=== PATIENT | female | born 1945 | race Caucasian/White ===

== ENCOUNTER → 2023-09-26 | Outpatient (CLI) | payer MEDICARE, BC, SELFPAY ==
--- NOTE | 2023-09-26 14:46 | VDLE_ITS ---
Reason For Study: Rt Leg Swelling RIGHT LEFT GSV is normal. CFV is compressible, spontaneous, phasic, CFV is compressible, spontaneous, phasic, competent, and demonstrates normal competent and demonstrates normal augmentation. augmentation. FV is compressible, spontaneous, phasic, competent and demonstrates normal augmentation. POP V is compressible, spontaneous, phasic, competent and demonstrates normal augmentation. T/P Trunk is compressible. PTV is compressible. RT PerV is compressible. Procedure This is a venous duplex using B-mode, color flow and spectral Doppler. Exam performed in department. A preliminary report was called and/or faxed to Dr. Yu. VL/Venous Duplex US, Unilateral Interpretation Summary Deep veins of the right lower extremity are patent and compressible segmentally . There is no evidence of right lower extremity deep vein thrombosis. The right great sapheno us vein appears patent and compressible segmentally. Ordering Physician: Yolis Yu Referring Physician: Yolis Yu Performed By: Mary Lou Borwning RDCS, RVT
== END | disposition home or self-care (01) ==
LOC: CVS 14:42
PROVIDERS: Referring Provider Internal Medicine; Visit Provider Internal Medicine
DX: M79.89 Other specified soft tissue disorders (principal)
CPT/HCPCS: 93971

== ENCOUNTER 2023-11-16 12:29 | Emergency (ER) | payer MEDICARE, BC, SELFPAY ==
[2023-11-16 12:29] VITALS: BP 135/68; PULSE 62; RESP 19; TEMP 36.1; O2SAT 99
--- NOTE | 2023-11-16 13:40 | EKG12_ITS ---
Test Reason : FALL Blood Pressure : / mmHG Vent. Rate : 064 BPM Atrial Rate : 064 BPM P-R Int : 168 ms QRS Dur : 174 ms QT Int : 496 ms P-R-T Axes : 044 -21 117 degrees QTc Int : 511 ms Normal sinus rhythm Left bundle branch block Abnormal ECG Confirmed by JOANN QUEEN, TATE ([id number]), editorial intern PERFECTO BALLARD ([id number]) on 11/21/2023 8:41:35 AM Referred By: AR Confirmed By:CAROLYN DAVID MD
--- NOTE | 2023-11-16 13:40 | CT_ITS ---
STUDY: CT CHEST WITHOUT CONTRAST REASON FOR EXAM: Female, 78 years old. left rib pain following a fall. RADIATION DOSAGE (If Supplied By Facility): CTDIvol = ( 11.52 ) mGy, DLP = ( 423.05 ) mGycm TECHNIQUE: Transaxial imaging was performed without the administration of intravenous contrast material. Multiplanar coronal and sagittal images were reformatted. Individualized dose optimization techniques were used for this CT. COMPARISON: No relevant priors. FINDINGS: CHEST Minimal degree of increased linear markings at the lung bases suggestive of a linear atelectasis and/or scarring. There is no demonstrated pleural abnormality. A left-sided dual-chamber pacemaker is seen. There are calcifications of the coronary arteries. Normal mediastinum. Normal hilar regions. Normal unenhanced pulmonary arteries. There is atherosclerotic calcification of the aortic arch. There are multi-level degenerative changes of the thoracic spine. Gallstones. Small hiatal hernia. CT/Chest without Contrast IMPRESSION: Mild degree of increased markings at the lung bases suggestive of scarring. No fracture is seen. Electronically Signed: Ryan Green MD at 14:51 EDT ,
--- NOTE | 2023-11-16 13:41 | ED.VIS.FALL ---
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 She states she was getting outpatient testing such as ultrasound and mammogram. She stopped a central registration, lost her balance, and fell onto her left side. She needed help getting up. She denies any prodromal chest pain or shortness of breath, but now has left-sided anterior rib pain that is worse with movement. While she hit her left elbow and her left knee, she was able to stand and ambulate and she is able to move her elbow without pain. She states that she had episodes like this where she would fall prior to getting her pacemaker. She has not had problems since. She denies any head injury, no other injury except for left-sided rib pain. She states that she splits her time between here and [place]. She lived here until about 2015 when she moved and now she splits time to come back and visit family. She sees Dr. Yu when she is here in the area who had ordered her outpatient testing. PFSH [facility] Home Medications ?Medication ?Instructions ?Recorded ?Last Taken ?Type elahqojxqoxuxr-bkoxeusjmuc-gxxshfqfucsm 1 ea PO 02/20/13 04/09/13 History calc. 600 mg-2 mg-6 mg tablet (Metafolbic Plus) amlodipine 5 mg tablet 5 mg PO DAILY 02/20/13 04/09/13 History aspirin 81 mg chewable tablet 81 mg PO DAILY@0800 02/20/13 01/12/14 History lisinopril 20 mg tablet 20 mg PO BID 02/20/13 01/12/14 History docosahexaenoic acid 200 mg 100 mg PO DAILY 03/07/13 04/09/13 History capsule (Algal [place]-3 DHA) ergocalciferol (vitamin D2) 10 mcg 1 unit PO DAILY 03/07/13 Unknown History (400 unit) tablet flaxseed oil 1,300 mg-omega 3,6,9 1 ea PO DAILY 03/07/13 Unknown History 845 mg-117 mg-117 mg capsule vitamin B complex 1 ea PO DAILY 03/07/13 04/09/13 History amlodipine 5 mg tablet 5 mg PO DAILY 04/09/13 01/12/14 History carvedilol 6.25 mg tablet 6.25 mg PO BID 04/09/13 01/12/14 History clopidogrel 75 mg tablet 75 mg PO DAILY 04/09/13 01/12/14 History simvastatin 40 mg tablet 40 mg PO QHS 01/14/14 Unknown History Allergy/AdvReac Type Severity Reaction Status Date / Time hydrochlorothiazide Allergy Unknown Verified 03/07/13 13:27 sulfamethoxazole (From Allergy Hives Verified 02/20/13 13:52 Bactrim) trimethoprim (From Bactrim) Allergy Hives Verified 02/20/13 13:52 Social History Smoking Status: Never smoker ROS ROS ED ROS Narrative Constitutional: No fever, no chills. HEENT: No sore throat. No neck pain. No loss of vision. No rhinorrhea. No hitting of head or loss of consciousness. Cardiovascular: Left-sided anterior to lateral rib pain/chest pain. No palpitations. No pedal edema. Respiratory: No cough, no shortness of breath. Abdominal: No abdominal pain. No nausea. No vomiting. Genitourinary: No dysuria. No hematuria. Musculoskeletal: No myalgias. Hit left elbow and left knee, but no pain currently. Neurologic: No headaches. No dizziness. No lightheadedness. No syncope. Skin: No rash. No change in color. Psychiatric: No depression. No anxiety. EXAM Physical Exam Narrative Exam Narrative: GCS 15. ABCs are intact. Head is normocephalic and atraumatic. PERRL, EOMI. Neck soft and supple without vertebral point tenderness or bony step-off. Cardiovascular examination reveals a regular rate and rhythm. Lungs are clear to auscultation bilaterally. There is mild tenderness to palpation on the left lower anterior to lateral ribs, no crepitance. Abdomen is soft and nontender with normoactive bowel sounds. Musculoskeletal examination reveals no radial head tenderness on the left, flexion extension and pronation and supination of left elbow intact. No noted injury or dislocation. Left knee has flexion and and extension mechanism intact as well. Palpable dorsalis pedis pulse distally. Const Vital Signs: 11/16/23 12:29 11/16/23 14:29 11/16/23 14:51 Temperature 97.0 F L 97.5 F L Temperature Source Temporal Oral Pulse Rate 62 63 Respiratory Rate 19 H 19 H Respiratory Effort Normal Non-Labored Respiratory Depth Normal Respiratory Pattern Normal Blood Pressure 135/68 H 127/66 H Blood Pressure Mean 90 86 Pulse Ox 99 97 97 Oxygen Delivery Method Room Air Room Air Room Air MDM MDM MDM Narrative Medical decision making narrative: Differential diagnosis includes but not limited to dysrhythmia causing fall, but the patient does have a pacemaker in place. The pacemaker will be interrogated. EKG was obtained and interpreted by myself independently as normal sinus rhythm at 64 bpm without ectopy or acute ST changes. There is noted left bundle branch block. With concern for rib fracture, CT of the thorax will be obtained to rule out rib fracture, and pneumothorax. I discussed x-rays with her of the elbow and the knee, but she has no pain and she has full range of motion. I will also obtain baseline laboratories including CBC and CMP. I reviewed her laboratory work and she has normal white count of 6.2 with hemoglobin normal at 12.9, hematocrit 37.9, platelet count normal at 224. Electrolyte panel was grossly unremarkable with a normal sodium of 137 and potassium normal at 3.9, glucose is elevated at 109 with anion gap low at 3. AST is low at 13 which I think is nonspecific, normal alk phos of 115. I reviewed the radiology report of the CT of the chest which shows no evidence of rib fracture or pneumothorax. At this point in time, I feel she has more of a contusion of her rib. I did offer her Tylenol but she declined. I discussed the patient with the pacemaker outbound telemarketing representative after interrogation, and there have been no significant events today that would have caused her fall. She will be discharged to follow-up with her stewardesses teacher in [place] and her primary care physician here as well. Return instructions to the emergency department were reviewed. Disposition is discharged home, in stable condition. History & Record Review Discussion w/independent historian: Patient Additional record(s) reviewed:: Prior ED visit (Noncontributory to current chief complaint) Lab Data Attestation: I reviewed the patient's lab results. Labs: Laboratory Results - last 24 hr 11/16/23 13:50 WBC 6.2 RBC 3.99 L Hgb 12.9 Hct 37.9 MCV 95.0 MCH 32.3 H MCHC 34.0 RDW Std Deviation 41.2 RDW Coeff of Marie 11.9 Plt Count 224 MPV 9.3 Immature Gran % (Auto) 0.600 Neut % (Auto) 64.5 Lymph % (Auto) 24.4 [place] % (Auto) 7.9 Eos % (Auto) 1.8 Baso % (Auto) 0.8 Absolute Neuts (auto) 4.0 Absolute Lymphs (auto) 1.51 Nucleated RBC % 0 Sodium 137 Potassium 3.9 Chloride 104 Carbon Dioxide 30.0 Anion Gap 3 L BUN 12 Creatinine 0.54 L Est GFR (MDRD) Af Amer 142 Est GFR (MDRD) Non-Af 117 BUN/Creatinine Ratio 22.4 H Glucose 109 H Calcium 9.8 Total Bilirubin 0.30 AST 13 L ALT 24 Alkaline Phosphatase 115 Total Protein 7.0 Albumin 3.8 Globulin 3.2 Albumin/Globulin Ratio 1.2 Radiography Diagnostic Testing: Clinical Impression(s) from Imaging Studies Chest CT 11/16/23 13:40 IMPRESSION: Mild degree of increased markings at the lung bases suggestive of scarring. No fracture is seen. Electronically Signed: Ryan Green MD at 14:51 EDT , Discharge Plan Triage Chief Complaint: Fall ED Provider: Jesus Ross Dx/Rx/DC Orders Clinical Impression: Fall, Contusion of rib on left side, Pacemaker Instructions: ED Chest Wall Contusion, ED Fall with Uncertain Cause Prescriptions: No Action lisinopril 20 MG tablet 20 mg PO BID Patient Comments: BLOOD PRESSURE/HEART amlodipine 5 MG tablet 5 mg PO DAILY Patient Comments: BLOOD PRESSURE/HEART yfugryoxjw-ekmrgfb-P-mefolate [Metafolbic Plus] 1 EACH tablet 1 ea PO Patient Comments: SUPPLEMENT aspirin 81 MG tablet,chewable 81 mg PO DAILY@0800 Patient Comments: ANTIPLATELET docosahexaenoic acid [Algal [place]-3 DHA] 200 MG capsule 100 mg PO DAILY Patient Comments: SUPPLEMENT ergocalciferol (vitamin D2) 400 UNIT tablet 1 unit PO DAILY Patient Comments: VITAMIN vitamin B complex 1 EACH capsule 1 ea PO DAILY Patient Comments: VITAMIN flaxseed oil-omega 3,6,9 1 EACH capsule 1 ea PO DAILY carvedilol 6.25 MG tablet 6.25 mg PO BID Patient Comments: HEART/BLOOD PRESSURE clopidogrel 75 MG tablet 75 mg PO DAILY Patient Comments: ANTIPLATELET amlodipine 5 MG tablet 5 mg PO DAILY Patient Comments: HEART/BLOOD PRESSURE simvastatin 40 MG tablet 40 mg PO QHS Primary Care Provider: Yolis Yu Referrals: Yolis Yu, [Primary Care Provider] - 1-2 Days if not improving Activity Restrictions/Additional Instructions: Take Tylenol as needed for pain. Return with increased difficulty breathing, new or worsening symptoms. Print Language: Kiswahili Disposition Disposition: Home, Self Care
[2023-11-16 13:58] LABS: Absolute Lymphocyte Count 1.51 X10^3/uL (0.83-4.51); Basophil# 0.05 X10^3/uL; Basophil% 0.8 % (0-1); Eosinophil# 0.11 X10^3/uL; Eosinophils% 1.8 % (0-5); Hematocrit 37.9 % (37-47); Hemoglobin 12.9 g/dL (12.0-15.0); Lymphocyte # 1.51 X10^3/ul (0.83-4.51); Lymphocyte % 24.4 % (19-41); Mean Corpuscular Hgb 32.3 pg (27.0-32.0); Mean Platelet Vol. 9.3 fl (6.2-12.0); Monocyte# 0.49 X10^3/uL; Monocyte% 7.9 % (0-10); NRBC Flagged by Analyzer 0 % (0-5); Neutrophil # 3.99 X10^3/uL (2.7-7.7); Neutrophil % 64.5 % (47-70); Platelet Count 224 K/mm3 (150-450); RBC Distribution Width CV 11.9 % (11.6-14.6); RBC Distribution Width SD 41.2 fl (35.1-43.9); Red Blood Count 3.99 M/mm3 (4.2-5.4); White Blood Count 6.2 K/mm3 (4.4-11.0)
[2023-11-16 14:18] LABS: ALB/GLOB Ratio 1.2 RATIO (0.9-2.4); AST(SGOT) 13 U/L (15-37); Alanine Aminotransfer ALT/SGPT 24 U/L (13-56); Albumin, Serum 3.8 g/dL (3.2-5.0); Alkaline Phosphatase 115 U/L (45-117); Anion Gap 3 (5-15); BUN 12 mg/dL (7-18); BUN/Creat Ratio 22.4 RATIO (10-20); Calcium,Total 9.8 mg/dL (8.5-10.1); Chloride 104 mmol/L (98-107); Creatinine, Serum 0.54 mg/dL (0.55-1.02); EST Glomerular Filtration Rate 117 mL/min (>60); Est Glom Filt Rate - Afr Amer 142 mL/min (>60); Globulin 3.2 g/dL (2.2-4.2); Glucose 109 mg/dL (74-106); Potassium 3.9 mmol/L (3.5-5.1); Sodium Level 137 mmol/L (136-145)
[2023-11-16 14:29] VITALS: BP 127/66; PULSE 63; RESP 19; TEMP 36.4; O2SAT 97
[2023-11-16 14:51] VITALS: O2SAT 97
[2023-11-16 15:41] VITALS: BP 124/70; PULSE 61; RESP 16; TEMP 36.7; O2SAT 100
== END 2023-11-16 15:42 | disposition home or self-care (01) ==
PROVIDERS: Emergency Provider Emergency Medicine; PCP Internal Medicine; Visit Provider Emergency Medicine
DX: S20.212A Contusion of left front wall of thorax, initial encounter (principal); W01.0XXA Fall on same level from slipping, tripping and stumbling without subsequent striking against object, initial encounter; Y93.89 Activity, other specified; Y92.238 Other place in hospital as the place of occurrence of the external cause; Z95.0 Presence of cardiac pacemaker; I65.23 Occlusion and stenosis of bilateral carotid arteries; K76.0 Fatty (change of) liver, not elsewhere classified; Z12.31 Encounter for screening mammogram for malignant neoplasm of breast
CPT/HCPCS: 71250; 76705; 77063; 77067; 80053; 85025; 93005; 93880; 99282; A4216

== ENCOUNTER → 2023-11-16 | Outpatient (CLI) | payer MEDICARE, BC, SELFPAY ==
--- NOTE | 2023-11-16 10:00 | US_ITS ---
STUDY: ABDOMINAL ULTRASOUND - RIGHT UPPER QUADRANT REASON FOR VISIT: Female, 78 years old FATTY LIVER TECHNIQUE: Ultrasound evaluation of the right upper quadrant was performed with real-time and static fajardo-scale imaging. TECHNICAL QUALITY: Adequate. COMPARISON: Comparison is made with prior study dated March 01, 2013. FINDINGS: Liver: The liver measures 14.5 cm. There is increased echogenicity consistent with fatty infiltration. The bile ducts are within normal limits. There is hepatic color flow. The direction of portal flow is hepatopetal. There is no demonstrated mass lesion. Gallbladder: Normal distended gallbladder. The gallbladder wall measures 1.1 mm. There is a negative sonographic Mclaughlin''s sign. There is no pericholecystic fluid. There are multiple echogenic structures within the gallbladder, consistent with multiple gallstones. Common Bile Duct (C.B.D.): The common bile duct measures 3.4 mm. Pancreas: Normal size of the head, body and tail of the pancreas. There is increased echogenicity of the pancreas. 2 simple cysts are seen. The larger cyst measures 1.2 cm x 0.8 cm x 0.5 cm. Right Kidney: Normal size of the right kidney. The right kidney measures 9.8 cm x 5.3 cm x 4.5 cm. Normal renal cortex. The right cortex measures 1 cm. There is a 6 mm x 6 mm x 5.5 mm cyst in the inferior pole. There is no right hydronephrosis. US/Abdomen Limited IMPRESSION: Fatty infiltration of the liver. Small pancreatic cysts. Multiple gallstones. Electronically Signed: Ryan Green MD at 12:34 EDT ,
--- NOTE | 2023-11-16 10:01 | CDU_ITS ---
Reason For Study: Carotid Stenosis Rt. Velocities/BP Lt. Velocities/BP Prox CCA 60.1/10.2 cm/sec. Prox CCA 86.3/17.6 cm/sec. Mid CCA 59.3/14.8 cm/sec. Mid CCA 83.9/16.3 cm/sec. Dist CCA 60.7/17.3 cm/sec. Dist CCA 59.3/21.2 cm/sec. Prox ICA 40.1/11.0 cm/sec. Prox ICA 54.4/16.3 cm/sec. Mid ICA 70.5/18.4 cm/sec. Mid ICA 75.5/27.5 cm/sec. Dist ICA 71.4/14.5 cm/sec. Dist ICA 62.6/21.1 cm/sec. Rt. ICA/CCA = 1.20. Lt. ICA/CCA = 0.90. Prox ECA 93.9/12.3 cm/sec. Prox ECA 69.1/5.6 cm/sec. Rt. Vert. 50.7/14.4 cm/sec. Lt. Vert. 16.3/0.0 cm/sec. Right Extracranial There is homogeneous, smooth atherosclerotic plaque noted in the right common carotid artery. There is heterogeneous, irregular atherosclerotic plaque noted in the right internal carotid artery. There is homogeneous, smooth atherosclerotic plaque noted in the right external carotid artery. Antegrade flow is noted in the right vertebral artery. Left Extracranial There is intimal thickening but no significant atherosclerotic plaque noted in the left common carotid artery. There is heterogeneous, irregular atherosclerotic plaque noted in the left internal carotid artery. There is homogeneous, smooth atherosclerotic plaque noted in the left external carotid artery. Antegrade flow is noted in the left vertebral artery. Procedure Carotid Duplex [id number]. This is a Carotid Duplex examination using B-mode, color flow and specral Doppler. Exam performed in department. VL/Carotid Duplex Ultrasound Interpretation Summary Mild (<50%) stenosis right extracranial internal carotid. Mild (<50%) stenosis left extracranial internal carotid. Patent and antegrade vertebrals bilaterally. Ordering Physician: Yolis Yu Referring Physician: Yolis Yu Performed By: Gabi Goodman RVT, RDCS and Student
--- NOTE | 2023-11-16 12:02 | BI_ITS ---
MAMMOGRAPHY - BILATERAL SCREENING REASON FOR EXAM: Female, 78 years old. Routine annual screening examination. PERTINENT HISTORY: Non-contributory. TECHNIQUE: Digital bilateral breast antonio (3D mammographic acquisition) in the CC and MLO projections. 2-D mediolateral oblique (MLO) and craniocaudad (CC) views of both breasts were obtained. CAD: Full Field Digital Mammography with Computer Added Detection was performed. COMPARISON: Comparison is made with prior outside examination dated June 22, 2022. FINDINGS: Breast Composition: There are scattered areas of fibroglandular density. There are no dominant masses or suspicious calcifications. Stable 1.1 cm x 1.9 cm heterogeneous nodule containing fat in the the upper lateral aspect of the right breast. This may represent an hamartoma. No other significant abnormalities are identified. There has been no significant change since the prior study. BI/SCRN MAMM (CAD)W/ANTONIO BILAT IMPRESSION: Stable bilateral screening mammogram. Yearly follow-up mammogram recommended. (A) ASSESSMENT CATEGORY: Approximately 10% of breast cancers are not detected by mammography. A normal mammogram should not delay biopsy of a clinically suspicious abnormality. [id number] Electronically Signed: Ryan Green MD at 9:35 EDT ,
== END | disposition home or self-care (01) ==
PROVIDERS: PCP Internal Medicine; Referring Provider Internal Medicine; Visit Provider Internal Medicine
DX: I65.23 Occlusion and stenosis of bilateral carotid arteries (principal); K76.0 Fatty (change of) liver, not elsewhere classified; Z12.31 Encounter for screening mammogram for malignant neoplasm of breast
CPT/HCPCS: 76705; 77063; 77067; 93880

== ENCOUNTER 2024-05-08 16:00 | Inpatient (IN) | payer MEDICARE, BC, SELFPAY ==
[2024-05-08 16:01] VITALS: BP 152/84; PULSE 94; RESP 18; TEMP 37.1; O2SAT 100; BMI 26.2
[2024-05-08 16:42] LABS: Absolute Lymphocyte Count 1.51 X10^3/uL (0.83-4.51); Absolute Neutrophil Count 14.8 X10^3/uL (2.0-7.7); Basophil# 0.07 X10^3/uL; Basophil% 0.4 % (0-1); Eosinophil# 0.02 X10^3/uL; Eosinophils% 0.1 % (0-5); Hemoglobin 13.2 g/dL (12.0-15.0); Lymphocyte # 1.51 X10^3/ul (0.83-4.51); Lymphocyte % 8.4 % (19-41); Mean Corp Hgb Conc 34.7 g/dL (32-36); Mean Corpuscular Hgb 31.8 pg (27.0-32.0); Mean Corpuscular Volume 91.6 fL (81-99); Mean Platelet Vol. 8.7 fl (6.2-12.0); Monocyte# 1.41 X10^3/uL; Monocyte% 7.9 % (0-10); NRBC Flagged by Analyzer 0 % (0-5); Neutrophil # 14.84 X10^3/uL (2.7-7.7); Neutrophil % 82.6 % (47-70); Platelet Count 266 K/mm3 (150-450); RBC Distribution Width CV 12.7 % (11.6-14.6); RBC Distribution Width SD 42.2 fl (35.1-43.9); Red Blood Count 4.15 M/mm3 (4.2-5.4)
--- NOTE | 2024-05-08 16:56 | EDS_ITS ---
HPI History of Present Illness Chief Complaint: Abd Pain Informant: patient and family Narrative Narrative: 78-year-old female presenting to the emergency room for abdominal pain. Patient states for the past 3 days she has had pain particularly at night in the right lower aspect of her abdomen. She states that today she has not had which of an appetite but did have some water. She notes she has been having bowel movements. No vomiting. She notes she has had a hysterectomy but denies any other surgeries. She notes a history of gallstones but denies prior cholecystectomy. she notes subjective fever. She notes that her abdomen feels bloated. Today the abdomen is been hurting consistently throughout the day. Pain is nonradiating. [facility] Medical History (Updated 05/08/24 @ 21:[address] Cristobal Villalta MD) Pacemaker (06/10/23) Anemia Thyroid nodule Type 2 diabetes mellitus without complications Hyponatremia Anxiety KEVIN (obstructive sleep apnea) Second degree AV block LBBB (left bundle branch block) Carotid stenosis Fatty liver Gallstones Osteoporosis Paresthesia Memory loss HTN (hypertension) Chest pain CAD (coronary artery disease) Home Medications ?Medication ?Instructions ?Recorded ?Last Taken ?Type aspirin 81 mg chewable tablet 81 mg PO DAILY@0800 02/20/13 01/12/14 History carvedilol 6.25 mg tablet 6.25 mg PO BID 04/09/13 01/12/14 History cholecalciferol (vitamin D3) 25 25 mcg PO QDAY 01/16/24 Unknown History mcg (1,000 unit) capsule ezetimibe 10 mg tablet 10 mg PO DAILY 01/16/24 Unknown History telmisartan 80 mg tablet 80 mg PO DAILY 01/16/24 Unknown History amlodipine 5 mg tablet 5 mg PO DAILY 05/08/24 Unknown History flaxseed oil-omega 3,6,9-fatty 1 cap PO DAILY 05/08/24 Unknown History acids 1,300 mg-670 mg-155 mg capsule Allergy/AdvReac Type Severity Reaction Status Date / Time hydrochlorothiazide Allergy Unknown Verified 05/08/24 16:01 sulfamethoxazole (From Allergy Hives Verified 05/08/24 16:01 Bactrim) trimethoprim (From Bactrim) Allergy Hives Verified 05/08/24 16:01 atorvastatin (From Lipitor) AdvReac Severe myalgia Verified 05/08/24 16:01 meloxicam AdvReac Severe Dizziness Verified 05/08/24 16:01 Family History no significant family his Surgical History (Updated 05/08/24 @ 17:[address] David Cornell DO) H/O: hysterectomy Social History Smoking Status: Never smoker alcohol intake: never substance use type: does not use ROS ROS ED Constitutional Constitutional ED: Reports fever(s) and subjective; Denies chills or weight loss Eyes Eyes: Denies change in vision or diplopia ENT ENT ED: Denies ear pain, rhinorrhea or sore throat Cardiovascular Cardiovascular: Denies chest pain, orthopnea, palpitations or racing heartbeat Respiratory/Chest Respiratory/Chest: Denies cough, dyspnea or orthopnea Gastrointestinal Gastrointestinal: Reports other Details: Anorexia ; Denies constipation, diarrhea, nausea or vomiting Genitourinary Genitourinary ED: Denies dysuria, hematuria or urinary frequency Musculoskeletal Musculoskeletal: Denies arthralgias or myalgias Integumentary Denies abscess or rash Neurologic Neurologic: Denies headache(s) or weakness Psychiatric Psychiatric: Denies anxiety, depression, suicidal ideation or suicidal thoughts Endocrine Endocrinology: Denies polydipsia, polyphagia or polyuria Allergic/Immunologic Allergic/Immunologic ED: Denies mouth swelling, tongue swelling or urticaria EXAM Physical Exam Const Vital Signs: 05/08/24 16:01 05/08/24 18:01 05/08/24 20:00 Temperature 98.7 F Temperature Source Oral Pulse Rate 94 98 97 Respiratory Rate 18 16 18 Blood Pressure 152/84 H 140/75 H 145/77 H Blood Pressure Mean 106 96 99 Pulse Ox 100 99 98 Oxygen Delivery Method Room Air Room Air 05/08/24 22:00 Temperature Temperature Source Pulse Rate 89 Respiratory Rate 18 Blood Pressure 125/61 H Blood Pressure Mean 82 Pulse Ox 97 Oxygen Delivery Method Room Air Positive well nourished and well developed General Appearance ED: well developed and NAD HEENT Reports normocephalic, head/scalp atraumatic and moist mucous membranes Eyes PERRL and EOMs intact bilaterally Neck no lymphadenopathy, supple and no JVD Resp normal respiratory effort and clear to auscultation bilaterally Cardio regular rate, regular rhythm and no murmurs GI Inspection: abdominal distention Auscultation: hypoactive bowel sounds Palpation: soft and tender RLQ; Negative for guarding or rebound tenderness present Back/Spine no CVA tenderness and normal ROM Extremity normal to inspection General Extremety ED: Negative for edema General Extremity: Negative for edema Neuro oriented x3 and CN's II-XII intact bilaterally Sensorium / Orientation: alert Motor Exam: strength 5/5 throughout Psych mental status grossly normal Mood & Affect: Negative for depressed or tearful Skin no rashes or lesions noted and no wounds MDM MDM MDM Narrative Medical decision making narrative: Differential diagnosis includes but not limited to appendicitis cholecystitis small bowel obstruction colitis ileus diverticulitis pancreatitis Patient's white count is 18. Glucose 104 normal LFTs lipase 44 urinalysis with 10-25 white cells 1+ bacteria 5-10 red cells negative nitrates this will be sent for culture. CT of the abdomen pelvis was obtained read by radiology reviewed by myself. This was performed with IV contrast only. I spoke with Dr. Villalta who came to the emergency department. He spoke with the radiologist and they feel that they cannot see the appendix in a different location that this is most likely not appendicitis. Dr. Villalta however would like a CT with oral contrast to get a better evaluation of the inflammatory process. This was obtained but the contrast did not reach the area yet. We are going to do a delayed scan about 1 hour after the second 1. Patient will receive a dose of Zosyn. Care of the patient will be turned over to the night doctor for recheck of the CT History & Record Review Discussion w/independent historian: Patient and Family Lab Data Attestation: I reviewed the patient's lab results. Labs: Laboratory Results - last 24 hr 05/08/24 05/08/24 16:24 17:00 WBC 18.0 H RBC 4.15 L Hgb 13.2 Hct 38.0 MCV 91.6 MCH 31.8 MCHC 34.7 RDW Std Deviation 42.2 RDW Coeff of Marie 12.7 Plt Count 266 MPV 8.7 Immature Gran % (Auto) 0.600 Neut % (Auto) 82.6 H Lymph % (Auto) 8.4 L Wood % (Auto) 7.9 Eos % (Auto) 0.1 Baso % (Auto) 0.4 Absolute Neuts (auto) 14.8 H Absolute Lymphs (auto) 1.51 Nucleated RBC % 0 Sodium 133 L Potassium 4.0 Chloride 104 Carbon Dioxide 24.0 Anion Gap 5 BUN 15 Creatinine 0.62 Estim Creat Clear Calc 53.40 Est GFR (MDRD) Af Amer 118 Est GFR (MDRD) Non-Af 98 BUN/Creatinine Ratio 24.0 H Glucose 104 Calcium 9.9 Total Bilirubin 0.50 AST 13 L ALT 25 Alkaline Phosphatase 97 Total Protein 7.4 Albumin 3.8 Globulin 3.6 Albumin/Globulin Ratio 1.1 Lipase 44 Urine Color Yellow Urine Clarity Sl. Cloudy Urine pH 5.0 Ur Specific Harvey 1.020 Urine Protein 15 H Urine Glucose (UA) Normal Urine Ketones Negative Urine Occult Blood 50 H Urine Nitrite Negative Urine Bilirubin Negative Urine Urobilinogen Normal Ur Leukocyte Esterase 500 H Urine RBC 5-10 SEEN Urine WBC 10-25 SEEN Ur Squamous Epith Cells 0-5 SEEN Urine Bacteria 1+ Urine Mucus 0 SEEN Radiography Diagnostic Testing: Clinical Impression(s) from Imaging Studies Abdomen/Pelvis CT 05/08/24 17:05 IMPRESSION: Inflammatory mass in the right lower quadrant, measurements documented above. These findings are concerning for suppurative appendicitis. Cholelithiasis. Bilateral nonobstructing nephrolithiasis. Left adrenal gland thickening. Stationary hiatal hernia. Other nonacute findings detailed above. One or more dose reduction techniques were used (e.g., Automated exposure control, adjustment of the mA and/or kV according to patient size, use of iterative reconstruction technique). Reading Location: [facility] Management Discussion w/another healthcare provider: Corporate Accounting Manager (Dr. Villalta) Discharge Plan Triage Chief Complaint: Abd Pain ED Provider: David Cornell Dx/Rx/DC Orders Prescriptions: No Action ezetimibe 10 mg tablet 10 mg PO DAILY telmisartan 80 mg tablet 80 mg PO DAILY cholecalciferol (vitamin D3) 25 mcg (1,000 unit) capsule 25 mcg PO QDAY aspirin 81 MG tablet,chewable 81 mg PO DAILY@0800 Patient Comments: ANTIPLATELET carvedilol 6.25 MG tablet 6.25 mg PO BID Patient Comments: HEART/BLOOD PRESSURE amlodipine 5 mg tablet 5 mg PO DAILY flaxseed-omega3,6,9-fatty acid 1,300-670-155 mg capsule 1 cap PO DAILY Primary Care Provider: Yolis Yu Referrals: Yolis Yu DO [Primary Care Provider] - Print Language: Divehi
[2024-05-08 17:00] LABS: ALB/GLOB Ratio 1.1 RATIO (0.9-2.4); AST(SGOT) 13 U/L (15-37); Alanine Aminotransfer ALT/SGPT 25 U/L (13-56); Albumin, Serum 3.8 g/dL (3.2-5.0); Alkaline Phosphatase 97 U/L (45-117); Anion Gap 5 (5-15); BUN 15 mg/dL (7-18); Calcium,Total 9.9 mg/dL (8.5-10.1); Chloride 104 mmol/L (98-107); Creatinine, Serum 0.62 mg/dL (0.55-1.02); EST Glomerular Filtration Rate 98 mL/min (>60); Est Glom Filt Rate - Afr Amer 118 mL/min (>60); Globulin 3.6 g/dL (2.2-4.2); Glucose 104 mg/dL (74-106); Protein, Total 7.4 g/dL (6.4-8.2); Sodium Level 133 mmol/L (136-145)
--- NOTE | 2024-05-08 17:05 | CT_ITS ---
PROCEDURE: ABDOMEN/PELVIS W IV CONT ONLY REASON FOR EXAM: Right lower quadrant pain for 3 days. Nausea. Lack of appetite. Diabetes. Hypertension. Status p ost cholecystectomy. TECHNIQUE: Abdomen and pelvis CT with intravenous contrast. IV CONTRAST: Isovue-300, 79 mL. COMPARISON: None. FINDINGS: Lung bases: Clear Liver: Unremarkable. Gallbladder: Calcified gallstones in the neck. No wall thickening or pericholecystic edema are demon strated. Spleen: Normal in size. Atherosclerotic vascular calcifications in the hilum. Pancreas: No masses. Atherosclerotic calcifications of the splenic artery. Adrenals: Left adrenal gland thickening. Kidneys: Bilateral renal vascular calcifications. Nonobstructing bilateral nephrolithiasis. Bladder: Markedly decompressed. Reproductive Organs: Unremarkable. Bowel: Fecal debris throughout the colon. Small stationary hiatal hernia. Large inflamed Appendix: Inflammatory mass in the right lower quadrant measuring 6.6 x 3.2 x 3.4 cm. Fat stranding is noted in the peritoneal fat surrounding this area. Lymph nodes: No suspicious lymph node enlargement. Vasculature: Atherosclerotic calcific changes of the aorta. Phleboliths in the pelvis Peritoneum / Retroperitoneum: No ascites. No free air. Bones: Mild grade 1 anterolisthesis, L4 on L5. Mild multilevel spondylosis and degenerative disc dis ease. CT/Abdomen/Pelvis W IV Cont ONLY IMPRESSION: Inflammatory mass in the right lower quadrant, measurements documented above. These findings are concerning for suppurative appendicitis. Cholelithiasis. Bilateral nonobstructing nephrolithiasis. Left adrenal gland thickening. Stationary hiatal hernia. Other nonacute findings detailed above. One or more dose reduction techniques were used (e.g., Automated exposure contr ol, adjustment of the mA and/or kV according to patient size, use of iterative reconstruction technique). Reading Location: [facility]
[2024-05-08 17:13] LABS: Mucous, Urine 0 SEEN /hpf (<or=2+)
[2024-05-08 17:18] LABS: Color, Urine Yellow (Yellow); Glucose, Dipstick Normal (Normal); Ketone-Dipstick Negative (Negative); Leukocyte Esterase-Dipstick 500 /ul (Negative); Nitrite-Dipstick Negative (Negative); Occult Blood-Urine 50 /ul (Negative); Protein-Dipstick 15 mg/dl (Negative); Urine Bilirubin Dipstick Negative (Negative); Urine Clarity Sl. Cloudy (Clear); Urine Urobilinogen Normal (Normal)
[2024-05-08 17:33] LABS: Lipase 44 U/L (13-75)
[2024-05-08 18:01] VITALS: BP 140/75; PULSE 98; RESP 16; O2SAT 99
[2024-05-08 18:37] LABS: Squamous Epithelial Cells - UA 0-5 SEEN /hpf (5-10); White Blood Cells 10-25 SEEN /hpf (0-5)
[2024-05-08 18:38] LABS: Bacteria 1+ /hpf (None Seen); Red Blood Cells-Urine 5-10 SEEN /hpf (0-5)
--- NOTE | 2024-05-08 19:50 | CT_ITS ---
PROCEDURE: ABDOMEN/PEL W ORAL CONT ONLY REASON FOR EXAM: Right lower quadrant pain for 3 days. Loss of appetite. Hysterectomy. TECHNIQUE: Abdomen and pelvis CT with oral contrast. IV CONTRAST: Previously given. COMPARISON: Earlier study dated 05/08/2024 FINDINGS: Lung bases: Unchanged Liver: Unremarkable. Gallbladder: Multiple gallstones Spleen: Unchanged Pancreas: Unchanged Adrenals: Unchanged Kidneys: Stable Bladder: Unremarkable. Reproductive Organs: Surgically absent Bowel: Elongated cecum is redemonstrated. Contrast material is noted at the tip of the cecum. Segme ntal wall thickening involving proximal segment of the cecum with mild pericecal fat stranding. Hiatal hernia. Appendix: Unremarkable Lymph nodes: No suspicious lymph node enlargement. Vasculature: Unchanged Peritoneum / Retroperitoneum: No ascites. No free air. Bones: Unchanged CT/Abdomen/Pel W ORAL Cont Only IMPRESSION: An elongated cecum is redemonstrated. Oral contrast material is noted in the distal cecum. Wall thickening and pericecal fat stranding raising concern for an inflammatory process. Cholelithiasis. No other significant changes. One or more dose reduction techniques were used (e.g., Automated exposure contr ol, adjustment of the mA and/or kV according to patient size, use of iterative reconstruction technique). Reading Location: [facility]
[2024-05-08 20:00] VITALS: BP 145/77; PULSE 97; RESP 18; O2SAT 98
--- NOTE | 2024-05-08 20:51 | CON.PCM.SX_ITS ---
Assessment & Plan Assessment/Plan (1) Abnormal CT of the abdomen: PLAN: Patient is a 78-year-old female presenting with 72 to 96 hours of consistent right lower quadrant abdominal discomfort with reportedly normal bowel function and normal p.o. intake. Initial workup of the emergency department included CBC demonstrating marked leukocytosis of 18,000 with left shift. Follow-up CT imaging of the abdomen pelvis with IV contrast was initially read as concerning for suppurative appendicitis, however, my independent review of this imaging identified that the patient had an elongated cecum with a normal?appearing appendix ascending centrally through the mesentery. After conferencing with radiology they performed an addendum of their initial read and suggested a differential instead of segmental colitis versus diverticulitis and less likely mass lesion. After discussing patient's history at bedside I would second the suspicion for segmental colitis?especially as patient reports that her colonoscopy?performed just a year and a half ago had no significant findings. I did recommend that a follow-up CT scan with oral contrast be performed to get a better idea of the colonic lumen and a sense for any mass lesions in the wall. Patient is rather minimally tender on exam (rating it just a 4 out of 10) and I believe appropriate for upfront conservative management. Would recommend continued p.o. restriction with empiric antibiotic coverage, follow-up CT imaging, and possible gastroenterology consultation. Will continue to follow. Cristobal Villalta MD General Surgery Endocrine Surgery Pager: [facility] [address] [place] [address], [address] [place] [id number] Office: [phone] (2) Colitis: HPI Consult Data Date of Consult: 05/08/24 HPI Narrative Reason for Consultation: Initial concern for appendicitis HPI Narrative: LAYLA LUIS, is a 78 F who presents to [facility] with complaints of right lower quadrant abdominal discomfort of 3 to 4 days duration. She states she initially noted that her abdominal cavity appeared swollen with fluid. She promptly denied any history of ascites. She declares that she does generally experience 1 bowel movement daily but recently has experienced several days where she has not had that bowel movement. She notes this is somewhat new from her younger years. However, she denies any observation of dark or tarry stools. Patient shares that she has religiously followed a surveillance program for her colon since the age of 50 with colonoscopy every 5 years given her family history. Her last colonoscopy was reportedly performed January 2023. Patient has recently relocated from [facility] and her colonoscopies were all performed in [place]. Mrs. Luis confirms a personal history of colonic polyps but shares that her last scope reportedly showed none. She also adds that her family history has led her to go for EGD at the time of each of her colonoscopies. Patient elaborates on her family history stating that her paternal uncle was diagnosed with colon cancer at the age of 60 while she has several maternal aunts that were diagnosed in their 60s or 70s. Beyond that she has 2 relatives?including her father who were diagnosed with esophageal cancer. Patient has no personal history of smoking but shares there was substantial secondhand exposure growing up from her father. Offhandedly patient mentions that she was told she has a cystic lesion of her liver that is benign and nothing to worry about after a workup was conducted for complaints of bloating 8 years ago. Patient's only past surgical history includes PCI of the LAD in 2012 (performed in [facility]), pacemaker implantation June 2023 (performed in [place]) and remote vaginal hysterectomy. [facility] Medical History (Updated 05/08/24 @ 21:[address] Cristobal Villalta MD) Pacemaker (06/10/23) Anemia Thyroid nodule Type 2 diabetes mellitus without complications Hyponatremia Anxiety KEVIN (obstructive sleep apnea) Second degree AV block LBBB (left bundle branch block) Carotid stenosis Fatty liver Gallstones Osteoporosis Paresthesia Memory loss HTN (hypertension) Chest pain CAD (coronary artery disease) Home Medications ?Medication ?Instructions ?Recorded ?Last Taken ?Type aspirin 81 mg chewable tablet 81 mg PO DAILY@0800 02/20/13 01/12/14 History carvedilol 6.25 mg tablet 6.25 mg PO BID 04/09/13 01/12/14 History cholecalciferol (vitamin D3) 25 25 mcg PO QDAY 01/16/24 Unknown History mcg (1,000 unit) capsule ezetimibe 10 mg tablet 10 mg PO DAILY 01/16/24 Unknown History telmisartan 80 mg tablet 80 mg PO DAILY 01/16/24 Unknown History amlodipine 5 mg tablet 5 mg PO DAILY 05/08/24 Unknown History flaxseed oil-omega 3,6,9-fatty 1 cap PO DAILY 05/08/24 Unknown History acids 1,300 mg-670 mg-155 mg capsule Allergy/AdvReac Type Severity Reaction Status Date / Time hydrochlorothiazide Allergy Unknown Verified 05/08/24 16:01 sulfamethoxazole (From Allergy Hives Verified 05/08/24 16:01 Bactrim) trimethoprim (From Bactrim) Allergy Hives Verified 05/08/24 16:01 atorvastatin (From Lipitor) AdvReac Severe myalgia Verified 05/08/24 16:01 meloxicam AdvReac Severe Dizziness Verified 05/08/24 16:01 Family History no significant family his Surgical History (Updated 05/08/24 @ 17:[address] David Cornell DO) H/O: hysterectomy Social History Smoking Status: Never smoker alcohol intake: never substance use type: does not use Physical Exam Const alert, oriented x3 and no apparent distress General Appearance: cooperative Resp normal respiratory effort GI Inspection: Negative for abdominal distention Palpation: tender RLQ; Negative for guarding, hernia or ascites Lab / Micro Data 05/08/24 16:24 05/08/24 16:24 Labs: Laboratory Results - last 24 hr 05/08/24 16:24: WBC 18.0 H, RBC 4.15 L, Hgb 13.2, Hct 38.0, MCV 91.6, MCH 31.8, MCHC 34.7, RDW Std Deviation 42.2, RDW Coeff of Marie 12.7, Plt Count 266, MPV 8.7, Immature Gran % (Auto) 0.600, Neut % (Auto) 82.6 H, Lymph % (Auto) 8.4 L, Coke % (Auto) 7.9, Eos % (Auto) 0.1, Baso % (Auto) 0.4, Absolute Neuts (auto) 14.8 H, Absolute Lymphs (auto) 1.51, Nucleated RBC % 0, Sodium 133 L, Potassium 4.0, Chloride 104, Carbon Dioxide 24.0, Anion Gap 5, BUN 15, Creatinine 0.62, Estim Creat Clear Calc 53.40, Est GFR (MDRD) Af Amer 118, Est GFR (MDRD) Non-Af 98, BUN/Creatinine Ratio 24.0 H, Glucose 104, Calcium 9.9, Total Bilirubin 0.50, AST 13 L, ALT 25, Alkaline Phosphatase 97, Total Protein 7.4, Albumin 3.8, Globulin 3.6, Albumin/Globulin Ratio 1.1, Lipase 44 05/08/24 17:00: Urine Color Yellow, Urine Clarity Sl. Cloudy, Urine pH 5.0, Ur Specific Sterling 1.020, Urine Protein 15 H, Urine Glucose (UA) Normal, Urine Ketones Negative, Urine Occult Blood 50 H, Urine Nitrite Negative, Urine Bilirubin Negative, Urine Urobilinogen Normal, Ur Leukocyte Esterase 500 H, Urine RBC 5-10 SEEN, Urine WBC 10-25 SEEN, Ur Squamous Epith Cells 0-5 SEEN, Urine Bacteria 1+, Urine Mucus 0 SEEN Imaging Radiology Impression Abdomen/Pelvis CT 05/08/24 17:05 IMPRESSION: Inflammatory mass in the right lower quadrant, measurements documented above. These findings are concerning for suppurative appendicitis. Cholelithiasis. Bilateral nonobstructing nephrolithiasis. Left adrenal gland thickening. Stationary hiatal hernia. Other nonacute findings detailed above. One or more dose reduction techniques were used (e.g., Automated exposure control, adjustment of the mA and/or kV according to patient size, use of iterative reconstruction technique). Reading Location: [facility] Charges/Coding Visit Charges Inpatient E&M: 34102 Init Hosp L2
[2024-05-08 22:00] VITALS: BP 125/61; PULSE 89; RESP 18; O2SAT 97
--- NOTE | 2024-05-08 22:43 | CT_ITS ---
PROCEDURE: ABDOMEN/PEL W ORAL CONT ONLY REASON FOR EXAM: Delayed CT with oral contrast for continued evaluation of the right lower quadrant. TECHNIQUE: Abdomen and pelvis CT with intravenous contrast. IV CONTRAST: Not given. COMPARISON: Earlier studies dated 05/08/2024. FINDINGS: Bowel: Further opacification of the ascending colon and elongated cecum with oral contrast since the earlier study. A lobulated filling defect is noted along the lateral wall of the proximal cecum, coronal image 59. This area me asures approximately 6 cm in length. Adjacent pericecal fat stranding redemonstrated. No other significant changes have occurred since the previous study. CT/Abdomen/Pel W ORAL Cont Only IMPRESSION: Oral contrast now opacifies the ascending colon and cecum with greater opacific ation of the cecum when compared to the earlier study. A lobulated filling defect is seen along the lateral wall of the proximal cecum . Can not exclude neoplastic lesion. One or more dose reduction techniques were used (e.g., Automated exposure contr ol, adjustment of the mA and/or kV according to patient size, use of iterative reconstruction technique).. Reading Location: [facility]
[2024-05-08] MEDS: Piperacil/Tazobactam 4.5 GM in 0.9% Normal Saline (100mL MB+) 100 ML IV (23:02)
[2024-05-09] VITALS (9 sets, daily range): BP systolic 114–149; BP diastolic 47–81; PULSE 72–88; RESP 16–18; TEMP 36.4–37.1; O2SAT 93–100; BMI 18.8
--- NOTE | 2024-05-09 01:15 | PCM.HP.STD ---
[facility] - General General Date of Admission: 05/09/24 Date of Service: 05/09/24 Chief Complaint: Abdominal Pain. HPI Narrative LAYLA LUIS, is a 78 F with a past medical history of essential hypertension; on amlodipine, carvedilol and telmisartan, hyperlipidemia; on ezetimibe with intolerance to statins, overweight; with BMI of 26.3 this admission, KEVIN; on CPAP, history of DM-2; with patient currently not on pharmacologic treatment, history of CAD; s/p stent (2012), history of LBBB with second-degree AV block, history of arrhythmia; s/p PPM (2023), history of carotid stenosis, history of thyroid nodule, history of hyponatremia, chronic memory impairment, chronic anemia, history of fatty liver, history of gallstones, history of hysterectomy, OA and recent bilateral cataract surgery at the beginning of this month who presents to [facility] ER complaining of abdominal pain. Ms. Luis reports her symptoms began ~3 days prior to admission with a gradual-onset of progressively worsening abdominal pain. She states the pain is focused primarily in the Right lower aspect of her abdomen and was nonradiating and initially intermittent, cramping and then became severe and persistent causing her to come to the ER for further evaluation and treatment. She informed the ER physician that she had decreased appetite but was able to drink water and was still having normal bowel movements. She states her last colonoscopy was ~18 months ago and allegedly was negative for significant acute pathologic findings. She admits to subjective fever but she denies chills, weight loss, nausea, vomiting, diarrhea, constipation, dysuria, arthralgias, myalgias, chest pain, shortness of breath or headache. In the ER she was noted to have CT evidence of a lobulated filling defect seen along the lateral wall of the proximal cecum with suspicion for neoplastic lesion in addition to segmental colitis or diverticulitis after initial suspicion of possible acute appendicitis due to pericecal fat stranding concerning for acute inflammatory process with oral contrast from CT not having reached this area at the time of the initial read with corresponding laboratory evidence of Leukocytosis of 18K present on admission (without Left-shift) complicated by urinalysis positive for evidence of Acute Cystitis; with microscopic hematuria along with suspected dehydration evidenced by elevated BUN/creatinine ratio of 24 present on admission. I personally spoke with the general surgeon about this case and his impressions of the CT findings with recommendation for gastroenterology consultation and eventual colonoscopy with biopsy to confirm suspicion of possible malignancy. She was then admitted to the general medical floor for ongoing care for stay that is expected to extend beyond 2 midnights. [facility] Medical History Pacemaker (06/10/23) Anemia Thyroid nodule Type 2 diabetes mellitus without complications Hyponatremia Anxiety KEVIN (obstructive sleep apnea) Second degree AV block LBBB (left bundle branch block) Carotid stenosis Fatty liver Gallstones Osteoporosis Paresthesia Memory loss HTN (hypertension) Chest pain CAD (coronary artery disease) Home Medications ?Medication ?Instructions ?Recorded ?Last Taken ?Type aspirin 81 mg chewable tablet 81 mg PO DAILY@0800 02/20/13 01/12/14 History carvedilol 6.25 mg tablet 6.25 mg PO BID 04/09/13 01/12/14 History cholecalciferol (vitamin D3) 25 25 mcg PO QDAY supplement 01/16/24 Unknown History mcg (1,000 unit) capsule ezetimibe 10 mg tablet 10 mg PO DAILY hld 01/16/24 Unknown History telmisartan 80 mg tablet 80 mg PO DAILY bp 01/16/24 Unknown History amlodipine 5 mg tablet 5 mg PO DAILY blood pressure 05/08/24 Unknown History flaxseed oil-omega 3,6,9-fatty 1 cap PO DAILY supplement 05/08/24 Unknown History acids 1,300 mg-670 mg-155 mg capsule Allergy/AdvReac Type Severity Reaction Status Date / Time hydrochlorothiazide Allergy Unknown Verified 05/08/24 16:01 sulfamethoxazole (From Allergy Hives Verified 05/08/24 16:01 Bactrim) trimethoprim (From Bactrim) Allergy Hives Verified 05/08/24 16:01 atorvastatin (From Lipitor) AdvReac Severe myalgia Verified 05/08/24 16:01 meloxicam AdvReac Severe Dizziness Verified 05/08/24 16:01 Family History no significant family his Surgical History H/O: hysterectomy Social History Smoking Status: Never smoker alcohol intake: never substance use type: does not use ROS ROS Narrative Review of Systems: Constitutional: Patient admits to subjective fever but denies chills or unintentional weight loss. Eyes: Patient denies changes in vision or discharge from eyes after recent cataract surgery earlier this month. ENT: Patient denies runny nose, sore throat or ear pain. Resp: Patient denies shortness of breath or cough. CV: Patient denies chest pain, palpitations, heart racing or lower extremity edema. GI: Patient admits to severe abdominal pain focused mainly in the Right lower quadrant that is nonradiating with decreased appetite as per HPI. : Patient denies dysuria, hematuria or urinary frequency. MSK: Patient denies arthralgias or myalgias. Skin: Patient denies rash, abscess, jaundice or wounds. Psych: Patient is anxious about her declining health with possible mass in cecum but she denies SI or HI. Neuro: Patient denies headache, paresthesias or focal neurologic deficits. Allergy: Patient denies lip swelling, tongue swelling or urticaria. Hematology: Patient denies easy bleeding or easy bruisability. Endocrinology: Patient denies polyuria, polydipsia or polyphagia. 14 point review of systems otherwise negative except for positives noted above in HPI. Vital Signs Vital Signs Vital Signs: 05/08/24 16:01 05/08/24 18:01 05/08/24 20:00 Temperature 98.7 F Temperature Source Oral Pulse Rate 94 98 97 Respiratory Rate 18 16 18 Blood Pressure 152/84 H 140/75 H 145/77 H Blood Pressure Mean 106 96 99 Pulse Ox 100 99 98 Oxygen Delivery Method Room Air Room Air 05/08/24 22:00 05/09/24 00:00 Temperature Temperature Source Pulse Rate 89 88 Respiratory Rate 18 16 Blood Pressure 125/61 H 134/66 H Blood Pressure Mean 82 88 Pulse Ox 97 96 Oxygen Delivery Method Room Air Room Air Weight Weight: 148 lb 6.4 oz Body Mass Index (BMI) 26.2 Physical Exam Const alert, oriented x3, no apparent distress and average body habitus General Appearance: cooperative HEENT normocephalic, head/scalp atraumatic, hearing grossly normal bilaterally and moist oral mucous membranes Eyes PERRL and EOMs intact bilaterally Neck no lymphadenopathy and supple Resp normal respiratory effort, no retractions, no use of accessory muscles and clear to auscultation bilaterally Cardio regular rate and regular rhythm GI soft to palpation GI Narrative: Abdomen is mildly tender to palpation in the right lower quadrant with mild bloating. Extremity normal to inspection, full ROM and no clubbing, cyanosis or edema Skin Skin Narrative: Patient has evidence of rash, abscess, wounds or jaundice. Neuro oriented x3, CN's II-XII intact bilaterally, moves all extremities and no focal motor deficits Sensorium / Orientation: awake, alert, oriented to person, oriented to place and oriented to time Speech: speech normal Psych Mood & Affect: anxious Results Medical Records Data Attestation: I reviewed the patient's medical records Lab / Micro Data Attestation: I reviewed the patient's lab results. 05/08/24 16:24 05/08/24 16:24 Labs: Laboratory Results - last 24 hr 05/08/24 16:24: WBC 18.0 H, RBC 4.15 L, Hgb 13.2, Hct 38.0, MCV 91.6, MCH 31.8, MCHC 34.7, RDW Std Deviation 42.2, RDW Coeff of Marie 12.7, Plt Count 266, MPV 8.7, Immature Gran % (Auto) 0.600, Neut % (Auto) 82.6 H, Lymph % (Auto) 8.4 L, [place] % (Auto) 7.9, Eos % (Auto) 0.1, Baso % (Auto) 0.4, Absolute Neuts (auto) 14.8 H, Absolute Lymphs (auto) 1.51, Nucleated RBC % 0, Sodium 133 L, Potassium 4.0, Chloride 104, Carbon Dioxide 24.0, Anion Gap 5, BUN 15, Creatinine 0.62, Estim Creat Clear Calc 53.40, Est GFR (MDRD) Af Amer 118, Est GFR (MDRD) Non-Af 98, BUN/Creatinine Ratio 24.0 H, Glucose 104, Calcium 9.9, Total Bilirubin 0.50, AST 13 L, ALT 25, Alkaline Phosphatase 97, Total Protein 7.4, Albumin 3.8, Globulin 3.6, Albumin/Globulin Ratio 1.1, Lipase 44 05/08/24 17:00: Urine Color Yellow, Urine Clarity Sl. Cloudy, Urine pH 5.0, Ur Specific [place] 1.020, Urine Protein 15 H, Urine Glucose (UA) Normal, Urine Ketones Negative, Urine Occult Blood 50 H, Urine Nitrite Negative, Urine Bilirubin Negative, Urine Urobilinogen Normal, Ur Leukocyte Esterase 500 H, Urine RBC 5-10 SEEN, Urine WBC 10-25 SEEN, Ur Squamous Epith Cells 0-5 SEEN, Urine Bacteria 1+, Urine Mucus 0 SEEN Imaging Radiology Impression Abdomen/Pelvis CT 05/08/24 17:05 IMPRESSION: Inflammatory mass in the right lower quadrant, measurements documented above. These findings are concerning for suppurative appendicitis. Cholelithiasis. Bilateral nonobstructing nephrolithiasis. Left adrenal gland thickening. Stationary hiatal hernia. Other nonacute findings detailed above. One or more dose reduction techniques were used (e.g., Automated exposure control, adjustment of the mA and/or kV according to patient size, use of iterative reconstruction technique). Reading Location: [facility] 05/08/24 19:50 IMPRESSION: An elongated cecum is redemonstrated. Oral contrast material is noted in the distal cecum. Wall thickening and pericecal fat stranding raising concern for an inflammatory process. Cholelithiasis. No other significant changes. One or more dose reduction techniques were used (e.g., Automated exposure control, adjustment of the mA and/or kV according to patient size, use of iterative reconstruction technique). Reading Location: [facility] 05/08/24 22:43 IMPRESSION: Oral contrast now opacifies the ascending colon and cecum with greater opacification of the cecum when compared to the earlier study. A lobulated filling defect is seen along the lateral wall of the proximal cecum. Can not exclude neoplastic lesion. One or more dose reduction techniques were used (e.g., Automated exposure control, adjustment of the mA and/or kV according to patient size, use of iterative reconstruction technique).. Reading Location: [facility] Assessment & Plan Assessment/Plan (1) Cecum mass: (2) Segmental colitis: QUALIFIERS: Digestive disease complication type: other complication Qualified Code(s): K50.118 - Crohn's disease of large intestine with other complication (3) Sudden onset of severe abdominal pain: (4) Acute cystitis with hematuria: (5) Dehydration: (6) Essential hypertension: PLAN: Plan 1. CT evidence of a lobulated filling defect seen along the lateral wall of the proximal cecum with suspicion for neoplastic lesion in addition to segmental colitis or diverticulitis with corresponding Leukocytosis of 18K present on admission - Admit to general medical floor. Continue empiric IV Zosyn begun in the ER. Serialize CBC daily to follow trend. Start Protonix 40 mg IV daily. Keep strict NPO. Give Zofran IV as needed for nausea and vomiting. Give morphine IV as needed for severe (level 6-10/10) pain. General surgeon's perspective and detailed communication are greatly appreciated. Finally, we will consult gastroenterology to see this patient on rounds in the a.m. for further recommendations regarding colonoscopy with biopsy with help appreciated in advance. 2. Acute Cystitis; with microscopic hematuria complicating #1 - Resume antibiotics already started for #1 and await culture and sensitivity data. 3. Dehydration evidenced by elevated BUN/creatinine ratio of 24 present on admission with the patient admitting to significantly decreased oral intake compounding #1 & #2 - Volume resuscitate and then recheck renal indices in AM to ensure improvement. 4. Essential Hypertension; on amlodipine, carvedilol and telmisartan - Hold scheduled oral antihypertensive agents. Give hydralazine IV as needed for systolic blood pressure greater than 160 mmHg 5. Hyperlipidemia; on ezetimibe with intolerance to statins - Noted. Hold ezetimibe until further notice. 6. Overweight; with BMI of 26.3 this admission - Weight loss will be recommended. Check TSH. 7. KEVIN; on CPAP - Hold nocturnal CPAP for the time being to avoid insufflation of bowels. 8. History of DM-2; with patient currently not on pharmacologic treatment - NPO for now. Check HgbA1c to confirm diabetic status. 9. History of CAD - Stable. 10. History of LBBB with second-degree AV block - Noted. 11. History of arrhythmia; s/p PPM (2023) - Stable. 12. History of carotid stenosis - Noted. 13. History of thyroid nodule - Check TSH. 14. History of hyponatremia - Noted with sodium of 133 mmol/L present on admission. 15. Chronic memory impairment - Stable. 16. Chronic anemia Stable with hemoglobin of 13.2 g/dL and MCV of 91.6 fL present on admission. 17. History of fatty liver - Noted. 18. History of gallstones - Stable. 19. History of hysterectomy - Noted for the sake of completeness. 20. OA - Stable. 21. Recent bilateral cataract surgery at the beginning of this month - Resume eyedrop regimen as previous. 22. DVT prophylaxis - SCD's only with suspected malignancy and impending colonoscopy with biopsy. Total time: Approximately (but not less than) 55 minutes. Charges/Coding Visit Charges Inpatient E&M: 64048 Init Hosp L2
[2024-05-09] MEDS: 0.9% Normal Saline (1000mL) 1,000 ML 100 ML IV (04:22)
[2024-05-09] MEDS: Pantoprazole Sodium 40 MG in 0.9% Normal Saline (100mL MB+) 100 ML 330 MG IV (04:39)
[2024-05-09] MEDS: Piperacil/Tazobactam 3.375 GM in 0.9% Normal Saline (50mL MB+) 50 ML IV ×3 (04:40→21:25)
[2024-05-09 05:43] LABS: Thyroid Stim Hormone (TSH) 0.943 uIU/mL (0.358-3.740)
[2024-05-09 05:45] LABS: Lactic Acid 0.8 mmol/L (0.4-1.9)
[2024-05-09] MEDS: Glycerin/Hypromellose/PEG400 15 ml Bottle 1 DRP EACH EYE (08:26)
[2024-05-09 09:03] LABS: Hemoglobin A1c 5.5 % (3.8-5.6)
--- NOTE | 2024-05-09 09:04 | PN.HOSP_ITS ---
Reason for Visit Reason for Visit: Abdominal pain Subjective Subjective Patient states she is feeling better today. The sharp pain is resolved and having only a dull ache in the right lower quadrant. She does understand that she needs a colonoscopy. She has obtained records from [place] and her son is going to bring them in for Dr. Van. I did discuss with her that we would start bowel prep with plan for colonoscopy likely tomorrow. Dr. Van would see her later today. Objective Data Objective Data Vital Signs: Vital Signs Temp Pulse Resp BP Pulse Ox O2 Del Method O2 Flow Rate 98.8 F 72 18 114/58 L 98 Room Air 2 05/09/24 08:17 05/09/24 08:17 05/09/24 08:17 05/09/24 08:17 05/09/24 08:17 05/09/24 08:22 05/09/24 08:17 Oxygen Flow Rate (L/min) 2 Oxygen Delivery Method Room Air Weight: 56.1 kg Body Mass Index (BMI) 18.8 Intake & Output: Intake and Output for Last 24 Hours 05/07/24 05/08/24 05/09/24 23:59 23:59 23:59 Intake Total 210 / 210 Balance 210 / 210 Lab / Micro Data 05/08/24 16:24 05/08/24 16:24 Labs: Laboratory Results - last 24 hr 05/08/24 16:24: WBC 18.0 H, RBC 4.15 L, Hgb 13.2, Hct 38.0, MCV 91.6, MCH 31.8, MCHC 34.7, RDW Std Deviation 42.2, RDW Coeff of Marie 12.7, Plt Count 266, MPV 8.7, Immature Gran % (Auto) 0.600, Neut % (Auto) 82.6 H, Lymph % (Auto) 8.4 L, [place] % (Auto) 7.9, Eos % (Auto) 0.1, Baso % (Auto) 0.4, Absolute Neuts (auto) 14.8 H, Absolute Lymphs (auto) 1.51, Nucleated RBC % 0, Sodium 133 L, Potassium 4.0, Chloride 104, Carbon Dioxide 24.0, Anion Gap 5, BUN 15, Creatinine 0.62, Estim Creat Clear Calc 53.40, Est GFR (MDRD) Af Amer 118, Est GFR (MDRD) Non-Af 98, BUN/Creatinine Ratio 24.0 H, Glucose 104, Calcium 9.9, Total Bilirubin 0.50, AST 13 L, ALT 25, Alkaline Phosphatase 97, Total Protein 7.4, Albumin 3.8, Globulin 3.6, Albumin/Globulin Ratio 1.1, Lipase 44 05/08/24 17:00: Urine Color Yellow, Urine Clarity Sl. Cloudy, Urine pH 5.0, Ur Specific [place] 1.020, Urine Protein 15 H, Urine Glucose (UA) Normal, Urine Ketones Negative, Urine Occult Blood 50 H, Urine Nitrite Negative, Urine Bilirubin Negative, Urine Urobilinogen Normal, Ur Leukocyte Esterase 500 H, Urine RBC 5-10 SEEN, Urine WBC 10-25 SEEN, Ur Squamous Epith Cells 0-5 SEEN, Urine Bacteria 1+, Urine Mucus 0 SEEN 05/09/24 05:13: Hemoglobin A1c 5.5, Lactic Acid 0.8, TSH 0.943 Radiography Diagnostic Testing: Radiology Impression Abdomen/Pelvis CT 05/08/24 17:05 IMPRESSION: Inflammatory mass in the right lower quadrant, measurements documented above. These findings are concerning for suppurative appendicitis. Cholelithiasis. Bilateral nonobstructing nephrolithiasis. Left adrenal gland thickening. Stationary hiatal hernia. Other nonacute findings detailed above. One or more dose reduction techniques were used (e.g., Automated exposure control, adjustment of the mA and/or kV according to patient size, use of iterative reconstruction technique). Reading Location: [facility] Abdomen CT 05/08/24 19:50 IMPRESSION: An elongated cecum is redemonstrated. Oral contrast material is noted in the distal cecum. Wall thickening and pericecal fat stranding raising concern for an inflammatory process. Cholelithiasis. No other significant changes. One or more dose reduction techniques were used (e.g., Automated exposure control, adjustment of the mA and/or kV according to patient size, use of iterative reconstruction technique). Reading Location: [facility] Abdomen CT 05/08/24 22:43 IMPRESSION: Oral contrast now opacifies the ascending colon and cecum with greater opacification of the cecum when compared to the earlier study. A lobulated filling defect is seen along the lateral wall of the proximal cecum. Can not exclude neoplastic lesion. One or more dose reduction techniques were used (e.g., Automated exposure control, adjustment of the mA and/or kV according to patient size, use of iterative reconstruction technique).. Reading Location: [facility] Assessment & Plan Assessment/Plan (1) Sudden onset of severe abdominal pain: (2) Abnormal CT of the abdomen: (3) Leukocytosis: (4) Segmental colitis: QUALIFIERS: Digestive disease complication type: other complication Qualified Code(s): K50.118 - Crohn's disease of large intestine with other complication PLAN: Plan Abnormal CT of the abdomen pelvis -Lobulated filling defect along the lateral wall of the proximal cecum with suspicion for neoplastic lesion in addition to segmental colitis or diverticulitis -Continue antibiotics as ordered with Zosyn -Continue IV Protonix -Will start clear liquid diet and prep for colonoscopy -N.p.o. after midnight for colonoscopy tomorrow -GI consultation is pending -May need general surgery to be agreeable depending on findings. Colonoscopy Leukocytosis -Suspect related to the above -Repeat CBC in the a.m. -Continue antibiotics as ordered Abnormal UA -Urine cultures pending -Continue antibiotics as above -Follow cultures Hyponatremia -Mild -Should improve with IV fluids -Repeat lab in a.m. -Sodium 133 CAD/essential hypertension/hyperlipidemia -Home aspirin, antihypertensives and Zetia are on hold -Patient has been statin intolerant -Restart home oral agents as able -Continue outpatient follow-up with cardiology KEVIN -Okay to start home CPAP Mobitz type II/chronic LBBB -patient pacemaker dependent -Continue outpatient follow-up with cardiology Carotid stenosis -Continue home secondary prevention as able DVT prophylaxis -SCDs for now -Depending on findings on colonoscopy we will start chemoprophylaxis CODE STATUS -Discussed with patient today for right now if she would like to discuss further with her son and will remain full code for now
--- NOTE | 2024-05-09 10:58 | CASEMGMT ---
RN TIFFANIE assessment: RN CM?to room to meet with patient for initial transition planning/care coordination assessment. RN CM?introduced self and role at [facility]. Pt voices understanding and consents to assessment?at this time. Pt resting in bed in no distress at this time. Pt is A/O at this time and answers all questions appropriately. Care providers, pharmacy, and demographics verified/updated at this time. Strata:?2 PCP: Dr Yu Specialists: SUMAN/cardiology, Dr Franks, pulmonology Preferred Pharmacy:[facility] Insurance: [employer] LYNN Prescription Benefit: yes Living Will/HPOA: Has LW and HCPOA, who is her son, Jerardo. She will ask Jerardo to bring these in to be scanned in to her chart. LNOK: Son, Jerardo. Living Arrangements: Lives alone in one-story home w/one step to up to get to the porch @ the front entrance, where pt usually enters her home. Independent w/ADL's and IADL's. Gets some groceries delivered. Went w/son and DIL to grocery store after cataract surgery when she couldn't drive. Pt states has been cleared to drive now. Transportation:?Pt just cleared to be able to drive again after cataract surgery. Son will take her home @ discharge. Grand-children also can assist, if needed. DME:States has the following DME: Pt has functioning glucometer w/supplies. She checks her BS's every AM. She has a CPAP. Uses no DME to ambulate. Pt states no need for further DME at this time. HHC/SNF: No hx of either. Has done OP therapy in [place]. Pt wishes to return home and states has no concerns with going home at time of discharge. 6-clicks, 24. Pt states she wishes to discharge home and feels like she will be able to everything I have been. She did inquire if there is assistance that can be provided after she returns home. Discussed [facility]'s criteria of being home-bound and that, unless her condition changes, she would not be homebound. Pt interested in Private-duty agency list, stating she may need that some time in the future. List provided at this time. CM?to follow for any further discharge planning/needs. Pt voices no further concerns/needs at this time. Advised pt to ask for CM?if any further questions/concerns/needs arise. Voices understanding. PLAN: Home Follow for possible need of therapy eval after surgery. Jeannette LUCIANON RN CM
[2024-05-09] MEDS: Bisacodyl 5 MG Tablet 20 MG PO (11:02)
[2024-05-09] MEDS: Polyethylene Glycol 3350 BOWEL PREP PO (12:51)
--- NOTE | 2024-05-09 15:14 | CHAPLAIN ---
Type of Pastoral Visit _x__ Initial Visit ___ Follow-up Visit ___ On-call Visit ___ General Patient Visit ___ Spiritual Assessment ___ Family Conference ___ Bereavement ___ Rapid Response ___ Code Blue ___ Other (describe below) Pastoral Care Referral From _x__ Patient ___ Family ___ Nurse ___ Physician ___ Dirt Bike Racer ___ Roll Bucker ___ Other (describe below) Sacrament/Intervention _x__ Active listening ___ Anointing ___ Confucianist ___ Bereavement ___ Communion _x__ Leana exploration ___ _x__ Life review _x__ Prayer ___ Reconciliation ___ Sacrament of Sick ___ Supportive presence ___ Wedding ___ Other (describe below) Pastoral Comments patient explains her health situation; pt is quite talkative and gives some life review and her perspective on health, food, and medicine; pt is also a person that has knowledge of the Bible and expresses her thoughts on leana and the world; pt asks questions of a spiritual nature to the repairer hairspring; pt welcomes a prayer for support
[2024-05-09] MEDS: 0.9% Saline Lock 10 ML Syringe IV (21:24)
--- NOTE | 2024-05-09 22:28 | EX.PCM.CON.G ---
HPI Consult Data Date of Consult: 05/09/24 HPI Narrative Reason for Consultation: Abnormal ct scan HPI Narrative: LAYLA LUIS, is a 78 F who presented to the emergency room for abdominal pain. Patient states for the past 3 days she has had pain particularly at night in the right lower aspect of her abdomen. She states that today she has not had which of an appetite but did have some water. She notes she has been having bowel movements. No vomiting. She notes she has had a hysterectomy but denies any other surgeries. She notes a history of gallstones but denies prior cholecystectomy. she notes subjective fever. She notes that her abdomen feels bloated. Today the abdomen is been hurting consistently throughout the day. Pain is nonradiating. . She states the pain is focused primarily in the Right lower aspect of her abdomen and was nonradiating and initially intermittent, cramping and then became severe and persistent causing her to come to the ER for further evaluation and treatment. She informed the ER physician that she had decreased appetite but was able to drink water and was still having normal bowel movements. She states her last colonoscopy was ~18 months ago and allegedly was negative for significant acute pathologic findings. She admits to subjective fever but she denies chills, weight loss, nausea, vomiting, diarrhea, constipation, dysuria, arthralgias, myalgias, chest pain, shortness of breath or headache. In the ER she was noted to have CT evidence of a lobulated filling defect seen along the lateral wall of the proximal cecum with suspicion for neoplastic lesion in addition to segmental colitis or diverticulitis after initial suspicion of possible acute appendicitis due to pericecal fat stranding concerning for acute inflammatory process with oral contrast from CT not having reached this area at the time of the initial read with corresponding laboratory evidence of Leukocytosis of 18K present on admission (without Left-shift) complicated by urinalysis positive for evidence of Acute Cystitis; with microscopic hematuria along with suspected dehydration evidenced by elevated BUN/creatinine ratio of 24 present on admission. [facility] Medical History Pacemaker (06/10/23) Anemia Thyroid nodule Type 2 diabetes mellitus without complications Hyponatremia Anxiety KEVIN (obstructive sleep apnea) Second degree AV block LBBB (left bundle branch block) Carotid stenosis Fatty liver Gallstones Osteoporosis Paresthesia Memory loss HTN (hypertension) Chest pain CAD (coronary artery disease) Home Medications ?Medication ?Instructions ?Recorded ?Last Taken ?Type aspirin 81 mg chewable tablet 81 mg PO DAILY@0800 02/20/13 01/12/14 History carvedilol 6.25 mg tablet 6.25 mg PO BID 04/09/13 01/12/14 History cholecalciferol (vitamin D3) 25 25 mcg PO QDAY supplement 01/16/24 Unknown History mcg (1,000 unit) capsule ezetimibe 10 mg tablet 10 mg PO DAILY hld 01/16/24 Unknown History telmisartan 80 mg tablet 80 mg PO DAILY bp 01/16/24 Unknown History amlodipine 5 mg tablet 5 mg PO DAILY blood pressure 05/08/24 Unknown History flaxseed oil-omega 3,6,9-fatty 1 cap PO DAILY supplement 05/08/24 Unknown History acids 1,300 mg-670 mg-155 mg capsule Allergy/AdvReac Type Severity Reaction Status Date / Time hydrochlorothiazide Allergy Unknown Verified 05/08/24 16:01 sulfamethoxazole (From Allergy Hives Verified 05/08/24 16:01 Bactrim) trimethoprim (From Bactrim) Allergy Hives Verified 05/08/24 16:01 atorvastatin (From Lipitor) AdvReac Severe myalgia Verified 05/08/24 16:01 meloxicam AdvReac Severe Dizziness Verified 05/08/24 16:01 Family History no significant family his Surgical History H/O: hysterectomy Social History Smoking Status: Never smoker alcohol intake: never substance use type: does not use ROS ROS Narrative Review of Systems: Constitutional: Patient admits to subjective fever but denies chills or unintentional weight loss. Eyes: Patient denies changes in vision or discharge from eyes after recent cataract surgery earlier this month. ENT: Patient denies runny nose, sore throat or ear pain. Resp: Patient denies shortness of breath or cough. CV: Patient denies chest pain, palpitations, heart racing or lower extremity edema. GI: Patient admits to severe abdominal pain focused mainly in the Right lower quadrant that is nonradiating with decreased appetite as per HPI. : Patient denies dysuria, hematuria or urinary frequency. MSK: Patient denies arthralgias or myalgias. Skin: Patient denies rash, abscess, jaundice or wounds. Psych: Patient is anxious about her declining health with possible mass in cecum but she denies SI or HI. Neuro: Patient denies headache, paresthesias or focal neurologic deficits. Allergy: Patient denies lip swelling, tongue swelling or urticaria. Hematology: Patient denies easy bleeding or easy bruisability. Endocrinology: Patient denies polyuria, polydipsia or polyphagia. 14 point review of systems otherwise negative except for positives noted above in HPI. Constitutional Constitutional: Denies fatigue, fever(s), poor appetite, weight gain or weight loss Gastrointestinal Gastrointestinal: Denies belching, bloating, change in bowel habits, change in stool character, chewing difficulty, coffee ground emesis, constipation, cramping, diarrhea, dyspepsia, dysphagia, early satiety, excessive flatus, fecal incontinence, heartburn, hematemesis, hematochezia, hemorrhoids, loose stools, melena, nausea, odynophagia, rectal bleeding, tenesmus, vomiting or weight changes Physical Exam Const alert, oriented x3, no apparent distress and average body habitus General Appearance: cooperative HEENT normocephalic, head/scalp atraumatic, hearing grossly normal bilaterally and moist oral mucous membranes Eyes PERRL and EOMs intact bilaterally Neck no lymphadenopathy and supple Resp normal respiratory effort, no retractions, no use of accessory muscles and clear to auscultation bilaterally Cardio regular rate and regular rhythm GI soft to palpation GI Narrative: Abdomen is mildly tender to palpation in the right lower quadrant with mild bloating. Extremity normal to inspection, full ROM and no clubbing, cyanosis or edema Skin Skin Narrative: Patient has evidence of rash, abscess, wounds or jaundice. Neuro oriented x3, CN's II-XII intact bilaterally, moves all extremities and no focal motor deficits Sensorium / Orientation: awake, alert, oriented to person, oriented to place and oriented to time Speech: speech normal Psych Mood & Affect: anxious Lab / Micro Data 05/08/24 16:24 05/08/24 16:24 Labs: Laboratory Results - last 24 hr 05/09/24 05:13: Hemoglobin A1c 5.5, Lactic Acid 0.8, TSH 0.943 Imaging Radiology Impression Abdomen CT 05/08/24 19:50 IMPRESSION: An elongated cecum is redemonstrated. Oral contrast material is noted in the distal cecum. Wall thickening and pericecal fat stranding raising concern for an inflammatory process. Cholelithiasis. No other significant changes. One or more dose reduction techniques were used (e.g., Automated exposure control, adjustment of the mA and/or kV according to patient size, use of iterative reconstruction technique). Reading Location: [facility] Abdomen CT 05/08/24 22:43 IMPRESSION: Oral contrast now opacifies the ascending colon and cecum with greater opacification of the cecum when compared to the earlier study. A lobulated filling defect is seen along the lateral wall of the proximal cecum. Can not exclude neoplastic lesion. One or more dose reduction techniques were used (e.g., Automated exposure control, adjustment of the mA and/or kV according to patient size, use of iterative reconstruction technique).. Reading Location: [facility] Assessment & Plan Assessment/Plan (1) Cecum mass: (2) Segmental colitis: QUALIFIERS: Digestive disease complication type: other complication Qualified Code(s): K50.118 - Crohn's disease of large intestine with other complication (3) Sudden onset of severe abdominal pain: (4) Acute cystitis with hematuria: (5) Dehydration: (6) Essential hypertension: PLAN: Plan 78-year-old with acute onset of abdominal pain that progressed to severe right lower quadrant pain. CT evidence of a lobulated filling defect seen along the lateral wall of the proximal cecum with suspicion for neoplastic lesion in addition to segmental colitis or diverticulitis with corresponding Leukocytosis of 18K present on admission - The different diagnosis does include typhlitis, ischemic colitis, infectious colitis, less likely neoplasm or inflammatory bowel disease. She should undergo colonoscopy to evaluate that area with biopsies. She is high risk for restructuring disease. No signs of micro perforation, fluid in the abdomen or lymphopathy. Charges/Coding Visit Charges Inpatient E&M: 56146 Init Hosp L3
[2024-05-10] VITALS (11 sets, daily range): BP systolic 92–160; BP diastolic 58–87; PULSE 60–82; RESP 14–18; TEMP 36.1–36.7; O2SAT 95–100; BMI 18.8
[2024-05-10] MEDS: Piperacil/Tazobactam 3.375 GM in 0.9% Normal Saline (50mL MB+) 50 ML IV ×3 (05:45→22:36)
--- NOTE | 2024-05-10 05:55 | EKG12_ITS ---
Test Reason : AM EKG Blood Pressure : */* mmHG Vent. Rate : 76 BPM Atrial Rate : 76 BPM P-R Int : 176 ms QRS Dur : 192 ms QT Int : 478 ms P-R-T Axes : 57 -78 93 degrees QTcB Int : 537 ms Atrial-sensed ventricular-paced rhythm Abnormal ECG When compared with ECG of 16-Nov-2023 13:41, Electronic ventricular pacemaker has replaced Sinus rhythm Confirmed by JOANN QUEEN, TATE ([id number]), publication editor PERFECTO BALLARD ([id number]) on 05/10/2024 1:32:27 PM Referred By: PETERSON Confirmed By: TATE DAVID MD
[2024-05-10 07:23] LABS: Hematocrit 35.7 % (37-47); Hemoglobin 11.9 g/dL (12.0-15.0); Mean Corp Hgb Conc 33.3 g/dL (32-36); Mean Corpuscular Hgb 30.7 pg (27.0-32.0); Mean Corpuscular Volume 92.2 fL (81-99); Mean Platelet Vol. 9.4 fl (6.2-12.0); Platelet Count 238 K/mm3 (150-450); RBC Distribution Width CV 12.7 % (11.6-14.6); Red Blood Count 3.87 M/mm3 (4.2-5.4); White Blood Count 9.9 K/mm3 (4.4-11.0)
[2024-05-10 09:14] LABS: Anion Gap 7 (5-15); BUN 7 mg/dL (7-18); BUN/Creat Ratio 11.9 RATIO (10-20); Calcium,Total 9.6 mg/dL (8.5-10.1); Chloride 107 mmol/L (98-107); Creatinine, Serum 0.59 mg/dL (0.55-1.02); EST Glomerular Filtration Rate 105 mL/min (>60); Est Glom Filt Rate - Afr Amer 127 mL/min (>60); Estimated Creatinine Clearance 51.33 ml/min; Glucose 124 mg/dL (74-106); Magnesium 2.3 mg/dL (1.6-2.6); Phosphorus 2.5 mg/dL (2.5-4.9); Potassium 3.6 mmol/L (3.5-5.1); Sodium Level 136 mmol/L (136-145)
[2024-05-10] MEDS: Pantoprazole Sodium 40 MG in 0.9% Normal Saline (100mL MB+) 100 ML 330 MG IV (10:42)
[2024-05-10] MEDS: Glycerin/Hypromellose/PEG400 15 ml Bottle 1 DRP EACH EYE ×2 (11:37→22:45)
[2024-05-10 13:28] LABS: Hemoglobin A1c 5.5 % (3.8-5.6)
--- NOTE | 2024-05-10 15:54 | PCM.PRE.AN2 ---
ASA Classification* ASA Classification ASA Classification: 3 Assessment & Plan Anesthesia* Anesthesia Assessment Anesthesia Assessment: Discussed sedation and/or anesthesia options, risks, benefits, and alternatives with patient/parents/legal guardian/POA. Questions invited. The patient/parents/legal guardian/POA seems to understand and agrees to proceed with anesthesia plan. Reviewed the physical assessment, medical history, allergy history and patient home medications list prior to surgery/procedure/anesthetic and documented any changes. Performed airway and anesthesia risk assessments. Anesthesia Type Anesthesia Type: MAC History Source History Obtained from:: Patient and Chart Anesthesia Focused Assessment* Temperature: 98.1 F Pulse Rate: 70 Blood Pressure: 140/73 Respiratory Rate: 18 Pulse Ox: 97 Oxygen Delivery Method: Room Air Oxygen Flow Rate (L/min): 2 Airway Assessment Mouth opens: >3 cm Mallampati Score: IV Teeth Condition: Caps/Crowns (Patient has several caps. They are all tight.) Neck Range of motion (ROM): Limited ROM (somewhat decreased extension) Focused Labs Anesthesia Preop lab: CBC WBC 9.9 K/mm3 (4.4-11.0) 05/10/24 05:06 05/10/24 RBC 3.87 M/mm3 (4.2-5.4) L 05/10/24 05:06 05/10/24 Hgb 11.9 g/dL (12.0-15.0) L 05/10/24 05:06 05/10/24 Hct 35.7 % (37-47) L 05/10/24 05:06 05/10/24 Plt Count 238 K/mm3 (150-450) 05/10/24 05:06 05/10/24 CHEMISTRY Potassium 3.6 mmol/L (3.5-5.1) 05/10/24 05:06 05/10/24 Sodium 136 mmol/L (136-145) 05/10/24 05:06 05/10/24 Magnesium 2.3 mg/dL (1.6-2.6) 05/10/24 05:06 05/10/24 Phosphorus 2.5 mg/dL (2.5-4.9) 05/10/24 05:06 05/10/24 BUN 7 mg/dL (7-18) 05/10/24 05:06 05/10/24 Creatinine 0.59 mg/dL (0.55-1.02) 05/10/24 05:06 05/10/24 Glucose 124 mg/dL (74-106) H 05/10/24 05:06 05/10/24 TSH 0.943 uIU/mL (0.358-3.740) 05/09/24 05:13 05/09/24 COAG PT 12.6 SECONDS (11.9-14.4) 03/05/13 12:52 03/05/13 Pre-Assessment Diagnosis/Proposed Procedure Planned Operative Procedure(s): Colonoscopy. 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 When Was Last Pacemaker Check pacer 05/09/24 21:36 QUESTION #4 FULL TEXT: You/Your Family Experience fever (hyperthermia) with Anesthesia Last Oral Intake Last Oral intake: Last Oral Intake NPO since 00:00 05/10/24 14:00 Meds taken in AM with sips of No 05/10/24 14:00 water? 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 Female HX of Motion Sickness HX of N/V After Surgery Non-Smoker Duration of Surgery greater than 60 minutes Number of Risk Factors PONV Score Height & Weight Height & Weight: Anesthesia: Height & Weight Height 5 ft 8 in 05/10/24 14:00 Weight: 56.1 kg 05/10/24 14:00 Body Mass Index (BMI) 18.8 05/10/24 14:00 Respiratory Assessment Respiratory Assessment - hemming and tacking machine operator: Respiratory Tract Infection Hx - hemming and tacking machine operator Hx Respiratory Tract Infection No 05/09/24 21:36 STOP Sleep Apnea STOP Sleep Apnea - hemming and tacking machine operator: STOP Sleep Apnea - hemming and tacking machine operator Hx Hypertension Yes 05/09/24 04:03 Hx Sleep Apnea Yes 05/09/24 04:03 CPAP Yes 05/09/24 04:03 BIPAP No 05/09/24 04:03 Do you snore loudly (louder than talking or can be heard Do you often feel tired/ fatigued/ sleepy during daytime? Has anyone observed you stop breathing during sleep? STOP Results Positive 05/09/24 04:03 QUESTION #5 FULL TEXT : Do you snore loudly (louder than talking or can be heard through closed doors)? 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 Specify any problems Hx of Preganancy in last 3 No 05/09/24 04:03 Months Nurse Filling Out Transfusion DREDICK 05/09/24 04:03 & Questions: Date: 05/09/24 05/09/24 04:03 Time: 04:03 05/09/24 04:03 Patient unable to answer at this time (ie. 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 tacking machine operator: /Reproductive Hx- hemming and tacking machine operator Hx Now No 05/09/24 21:36 Gestational Age (in weeks): EDC: Hx Hx Para Hx Section SAB Active Medications Active Medications: Current Medications Generic Name Dose Route Start Last Admin Trade Name Freq PRN Reason Stop Dose Admin Glycerin/Hypromellose/Polyethylene 1 drp 05/09/24 05:40 05/10/24 11:37 Glycerin/Hypromellose/[id number] 15 Ml Bottle EACH EYE 1 drp Q6H PRN PRN Administration DRY EYES Hydralazine HCl 5 mg 05/09/24 03:53 Hydralazine 20 Mg/Ml Vial IV Q6H PRN PRN SBP GREATER THAN 160 Protocol Piperacillin Sod/Tazobactam 50 mls @ 12.5 mls/hr 05/09/24 06:00 05/10/24 14:27 Sod 3.375 gm/ Sodium Chloride IV 12.5 mls/hr Q8 [place] Administration Pantoprazole Sodium 40 mg/ 110 mls @ 330 mls/hr 05/09/24 04:30 05/10/24 12:11 Sodium Chloride IV Infused Q24 [place] Infusion Sodium Chloride 100 mls @ 15 mls/hr 05/09/24 03:54 IV .Q6H40M PRN Saline Flush Sodium Chloride 100 mls @ 15 mls/hr 05/09/24 03:54 IV .Q6H40M PRN Additional IVPB Infusion Morphine Sulfate 2 mg 05/09/24 03:53 Morphine 2 Mg/Ml Syringe IV Q4H PRN PRN Pain Score 6-10 Ondansetron HCl 4 mg 05/09/24 03:53 Ondansetron 4 Mg/2 Ml Vial IV Q6H PRN PRN NAUSEA/VOMITING Sodium Chloride 10 - 40 ml 05/09/24 03:54 05/09/24 21:24 0.9% Saline Lock 10 Ml Syringe IV 10 ml UD PRN Administration SALINE FLUSH PFSH Medical History Anemia Thyroid nodule Type 2 diabetes mellitus without complications Hyponatremia Anxiety KEVIN (obstructive sleep apnea) Second degree AV block LBBB (left bundle branch block) Carotid stenosis Fatty liver Gallstones Osteoporosis Paresthesia Memory loss HTN (hypertension) Chest pain CAD (coronary artery disease) Home Medications ?Medication ?Instructions ?Recorded ?Last Taken ?Type aspirin 81 mg chewable tablet 81 mg PO DAILY@0800 02/20/13 01/12/14 History carvedilol 6.25 mg tablet 6.25 mg PO BID 04/09/13 01/12/14 History cholecalciferol (vitamin D3) 25 25 mcg PO QDAY supplement 01/16/24 Unknown History mcg (1,000 unit) capsule ezetimibe 10 mg tablet 10 mg PO DAILY hld 01/16/24 Unknown History telmisartan 80 mg tablet 80 mg PO DAILY bp 01/16/24 Unknown History amlodipine 5 mg tablet 5 mg PO DAILY blood pressure 05/08/24 Unknown History flaxseed oil-omega 3,6,9-fatty 1 cap PO DAILY supplement 05/08/24 Unknown History acids 1,300 mg-670 mg-155 mg capsule Allergy/AdvReac Type Severity Reaction Status Date / Time hydrochlorothiazide Allergy Unknown Verified 05/08/24 16:01 sulfamethoxazole (From Allergy Hives Verified 05/08/24 16:01 Bactrim) trimethoprim (From Bactrim) Allergy Hives Verified 05/08/24 16:01 atorvastatin (From Lipitor) AdvReac Severe myalgia Verified 05/08/24 16:01 meloxicam AdvReac Severe Dizziness Verified 05/08/24 16:01 Family History no significant family his Surgical History (Updated 05/10/24 @ 16:[address] Jeramy Reina MD) Normal colonoscopy History of bilateral cataract extraction H/O cardiac catheterization Pacemaker (06/10/23) H/O: hysterectomy Social History Smoking Status: Never smoker alcohol intake: never substance use type: does not use Review of Systems (Anesthesia) ROS Narrative System reviewed and no additional complaints, except as documented.
--- NOTE | 2024-05-10 16:00 | COLBX_PTH ---
PATIENT: LAYLA LUIS LOC: MS3 U#:[id number] AGE/SX: 78/F ROOM: [facility] [place] RE05/09/[address]: Dr. Sammy Potts MD : 1945 BED: 1 DIS: 05/15/2024 SPEC #: [id number] RECD: 05/11/24 09:50 STATUS: PHU CORMIER #: [id number] TEDDY: 05/10/24 16:[address]: Tio Van DEPT: SURGICAL PATHOLOGY RECD BY: Moon Miller ENTERED: 05/11/24 10:46 SP TYPE: COLON BX OTHR DR: DO Dr. Yolis Lambert DO Dr. Kathryn Lee, DO Tissues: Cecum, NOS Procedures: Surgery Specimen Level IV HEADER OPERATION: Colonoscopy with biopsies PRE-OP DIAGNOSIS: Cecum mass, segmental colitis, sudden onset of severe abdominal pain TISSUE SUBMITTED: Cecum biopsy x2 MICROSCOPIC DIAGNOSIS Cecum, biopsy: Fragments of colonic mucosa with extensive ulceration, fibrinopurulent exudation and glandular distortion. Negative for malignancy. See comment. 05/14/2024 COMMENT Correlation with clinical, endoscopic findings and appropriate follow up are necessary. MICROSCOPIC DESCRIPTION Slides are reviewed. GROSS DESCRIPTION Received in fixative is one container labeled with the patient's name and designated Cecum biopsy x2. The specimen consists of multiple irregular fragments of light choi soft tissue that in aggregate measure 1 x 0.5 x 0.1 cm. The specimen is totally submitted in one cassette. 05/11/2024 TC:2 CPT:46083
--- NOTE | 2024-05-10 18:19 | EX.PCM.PN.GI ---
Subjective Subjective Patient is waiting for colonoscopy today. Objective Data Objective Data Vital Signs: Vital Signs Temp Pulse Resp BP Pulse Ox O2 Del Method O2 Flow Rate 98.1 F 70 18 140/73 H 97 Room Air 2 05/10/24 16:08 05/10/24 16:08 05/10/24 16:08 05/10/24 16:08 05/10/24 16:08 05/10/24 16:08 05/10/24 16:08 Oxygen Flow Rate (L/min) 2 Oxygen Delivery Method Room Air Weight: 123 lb 10.869 oz Body Mass Index (BMI) 18.8 Intake & Output: Intake and Output for Last 24 Hours 05/08/24 05/09/24 05/10/24 23:59 23:59 23:59 Intake Total 3260 / 3260 210 / 210 Output Total 3 / 3 Balance 3260 / 3260 207 / 207 Lab / Micro Data 05/10/24 05:06 05/10/24 05:06 Labs: Laboratory Results - last 24 hr 05/10/24 05:06: WBC 9.9, RBC 3.87 L, Hgb 11.9 L, Hct 35.7 L, MCV 92.2, MCH 30.7, MCHC 33.3, RDW Std Deviation 43.0, RDW Coeff of Marie 12.7, Plt Count 238, MPV 9.4, Sodium 136, Potassium 3.6, Chloride 107, Carbon Dioxide 22.0, Anion Gap 7, BUN 7, Creatinine 0.59, Estim Creat Clear Calc 51.33, Est GFR (MDRD) Af Amer 127, Est GFR (MDRD) Non-Af 105, BUN/Creatinine Ratio 11.9, Glucose 124 H, Hemoglobin A1c 5.5, Calcium 9.6, Phosphorus 2.5, Magnesium 2.3 Micro: Microbiology 05/08/24 17:00 Urine, Clean Catch Urine Culture - Preliminary Culture exhibits no growth. Physical Exam Const alert, oriented x3, no apparent distress and average body habitus General Appearance: cooperative HEENT normocephalic, head/scalp atraumatic, hearing grossly normal bilaterally and moist oral mucous membranes Eyes PERRL and EOMs intact bilaterally Neck no lymphadenopathy and supple Resp normal respiratory effort, no retractions, no use of accessory muscles and clear to auscultation bilaterally Cardio regular rate and regular rhythm GI soft to palpation GI Narrative: Abdomen is mildly tender to palpation in the right lower quadrant with mild bloating. Extremity normal to inspection, full ROM and no clubbing, cyanosis or edema Skin Skin Narrative: Patient has evidence of rash, abscess, wounds or jaundice. Neuro oriented x3, CN's II-XII intact bilaterally, moves all extremities and no focal motor deficits Sensorium / Orientation: awake, alert, oriented to person, oriented to place and oriented to time Speech: speech normal Psych Mood & Affect: anxious Assessment & Plan Assessment/Plan (1) Cecum mass: (2) Segmental colitis: QUALIFIERS: Digestive disease complication type: other complication Qualified Code(s): K50.118 - Crohn's disease of large intestine with other complication (3) Sudden onset of severe abdominal pain: (4) Acute cystitis with hematuria: (5) Dehydration: (6) Essential hypertension: PLAN: Plan 78-year-old with acute onset of abdominal pain that progressed to severe right lower quadrant pain. CT evidence of a lobulated filling defect seen along the lateral wall of the proximal cecum with suspicion for neoplastic lesion in addition to segmental colitis or diverticulitis with corresponding Leukocytosis of 18K present on admission - The different diagnosis does include typhlitis, ischemic colitis, infectious colitis, less likely neoplasm or inflammatory bowel disease. She should undergo colonoscopy to evaluate that area with biopsies. She is high risk for restructuring disease. No signs of micro perforation, fluid in the abdomen or lymphopathy. Charges/Coding Visit Charges Inpatient E&M: 20556 Subs Hosp L2
--- NOTE | 2024-05-10 18:54 | PCM.POST.ANE ---
Anesthesia: Postop Eval I Current Vital Signs Temperature: 97 F Pulse Rate: 62 Blood Pressure: 93/59 Respiratory Rate: 14 Pulse Ox: 95 Oxygen Delivery Method: Room Air Assessment Airway patent: Yes Spontaneous unlabored respirations: Yes Mental status: Awake and Calm nausea: No Vomiting: No Anesthesia Complication: No Fluid Hydration Crystalloid volume administer (ml): 30 Total IV fluid infused: 30 Progress Note Anesthesia document: Postop Eval 1 completed: Yes
--- NOTE | 2024-05-10 19:11 | EX.PCM.PN.GI ---
Subjective Subjective The patient underwent a colonoscopy. Provation is not working. Findings: - Localized severe inflammation was found in the cecum, at the appendiceal orifice and at the ileocecal valve secondary to ischemic colitis. Biopsied. - Severe mucosal changes were found in the ileum secondary to ischemic ileitis. Return [facility] to [facility] for [facility] care. - Clear liquid diet. - Continue present medications. - Await pathology results. - Severe cecal ischemic colitis - Continue Antibiotics - Surgical treatment is may be required for right-sided ischemic colitis because it is more likely to be accompanied by gangrene. Objective Data Objective Data Vital Signs: Vital Signs Temp Pulse Resp BP Pulse Ox O2 Del Method O2 Flow Rate 97 F L 60 16 92/58 L 95 Room Air 2 05/10/24 18:56 05/10/24 19:00 05/10/24 19:00 05/10/24 19:00 05/10/24 19:00 05/10/24 19:00 05/10/24 16:08 Oxygen Flow Rate (L/min) 2 Oxygen Delivery Method Room Air Weight: 123 lb 10.869 oz Body Mass Index (BMI) 18.8 Intake & Output: Intake and Output for Last 24 Hours 05/08/24 05/09/24 05/10/24 23:59 23:59 23:59 Intake Total 3260 / 3260 210 / 210 Output Total 3 / 3 Balance 3260 / 3260 207 / 207 Lab / Micro Data 05/10/24 05:06 05/10/24 05:06 Labs: Laboratory Results - last 24 hr 05/10/24 05:06: WBC 9.9, RBC 3.87 L, Hgb 11.9 L, Hct 35.7 L, MCV 92.2, MCH 30.7, MCHC 33.3, RDW Std Deviation 43.0, RDW Coeff of Marie 12.7, Plt Count 238, MPV 9.4, Sodium 136, Potassium 3.6, Chloride 107, Carbon Dioxide 22.0, Anion Gap 7, BUN 7, Creatinine 0.59, Estim Creat Clear Calc 51.33, Est GFR (MDRD) Af Amer 127, Est GFR (MDRD) Non-Af 105, BUN/Creatinine Ratio 11.9, Glucose 124 H, Hemoglobin A1c 5.5, Calcium 9.6, Phosphorus 2.5, Magnesium 2.3 Micro: Microbiology 05/08/24 17:00 Urine, Clean Catch Urine Culture - Preliminary Culture exhibits no growth. Charges/Coding Visit Charges Inpatient E&M: 15251 Subs Hosp L2
--- NOTE | 2024-05-10 19:50 | PCM.PN.HOSP ---
Reason for Visit Reason for Visit: Abdominal pain Subjective Subjective Patient states her pain feels a little bit better. Not as sharp as it was yesterday. Patient repeats herself frequently due to her memory loss. No acute issues overnight. We did discuss the findings on the colonoscopy which included ischemic colitis. She is allowed to have a clear liquid diet and surgery will reevaluate tomorrow. This was discussed with both she and her son who is at the bedside. Objective Data Objective Data Vital Signs: Vital Signs Temp Pulse Resp BP Pulse Ox O2 Del Method O2 Flow Rate 97.5 F L 60 16 122/65 H 100 Room Air 2 05/10/24 19:15 05/10/24 19:15 05/10/24 19:15 05/10/24 19:15 05/10/24 19:15 05/10/24 19:15 05/10/24 16:08 Oxygen Flow Rate (L/min) 2 Oxygen Delivery Method Room Air Weight: 56.1 kg Body Mass Index (BMI) 18.8 Intake & Output: Intake and Output for Last 24 Hours 05/08/24 05/09/24 05/10/24 23:59 23:59 23:59 Intake Total 3260 / 3260 260 / 260 Output Total 3 / 3 Balance 3260 / 3260 257 / 257 Lab / Micro Data 05/10/24 05:06 05/10/24 05:06 Labs: Laboratory Results - last 24 hr 05/10/24 05:06: WBC 9.9, RBC 3.87 L, Hgb 11.9 L, Hct 35.7 L, MCV 92.2, MCH 30.7, MCHC 33.3, RDW Std Deviation 43.0, RDW Coeff of Marie 12.7, Plt Count 238, MPV 9.4, Sodium 136, Potassium 3.6, Chloride 107, Carbon Dioxide 22.0, Anion Gap 7, BUN 7, Creatinine 0.59, Estim Creat Clear Calc 51.33, Est GFR (MDRD) Af Amer 127, Est GFR (MDRD) Non-Af 105, BUN/Creatinine Ratio 11.9, Glucose 124 H, Hemoglobin A1c 5.5, Calcium 9.6, Phosphorus 2.5, Magnesium 2.3 Micro: Microbiology 05/08/24 17:00 Urine, Clean Catch Urine Culture - Preliminary Culture exhibits no growth. Physical Exam Const alert, oriented x3, no apparent distress and average body habitus Constitutional Narrative: Elderly, white female, lying in bed, appears comfortable currently, son at bedside needs no, patient is oriented x 3 but repeats herself frequently and gets confused-this is baseline, General Appearance: cooperative HEENT normocephalic, head/scalp atraumatic, hearing grossly normal bilaterally and moist oral mucous membranes Resp normal respiratory effort, no retractions, no use of accessory muscles and clear to auscultation bilaterally Cardio regular rate, regular rhythm, S1 normal heart sound, S2 normal heart sound, no murmurs, no rub, no gallops and no clicks GI soft to palpation GI Narrative: Abdomen remains mildly tender to palpation in the right lower quadrant Extremity no clubbing, cyanosis or edema Neuro moves all extremities and no focal motor deficits Speech: speech normal Psych Psych Narrative: Pleasant, interacts appropriately, repeats herself frequently Assessment & Plan Assessment/Plan (1) Sudden onset of severe abdominal pain: (2) Abnormal CT of the abdomen: (3) Leukocytosis: (4) Segmental colitis: QUALIFIERS: Digestive disease complication type: other complication Qualified Code(s): K50.118 - Crohn's disease of large intestine with other complication PLAN: Plan Abdominal pain secondary to ischemic ileitis/colitis -Colonoscopy showed pretty significant right sided ischemic colitis and ileitis -Biopsies taken and pending -Continue antibiotics as ordered with Zosyn -Continue IV Protonix -Continue clear liquid diet until otherwise advanced by general surgery -N.p.o. after midnight for colonoscopy tomorrow -GI is following -General Surgery to reevaluate tomorrow-discussed case with Dr. Villalta Leukocytosis -Resolved Abnormal UA -Urine culture shows no growth Hyponatremia -Resolved CAD/essential hypertension/hyperlipidemia -Home aspirin, antihypertensives and Zetia are on hold -Patient has been statin intolerant -Restart home oral agents as able -Continue outpatient follow-up with cardiology KEVIN -Okay to start home CPAP Mobitz type II/chronic LBBB -patient pacemaker dependent -Continue outpatient follow-up with cardiology Carotid stenosis -Continue home secondary prevention as able DVT prophylaxis -SCDs for now -Hold chemoprophylaxis today and will discuss further with general surgery and GI tomorrow CODE STATUS -Full code Charges/Coding Visit Charges Inpatient E&M: 91787 Subs Hosp L2
[2024-05-10] MEDS: 0.9% Saline Lock 10 ML Syringe IV (22:36)
[2024-05-10] MEDS: 0.9% Normal Saline (100mL Bag) 100 ML 15 ML IV (22:37)
--- NOTE | 2024-05-10 23:42 | POSTOPAN2_ITS ---
Anesthesia Postop Eval I Sum Postop Eval Completion status Anesthesia document: Postop Eval 1 completed: Yes Anesthesia Postop Eval I Summary Anesthesia Postop Eval I Summary: Anesthesia Postop Eval I: Assessment Summary Airway patent Yes 05/10/24 18:56 COMPUTER REPAIR [email or web address] Spontaneous unlabored Yes 05/10/24 18:56 COMPUTER REPAIR [email or web address] respirations Mental status Awake,Calm 05/10/24 18:56 COMPUTER REPAIR [email or web address] nausea No 05/10/24 18:56 COMPUTER REPAIR [email or web address] Vomiting No 05/10/24 18:56 COMPUTER REPAIR [email or web address] Anesthesia Postop Eval I: Fluid Summary Crystalloid volume administer 30 05/10/24 18:56 COMPUTER REPAIR [email or web address] (ml) Colloids volume administered ( ml) Blood Product volume administered (ml) Total IV fluid infused 30 05/10/24 18:56 COMPUTER REPAIR [email or web address] Anesthesia Postop Eval I: Summary Notes Anesthesia Complication No 05/10/24 18:56 COMPUTER REPAIR [email or web address] Anesthesia Complication Comment: Post-operative progress note Anesthesia: Postop Eval II Evaluation Mental status: Awake and Calm Pain Level: 0 nausea: No Vomiting: No Complications Anesthesia Complication: No
--- NOTE | 2024-05-10 23:42 | PCM.POSTANE2 ---
Anesthesia Postop Eval I Sum Postop Eval Completion status Anesthesia document: Postop Eval 1 completed: Yes Anesthesia Postop Eval I Summary Anesthesia Postop Eval I Summary: Anesthesia Postop Eval I: Assessment Summary Airway patent Yes 05/10/24 18:56 [email or web address] Spontaneous unlabored Yes 05/10/24 18:56 [email or web address] [email or web address] respirations Mental status Awake,Calm 05/10/24 18:56 [email or web address] [email or web address] nausea No 05/10/24 18:56 [email or web address] [email or web address] Vomiting No 05/10/24 18:56 [email or web address] [email or web address] Anesthesia Postop Eval I: Fluid Summary Crystalloid volume administer 30 05/10/24 18:56 [email or web address] (ml) Colloids volume administered ( ml) Blood Product volume administered (ml) Total IV fluid infused 30 05/10/24 18:56 [email or web address] [email or web address] Anesthesia Postop Eval I: Summary Notes Anesthesia Complication No 05/10/24 18:56 [email or web address] [email or web address] Anesthesia Complication Comment: Post-operative progress note Anesthesia: Postop Eval II Evaluation Mental status: Awake and Calm Pain Level: 0 nausea: No Vomiting: No Complications Anesthesia Complication: No
[2024-05-11 03:13] VITALS: BP 132/78; PULSE 62; RESP 16; TEMP 36.7; O2SAT 98
[2024-05-11] MEDS: Piperacil/Tazobactam 3.375 GM in 0.9% Normal Saline (50mL MB+) 50 ML IV ×3 (05:49→22:59)
[2024-05-11 06:46] LABS: Hematocrit 34.8 % (37-47); Mean Corp Hgb Conc 34.5 g/dL (32-36); Mean Corpuscular Hgb 31.6 pg (27.0-32.0); Mean Corpuscular Volume 91.6 fL (81-99); Mean Platelet Vol. 9.4 fl (6.2-12.0); Platelet Count 239 K/mm3 (150-450); RBC Distribution Width CV 12.7 % (11.6-14.6); RBC Distribution Width SD 42.4 fl (35.1-43.9); White Blood Count 7.5 K/mm3 (4.4-11.0)
[2024-05-11 07:05] LABS: Anion Gap 6 (5-15); BUN 9 mg/dL (7-18); BUN/Creat Ratio 17.2 RATIO (10-20); Calcium,Total 9.7 mg/dL (8.5-10.1); Chloride 108 mmol/L (98-107); Creatinine, Serum 0.52 mg/dL (0.55-1.02); EST Glomerular Filtration Rate 120 mL/min (>60); Est Glom Filt Rate - Afr Amer 145 mL/min (>60); Estimated Creatinine Clearance 51.33 ml/min; Glucose 90 mg/dL (74-106); Potassium 3.4 mmol/L (3.5-5.1); Sodium Level 138 mmol/L (136-145)
[2024-05-11 07:34] VITALS: BP 156/82; PULSE 66; RESP 16; TEMP 36.6; O2SAT 99
[2024-05-11] MEDS: Potassium Chloride Oral Tablet 20 MEQ 40 MEQ PO (08:27)
[2024-05-11] MEDS: Pantoprazole Sodium 40 MG in 0.9% Normal Saline (100mL MB+) 100 ML 330 MG IV (10:09)
--- NOTE | 2024-05-11 10:48 | CASEMGMT ---
6 clicks=22, no therapy ordered at this time.
--- NOTE | 2024-05-11 10:55 | PCM.PN.SRG ---
Subjective Subjective Patient seen and examined during AM rounds. She is found ambulating about her room. She states that she has just about to wash up for the day but is happy to have a visit as she wishes to discuss her diet. She also wishes for some clarification of the findings from her colonoscopy with gastroenterology yesterday. She generally denies any pain but does state there is some tenderness if her abdomen is pressed and just the right spot. Objective Data Objective Data Vital Signs: Vital Signs Temp Pulse Resp BP Pulse Ox O2 Del Method O2 Flow Rate 97.8 F 66 16 156/82 H 99 Room Air 2 05/11/24 07:34 05/11/24 07:34 05/11/24 07:34 05/11/24 07:34 05/11/24 07:34 05/11/24 07:34 05/10/24 20:24 Oxygen Flow Rate (L/min) 2 Oxygen Delivery Method Room Air Weight: 123 lb 10.869 oz Body Mass Index (BMI) 18.8 Intake & Output: Intake and Output for Last 24 Hours 05/09/24 05/10/24 05/11/24 23:59 23:59 23:59 Intake Total 3260 / 3260 260 / 260 310 / 310 Output Total 3 / 3 Balance 3260 / 3260 257 / 257 310 / 310 Lab / Micro Data 05/11/24 05:48 05/11/24 05:48 Labs: Laboratory Results - last 24 hr 05/10/24 05:06: Hemoglobin A1c 5.5 05/11/24 05:48: WBC 7.5, RBC 3.80 L, Hgb 12.0, Hct 34.8 L, MCV 91.6, MCH 31.6, MCHC 34.5, RDW Std Deviation 42.4, RDW Coeff of Marie 12.7, Plt Count 239, MPV 9.4, Sodium 138, Potassium 3.4 L, Chloride 108 H, Carbon Dioxide 24.0, Anion Gap 6, BUN 9, Creatinine 0.52 L, Estim Creat Clear Calc 51.33, Est GFR (MDRD) Af Amer 145, Est GFR (MDRD) Non-Af 120, BUN/Creatinine Ratio 17.2, Glucose 90, Calcium 9.7 Micro: Microbiology 05/08/24 17:00 Urine, Clean Catch Urine Culture - Final Culture exhibits no growth. Physical Exam Const Constitutional Narrative: Oriented to person place and time, however, patient appears somewhat confused at times and takes frequent conversational tangents Resp normal respiratory effort GI GI Narrative: Nondistended, soft, mildly tender to palpation laterally on the right as well as directly over the pelvis on the right. Assessment & Plan Assessment/Plan (1) Segmental colitis: QUALIFIERS: Digestive disease complication type: other complication Qualified Code(s): K50.118 - Crohn's disease of large intestine with other complication PLAN: Patient is 78-year-old female that was previously evaluated in the emergency department after initial radiology read for suppurative appendicitis who is revisited after gastroenterology performed colonoscopy yesterday and found evidence of severe ischemic colitis. Patient is clinically stable with no leukocytosis per labs and remains with conservative measures for her condition in place?including restricted diet, ongoing IV antibiotic therapy, and restricted use of antihypertensives to optimize her perfusion. She is mildly tender on exam but this appears to be an improvement over her intake exam. I held a lengthy conversation with her at bedside answering her questions as well as informing her that I would like to give her an opportunity to resolve this issue with further conservative measures and avoid an operation if at all possible. She confirms this is her wish. However, I caution against allowing this conservative treatment to persist for too long and thereby lead to deconditioning and malnutrition. Thus we have set a timeline and will see how she does over the next 48+ hours. If her abdominal tenderness resolved and she remains free of a leukocytosis then I will plan to advance her diet. If, however, she develops more tenderness and white blood cell count returns then I will plan to proceed with a laparoscopic?assisted right hemicolectomy with anastomosis on 05/14/2024. Dr. Henderson will be rounding for the weekend. Plan was discussed with primary hospitalist, Dr. Salas. Cristobal Villalta MD General Surgery Endocrine Surgery Pager: [facility] [address] [place] [address], [facility], [address] [place] [address] Office: [phone] Charges/Coding Visit Charges Inpatient E&M: 66871 [facility] Hosp L2
--- NOTE | 2024-05-11 14:33 | NS ---
Pt requesting Ensure Clear w/ meals - will put 8 oz on tray for her (no red).
[2024-05-11 14:57] VITALS: BP 148/65; PULSE 74; RESP 16; TEMP 36.6; O2SAT 100
--- NOTE | 2024-05-11 16:48 | PCM.PN.HOSP ---
Reason for Visit Reason for Visit: Abdominal pain Subjective Subjective No issues overnight. Pain is seemingly better and located low in her right lower quadrant. General surgery is at the bedside explaining things to her this morning. Questions answered. Patient tends to ask questions repetitively due to her memory loss at baseline. Objective Data Objective Data Vital Signs: Vital Signs Temp Pulse Resp BP Pulse Ox O2 Del Method O2 Flow Rate 97.9 F 74 16 148/65 H 100 Room Air 2 05/11/24 14:57 05/11/24 14:57 05/11/24 14:57 05/11/24 14:57 05/11/24 14:57 05/11/24 14:57 05/10/24 20:24 Oxygen Flow Rate (L/min) 2 Oxygen Delivery Method Room Air Weight: 56.1 kg Body Mass Index (BMI) 18.8 Intake & Output: Intake and Output for Last 24 Hours 05/09/24 05/10/24 05/11/24 23:59 23:59 23:59 Intake Total 3260 / 3260 260 / 260 310 / 310 Output Total 3 / 3 Balance 3260 / 3260 257 / 257 310 / 310 Lab / Micro Data 05/11/24 05:48 05/11/24 05:48 Labs: Laboratory Results - last 24 hr 05/11/24 05:48: WBC 7.5, RBC 3.80 L, Hgb 12.0, Hct 34.8 L, MCV 91.6, MCH 31.6, MCHC 34.5, RDW Std Deviation 42.4, RDW Coeff of Marie 12.7, Plt Count 239, MPV 9.4, Sodium 138, Potassium 3.4 L, Chloride 108 H, Carbon Dioxide 24.0, Anion Gap 6, BUN 9, Creatinine 0.52 L, Estim Creat Clear Calc 51.33, Est GFR (MDRD) Af Amer 145, Est GFR (MDRD) Non-Af 120, BUN/Creatinine Ratio 17.2, Glucose 90, Calcium 9.7 Micro: Microbiology 05/08/24 17:00 Urine, Clean Catch Urine Culture - Final Culture exhibits no growth. Physical Exam Const alert, oriented x3, no apparent distress and average body habitus Constitutional Narrative: Elderly, white female, sitting up in bed appears comfortable currently, general surgery at bedside, patient is oriented x 3 but repeats herself frequently and gets confused-this is baseline, General Appearance: cooperative HEENT normocephalic, head/scalp atraumatic, hearing grossly normal bilaterally and moist oral mucous membranes Resp normal respiratory effort, no retractions, no use of accessory muscles and clear to auscultation bilaterally Auscultation: Negative for rales, rhonchi or wheezes Cardio regular rate, regular rhythm, S1 normal heart sound, S2 normal heart sound, no murmurs, no rub, no gallops and no clicks GI soft to palpation; Negative for non-tender GI Narrative: Mild tenderness and very low right lower quadrant but tenderness is not marked at this point and seems to be improving, no distention, bowel sounds are normal Extremity no clubbing, cyanosis or edema Extremity Narrative: 2+ pedal and radial pulses Neuro oriented x3, moves all extremities and no focal motor deficits Speech: speech normal Psych Psych Narrative: Pleasant, interacts appropriately, repeats herself frequently Assessment & Plan Assessment/Plan (1) Sudden onset of severe abdominal pain: (2) Abnormal CT of the abdomen: (3) Leukocytosis: (4) Segmental colitis: QUALIFIERS: Digestive disease complication type: other complication Qualified Code(s): K50.118 - Crohn's disease of large intestine with other complication PLAN: Plan Abdominal pain secondary to ischemic ileitis/colitis -Colonoscopy showed pretty significant right sided ischemic colitis and ileitis -Biopsies taken results remain pending -Continue antibiotics as ordered with Zosyn -Discontinue Protonix -Continue clear liquid diet until otherwise advanced by general surgery -GI is following -General Surgery is following with current plan to monitor clinically via labs and physical exam to make decisions about any aggressive intervention but conservative management is hopeful at this time based on current data CAD/essential hypertension/hyperlipidemia -Continue to hold aspirin until we are aware if surgical intervention will be required -Restart home carvedilol -Continue to hold amlodipine and ARB -Restart home Zetia -Patient has been statin intolerant -Continue outpatient follow-up with cardiology KEVIN -Continue CPAP 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
[2024-05-11] MEDS: Carvedilol 6.25 MG Tablet PO (18:17)
[2024-05-11 22:52] VITALS: BP 158/81; PULSE 65; RESP 18; TEMP 36.7; O2SAT 97
[2024-05-11] MEDS: 0.9% Saline Lock 10 ML Syringe IV (23:00)
[2024-05-11] MEDS: Glycerin/Hypromellose/PEG400 15 ml Bottle 1 DRP EACH EYE (23:02)
[2024-05-11] MEDS: Enoxaparin 40 MG/0.4 ML Syringe SC (23:04)
[2024-05-12 06:22] VITALS: BP 147/84; PULSE 62; RESP 20; TEMP 36.7; O2SAT 97
[2024-05-12] MEDS: Piperacil/Tazobactam 3.375 GM in 0.9% Normal Saline (50mL MB+) 50 ML IV ×3 (06:26→21:58)
[2024-05-12 07:10] LABS: Absolute Lymphocyte Count 1.27 X10^3/uL (0.83-4.51); Basophil# 0.07 X10^3/uL; Eosinophils% 2.8 % (0-5); Hematocrit 42.6 % (37-47); Hemoglobin 13.4 g/dL (12.0-15.0); Lymphocyte # 1.27 X10^3/ul (0.83-4.51); Lymphocyte % 17.8 % (19-41); Mean Corp Hgb Conc 31.5 g/dL (32-36); Mean Corpuscular Hgb 30.5 pg (27.0-32.0); Mean Corpuscular Volume 96.8 fL (81-99); Mean Platelet Vol. 9.2 fl (6.2-12.0); Monocyte# 0.59 X10^3/uL; Monocyte% 8.3 % (0-10); NRBC Flagged by Analyzer 0 % (0-5); Neutrophil # 4.96 X10^3/uL (2.7-7.7); Neutrophil % 69.3 % (47-70); Platelet Count 243 K/mm3 (150-450); RBC Distribution Width CV 12.6 % (11.6-14.6); RBC Distribution Width SD 45.3 fl (35.1-43.9); White Blood Count 7.2 K/mm3 (4.4-11.0)
[2024-05-12 07:29] LABS: Anion Gap 7 (5-15); BUN 8 mg/dL (7-18); BUN/Creat Ratio 12.9 RATIO (10-20); Chloride 108 mmol/L (98-107); Creatinine, Serum 0.62 mg/dL (0.55-1.02); EST Glomerular Filtration Rate 99 mL/min (>60); Est Glom Filt Rate - Afr Amer 120 mL/min (>60); Estimated Creatinine Clearance 51.33 ml/min; Glucose 111 mg/dL (74-106); Potassium 3.7 mmol/L (3.5-5.1); Sodium Level 135 mmol/L (136-145)
[2024-05-12 07:52] VITALS: BP 162/85; PULSE 68; RESP 16; TEMP 37.1; O2SAT 99
[2024-05-12] MEDS: Carvedilol 6.25 MG Tablet PO ×2 (07:55→16:30)
[2024-05-12] MEDS: Ezetimibe 10 MG Tablet PO (07:55)
[2024-05-12] MEDS: Enoxaparin 40 MG/0.4 ML Syringe SC (07:55)
--- NOTE | 2024-05-12 08:29 | PN.SURG_ITS ---
Subjective Subjective Patient has no new complaints. She does not report any severe abdominal pain. She reports some mild aching which she said she could sleep through. She denies nausea or vomiting or fevers or chills or blood in the stool Objective Data Objective Data Vital Signs: Vital Signs Temp Pulse Resp BP Pulse Ox O2 Del Method O2 Flow Rate 98.8 F 68 16 162/85 H 99 Room Air 2 05/12/24 07:52 05/12/24 07:52 05/12/24 07:52 05/12/24 07:52 05/12/24 07:52 05/12/24 07:52 05/10/24 20:24 Oxygen Flow Rate (L/min) 2 Oxygen Delivery Method Room Air Weight: 123 lb 10.869 oz Body Mass Index (BMI) 18.8 Intake & Output: Intake and Output for Last 24 Hours 05/10/24 05/11/24 05/12/24 23:59 23:59 23:59 Intake Total 260 / 260 360 / 360 50 / 50 Output Total 3 / 3 Balance 257 / 257 360 / 360 50 / 50 Lab / Micro Data 05/12/24 06:48 05/12/24 06:48 Labs: Laboratory Results - last 24 hr 05/12/24 06:48: WBC 7.2, RBC 4.40, Hgb 13.4, Hct 42.6, MCV 96.8 D, MCH 30.5, M CHC 31.5 L D, RDW Std Deviation 45.3 H, RDW Coeff of Marie 12.6, Plt Count 243, MPV 9.2, Immature Gran % (Auto) 0.800, Neut % (Auto) 69.3, Lymph % (Auto) 17.8 L , [place] % (Auto) 8.3, Eos % (Auto) 2.8, Baso % (Auto) 1.0, Absolute Neuts (auto) 5.0, Absolute Lymphs (auto) 1.27, Nucleated RBC % 0, Sodium 135 L, Potassium 3.7, Chloride 108 H, Carbon Dioxide 20.0 L, Anion Gap 7, BUN 8, Creatinine 0.62, Estim Creat Clear Calc 51.33, Est GFR (MDRD) Af Amer 120, Est GFR (MDRD) Non-Af 99, BUN/Creatinine Ratio 12.9, Glucose 111 H, Calcium 10.0 Micro: Microbiology 05/08/24 17:00 Urine, Clean Catch Urine Culture - Final Culture exhibits no growth. Physical Exam Const oriented x3 and no apparent distress Resp normal respiratory effort GI soft to palpation Inspection: abdominal distention Assessment & Plan Assessment/Plan (1) Abdominal pain, acute: PLAN: Patient has ischemic colitis of the cecum. The patient will remain on clears until Tuesday. Continue to observe. White count is normal. Abdomen is soft and distended but mildly tender. Ambrocio Henderson MD Pager: [facility] [address] [place] [address], [address] [place] [address] Office:
[2024-05-12] MEDS: Losartan Potassium 100 MG Tablet PO (11:56)
[2024-05-12] MEDS: amLODIPine 5 MG Tablet PO (11:56)
[2024-05-12 14:00] VITALS: BP 153/69; PULSE 72; RESP 18; TEMP 36.8; O2SAT 98
[2024-05-12] MEDS: 0.9% Saline Lock 10 ML Syringe IV ×3 (14:24→21:40)
--- NOTE | 2024-05-12 15:56 | PCM.PN.HOSP ---
Reason for Visit Reason for Visit: Abdominal pain Subjective Subjective Still some mild pain in the right lower quadrant. Tolerating clear liquid diet without difficulty. Positive for flatus. No specific issues noted. Objective Data Objective Data Vital Signs: Vital Signs Temp Pulse Resp BP Pulse Ox O2 Del Method O2 Flow Rate 98.2 F 72 18 153/69 H 98 Room Air 2 05/12/24 14:00 05/12/24 14:00 05/12/24 14:00 05/12/24 14:00 05/12/24 14:00 05/12/24 14:00 05/10/24 20:24 Oxygen Flow Rate (L/min) 2 Oxygen Delivery Method Room Air Weight: 56.1 kg Body Mass Index (BMI) 18.8 Intake & Output: Intake and Output for Last 24 Hours 05/10/24 05/11/24 05/12/24 23:59 23:59 23:59 Intake Total 260 / 260 360 / 360 500 / 500 Output Total 3 / 3 3 / 3 Balance 257 / 257 360 / 360 497 / 497 Lab / Micro Data 05/12/24 06:48 05/12/24 06:48 Labs: Laboratory Results - last 24 hr 05/12/24 06:48: WBC 7.2, RBC 4.40, Hgb 13.4, Hct 42.6, MCV 96.8 D, MCH 30.5, MCHC 31.5 L D, RDW Std Deviation 45.3 H, RDW Coeff of Marie 12.6, Plt Count 243, MPV 9.2, Immature Gran % (Auto) 0.800, Neut % (Auto) 69.3, Lymph % (Auto) 17.8 L, [place] % (Auto) 8.3, Eos % (Auto) 2.8, Baso % (Auto) 1.0, Absolute Neuts (auto) 5.0, Absolute Lymphs (auto) 1.27, Nucleated RBC % 0, Sodium 135 L, Potassium 3.7, Chloride 108 H, Carbon Dioxide 20.0 L, Anion Gap 7, BUN 8, Creatinine 0.62, Estim Creat Clear Calc 51.33, Est GFR (MDRD) Af Amer 120, Est GFR (MDRD) Non-Af 99, BUN/Creatinine Ratio 12.9, Glucose 111 H, Calcium 10.0 Micro: Microbiology 05/08/24 17:00 Urine, Clean Catch Urine Culture - Final Culture exhibits no growth. Physical Exam Const alert, oriented x3, no apparent distress and average body habitus Constitutional Narrative: Elderly, white female, sitting up in bed, appears comfortable, nontoxic General Appearance: cooperative HEENT normocephalic and head/scalp atraumatic Resp Auscultation: Negative for rales, rhonchi or wheezes GI soft to palpation; Negative for non-tender GI Narrative: Still with some mild tenderness under right lower quadrant Extremity no clubbing, cyanosis or edema Extremity Narrative: 2+ pedal and radial pulses Neuro moves all extremities and no focal motor deficits Neuro Narrative: Independent bed mobility Psych Psych Narrative: Pleasant, interacts appropriately, repeats herself frequently, seems more relaxed today Assessment & Plan Assessment/Plan (1) Sudden onset of severe abdominal pain: (2) Abnormal CT of the abdomen: (3) Leukocytosis: (4) Segmental colitis: QUALIFIERS: Digestive disease complication type: other complication Qualified Code(s): K50.118 - Crohn's disease of large intestine with other complication PLAN: Plan Abdominal pain secondary to ischemic ileitis/colitis -Colonoscopy showed pretty significant right sided ischemic colitis and ileitis -Biopsies taken results remain pending -Continue antibiotics as ordered with Zosyn -Continue clear liquid diet until otherwise advanced by general surgery -General Surgery is following with current plan to monitor clinically via labs and physical exam to make decisions about any aggressive intervention but conservative management is hopeful at this time based on current data probably CAD/essential hypertension/hyperlipidemia -Continue to hold aspirin until we are aware if surgical intervention will be required -Continue home carvedilol -Restart home amlodipine -Restart home ARB -Continue home Zetia -Patient has been statin intolerant -Continue outpatient follow-up with cardiology KEVIN -Continue CPAP Mobitz type II/chronic LBBB -patient pacemaker dependent -Continue outpatient follow-up with cardiology Carotid stenosis -Continue home secondary prevention as able DVT prophylaxis -Lovenox 40 mg daily CODE STATUS -Full code Charges/Coding Visit Charges Inpatient E&M: 18344 Subs Hosp L1
[2024-05-12 19:57] VITALS: BP 154/76; PULSE 66; RESP 16; TEMP 36.6; O2SAT 100
[2024-05-12] MEDS: Glycerin/Hypromellose/PEG400 15 ml Bottle 1 DRP EACH EYE (21:57)
[2024-05-13 02:05] VITALS: BP 159/78; PULSE 65; RESP 15; TEMP 36.6; O2SAT 100
[2024-05-13] MEDS: Piperacil/Tazobactam 3.375 GM in 0.9% Normal Saline (50mL MB+) 50 ML IV ×3 (05:00→21:05)
[2024-05-13] MEDS: 0.9% Normal Saline (100mL Bag) 100 ML 15 ML IV (05:00)
[2024-05-13 06:12] LABS: Absolute Lymphocyte Count 1.14 X10^3/uL (0.83-4.51); Basophil# 0.08 X10^3/uL; Basophil% 1.5 % (0-1); Eosinophil# 0.22 X10^3/uL; Eosinophils% 4.2 % (0-5); Hematocrit 36.8 % (37-47); Hemoglobin 12.2 g/dL (12.0-15.0); Lymphocyte # 1.14 X10^3/ul (0.83-4.51); Mean Corp Hgb Conc 33.2 g/dL (32-36); Mean Corpuscular Hgb 30.9 pg (27.0-32.0); Mean Corpuscular Volume 93.2 fL (81-99); Mean Platelet Vol. 9.3 fl (6.2-12.0); Monocyte# 0.75 X10^3/uL; Monocyte% 14.5 % (0-10); NRBC Flagged by Analyzer 0 % (0-5); Neutrophil # 2.95 X10^3/uL (2.7-7.7); Platelet Count 269 K/mm3 (150-450); RBC Distribution Width CV 12.5 % (11.6-14.6); RBC Distribution Width SD 43.1 fl (35.1-43.9); Red Blood Count 3.95 M/mm3 (4.2-5.4); White Blood Count 5.2 K/mm3 (4.4-11.0)
[2024-05-13 06:50] LABS: Anion Gap 10 (5-15); BUN 6 mg/dL (7-18); BUN/Creat Ratio 12.4 RATIO (10-20); Calcium,Total 9.6 mg/dL (8.5-10.1); Chloride 106 mmol/L (98-107); Creatinine, Serum 0.48 mg/dL (0.55-1.02); EST Glomerular Filtration Rate 131 mL/min (>60); Est Glom Filt Rate - Afr Amer 159 mL/min (>60); Estimated Creatinine Clearance 51.33 ml/min; Glucose 98 mg/dL (74-106); Potassium 3.4 mmol/L (3.5-5.1); Sodium Level 137 mmol/L (136-145)
[2024-05-13 07:56] VITALS: BP 169/73; PULSE 68; RESP 18; TEMP 36.7; O2SAT 93
[2024-05-13] MEDS: Carvedilol 6.25 MG Tablet PO ×2 (08:03→17:35)
[2024-05-13] MEDS: Enoxaparin 40 MG/0.4 ML Syringe SC (08:03)
[2024-05-13] MEDS: Ezetimibe 10 MG Tablet PO (08:03)
[2024-05-13] MEDS: Losartan Potassium 100 MG Tablet PO (08:04)
[2024-05-13] MEDS: amLODIPine 5 MG Tablet PO (08:04)
--- NOTE | 2024-05-13 08:48 | PN.SURG_ITS ---
Subjective Subjective Patient reports no abdominal pain. She is tolerating clear liquids. Objective Data Objective Data Vital Signs: Vital Signs Temp Pulse Resp BP Pulse Ox O2 Del Method O2 Flow Rate 98.1 F 68 18 169/73 H 93 Room Air 2 05/13/24 07:56 05/13/24 07:56 05/13/24 07:56 05/13/24 07:56 05/13/24 07:56 05/13/24 07:56 05/10/24 20:24 Oxygen Flow Rate (L/min) 2 Oxygen Delivery Method Room Air Weight: 123 lb 10.869 oz Body Mass Index (BMI) 18.8 Intake & Output: Intake and Output for Last 24 Hours 05/11/24 05/12/24 05/13/24 23:59 23:59 23:59 Intake Total 360 / 360 1250 / 1250 150 / 150 Output Total 6 / 6 Balance 360 / 360 1244 / 1244 150 / 150 Lab / Micro Data 05/13/24 05:19 05/13/24 05:19 Labs: Laboratory Results - last 24 hr 05/13/24 05:19: WBC 5.2, RBC 3.95 L, Hgb 12.2, Hct 36.8 L, MCV 93.2, MCH 30.9, M CHC 33.2 D, RDW Std Deviation 43.1, RDW Coeff of Marie 12.5, Plt Count 269, MPV 9.3, Immature Gran % (Auto) 0.800, Neut % (Auto) 57.0, Lymph % (Auto) 22.0, [place] % (Auto) 14.5 H, Eos % (Auto) 4.2, Baso % (Auto) 1.5 H, Absolute Neuts (auto) 3.0, Absolute Lymphs (auto) 1.14, Nucleated RBC % 0, Sodium 137, Potassium 3.4 L , Chloride 106, Carbon Dioxide 22.0, Anion Gap 10, BUN 6 L, Creatinine 0.48 L, Estim Creat Clear Calc 51.33, Est GFR (MDRD) Af Amer 159, Est GFR (MDRD) Non-Af 131, BUN/Creatinine Ratio 12.4, Glucose 98, Calcium 9.6 Micro: Microbiology 05/08/24 17:00 Urine, Clean Catch Urine Culture - Final Culture exhibits no growth. Physical Exam Const oriented x3 and no apparent distress Resp normal respiratory effort GI soft to palpation and non-tender Assessment & Plan Assessment/Plan (1) Segmental colitis: QUALIFIERS: Digestive disease complication type: other complication Qualified Code(s): K50.118 - Crohn's disease of large intestine with other complication PLAN: The patient has ischemic colitis of the cecum. She is not having any abdominal pain and white count is still normal. She is tolerating clear liquid diet. I will make her n.p.o. after midnight. Pathology pending from colonoscopy. Ambrocio Henderson MD Pager: [facility] [address] [place] [address], [address] [place] [address] Office:
--- NOTE | 2024-05-13 09:52 | PN.HOSP_ITS ---
Reason for Visit Reason for Visit: Abdominal pain Subjective Subjective Patient is complaining of a bit of a sore throat and some nasal congestion that is better from yesterday. I did discuss with her that we check her for COVID and and respiratory viral illnesses. She states her abdomen does feel better today overall. She has been tolerating clear liquid diet without any difficulty. Did have a bowel movement. Objective Data Objective Data Vital Signs: Vital Signs Temp Pulse Resp BP Pulse Ox O2 Del Method O2 Flow Rate 98.1 F 68 18 169/73 H 93 Room Air 2 05/13/24 07:56 05/13/24 07:56 05/13/24 07:56 05/13/24 07:56 05/13/24 07:56 05/13/24 07:56 05/10/24 20:24 Oxygen Flow Rate (L/min) 2 Oxygen Delivery Method Room Air Weight: 56.1 kg Body Mass Index (BMI) 18.8 Intake & Output: Intake and Output for Last 24 Hours 05/11/24 05/12/24 05/13/24 23:59 23:59 23:59 Intake Total 360 / 360 1250 / 1250 150 / 150 Output Total 6 / 6 Balance 360 / 360 1244 / 1244 150 / 150 Lab / Micro Data 05/13/24 05:19 05/13/24 05:19 Labs: Laboratory Results - last 24 hr 05/13/24 05:19: WBC 5.2, RBC 3.95 L, Hgb 12.2, Hct 36.8 L, MCV 93.2, MCH 30.9, M CHC 33.2 D, RDW Std Deviation 43.1, RDW Coeff of Marie 12.5, Plt Count 269, MPV 9.3, Immature Gran % (Auto) 0.800, Neut % (Auto) 57.0, Lymph % (Auto) 22.0, [facility] % (Auto) 14.5 H, Eos % (Auto) 4.2, Baso % (Auto) 1.5 H, Absolute Neuts (auto) 3.0, Absolute Lymphs (auto) 1.14, Nucleated RBC % 0, Sodium 137, Potassium 3.4 L , Chloride 106, Carbon Dioxide 22.0, Anion Gap 10, BUN 6 L, Creatinine 0.48 L, Estim Creat Clear Calc 51.33, Est GFR (MDRD) Af Amer 159, Est GFR (MDRD) Non-Af 131, BUN/Creatinine Ratio 12.4, Glucose 98, Calcium 9.6 Micro: Microbiology 05/08/24 17:00 Urine, Clean Catch Urine Culture - Final Culture exhibits no growth. Physical Exam Const alert, oriented x3, no apparent distress and average body habitus Constitutional Narrative: Elderly, white female, sitting up in a chair at the bedside, appears comfortable, nontoxic General Appearance: cooperative HEENT normocephalic, head/scalp atraumatic, hearing grossly normal bilaterally and moist oral mucous membranes HEENT Narrative: Mallampati is 3, no thrush, no posterior pharyngeal erythema or drainage noted on physical exam Neck Neck Narrative: Mild bilateral submandibular lymphadenopathy Resp normal respiratory effort, no retractions, no use of accessory muscles and clear to auscultation bilaterally Auscultation: Negative for rales, rhonchi or wheezes Cardio regular rate, regular rhythm, S1 normal heart sound, S2 normal heart sound, no murmurs, no rub, no gallops and no clicks GI soft to palpation; Negative for non-tender GI Narrative: Minimal right lower quadrant tenderness, bowel sounds are normal active abdomen is nondistended Extremity no clubbing, cyanosis or edema Extremity Narrative: 2+ pedal and radial pulses Skin Skin Narrative: Patient has evidence of rash, abscess, wounds or jaundice. Neuro oriented x3, moves all extremities and no focal motor deficits Speech: speech normal Psych Psych Narrative: Pleasant, interacts appropriately, repeats herself frequently, calm Mood & Affect: anxious Assessment & Plan Assessment/Plan (1) Sudden onset of severe abdominal pain: (2) Abnormal CT of the abdomen: (3) Leukocytosis: (4) Segmental colitis: QUALIFIERS: Digestive disease complication type: other complication Qualified Code(s): K50.118 - Crohn's disease of large intestine with other complication PLAN: Plan Abdominal pain secondary to ischemic ileitis/colitis -Colonoscopy showed pretty significant right sided ischemic colitis and ileitis -Biopsies taken results remain pending -Continue antibiotics as ordered with Zosyn -Continue clear liquid diet until otherwise advanced by general surgery -General Surgery is following with current plan to monitor clinically via labs and physical exam to make decisions about any aggressive intervention but conservative management is hopeful at this time based on current data probably Pharyngitis -Patient complaining of having a sore throat today with some nasal drainage yesterday -Physical exam was unimpressive with no posterior pharyngeal erythema or drainage but she did have some submandibular lymphadenopathy that was mild -COVID-negative -Respiratory viral panel negative -Reassess tomorrow Hypokalemia -P.o. potassium replacement 40 mill equivalents -Recheck in a.m. CAD/essential hypertension/hyperlipidemia -Continue to hold aspirin until we are aware if surgical intervention will be required -Continue home carvedilol -Continue home amlodipine -Continue home ARB -Continue home Zetia -Patient has been statin intolerant -Continue outpatient follow-up with cardiology KEVIN -Continue CPAP Mobitz type II/chronic LBBB -patient pacemaker dependent -Continue outpatient follow-up with cardiology Carotid stenosis -Continue home secondary prevention as able DVT prophylaxis -Lovenox 40 mg daily CODE STATUS -Full code Charges/Coding Visit Charges Inpatient E&M: 19229 Subs Hosp L2
[2024-05-13] MEDS: Potassium Chloride Oral Tablet 20 MEQ 40 MEQ PO (10:57)
[2024-05-13 14:22] VITALS: BP 146/70; PULSE 73; RESP 18; TEMP 36.8; O2SAT 97
[2024-05-13 21:01] VITALS: BP 151/75; PULSE 65; RESP 16; TEMP 36.6; O2SAT 99
[2024-05-14 02:56] VITALS: BP 146/74; PULSE 67; RESP 16; TEMP 36.6; O2SAT 99
[2024-05-14] MEDS: Piperacil/Tazobactam 3.375 GM in 0.9% Normal Saline (50mL MB+) 50 ML IV ×3 (05:00→21:03)
[2024-05-14] MEDS: 0.9% Normal Saline (100mL Bag) 100 ML 15 ML IV (05:01)
[2024-05-14 06:39] LABS: Absolute Lymphocyte Count 1.41 X10^3/uL (0.83-4.51); Absolute Neutrophil Count 2.5 X10^3/uL (2.0-7.7); Basophil# 0.07 X10^3/uL; Basophil% 1.4 % (0-1); Eosinophil# 0.19 X10^3/uL; Eosinophils% 3.8 % (0-5); Hematocrit 34.9 % (37-47); Hemoglobin 11.8 g/dL (12.0-15.0); Lymphocyte # 1.41 X10^3/ul (0.83-4.51); Mean Corp Hgb Conc 33.8 g/dL (32-36); Mean Corpuscular Hgb 31.1 pg (27.0-32.0); Mean Corpuscular Volume 92.1 fL (81-99); Mean Platelet Vol. 9.5 fl (6.2-12.0); Monocyte# 0.79 X10^3/uL; Monocyte% 15.7 % (0-10); NRBC Flagged by Analyzer 0 % (0-5); Neutrophil # 2.51 X10^3/uL (2.7-7.7); Neutrophil % 49.9 % (47-70); Platelet Count 262 K/mm3 (150-450); RBC Distribution Width CV 12.6 % (11.6-14.6); RBC Distribution Width SD 42.7 fl (35.1-43.9); Red Blood Count 3.79 M/mm3 (4.2-5.4)
[2024-05-14 07:19] LABS: Anion Gap 7 (5-15); BUN 6 mg/dL (7-18); Calcium,Total 9.6 mg/dL (8.5-10.1); Chloride 106 mmol/L (98-107); Creatinine, Serum 0.55 mg/dL (0.55-1.02); EST Glomerular Filtration Rate 114 mL/min (>60); Est Glom Filt Rate - Afr Amer 138 mL/min (>60); Estimated Creatinine Clearance 51.33 ml/min; Glucose 96 mg/dL (74-106); Potassium 3.4 mmol/L (3.5-5.1); Sodium Level 135 mmol/L (136-145)
--- NOTE | 2024-05-14 08:18 | PN.SURG_ITS ---
Subjective Subjective Patient is evaluated resting comfortably in bed. She denies any nausea, vomiting. She was having some abdominal discomfort yesterday and was placed on NPO. she notes her abdominal discomfort may have been a 2 out of 10 intermittently. She notes having loose stools. She notes feeling a little bloated. She denies the severity of abdominal pain being similar to when she came to the ED. Objective Data Objective Data Vital Signs: Vital Signs Temp Pulse Resp BP Pulse Ox O2 Del Method O2 Flow Rate 97.8 F 67 16 146/74 H 99 Bi-pap 2 05/14/24 02:56 05/14/24 02:56 05/14/24 02:56 05/14/24 02:56 05/14/24 02:56 05/14/24 02:56 05/10/24 20:24 Oxygen Flow Rate (L/min) 2 Oxygen Delivery Method Bi-pap Weight: 123 lb 10.869 oz Body Mass Index (BMI) 18.8 Intake & Output: Intake and Output for Last 24 Hours 05/12/24 05/13/24 05/14/24 23:59 23:59 23:59 Intake Total 1250 / 1250 990 / 990 50 / 50 Output Total 6 / 6 6 / 6 Balance 1244 / 1244 984 / 984 50 / 50 Lab / Micro Data 05/14/24 05:50 05/14/24 05:50 Labs: Laboratory Results - last 24 hr 05/14/24 05:50: WBC 5.0, RBC 3.79 L, Hgb 11.8 L, Hct 34.9 L, MCV 92.1, MCH 31.1, MCHC 33.8, RDW Std Deviation 42.7, RDW Coeff of Marie 12.6, Plt Count 262, MPV 9.5, Immature Gran % (Auto) 1.200 H, Neut % (Auto) 49.9, Lymph % (Auto) 28.0, M michelle % (Auto) 15.7 H, Eos % (Auto) 3.8, Baso % (Auto) 1.4 H, Absolute Neuts (auto) 2.5, Absolute Lymphs (auto) 1.41, Nucleated RBC % 0, Sodium 135 L, P otassium 3.4 L, Chloride 106, Carbon Dioxide 22.0, Anion Gap 7, BUN 6 L, Creatinine 0.55, Estim Creat Clear Calc 51.33, Est GFR (MDRD) Af Amer 138, Est GFR (MDRD) Non-Af 114, BUN/Creatinine Ratio 11.0, Glucose 96, Calcium 9.6 Micro: Microbiology 05/13/24 11:10 Mucosa - Nose Respiratory Panel (PCR) - Final 05/13/24 11:10 Mucosa - Nasopharyngeal Coronavirus COVID-19 PCR - Final 05/08/24 17:00 Urine, Clean Catch Urine Culture - Final Culture exhibits no growth. Physical Exam GI GI Narrative: Abdomen- soft, slightly distended. Slight tenderness to palpation of the right lower quadrant. Assessment & Plan Assessment/Plan (1) Segmental colitis: QUALIFIERS: Digestive disease complication type: other complication Qualified Code(s): K50.118 - Crohn's disease of large intestine with other complication PLAN: Plan I am following this patient in conjunction with Dr. Villalta. He has independently evaluated this patient. Labs reviewed Increase diet to full liquids Confirmed with Dr. Van that he has no plans to rescope this patient during this hospitalization If patient tolerates fulls, plan to increase to transitional diet/low residue If diet is tolerated, patient is able to be discharged with a follow-up in [address] Villalta. We will continue to monitor this patient Charges/Coding Visit Charges Inpatient E&M: 25071 Subs Hosp L1
[2024-05-14 08:55] VITALS: BP 160/75; PULSE 69; RESP 16; TEMP 36.3; O2SAT 98
--- NOTE | 2024-05-14 09:43 | PN.HOSP_ITS ---
Reason for Visit Reason for Visit: Diagnoses Elevated white blood cell count, unspecified (05/09/24) Dehydration (05/09/24) Essential (primary) hypertension (05/09/24) Crohn's disease of large intestine with other complication (05/09/24) Noninfective gastroenteritis and colitis, unspecified (05/09/24) Other specified diseases of intestine (05/09/24) Acute cystitis with hematuria (05/09/24) Unspecified abdominal pain (05/09/24) Abnormal findings on diagnostic imaging of other abdominal regions, including retroperitoneum (05/09/24) Subjective Subjective Patient is a 78-year-old lady who presented with left lower quadrant abdominal pain. Underwent colonoscopy which demonstrated colonic necrosis with right- sided ischemic colitis. Started on antibiotic therapy manage on the regular nursing floor with consultation placed to general surgery Objective Data Objective Data Vital Signs: Vital Signs Temp Pulse Resp BP Pulse Ox O2 Del Method O2 Flow Rate 97.8 F 67 16 146/74 H 99 Bi-pap 2 05/14/24 02:56 05/14/24 02:56 05/14/24 02:56 05/14/24 02:56 05/14/24 02:56 05/14/24 02:56 05/10/24 20:24 Oxygen Flow Rate (L/min) 2 Oxygen Delivery Method Bi-pap Weight: 56.1 kg Body Mass Index (BMI) 18.8 Intake & Output: Intake and Output for Last 24 Hours 05/12/24 05/13/24 05/14/24 23:59 23:59 23:59 Intake Total 1250 / 1250 990 / 990 50 / 50 Output Total Balance 1244 / 1244 984 / 984 50 / 50 Lab / Micro Data 05/14/24 05:50 05/14/24 05:50 Labs: Laboratory Results - last 24 hr 05/14/24 05:50: WBC 5.0, RBC 3.79 L, Hgb 11.8 L, Hct 34.9 L, MCV 92.1, MCH 31.1, MCHC 33.8, RDW Std Deviation 42.7, RDW Coeff of Marie 12.6, Plt Count 262, MPV 9.5, Immature Gran % (Auto) 1.200 H, Neut % (Auto) 49.9, Lymph % (Auto) 28.0, M michelle % (Auto) 15.7 H, Eos % (Auto) 3.8, Baso % (Auto) 1.4 H, Absolute Neuts (auto) 2.5, Absolute Lymphs (auto) 1.41, Nucleated RBC % 0, Sodium 135 L, P otassium 3.4 L, Chloride 106, Carbon Dioxide 22.0, Anion Gap 7, BUN 6 L, Creatinine 0.55, Estim Creat Clear Calc 51.33, Est GFR (MDRD) Af Amer 138, Est GFR (MDRD) Non-Af 114, BUN/Creatinine Ratio 11.0, Glucose 96, Calcium 9.6 Micro: Microbiology 05/13/24 11:10 Mucosa - Nose Respiratory Panel (PCR) - Final 05/13/24 11:10 Mucosa - Nasopharyngeal Coronavirus COVID-19 PCR - Final 05/08/24 17:00 Urine, Clean Catch Urine Culture - Final Culture exhibits no growth. Physical Exam Narrative GENERAL: cooperative HEENT: Atraumatic; normocephalic EYES; Anicteric, Normal Conjunctiva NECK; supple, normal thyroid, RESPIRATORY: Diminished to auscultation CARDIOVASCULAR: Regular S1 S2, GI: soft, normoactive bowel sounds, : No Renal angle tenderness; EXTREMITIES: No edema, no clubbing, MUSCULOSKELETAL: no muscle wasting NEURO: Awake; no lateralizing signs. SKIN: No Rash PSYCH; Flat affect Assessment & Plan Assessment/Plan (1) Sudden onset of severe abdominal pain: (2) Abnormal CT of the abdomen: (3) Leukocytosis: (4) Segmental colitis: QUALIFIERS: Digestive disease complication type: other complication Qualified Code(s): K50.118 - Crohn's disease of large intestine with other complication PLAN: Plan Patient is a 78-year-old lady who presented with left lower quadrant abdominal pain. Underwent colonoscopy which demonstrated colonic necrosis with right- sided ischemic colitis. Started on antibiotic therapy manage on the regular nursing floor with consultation placed to general surgery 1. Acute ischemic colitis with colonic necrosis ? This was confirmed on colonoscopy performed by Dr. Van. Patient subsequently started on broad-spectrum antibiotic therapy consult placed to general surgery 2. Acute pharyngitis ? Treated symptomatically 3. Hypokalemia -Corrected per protocol 4. Hypertension ? Blood pressure controlled, home medications continued with dose adjustment as needed 5. Dyslipidemia ?Patient is on his ezetimibe did continue 6. Obstructive sleep apnea ? Consistent use of CPAP encouraged 7. Conduction system disorder ? With history of Mobitz type II the patient underwent pacemaker placement 8. Hypokalemia ? Corrected per protocol repeat labs ordered for monitoring 9. DVT prophylaxis ? On enoxaparin Time spent in the patient's overall evaluation,decision-making process, review of diagnostic data, adjustment of management, discussion with other providers, nursing nursing and ancillary staff involved in patient's care documentation, 40 Minutes Charges/Coding Visit Charges Inpatient E&M: 97263 Subs Hosp L2
[2024-05-14] MEDS: Ezetimibe 10 MG Tablet PO (10:21)
[2024-05-14] MEDS: Enoxaparin 40 MG/0.4 ML Syringe SC (10:21)
[2024-05-14] MEDS: Carvedilol 6.25 MG Tablet PO ×2 (10:21→17:53)
[2024-05-14] MEDS: Losartan Potassium 100 MG Tablet PO (10:21)
[2024-05-14] MEDS: amLODIPine 5 MG Tablet PO (10:21)
--- NOTE | 2024-05-14 12:37 | OP.COLON_ITS ---
Patient Name: Yusra Aparicio Procedure Date: 05/10/2024 5:26 PM Date of : 1945 Age: 78 Procedure: Colonoscopy Indications: Abdominal pain in the right lower quadrant Providers: Tio Van DO Medicines: Monitored Anesthesia Care Patient Profile: This is a 78 year old female. Refer to note in patient chart for documentation of history and physical. Last Colonoscopy: several years ago. Complications: No immediate complications. Procedure: Pre-Anesthesia Assessment: - Prior to the procedure, a History and Physical was performed, and patient medications and allergies were reviewed. The patient is competent. The risks and benefits of the procedure and the sedation options and risks were discussed with the patient. All questions were answered and informed consent was obtained. Patient identification and proposed procedure were verified by the physician in the pre-procedure area. Mental Status Examination: alert and oriented. Airway Examination: normal oropharyngeal airway and neck mobility. Respiratory Examination: clear to auscultation. CV Examination: normal. Prophylactic Antibiotics: The patient does not require prophylactic antibiotics. Prior Anticoagulants: The patient has taken no anticoagulant or antiplatelet agents except for NSAID medication. ASA Grade Assessment: II - A patient with mild systemic disease. After reviewing the risks and benefits, the patient was deemed in satisfactory condition to undergo the procedure. The anesthesia plan was to use monitored anesthesia care (MAC). Immediately prior to administration of medications, the patient was re-assessed for adequacy to receive sedatives. The heart rate, respiratory rate, oxygen saturations, blood pressure, adequacy of pulmonary ventilation, and response to care were monitored throughout the procedure. The physical status of the patient was re-assessed after the procedure. After I obtained informed consent, the scope was passed under direct vision. Throughout the procedure, the patient's blood pressure, pulse, and oxygen saturations were monitored continuously. The Colonoscope was introduced through the anus and advanced to the cecum, identified by appendiceal orifice and ileocecal valve. The colonoscopy was performed without difficulty. The patient tolerated the procedure well. The quality of the bowel preparation was fair. The terminal ileum, ileocecal valve, appendiceal orifice, and rectum were photographed. Scope In: 6:31:50 PM Scope Withdrawal Time 0 hours 16 minutes 52 seconds Scope Out: 6:51:18 PM Total Procedure Duration Time 0 hours 19 minutes 28 seconds Findings: The perianal and digital rectal examinations were normal. Many small and large-mouthed diverticula were found in the recto-sigmoid colon and sigmoid colon. Stool was found in the entire colon. Lavage of the area was performed, resulting in incomplete clearance with fair visualization. Localized severe inflammation characterized by congestion (edema), granularity and deep ulcerations was found in the cecum, at the appendiceal orifice and at the ileocecal valve. Biopsies were taken with a cold forceps for histology. Biopsies were taken with a cold forceps for histology. Verification of patient identification for the specimen was done. Estimated blood loss was minimal. Localized severe mucosal changes characterized by granularity and deep ulcerations were found in the terminal ileum. Impression: - Preparation of the colon was fair. - Diverticulosis in the recto-sigmoid colon and in the sigmoid colon. - Stool in the entire examined colon. - Localized severe inflammation was found in the cecum, at the appendiceal orifice and at the ileocecal valve secondary to ischemic colitis. Biopsied. - Severe mucosal changes were found in the ileum secondary to ischemic ileitis. Recommendation: - [facility]. - Clear liquid diet. - Continue present medications. - Await pathology results. - Severe cecal ischemic colitis - Continue Antibiotics - Surgical treatment is may be required for right-sided ischemic colitis because it is more likely to be accompanied by gangrene. - No recommendation at this time regarding repeat colonoscopy due to age. Procedure Code(s): --- Professional --- 98401, Colonoscopy, flexible; with biopsy, single or multiple CPT copyright 2021 [employer]. All rights reserved. The codes documented in this report are preliminary and upon tape edge machine operator review may be revised to meet current compliance requirements. Tio Van DO 05/14/2024 12:36:53 PM This report has been signed electronically. Number of Addenda: 0 Note Initiated On: 05/10/2024 5:26 PM
--- NOTE | 2024-05-14 12:37 | OP.CCLET_ITS ---
05/14/2024 Yolis Yu Re : Colonoscopy procedure for Yusra Aparicio Dear Gigi This procedure was performed on April. My impressions and recommendations are as follows: Impressions : - Preparation of the colon was fair. - Diverticulosis in the recto-sigmoid colon and in the sigmoid colon. - Stool in the entire examined colon. - Localized severe inflammation was found in the cecum, at the appendiceal orifice and at the ileocecal valve secondary to ischemic colitis. Biopsied. - Severe mucosal changes were found in the ileum secondary to ischemic ileitis. Recommendations : - Return patient to [facility] for [facility] care. - Clear liquid diet. - Continue present medications. - Await pathology results. - Severe cecal ischemic colitis - Continue Antibiotics - Surgical treatment is may be required for right-sided ischemic colitis because it is more likely to be accompanied by gangrene. - No recommendation at this time regarding repeat colonoscopy due to age. My findings are described in the full procedure note, which is enclosed. If I can be of further assistance, please feel free to contact me at . Sincerely, Tio Van, 05/14/2024 12:36:53 PM This report has been signed electronically.
[2024-05-14 16:00] VITALS: BP 158/86; PULSE 62; RESP 18; TEMP 36.8; O2SAT 98
--- NOTE | 2024-05-14 16:26 | PN_ITS ---
Progress Note As per patient she has been having some bowel movements. She continues to be afebrile. She does not have much of an appetite. Physical Exam Narrative GENERAL: cooperative HEENT: Atraumatic; normocephalic EYES; Anicteric, Normal Conjunctiva NECK; supple, normal thyroid, RESPIRATORY: Diminished to auscultation CARDIOVASCULAR: Regular S1 S2, GI: soft, normoactive bowel sounds, : No Renal angle tenderness; EXTREMITIES: No edema, no clubbing, MUSCULOSKELETAL: no muscle wasting NEURO: Awake; no lateralizing signs. SKIN: No Rash PSYCH; Flat affect Assessment & Plan Assessment/Plan (1) Sudden onset of severe abdominal pain: (2) Abnormal CT of the abdomen: (3) Leukocytosis: (4) Segmental colitis: QUALIFIERS: Digestive disease complication type: other complication Qualified Code(s): K50.118 - Crohn's disease of large intestine with other complication PLAN: Plan 78-year-old with multiple comorbidities presents with acute onset of abdominal pain Abdominal pain secondary to ischemic ileitis/colitis -Colonoscopy showed pretty significant right sided ischemic colitis and ileitis -Continue antibiotics as ordered with Zosyn - Cecum, biopsy: Fragments of colonic mucosa with extensive ulceration, fibrinopurulent exudation and glandular distortion. Negative for malignancy. -Continue clear liquid diet until otherwise advanced by general surgery Visit Charges Inpatient E&M: 13802 [facility] L3
[2024-05-14 21:02] VITALS: BP 133/67; PULSE 59; RESP 16; TEMP 36.7; O2SAT 100
[2024-05-15 04:03] VITALS: BP 141/83; PULSE 61; RESP 18; TEMP 36.4; O2SAT 100
[2024-05-15] MEDS: Piperacil/Tazobactam 3.375 GM in 0.9% Normal Saline (50mL MB+) 50 ML IV (05:16)
[2024-05-15 07:22] LABS: Absolute Lymphocyte Count 1.46 X10^3/uL (0.83-4.51); Absolute Neutrophil Count 2.5 X10^3/uL (2.0-7.7); Basophil# 0.08 X10^3/uL; Basophil% 1.6 % (0-1); Eosinophil# 0.22 X10^3/uL; Eosinophils% 4.4 % (0-5); Hematocrit 36.3 % (37-47); Hemoglobin 11.9 g/dL (12.0-15.0); Lymphocyte # 1.46 X10^3/ul (0.83-4.51); Lymphocyte % 29.5 % (19-41); Mean Corp Hgb Conc 32.8 g/dL (32-36); Mean Corpuscular Hgb 30.3 pg (27.0-32.0); Mean Corpuscular Volume 92.4 fL (81-99); Mean Platelet Vol. 9.5 fl (6.2-12.0); Monocyte# 0.61 X10^3/uL; Monocyte% 12.3 % (0-10); NRBC Flagged by Analyzer 0 % (0-5); Neutrophil # 2.52 X10^3/uL (2.7-7.7); Platelet Count 275 K/mm3 (150-450); RBC Distribution Width CV 12.7 % (11.6-14.6); RBC Distribution Width SD 43.4 fl (35.1-43.9); Red Blood Count 3.93 M/mm3 (4.2-5.4)
[2024-05-15 07:53] LABS: Anion Gap 7 (5-15); BUN 9 mg/dL (7-18); BUN/Creat Ratio 18.6 RATIO (10-20); Calcium,Total 9.4 mg/dL (8.5-10.1); Chloride 108 mmol/L (98-107); Creatinine, Serum 0.48 mg/dL (0.55-1.02); EST Glomerular Filtration Rate 131 mL/min (>60); Est Glom Filt Rate - Afr Amer 159 mL/min (>60); Estimated Creatinine Clearance 51.33 ml/min; Glucose 91 mg/dL (74-106); Magnesium 2.1 mg/dL (1.6-2.6); Phosphorus 2.7 mg/dL (2.5-4.9); Potassium 3.8 mmol/L (3.5-5.1); Sodium Level 137 mmol/L (136-145)
--- NOTE | 2024-05-15 08:23 | PCM.PN.SRG ---
Subjective Subjective Patient seen and examined during AM rounds. Her son is present at bedside. She declares she had no issues with advancement of her diet to a transitional diet level. She also shares that she had additional bowel movements which were loose but nonbloody. She denies any abdominal discomfort today and this despite declining any Tylenol as she states she wanted to know if there was any discomfort to be felt she did not want to inadvertently mask symptoms. Objective Data Objective Data Vital Signs: Vital Signs Temp Pulse Resp BP Pulse Ox O2 Del Method O2 Flow Rate 97.6 F L 61 18 141/83 H 100 CPAP 2 05/15/24 04:03 05/15/24 04:03 05/15/24 04:03 05/15/24 04:03 05/15/24 04:03 05/15/24 04:03 05/10/24 20:24 Oxygen Flow Rate (L/min) 2 Oxygen Delivery Method CPAP Weight: 123 lb 10.869 oz Body Mass Index (BMI) 18.8 Intake & Output: Intake and Output for Last 24 Hours 05/13/24 05/14/24 05/15/24 23:59 23:59 23:59 Intake Total 990 / 990 1562.25 / 1812.25 400 / 400 Output Total 6 / 6 Balance 984 / 984 1562.25 / 1812.25 400 / 400 Lab / Micro Data 05/15/24 06:40 05/15/24 06:40 Labs: Laboratory Results - last 24 hr 05/15/24 06:40: WBC 5.0, RBC 3.93 L, Hgb 11.9 L, Hct 36.3 L, MCV 92.4, MCH 30.3, MCHC 32.8, RDW Std Deviation 43.4, RDW Coeff of Marie 12.7, Plt Count 275, MPV 9.5, Immature Gran % (Auto) 1.200 H, Neut % (Auto) 51.0, Lymph % (Auto) 29.5, [place] % (Auto) 12.3 H, Eos % (Auto) 4.4, Baso % (Auto) 1.6 H, Absolute Neuts (auto) 2.5, Absolute Lymphs (auto) 1.46, Nucleated RBC % 0, Sodium 137, Potassium 3.8, Chloride 108 H, Carbon Dioxide 22.0, Anion Gap 7, BUN 9, Creatinine 0.48 L, Estim Creat Clear Calc 51.33, Est GFR (MDRD) Af Amer 159, Est GFR (MDRD) Non-Af 131, BUN/Creatinine Ratio 18.6, Glucose 91, Calcium 9.4, Phosphorus 2.7, Magnesium 2.1 Micro: Microbiology 05/13/24 11:10 Mucosa - Nose Respiratory Panel (PCR) - Final 05/13/24 11:10 Mucosa - Nasopharyngeal Coronavirus COVID-19 PCR - Final 05/08/24 17:00 Urine, Clean Catch Urine Culture - Final Culture exhibits no growth. Physical Exam Const oriented x3 and no apparent distress Resp normal respiratory effort GI GI Narrative: Nondistended, soft, nontender to palpation x 4 quadrants Assessment & Plan Assessment/Plan (1) Segmental colitis: QUALIFIERS: Digestive disease complication type: other complication Qualified Code(s): K50.118 - Crohn's disease of large intestine with other complication PLAN: Plan Patient is 78-year-old female hospital day 6 for management of right-sided ischemic colitis. Patient was maintained on a clear liquid diet over the weekend to evaluate for any progression of her initial ischemic insult, however, when none was observed clinically her diet was advanced yesterday. She appears to have tolerated this well. Her exam remains benign today and her white blood cell count remains within normal limits. I discussed with patient and her son at some length conservative measures to continue to enact at home to try to mitigate her risk for any progression. This included taking her blood pressure twice daily and reporting any low values immediately. I have asked the hospitalist service to consider what medications may be held in the event any hypotension is observed. Further, I asked family to focus on remaining well-hydrated and consuming a soft, low fiber diet for the next 2 weeks. Lastly, I stressed the need to report any recurrence of abdominal pain or unusual bowel activity immediately. Given patient's stability during her observation over the last roughly 1 week I believe she is fit for discharge to home and this impression was shared with the hospitalist service this morning. Cristobal Villalta MD General Surgery Endocrine Surgery Pager: [facility] [address] [place] [address], [facility], [address] [place] [address] Office: [phone] Charges/Coding Visit Charges Inpatient E&M: 55520 Subs Hosp L2
--- NOTE | 2024-05-15 08:31 | DS.PCM_ITS ---
Providers Date of Admission: 05/09/24 Date of Discharge: 05/15/24 Primary Care Physician: Dr. Yolis Yu, DO Consultations 05/09/24 03:53 Consult: Gastroenterology Routine Consulting Provider: [facility] Reason for Consult: Suspected Cecal Mass with Segmental Colitis. EMERGENT Consult: No MD Notified: Yes Date Notified: 05/09/24 Time Notified: 05:31 Method of Notification: Text Reason For Visit: SUSPECTED CECAL MASS, SEGMENTAL COLITIS, ACUTE Diagnosis Discharge Diagnosis (1) Sudden onset of severe abdominal pain: Status: Acute Code(s): R10.9 - Unspecified abdominal pain (2) Abnormal CT of the abdomen: Status: Acute Code(s): R93.5 - Abnormal findings on diagnostic imaging of other abdominal regions, including retroperitoneum (3) Leukocytosis: Status: Acute Code(s): D72.829 - Elevated white blood cell count, unspecified (4) Segmental colitis: Status: Acute Code(s): K50.10 - Crohn's disease of large intestine without complications Qualifiers: Digestive disease complication type: other complication Qualified Code(s): K50.118 - Crohn's disease of large intestine with other complication Plan Patient is a 78-year-old lady who presented with left lower quadrant abdominal pain. Underwent colonoscopy which demonstrated colonic necrosis with right- sided ischemic colitis. Started on antibiotic therapy manage on the regular nursing floor with consultation placed to general surgery 1. Acute ischemic colitis with colonic necrosis ? This was confirmed on colonoscopy performed by Dr. Van. Patient subsequently started on broad-spectrum antibiotic therapy consult placed to general surgery ? Case was discussed with Dr. Villalta with general surgery decision was made to discharge patient home on Augmentin for 14 days. Plan is also to keep patient MAP greater than 65. Patient was instructed to obtain a sphygmomanometer to check her blood pressure constantly at home 2. Acute pharyngitis ? Treated symptomatically 3. Hypokalemia -Corrected per protocol 4. Hypertension ? Blood pressure controlled, home medications continued with dose adjustment as needed ? Plan is to keep patient's MAP above 65 5. Dyslipidemia ?Patient is on his ezetimibe did continue 6. Obstructive sleep apnea ? Consistent use of CPAP encouraged 7. Conduction system disorder ? With history of Mobitz type II the patient underwent pacemaker placement 8. Hypokalemia ? Corrected per protocol repeat labs ordered for monitoring 9. DVT prophylaxis ? On enoxaparin Time spent in the patient's overall evaluation,decision-making process, review of diagnostic data, adjustment of management, discussion with other providers, nursing nursing and ancillary staff involved in patient's care documentation, 40 Minutes Medications at Discharge Home Medications aspirin 81 mg chewable tablet 81 mg PO DAILY@0800 02/20/13 carvedilol 6.25 mg tablet 6.25 mg PO BID 04/09/13 cholecalciferol (vitamin D3) 25 mcg (1,000 unit) capsule 25 mcg PO QDAY supplement 01/16/24 ezetimibe 10 mg tablet 10 mg PO DAILY hld 01/16/24 telmisartan 80 mg tablet 80 mg PO DAILY bp 01/16/24 amlodipine 5 mg tablet 5 mg PO DAILY blood pressure 05/08/24 flaxseed oil-omega 3,6,9-fatty acids 1,300 mg-670 mg-155 mg capsule 1 cap PO DAILY supplement 05/08/24 amoxicillin 875 mg-potassium clavulanate 125 mg tablet 1 tab PO BID #28 tabs 05/15/24 Physical Exam Narrative GENERAL: cooperative HEENT: Atraumatic; normocephalic EYES; Anicteric, Normal Conjunctiva NECK; supple, normal thyroid, RESPIRATORY: Diminished to auscultation CARDIOVASCULAR: Regular S1 S2, GI: soft, normoactive bowel sounds, : No Renal angle tenderness; EXTREMITIES: No edema, no clubbing, MUSCULOSKELETAL: no muscle wasting NEURO: Awake; no lateralizing signs. SKIN: No Rash PSYCH; Flat affect Weight / BMI Weight Weight: 56.1 kg Body Mass Index (BMI) 18.8 ABG / Lab / Microbiology Data 05/15/24 06:40 05/15/24 06:40 Laboratory: Laboratory Results - last 24 hr 05/15/24 06:40: WBC 5.0, RBC 3.93 L, Hgb 11.9 L, Hct 36.3 L, MCV 92.4, MCH 30.3, MCHC 32.8, RDW Std Deviation 43.4, RDW Coeff of Marie 12.7, Plt Count 275, MPV 9.5, Immature Gran % (Auto) 1.200 H, Neut % (Auto) 51.0, Lymph % (Auto) 29.5, M michelle % (Auto) 12.3 H, Eos % (Auto) 4.4, Baso % (Auto) 1.6 H, Absolute Neuts (auto) 2.5, Absolute Lymphs (auto) 1.46, Nucleated RBC % 0, Sodium 137, Potassium 3.8, Chloride 108 H, Carbon Dioxide 22.0, Anion Gap 7, BUN 9, C reatinine 0.48 L, Estim Creat Clear Calc 51.33, Est GFR (MDRD) Af Amer 159, Est GFR (MDRD) Non-Af 131, BUN/Creatinine Ratio 18.6, Glucose 91, Calcium 9.4, Phosphorus 2.7, Magnesium 2.1 Microbiology: Microbiology 05/13/24 11:10 Mucosa - Nose Respiratory Panel (PCR) - Final 05/13/24 11:10 Mucosa - Nasopharyngeal Coronavirus COVID-19 PCR - Final 05/08/24 17:00 Urine, Clean Catch Urine Culture - Final Culture exhibits no growth. D/C Instructions Discharge Diet: No restrictions Discharge Activity: Return to Normal Activity Call your doctor if you observe: Fever of 101 or Higher, Shortness of breath, Fainting spells and Chest pain DC O2, CPAP, BIPAP Needs Home O2 Discharge instructions: No Meaningful Use Info Meaningful Use Meaningful Use Diagnoses (Choose all that apply): None applicable Ischemic Stroke Statin Dosing Therapy Reference: STATIN DOSE THERAPY REFERENCE: * Patients > 75 years receive moderate or high dose statin therapy. * Patients 75 years or YOUNGER should receive HIGH intensity statin dose unless contraindicated. You will be required to document reason for non-treatment if statin daily dose does not meet guidelines. HIGH DOSE STATIN THERAPY DAILY Atorvastatin > than or = to 40 mg Rosuvastatin > than or = to 20 mg Amlodipine + Atorvastatin > than or = to 2.5/40 mg Ezetimibe + Simvastatin 10/80 mg Simvastatin 80mg Discharge Plan Admission Admit Date/Time: 05/09/24 03:02 Attending Provider: Sammy Potts Primary Care Provider: Yolis Yu Consulting Providers: Sammy Singer; Phuong Salas Discharge Orders/Prescriptions Prescriptions: New amoxicillin-pot clavulanate 875-125 mg tablet 1 tab PO BID Qty: 28 0RF Continued ezetimibe 10 mg tablet 10 mg PO DAILY telmisartan 80 mg tablet 80 mg PO DAILY cholecalciferol (vitamin D3) 25 mcg (1,000 unit) capsule 25 mcg PO QDAY aspirin 81 MG tablet,chewable 81 mg PO DAILY@0800 Patient Comments: ANTIPLATELET carvedilol 6.25 MG tablet 6.25 mg PO BID Patient Comments: HEART/BLOOD PRESSURE amlodipine 5 mg tablet 5 mg PO DAILY flaxseed-omega3,6,9-fatty acid 1,300-670-155 mg capsule 1 cap PO DAILY Referrals / Follow Up: Yolis Yu DO [Primary Care Provider] - In 1 Week Cristobal Villalta MD [Med Staff - Active Staff] - Within 2 Weeks Disposition Disposition (needs filled in before D/C Order can be placed): Home, Self Care Charges/Coding Visit Charges Inpatient E&M: 44159 Disch Hosp >30min
--- NOTE | 2024-05-15 09:35 | CASEMGMT ---
CHINYERE CM into pt room, pt standing up in room working on packing her items for homegoing. Pt states that her grandson is going to pick her up and transport her home. He is going to stay with her as long as needed. Pt denies any homegoing needs. She states she has been ambulating the halls and feels strong enough to go home. Pt is ready for dc.
[2024-05-15] MEDS: Ezetimibe 10 MG Tablet PO (10:59)
[2024-05-15 11:00] VITALS: BP 142/68; PULSE 75; RESP 18; TEMP 36.6; O2SAT 100
[2024-05-15] MEDS: Carvedilol 6.25 MG Tablet PO (11:00)
[2024-05-15] MEDS: Losartan Potassium 100 MG Tablet PO (11:00)
[2024-05-15] MEDS: amLODIPine 5 MG Tablet PO (11:00)
[2024-05-15] MEDS: Glycerin/Hypromellose/PEG400 15 ml Bottle 1 DRP EACH EYE (11:01)
== END 2024-05-15 11:56 | disposition home or self-care (01) | DRG 398 ==
LOC: ED 22:50 → MS3 05-09 03:08
PROVIDERS: Anesthesiology; Internal Medicine; Internal Medicine Gastroenterology; Admitting Provider Internal Medicine; Emergency Provider Emergency Medicine; PCP Internal Medicine; Visit Provider Internal Medicine
PROC: 0DJD8ZZ Inspection of Lower Intestinal Tract, Via Natural or Artificial Opening Endoscopic (ICD-10-PCS; CPT 45378; principal; 2024-05-10 15:55)
DX: K55.30 Necrotizing enterocolitis, unspecified (principal); E87.1 Hypo-osmolality and hyponatremia; K63.3 Ulcer of intestine; K50.118 Crohn's disease of large intestine with other complication; I44.1 Atrioventricular block, second degree; E11.9 Type 2 diabetes mellitus without complications; E04.1 Nontoxic single thyroid nodule; D72.829 Elevated white blood cell count, unspecified; I10 Essential (primary) hypertension; I65.29 Occlusion and stenosis of unspecified carotid artery; K76.0 Fatty (change of) liver, not elsewhere classified; K55.039 Acute (reversible) ischemia of large intestine, extent unspecified; E78.5 Hyperlipidemia, unspecified; E86.0 Dehydration; M19.90 Unspecified osteoarthritis, unspecified site; I25.10 Atherosclerotic heart disease of native coronary artery without angina pectoris; G47.33 Obstructive sleep apnea (adult) (pediatric); I44.7 Left bundle-branch block, unspecified; K57.30 Diverticulosis of large intestine without perforation or abscess without bleeding; E87.6 Hypokalemia; R41.81 Age-related cognitive decline; K80.20 Calculus of gallbladder without cholecystitis without obstruction; J02.9 Acute pharyngitis, unspecified; Z90.710 Acquired absence of both cervix and uterus; R10.9 Unspecified abdominal pain; R59.0 Localized enlarged lymph nodes; Z11.52 Encounter for screening for COVID-19; Z95.0 Presence of cardiac pacemaker; Z79.82 Long term (current) use of aspirin; Z88.8 Allergy status to other drugs, medicaments and biological substances; Z99.89 Dependence on other enabling machines and devices; K63.89 Other specified diseases of intestine; Z68.26 Body mass index [BMI] 26.0-26.9, adult; E66.3 Overweight; Z98.49 Cataract extraction status, unspecified eye; Z20.828 Contact with and (suspected) exposure to other viral communicable diseases; K38.8 Other specified diseases of appendix
CPT/HCPCS: 36415; 74176; 74177; 80048; 80053; 81001; 83036; 83605; 83690; 83735; 84100; 84443; 85025; 85027; 87086; 87633; 87635; 88305; 93005; 99284; Q9967; A4216

== ENCOUNTER → 2024-08-15 | Outpatient (CLI) | payer MEDICARE, BC, SELFPAY ==
--- NOTE | 2024-08-15 11:18 | VDLE_ITS ---
Reason For Study Reason For Study: ble eDEMA RIGHT LEFT GSV is normal. GSV is normal. CFV is compressible, spontaneous, phasic, competent CFV is compressible, spontaneous, phasic, competent, and demonstrates normal augmentation. and demonstrates normal augmentation. FV is compressible, spontaneous, phasic, competent FV is compressible, spontaneous, phasic, competent and demonstrates normal augmentation. and demonstrates normal augmentation. POP V is compressible, spontaneous, phasic, competent POP V is compressible, spontaneous, phasic, competent and demonstrates normal augmentation. and demonstrates normal augmentation. T/P Trunk is compressible. T/P Trunk is compressible. PTV is compressible. PTV is compressible. RT PerV is compressible. LT PerV is compressible. Procedure This is a venous duplex using B-mode, color flow and spectral Doppler. Exam performed in department. The exam was diagnostic. A preliminary report was called and/or faxed to [facility]. VL/Venous Duplex US - Pablo Extrem Interpretation Summary Deep veins of the lower extremities are bilaterally patent and compressible seg mentally. There is no evidence of deep vein thrombosis on either side. Valvular competence appears intact within the p roximal deep venous systems bilaterally. The great saphenous veins appear bilaterally patent and compressible segmentall y. Ordering Physician: Yolis Yu Referring Physician: Yolis Yu Performed By: Javy Barba RVT
== END | disposition home or self-care (01) ==
LOC: CVS 11:14
PROVIDERS: PCP Internal Medicine; Referring Provider Internal Medicine; Visit Provider Internal Medicine
DX: R60.0 Localized edema (principal)
CPT/HCPCS: 93970

== ENCOUNTER 2024-09-13 08:22 | Day surgery (SDC) | payer MEDICARE, BC, SELFPAY ==
--- NOTE | 2024-09-07 17:31 | PAT.ANESEVAL ---
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 When Was Last Pacemaker Check pacer 08/29/24 13:34 QUESTION #4 FULL TEXT: You/Your Family Experience fever (hyperthermia) with Anesthesia Last Oral Intake Last Oral intake: Last Oral Intake NPO since Meds taken in AM with sips of water? Meds patient instructed to take am of surgery PONV PONV - candlemaking laborer: PONV - candlemaking laborer Female Yes 09/07/24 12:30 HX of Motion Sickness No 09/07/24 12:30 HX of N/V After Surgery No 09/07/24 12:30 Non-Smoker Yes 09/07/24 12:30 Duration of Surgery greater No 09/07/24 12:30 than 60 minutes Number of Risk Factors 2 09/07/24 12:30 PONV Score Moderate Risk 09/07/24 12:30 Height & Weight Height & Weight: Anesthesia: Height & Weight Height 5 ft 8 in 08/29/24 13:34 Respiratory Assessment Respiratory Assessment - candlemaking laborer: Respiratory Tract Infection Hx - candlemaking laborer Hx Respiratory Tract Infection No 09/07/24 12:30 STOP Sleep Apnea STOP Sleep Apnea - candlemaking laborer: STOP Sleep Apnea - candlemaking laborer Hx Hypertension Yes: CONTROLLED ON MED 09/07/24 12:30 Hx Sleep Apnea Yes 09/07/24 12:30 CPAP Yes 09/07/24 12:30 BIPAP No 09/07/24 12:30 Do you snore loudly (louder than talking or can be heard Do you often feel tired/ fatigued/ sleepy during daytime? Has anyone observed you stop breathing during sleep? STOP Results Positive 09/07/24 12:30 QUESTION #5 FULL TEXT : Do you snore loudly (louder than talking or can be heard through closed doors)? 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 Specify any problems Hx of Preganancy in last 3 No 09/07/24 12:30 Months Nurse Filling Out Transfusion VCHRISTIN 09/07/24 12:30 & Questions: Date: 09/07/24 09/07/24 12:30 Time: 12:31 09/07/24 12:30 Patient unable to answer at this time (ie. confused, unrespo /Reproduction History /Reproductive History - candlemaking laborer: /Reproductive Hx- candlemaking laborer Hx Now Gestational Age (in weeks): EDC: Hx Hx Para Hx Section SAB PFSH Medical History (Updated 09/07/24 @ 12:30 by Antonieta Taylor) Kidney stone Back pain Difficulty swallowing History of hiatal hernia History of ulceration Non-smoker BiPAP (biphasic positive airway pressure) dependence Sleep apnea History of edema History of echocardiogram History of stress test Cardiology follow-up encounter History of irregular heartbeat Anemia Thyroid nodule Type 2 diabetes mellitus without complications Hyponatremia Anxiety KEVIN (obstructive sleep apnea) Second degree AV block LBBB (left bundle branch block) Carotid stenosis Fatty liver Gallstones Osteoporosis Paresthesia Memory loss HTN (hypertension) Chest pain CAD (coronary artery disease) Home Medications ?Medication ?Instructions ?Recorded ?Last Taken ?Type aspirin 81 mg chewable tablet 81 mg PO DAILY@0800 02/20/13 01/12/14 History carvedilol 6.25 mg tablet 6.25 mg PO BID 04/09/13 01/12/14 History cholecalciferol (vitamin D3) 25 25 mcg PO QDAY supplement 01/16/24 Unknown History mcg (1,000 unit) capsule ezetimibe 10 mg tablet 10 mg PO DAILY hld 01/16/24 Unknown History telmisartan 80 mg tablet 80 mg PO DAILY bp 01/16/24 Unknown History amlodipine 5 mg tablet 5 mg PO DAILY blood pressure 05/08/24 Unknown History flaxseed oil-omega 3,6,9-fatty 1 cap PO DAILY supplement 05/08/24 Unknown History acids 1,300 mg-670 mg-155 mg capsule Allergy/AdvReac Type Severity Reaction Status Date / Time monosodium glutamate (msg) Allergy Severe MIGRAINES Verified 09/07/24 12:13 red dye Allergy Severe HEADACHE Verified 09/07/24 12:13 hydrochlorothiazide Allergy Unknown Verified 09/07/24 12:12 sulfamethoxazole (From Allergy Hives Verified 09/07/24 12:12 Bactrim) trimethoprim (From Bactrim) Allergy Hives Verified 09/07/24 12:12 atorvastatin (From Lipitor) AdvReac Severe myalgia Verified 09/07/24 12:12 meloxicam AdvReac Severe Dizziness Verified 09/07/24 12:12 Surgical History (Updated 09/07/24 @ 12:30 by Antonieta Taylor) History of esophagogastroduodenoscopy (EGD) Normal colonoscopy History of bilateral cataract extraction H/O cardiac catheterization H/O: hysterectomy Pacemaker (06/10/23) Social History Smoking Status: Never smoker alcohol intake: never substance use type: does not use Audit: Pertinent Findings Pertinent Findings EKG Perinent findings: May 10, 2024. Atrial sensed ventricular paced rhythm. Compared to November 2023 pacemaker rhythm has replaced normal sinus rhythm. Stress test pertinent findings: May 28, 2023. Normal myocardial SPECT perfusion. No evidence of ischemia. 01/14/2014 EF 69%. Normal pharmacologic perfusion stress test. No ischemia. No infarct. Echo (EF%) pertinent findings: May 16, 2023. EF of 51%. Paradoxical septal motion consistent with left bundle branch block. Moderate LVH. No evidence of pulmonary hypertension. Consult pertinent findings: January 25, 2024. Dr. Strauss. 1. Pacemaker?acute-recent placement. Follow-up in device clinic. 2. Hypertension?chronic-good control. Reduce amlodipine, Discontinue isosorbide, continue telmisartan. 3. Coronary artery disease?chronic-last stress test in May 2023 showed no ischemia. Recommendation Anesthesia Recommendation Anesthesia recommendation: OPTIMIZED for anesthesia
[2024-09-13] VITALS (8 sets, daily range): BP systolic 110–147; BP diastolic 62–104; PULSE 62–66; RESP 16–18; TEMP 36.1–36.4; O2SAT 99–100; BMI 26.4
[2024-09-13] MEDS: Lactated Ringers 1,000 ML 15 ML IV (08:56)
--- NOTE | 2024-09-13 09:17 | PCM.PRE.AN2 ---
ASA Classification* ASA Classification ASA Classification: 3 Assessment & Plan Anesthesia* Anesthesia Assessment Anesthesia Assessment: Discussed sedation and/or anesthesia options, risks, benefits, and alternatives with patient/parents/legal guardian/POA. Questions invited. The patient/parents/legal guardian/POA seems to understand and agrees to proceed with anesthesia plan. Reviewed the physical assessment, medical history, allergy history and patient home medications list prior to surgery/procedure/anesthetic and documented any changes. Performed airway and anesthesia risk assessments. Anesthesia Type Anesthesia Type: MAC History Source History Obtained from:: Patient and Chart Anesthesia Focused Assessment* Temperature: 96.9 F Pulse Rate: 62 Blood Pressure: 136/73 Respiratory Rate: 16 Pulse Ox: 100 Oxygen Delivery Method: Room Air Airway Assessment Mouth opens: 2 cm Mallampati Score: IV Teeth Condition: Caps/Crowns Neck Range of motion (ROM): Limited ROM Comment: Crowns-all tight ; Limited neck extension Focused Labs Anesthesia Preop lab: CBC WBC 5.0 K/mm3 (4.4-11.0) 05/15/24 06:40 05/15/24 RBC 3.93 M/mm3 (4.2-5.4) L 05/15/24 06:40 05/15/24 Hgb 11.9 g/dL (12.0-15.0) L 05/15/24 06:40 05/15/24 Hct 36.3 % (37-47) L 05/15/24 06:40 05/15/24 Plt Count 275 K/mm3 (150-450) 05/15/24 06:40 05/15/24 CHEMISTRY Potassium 3.8 mmol/L (3.5-5.1) 05/15/24 06:40 05/15/24 Sodium 137 mmol/L (136-145) 05/15/24 06:40 05/15/24 Magnesium 2.1 mg/dL (1.6-2.6) 05/15/24 06:40 05/15/24 Phosphorus 2.7 mg/dL (2.5-4.9) 05/15/24 06:40 05/15/24 BUN 9 mg/dL (7-18) 05/15/24 06:40 05/15/24 Creatinine 0.48 mg/dL (0.55-1.02) L 05/15/24 06:40 05/15/24 Glucose 91 mg/dL (74-106) 05/15/24 06:40 05/15/24 TSH 0.943 uIU/mL (0.358-3.740) 05/09/24 05:13 05/09/24 COAG PT 12.6 SECONDS (11.9-14.4) 03/05/13 12:52 03/05/13 Pre-Assessment Diagnosis/Proposed Procedure Planned Operative Procedure(s): COLONOSCOPY/EGD Anesthesia History 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 When Was Last Pacemaker Check pacer 08/29/24 13:34 QUESTION #4 FULL TEXT: You/Your Family Experience fever (hyperthermia) with Anesthesia Last Oral Intake Last Oral intake: Last Oral Intake NPO since 06:00 09/13/24 08:52 Meds taken in AM with sips of Yes 09/13/24 08:52 water? 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 Female Yes 09/07/24 12:30 HX of Motion Sickness No 09/07/24 12:30 HX of N/V After Surgery No 09/07/24 12:30 Non-Smoker Yes 09/07/24 12:30 Duration of Surgery greater No 09/07/24 12:30 than 60 minutes Number of Risk Factors 2 09/07/24 12:30 PONV Score Moderate Risk 09/07/24 12:30 Height & Weight Height & Weight: Anesthesia: Height & Weight Height 5 ft 3 in 09/13/24 08:52 Weight: 67.6 kg 09/13/24 08:52 Body Mass Index (BMI) 26.4 09/13/24 08:52 Respiratory Assessment Respiratory Assessment - 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 Has anyone observed you stop breathing during sleep? STOP Results Positive 09/07/24 12:30 QUESTION #5 FULL TEXT : Do you snore loudly (louder than talking or can be heard through closed doors)? 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 Specify any problems Hx of Preganancy in last 3 No 09/07/24 12:30 Months Nurse Filling Out Transfusion VCHRISTIN 09/07/24 12:30 & Questions: Date: 09/07/24 09/07/24 12:30 Time: 12:31 09/07/24 12:30 Patient unable to answer at this time (ie. 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 Hx Now Gestational Age (in weeks): EDC: Hx Hx Para Hx Section SAB Active Medications Active Medications: Current Medications Generic Name Dose Route Start Last Admin Trade Name Freq PRN Reason Stop Dose Admin Lactated Ringer's 1,000 mls @ 15 mls/hr 09/13/24 08:30 09/13/24 08:56 IV 15 mls/hr .Q48H [place] Administration PFSH Medical History Kidney stone Back pain Difficulty swallowing History of hiatal hernia History of ulceration Non-smoker BiPAP (biphasic positive airway pressure) dependence Sleep apnea History of edema History of echocardiogram History of stress test Cardiology follow-up encounter History of irregular heartbeat Anemia Thyroid nodule Type 2 diabetes mellitus without complications Hyponatremia Anxiety KEVIN (obstructive sleep apnea) Second degree AV block LBBB (left bundle branch block) Carotid stenosis Fatty liver Gallstones Osteoporosis Paresthesia Memory loss HTN (hypertension) Chest pain CAD (coronary artery disease) Home Medications ?Medication ?Instructions ?Recorded ?Last Taken ?Type aspirin 81 mg chewable tablet 81 mg PO DAILY@0800 02/20/13 09/10/24 History carvedilol 6.25 mg tablet 6.25 mg PO BID 04/09/13 09/13/24 History cholecalciferol (vitamin D3) 25 25 mcg PO QDAY supplement 01/16/24 09/12/24 History mcg (1,000 unit) capsule ezetimibe 10 mg tablet 10 mg PO DAILY hld 01/16/24 09/12/24 History telmisartan 80 mg tablet 80 mg PO DAILY bp 01/16/24 09/12/24 History amlodipine 5 mg tablet 5 mg PO DAILY blood pressure 05/08/24 09/13/24 History flaxseed oil-omega 3,6,9-fatty 1 cap PO DAILY supplement 05/08/24 09/10/24 History acids 1,300 mg-670 mg-155 mg capsule Allergy/AdvReac Type Severity Reaction Status Date / Time monosodium glutamate (msg) Allergy Severe MIGRAINES Verified 09/13/24 08:40 red dye Allergy Severe HEADACHE Verified 09/13/24 08:40 hydrochlorothiazide Allergy Unknown Verified 09/13/24 08:40 sulfamethoxazole (From Allergy Hives Verified 09/13/24 08:40 Bactrim) trimethoprim (From Bactrim) Allergy Hives Verified 09/13/24 08:40 atorvastatin (From Lipitor) AdvReac Severe myalgia Verified 09/13/24 08:40 meloxicam AdvReac Severe Dizziness Verified 09/13/24 08:40 Surgical History History of esophagogastroduodenoscopy (EGD) Normal colonoscopy History of bilateral cataract extraction H/O cardiac catheterization H/O: hysterectomy Pacemaker (06/10/23) Social History Smoking Status: Never smoker alcohol intake: never substance use type: does not use Review of Systems (Anesthesia) ROS Narrative System reviewed and no additional complaints, except as documented.
--- NOTE | 2024-09-13 09:27 | HP.PCM_ITS ---
HPI - General General Chief Complaint: Abdominal pain and ischemic colitis HPI Narrative LAYLA LUIS, is a 79 F who presentsLAYLA LUIS, is a 78 F who presents to the office today for f/u [facility] 1.29.25-2.4.25 with ischemic colitis. GI consulted and underwent colonoscopy. General surgery closely monitored and no did not go through with partial colectomy. Colonoscopy 2.3.25; diverticulosis in the recto-sigmoid colon and in the sigmoid colon. Stool in the entire colon. Localized severe inflammation was found in the cecum at the appendiceal orfice and at the ileocecal valve secondary to ischemic colitis. severe mucosal changes were found in the ileum secondary to ischemic colitis. Gen Surgery OV 3.19.25; Pt doing well. Benign exam. Staying well hydrated. Recommended repeat scope. Diet advanced to no restrictions. OV 3.27.25; Pt here today to be scheduled for repeat colonoscopy per general surgery recommendation. Pt has been doing well since her admission. She is eating a regular diet and having daily bm. She has no abd pain. She endorses prior hx of gastric ulcers and family hx of esophageal cancer. [facility] Medical History Kidney stone Back pain Difficulty swallowing History of hiatal hernia History of ulceration Non-smoker BiPAP (biphasic positive airway pressure) dependence Sleep apnea History of edema History of echocardiogram History of stress test Cardiology follow-up encounter History of irregular heartbeat Anemia Thyroid nodule Type 2 diabetes mellitus without complications Hyponatremia Anxiety KEVIN (obstructive sleep apnea) Second degree AV block LBBB (left bundle branch block) Carotid stenosis Fatty liver Gallstones Osteoporosis Paresthesia Memory loss HTN (hypertension) Chest pain CAD (coronary artery disease) Home Medications ?Medication ?Instructions ?Recorded ?Last Taken ?Type aspirin 81 mg chewable tablet 81 mg PO DAILY@0800 02/0909/10/24 History carvedilol 6.25 mg tablet 6.25 mg PO BID 04/09/1309/02 History cholecalciferol (vitamin D3) 25 25 mcg PO QDAY supplem ent 01/16/24 09/12/24 History mcg (1,000 unit) capsule ezetimibe 10 mg tablet 10 mg PO DAILY hld 01/16/24 09/12/24 History telmisartan 80 mg tablet 80 mg PO DAILY bp 01/16/24 0 09/12/24 History amlodipine 5 mg tablet 5 mg PO DAILY blood pressure 05/08/24 09/13/24 History flaxseed oil-omega 3,6,9-fatty 1 cap PO DAILY suppleme nt 05/08/24 09/10/24 History acids 1,300 mg-670 mg-155 mg capsule Allergy/AdvReac Type Severity Reaction Status Date / Time monosodium glutamate (msg) Allergy Severe MIGRAINES Verified 09/13/24 08:40 red dye Allergy Severe HEADACHE Verified 09/13/24 08:40 hydrochlorothiazide Allergy Unknown Verified 09/13/24 08:40 sulfamethoxazole (From Allergy Hives Verified 09/13/24 08:40 Bactrim) trimethoprim (From Bactrim) Allergy Hives Verified 09/13/24 08:40 atorvastatin (From Lipitor) AdvReac Severe myalgia Verified 09/13/24 08:40 meloxicam AdvReac Severe Dizziness Verified 09/13/24 08:40 Surgical History History of esophagogastroduodenoscopy (EGD) Normal colonoscopy History of bilateral cataract extraction H/O cardiac catheterization H/O: hysterectomy Pacemaker (06/10/23) Social History Smoking Status: Never smoker alcohol intake: never substance use type: does not use ROS Constitutional Constitutional: Denies fatigue, fever(s), poor appetite, weight gain or weight loss Gastrointestinal Gastrointestinal: Denies belching, bloating, change in bowel habits, change in stool character, chewing difficulty, coffee ground emesis, constipation, cramping, diarrhea, dyspepsia, dysphagia, early satiety, excessive flatus, fecal incontinence, heartburn, hematemesis, hematochezia, hemorrhoids, loose stools, melena, nausea, odynophagia, rectal bleeding, tenesmus, vomiting or weight changes Vital Signs Vital Signs Vital Signs: 09/13/24 08:52 09/13/24 08:52 09/13/24 08:58 Temperature 96.9 F L Temperature Source Temporal Pulse Rate 62 62 Respiratory Rate 16 Respiratory Pattern Normal Blood Pressure 147/104 H 136/73 H Blood Pressure Mean 118 Blood Pressure Source Monitor Blood Pressure Position Standing Blood Pressure Location Right Arm Pulse Ox 100 Oxygen Delivery Method Room Air 09/13/24 09:22 Temperature 96.9 F L Temperature Source Pulse Rate 62 Respiratory Rate 16 Respiratory Pattern Blood Pressure 136/73 H Blood Pressure Mean Blood Pressure Source Blood Pressure Position Blood Pressure Location Pulse Ox 100 Oxygen Delivery Method Room Air Weight Weight: 149 lb 0.52 oz Body Mass Index (BMI) 26.4 Physical Exam Const alert, oriented x3, no apparent distress and healthy appearing General Appearance: cooperative GI normal to inspection, nondistended, normoactive bowel sounds, soft to palpation, non-tender and non-distended Percussion: normal to percussion Rectal Exam: deferred Assessment & Plan Assessment/Plan (1) Ischemic colitis: (2) GERD (gastroesophageal reflux disease): PLAN: Assessment and Plan Assessment and Plan (1) Ischemic colitis: Status: Acute Plan: This is a 78 yo female here today after hospitalization for severe ischemic colitis 1.29.25-2.4.25. She underwent colonoscopy which revealed this. General surgery consulted and treated with conservative measures rather than partial colectomy. At her outpatient f/u with surgery they recommended repeat colonoscopy to ensure healing. She is here today to be scheduled. She endorses a hx of gastric ulcers and family hx of esophageal cancer. She will have EGD as the same time as her colonoscopy. She is agreeable to plan. -EGD and colonoscopy -f/u after procedure
--- NOTE | 2024-09-13 09:30 | EGD_PTH ---
PATIENT: LAYLA LUIS LOC: EN U#:[id number] AGE/SX: 79/F ROOM: RE09/13/[address]: Dr. Tio Van DO : 1945 BED: DIS: 09/13/2024 SPEC #: [id number] RECD: 09/13/24 11:05 STATUS: PHU REReed #: [id number] TEDDY: 09/13/24 09:[address]: Tio Van DEPT: SURGICAL PATHOLOGY RECD BY: Km Schwartz ENTERED: 09/13/24 11:13 SP TYPE: EGD BIOPSY OTHR DR: Dr. Yolis Yu DO Tissues: A - Duodenum, NOS B - Gastric mucous membrane C - Esophagus, NOS D - Cecum, NOS E - Transverse colon Procedures: Immunohistochemical Stains Surgery Specimen Level IV HEADER OPERATION: Colonoscopy, EGD and biopsy and polypectomy PRE-OP DIAGNOSIS: Ischemic colitis and GERD TISSUE SUBMITTED: A- Duodenum biopsy, B- Gastric antrum biopsy, C- Distal esophagus biopsy,D- Cecal ulcer, E- Transverse colon polyp MICROSCOPIC DIAGNOSIS A. Small intestine, duodenum, biopsies: * Benign duodenal mucosa without active inflammation B. Stomach, gastric antrum: * Oxyntic mucosa with slight chronic inflammation * An immunohistochemical stain for Helicobacter pylori is negative C. Esophagus, distal: * Benign squamous epithelium * Oxynto-cardiac mucosa with chronic inflammation * No goblet cell metaplasia is identified D. Large intestine, cecal ulcer: * Tubular adenoma E. Large intestine, transverse polyp: * Serrated polyp with histopathological features suggesting a sessile serrated adenoma MICROSCOPIC DESCRIPTION Slides are reviewed. All matched controls reacted appropriately. These tests were developed and their performance characteristics determined by [facility]. They may not have been cleared or approved by the U.S. Food and Drug Administration. The FDA has determined that such clearance or approval is not necessary. The above immunohistochemical/dualISH markers are ordered and reviewed by the Pathologist. GROSS DESCRIPTION A. Received in formalin in a container labeled with the patient's name, date of , and duodenum are multiple choi-pink fragments of mucosal tissue measuring 0.6 x 0.5 x 0.2 cm in aggregate. Submitted in toto in A1. B. Received in formalin in a container labeled with the patient's name, date of , and gastric antrum biopsy check H. pylori are 2 choi-pink fragments of mucosal tissue each measuring 0.6 x 0.2 x 0.2 cm. Submitted in toto in B1. C. Received in formalin in a container labeled with the patient's name, date of , and distal esophagus biopsy are 2 choi-pink fragments of mucosal tissue measuring 0.3 x 0.3 x 0.2 cm and 0.5 x 0.4 x 0.2 cm. Submitted in toto in C1. D. Received in formalin in a container labeled with the patient's name, date of , and cecal ulcer are 2 choi-pink fragments of mucosal tissue measuring 0.3 x 0.3 x 0.2 cm and 0.5 x 0.3 x 0.2 cm. Submitted in toto in D1. E. Received in formalin in a container labeled with the patient's name, date of , and transverse colon polyp is a 0.4 x 0.3 x 0.3 cm fragment of choi-pink mucosal tissue. Submitted in toto in A1. [facility] 09-13-2024 CPT:[id number]
--- NOTE | 2024-09-13 10:14 | PCM.POST.ANE ---
Anesthesia: Postop Eval I Current Vital Signs Temperature: 97.4 F Pulse Rate: 66 Blood Pressure: 110/72 Respiratory Rate: 18 Pulse Ox: 99 Assessment Airway patent: Yes Spontaneous unlabored respirations: Yes nausea: No Vomiting: No Anesthesia Complication: No Fluid Hydration Crystalloid volume administer (ml): 300 Total IV fluid infused: 300 Progress Note Anesthesia document: Postop Eval 1 completed: Yes
--- NOTE | 2024-09-13 10:15 | OP.CCLET_ITS ---
09/13/2024 Yolis Yu Re : Upper GI endoscopy procedure for Yusra Yu This procedure was performed on September. My impressions and recommendations are as follows: Impressions : - Z-line irregular, 40 cm from the incisors. Biopsied. - Medium-sized hiatal hernia. - Erythematous mucosa in the stomach. Biopsied. - No gross lesions in the entire examined duodenum. Biopsied. Recommendations : - Discharge patient to home. - Resume previous diet. - Continue present medications. My findings are described in the full procedure note, which is enclosed. If I can be of further assistance, please feel free to contact me at . Sincerely, Tio Van, 09/13/2024 10:14:44 AM This report has been signed electronically.
--- NOTE | 2024-09-13 10:15 | OP.EGD_ITS ---
Patient Name: Yusra Aparicio Procedure Date: 09/13/2024 9:30 AM Date of : 1945 Age: 79 Procedure: Upper GI endoscopy Indications: Heartburn, Suspected esophageal reflux Providers: Tio Van DO Referring MD: Yolis Yu Medicines: Monitored Anesthesia Care Patient Profile: This is a 79 year old female. Refer to note in patient chart for documentation of history and physical. Patient has symptoms of chronic dyspepsia and chronic heartburn. Complications: No immediate complications. Procedure: Pre-Anesthesia Assessment: - Prior to the procedure, a History and Physical was performed, and patient medications and allergies were reviewed. The patient is competent. The risks and benefits of the procedure and the sedation options and risks were discussed with the patient. All questions were answered and informed consent was obtained. Patient identification and proposed procedure were verified by the physician in the pre-procedure area. Mental Status Examination: alert and oriented. Airway Examination: normal oropharyngeal airway and neck mobility. Respiratory Examination: clear to auscultation. CV Examination: normal. ASA Grade Assessment: II - A patient with mild systemic disease. After reviewing the risks and benefits, the patient was deemed in satisfactory condition to undergo the procedure. The anesthesia plan was to use monitored anesthesia care (MAC). Immediately prior to administration of medications, the patient was re-assessed for adequacy to receive sedatives. The heart rate, respiratory rate, oxygen saturations, blood pressure, adequacy of pulmonary ventilation, and response to care were monitored throughout the procedure. The physical status of the patient was re-assessed after the procedure. After obtaining informed consent, the endoscope was passed under direct vision. Throughout the procedure, the patient's blood pressure, pulse, and oxygen saturations were monitored continuously. The Colonoscope was introduced through the mouth, and advanced to the second part of duodenum. The upper GI endoscopy was accomplished without difficulty. The patient tolerated the procedure well. Scope In: 9:40:13 AM Scope Out: 9:45:25 AM Total Procedure Duration Time 0 hours 5 minutes 12 seconds Findings: The Z-line was irregular and was found 40 cm from the incisors. Biopsies were taken with a cold forceps for histology. Verification of patient identification for the specimen was done. Estimated blood loss was minimal. A medium-sized hiatal hernia was present. Patchy mildly erythematous mucosa without bleeding was found in the stomach. Biopsies were taken with a cold forceps for histology. Verification of patient identification for the specimen was done. Estimated blood loss was minimal. Biopsies were taken with a cold forceps for Helicobacter pylori testing. Verification of patient identification for the specimen was done. Estimated blood loss was minimal. No gross lesions were noted in the entire examined duodenum. Biopsies were taken with a cold forceps for histology. Verification of patient identification for the specimen was done. Estimated blood loss was minimal. Impression: - Z-line irregular, 40 cm from the incisors. Biopsied. - Medium-sized hiatal hernia. - Erythematous mucosa in the stomach. Biopsied. - No gross lesions in the entire examined duodenum. Biopsied. Recommendation: - Discharge patient to home. - Resume previous diet. - Continue present medications. Procedure Code(s): --- Professional --- 84479, Esophagogastroduodenoscopy, flexible, transoral; with biopsy, single or multiple CPT copyright 2021 [employer]. All rights reserved. The codes documented in this report are preliminary and upon steam press operator review may be revised to meet current compliance requirements. Tio Van DO 09/13/2024 10:14:44 AM This report has been signed electronically. Number of Addenda: 0 Note Initiated On: 09/13/2024 9:30 AM
--- NOTE | 2024-09-13 10:19 | OP.COLON_ITS ---
Patient Name: Yusra Aparicio Procedure Date: 09/13/2024 9:45 AM Date of : 1945 Age: 79 Procedure: Colonoscopy Indications: Screening for colorectal malignant neoplasm Providers: Tio Van DO Referring MD: Yolis Yu Medicines: Monitored Anesthesia Care Patient Profile: This is a 79 year old female. Refer to note in patient chart for documentation of history and physical. Patient has symptoms of chronic dyspepsia and chronic heartburn. Last Colonoscopy: several years ago. Complications: No immediate complications. Procedure: Pre-Anesthesia Assessment: - Prior to the procedure, a History and Physical was performed, and patient medications and allergies were reviewed. The patient is competent. The risks and benefits of the procedure and the sedation options and risks were discussed with the patient. All questions were answered and informed consent was obtained. Patient identification and proposed procedure were verified by the physician in the pre-procedure area. Mental Status Examination: alert and oriented. Airway Examination: normal oropharyngeal airway and neck mobility. Respiratory Examination: clear to auscultation. CV Examination: normal. ASA Grade Assessment: II - A patient with mild systemic disease. After reviewing the risks and benefits, the patient was deemed in satisfactory condition to undergo the procedure. The anesthesia plan was to use monitored anesthesia care (MAC). Immediately prior to administration of medications, the patient was re-assessed for adequacy to receive sedatives. The heart rate, respiratory rate, oxygen saturations, blood pressure, adequacy of pulmonary ventilation, and response to care were monitored throughout the procedure. The physical status of the patient was re-assessed after the procedure. After I obtained informed consent, the scope was passed under direct vision. Throughout the procedure, the patient's blood pressure, pulse, and oxygen saturations were monitored continuously. The Colonoscope was introduced through the anus and advanced to the cecum, identified by the appendiceal orifice, ileocecal valve and palpation. The colonoscopy was performed without difficulty. The patient tolerated the procedure well. The quality of the bowel preparation was adequate. The ileocecal valve, appendiceal orifice, and rectum were photographed. Scope In: 9:49:11 AM Scope Withdrawal Time 0 hours 10 minutes 47 seconds Scope Out: 10:05:45 AM Total Procedure Duration Time 0 hours 16 minutes 34 seconds Findings: The perianal and digital rectal examinations were normal. A few small-mouthed diverticula were found in the anus, recto-sigmoid colon, sigmoid colon and descending colon. Patchy mild inflammation was found at the hepatic flexure. Biopsies were taken with a cold forceps for histology. Verification of patient identification for the specimen was done. Estimated blood loss was minimal. Impression: - Diverticulosis at the anus, in the recto-sigmoid colon, in the sigmoid colon and in the descending colon. - Patchy mild inflammation was found at the hepatic flexure secondary to colitis. Biopsied. Recommendation: - Discharge patient to home. - Resume previous diet. - Continue present medications. - Await pathology results. - Repeat colonoscopy for surveillance based on pathology results. Procedure Code(s): --- Professional --- 27634, Colonoscopy, flexible; with biopsy, single or multiple CPT copyright 2021 [employer]. All rights reserved. The codes documented in this report are preliminary and upon president and chief executive officer review may be revised to meet current compliance requirements. Tio Van DO 09/13/2024 10:18:48 AM This report has been signed electronically. Number of Addenda: 0 Note Initiated On: 09/13/2024 9:45 AM
--- NOTE | 2024-09-13 10:19 | OP.CCLET_ITS ---
09/13/2024 Yolis Yu Re : Colonoscopy procedure for Yusra Yu This procedure was performed on September. My impressions and recommendations are as follows: Impressions : - Diverticulosis at the anus, in the recto-sigmoid colon, in the sigmoid colon and in the descending colon. - Patchy mild inflammation was found at the hepatic flexure secondary to colitis. Biopsied. Recommendations : - Discharge patient to home. - Resume previous diet. - Continue present medications. - Await pathology results. - Repeat colonoscopy for surveillance based on pathology results. My findings are described in the full procedure note, which is enclosed. If I can be of further assistance, please feel free to contact me at . Sincerely, Tio Van, 09/13/2024 10:18:48 AM This report has been signed electronically.
--- NOTE | 2024-09-13 10:57 | POSTOPAN2_ITS ---
Anesthesia Postop Eval I Sum Postop Eval Completion status Anesthesia document: Postop Eval 1 completed: Yes Anesthesia Postop Eval I Summary Anesthesia Postop Eval I Summary: Anesthesia Postop Eval I: Assessment Summary Airway patent Yes 09/13/24 10:14 TECHNOLOGY INFUSION SPECIALIST.CSIR Spontaneous unlabored Yes 09/13/24 10:14 TECHNOLOGY INFUSION SPECIALIST.CSIR respirations Mental status nausea No 09/13/24 10:14 TECHNOLOGY INFUSION SPECIALIST.CSIR Vomiting No 09/13/24 10:14 TECHNOLOGY INFUSION SPECIALIST.CSIR Anesthesia Postop Eval I: Fluid Summary Crystalloid volume administer 300 09/13/24 10:14 TECHNOLOGY INFUSION SPECIALIST.CSIR (ml) Colloids volume administered ( ml) Blood Product volume administered (ml) Total IV fluid infused 300 09/13/24 10:14 TECHNOLOGY INFUSION SPECIALIST.CSIR Anesthesia Postop Eval I: Summary Notes Anesthesia Complication No 09/13/24 10:14 TECHNOLOGY INFUSION SPECIALIST.CSIR Anesthesia Complication Comment: Post-operative progress note Anesthesia: Postop Eval II Evaluation Mental status: Awake Pain Level: 0 nausea: No Vomiting: No
--- NOTE | 2024-09-13 10:57 | PCM.POSTANE2 ---
Anesthesia Postop Eval I Sum Postop Eval Completion status Anesthesia document: Postop Eval 1 completed: Yes Anesthesia Postop Eval I Summary Anesthesia Postop Eval I Summary: Anesthesia Postop Eval I: Assessment Summary Airway patent Yes 09/13/24 10:14 SCHOOL BUS DISPATCHER.CSIR Spontaneous unlabored Yes 09/13/24 10:14 SCHOOL BUS DISPATCHER.CSIR respirations Mental status nausea No 09/13/24 10:14 SCHOOL BUS DISPATCHER.CSIR Vomiting No 09/13/24 10:14 SCHOOL BUS DISPATCHER.CSIR Anesthesia Postop Eval I: Fluid Summary Crystalloid volume administer 300 09/13/24 10:14 SCHOOL BUS DISPATCHER.CSIR (ml) Colloids volume administered ( ml) Blood Product volume administered (ml) Total IV fluid infused 300 09/13/24 10:14 SCHOOL BUS DISPATCHER.CSIR Anesthesia Postop Eval I: Summary Notes Anesthesia Complication No 09/13/24 10:14 SCHOOL BUS DISPATCHER.CSIR Anesthesia Complication Comment: Post-operative progress note Anesthesia: Postop Eval II Evaluation Mental status: Awake Pain Level: 0 nausea: No Vomiting: No
== END 2024-09-13 11:03 | disposition home or self-care (01) ==
LOC: EN 08:23 → AC 08:24
PROVIDERS: PCP Internal Medicine; Referring Provider Internal Medicine; Visit Provider Internal Medicine Gastroenterology
PROC: 0DJD8ZZ Inspection of Lower Intestinal Tract, Via Natural or Artificial Opening Endoscopic (ICD-10-PCS; CPT 45378; principal; 2024-09-13 09:25)
DX: Z12.11 Encounter for screening for malignant neoplasm of colon (principal); E11.9 Type 2 diabetes mellitus without complications; K55.9 Vascular disorder of intestine, unspecified; K21.9 Gastro-esophageal reflux disease without esophagitis; K57.30 Diverticulosis of large intestine without perforation or abscess without bleeding; I10 Essential (primary) hypertension; K44.9 Diaphragmatic hernia without obstruction or gangrene; I25.10 Atherosclerotic heart disease of native coronary artery without angina pectoris; Z79.82 Long term (current) use of aspirin; Z79.899 Other long term (current) drug therapy; D12.0 Benign neoplasm of cecum
CPT/HCPCS: 45380; 43239; 88305; 88342; J2405

== ENCOUNTER → 2024-11-27 | Outpatient (CLI) | payer MEDICARE, BC, SELFPAY ==
--- NOTE | 2024-11-27 06:52 | BI_ITS ---
EXAM: SCRN MAMM (CAD)W/ANTONIO BILAT DATE: 11/27/2024 CLINICAL HISTORY: F, Age 79 y/o , SCREENING No family history. TECHNIQUE: SCRN MAMM (CAD)W/ANTONIO BILAT COMPARISON: Prior exam(s) dated November 24, 2023.. FINDINGS: TISSUE DENSITY: There are scattered areas of fibroglandular density. Bilateral Breast Mammographic Findings: Stable 1.1 cm x 1.9 cm heterogeneous nodule containing fat in the upper lateral aspect of the right breast. This most likely represents an MR Nohemy. Stable calcified nodule in the upper central medial portion of the left breast. A pacemaker battery pack is seen in the left axilla. No suspicious masses, areas of developing architectural distortion, or suspicious calcifications. There has been no significant interval change. BI/SCRN MAMM (CAD)W/ANTONIO BILAT IMPRESSION: Stable examination. OVERALL FINAL ASSESSMENT BI-RADS 2: BENIGN RECOMMENDATION: Routine annual follow-up in 1 Year A letter with findings and recommendations will be mailed to the patient. Reading Location: [facility]
--- NOTE | 2024-11-27 06:57 | BD_ITS ---
PROCEDURE: DEXA BONE DENSITY STUDY 11/27/2024 REASON FOR EXAM: F, age 79 y/o . Postmenopausal. TECHNIQUE: DEXA BONE DENSITY STUDY COMPARISON: None FINDINGS: BMD and T-SCORES Lumbar spine: 0.728 g/cm2, T-score -2 point Levels: L1 through L4 Left femoral neck: 0.428 g/cm2, T-score -3.8 Femoral neck comparison data not recommended for monitoring change. Left total hip: 0.622 g/cm2, T-score -2.6 Right femoral neck: 0.470 g/cm2, T-score -3.4 Femoral neck comparison data not recommended for monitoring change. Right total hip: 0.545 g/cm2, T-score -3.3 The World Health Organization has defined the following categories based on bone density: Normal bone density: T-score equal to or greater than -1.0 Osteopenia: T-score between -1.0 and -2.5 Osteoporosis: T-score equal to or less than -2.5 The patient does meet the pharmacological treatment recommendations for prevention of osteoporosis. BD/Dexa Bone Density Study IMPRESSION: OSTEOPOROSIS. Recommend follow-up as clinically warranted. Reading Location: [facility]
--- OUTSIDE RECORDS SUMMARY | 2024-11-27 07:05 | XMS RPT_ITS | CCD ---
Author Organization [facility] CliniSyin Care Team Providers Care Public Health Name Role Phone Gigi ZALDIVAR, Dr. Lagos Primary Care Provider [phone] Dr. David Cornell DO Emergency Provider Pawan QUEEN, Dr. Jain Attending Provider Dr. Sammy Potts MD Referring Provider Unavaila louie Singer DO, Dr. Christianson Admit Provider Unavail able Singer DO, Dr. Christianson Other Provider Unavail able Katlyn QUEEN, Dr. Christianson Attending Provider Unavaila ble Josue ZALDIVAR, Dr. Baca Other Provider Josue ZALDIVAR, Dr. Baca Referring Provider Carlota ZALDIVAR, Dr. Kinsey Attending Provider Josue ZALDIVAR, Dr. Baca Attending Provider Beatriz QUEEN, Dr. Albrecht Attending Provider Dr. Sammy Potts MD Other Provider Unavailable Divya Kamara PA-C Attending Provider Gigi ZALDIVAR, Dr. Lagos Referring Provider [phone] Dr. Hong Strauss MD Attending Provider [phone] Dr. Hong Strauss MD Referring Provider Leslie Ellis Attending Provider Gigi ZALDIVAR, Dr. Lagos Attending Provider [phone] Gigi ZALDIVAR, Dr. Lagos Primary Care Provider [phone] Divya Kamara PA-C Attending Provider Dr. Cristobal Villalta MD Attending Provider Bethel QUEEN, Dr. Ovi Fleming Attending Provider Friend DO, Dr. Kinsey Attending Provider Friend DO, Dr. Kinsey Other Provider Fast DO, Dr. Lagos Primary Care Provider [phone] Fast DO, Dr. Lagos Referring Provider [phone] Fast, Yolis Attending Unavailable Fast, Yolis Referring Unavailable Fast, Yolis Primary Care Unavailable Carlos A, Hong Attending Unavailable Fast, Yolis Primary Care Unavailable Carlos A, [place] Referring Unavailable Atanasov, Leslie Attending Unavailable Fast, Yolis Referring Unavailable Fast, Yolis Primary Care Unavailable Carlos A, [place] Attending Unavailable Fast, Yolis Primary Care Unavailable Fast, Yolis Attending Unavailable Fast, Yolis Referring Unavailable Fast, Yolis Primary Care Unavailable Carlos A, [place] Attending Unavailable Fast, Yolis Primary Care Unavailable Sammy Singer Admitting Unavailable Divya Kamara Attending Unavailable Fast, Yolis Primary Care Unavailable Sammy Singer Consulting Unavailable Phuong Salas Consulting Unavailable Sammy Potts Consulting Unavailable Cristobal Villalta Attending Unavailable Sammy Potts Attending Unavailable Leslie Greene Attending Unavailable Fast, Yolis Referring Unavailable Fast, Yolis Primary Care Unavailable Carlos A, Hong Attending Unavailable Fast, Yolis Primary Care Unavailable Carlos A, Hong Referring Unavailable Carlos A, [place] Attending Unavailable Fast, Yolis Primary Care Unavailable Carlos A, [place] Referring Unavailable Phuong Salas Attending Unavailable FriendTio Attending Unavailable Fast, Yolis Referring Unavailable Fast, Yolis Primary Care Unavailable FriendTio Consulting Unavailable Carlos A, Hong Attending Unavailable Fast, Yoils Referring Unavailable Fast, Yolis Primary Care Unavailable Fast, Yolis Primary Care Unavailable Carlos A, [place] Attending Unavailable Carlos A, Hong Referring Unavailable Cristobal Villalta Attending Unavailable Fast, Yolis Primary Care Unavailable Sammy Potts Referring Unavailable Sammy Singer Attending Unavailable FriendTio Attending Unavailable Phuong Salas Referring Unavailable Fast, Yolis Attending Unavailable Fast, Yolis Referring Unavailable Fast, Yolis Primary Care Unavailable Sammy Potts Referring Unavailable Friend, Tio Attending Unavailable Fast, Yolis Primary Care Unavailable Fast, Yolis Referring Unavailable Fast, Yolis Referring Unavailable Fast, Yolis Primary Care Unavailable Kamara, Divya Attending Unavailable Cristobal Villalta Attending Unavailable Fast, Yolis Referring Unavailable Fast, Yolis Primary Care Unavailable Ambrocio Henderson Attending Unavailable Fast, Yolis Attending Unavailable Fast, Yolis Referring Unavailable Fast, Yolis Primary Care Unavailable Fast, Yolis Primary Care Unavailable Sammy Singer Admitting Unavailable Sammy Singer Consulting Unavailable Sammy Potts Attending Unavailable Phuong Salas Consulting Unavailable Allergies Allergy Classification Reported Allergen(s) Allergy Type Date of Onset Reaction(s) Facility (5 sources) atorvastatin Drug Allergy 06-28-19 myalgia [facility] (5 sources) hydroCHLOROthiazide Drug Allergy 06-28-19 Unknown [facility] (5 sources) meloxicam Drug Allergy 06-28-19 Dizziness [facility] (5 sources) Sulfamethoxazole Drug Allergy 06-28-19 [facility] (5 sources) Trimethoprim Drug Allergy 06-28-19 [facility] (4 sources) Contrast media; Translations: [red dye] Allergy to substance 09-14-19 HEADACHE [facility] Comment on above: INCREASED BP (3 sources) Glutamate Drug Allergy 09-14-19 MIGRAINES [facility] (1 source) atorvastatin Drug Allergy 09-14-19 [facility] Repository (1 source) hydroCHLOROthiazide Drug Allergy 09-14-19 [facility] Repository (1 source) meloxicam Drug Allergy 09-14-19 [facility] Repository (1 source) Sulfamethoxazole Drug Allergy 09-14-19 [facility] Repository (1 source) Trimethoprim Drug Allergy 09-14-19 [facility] Repository (1 source) monosodium glutamate Drug allergy (disorder) 09-14-[address] [place] [address] Repository Medications Current Medications Medication Drug Class(es) Dates Sig (Normalized) Sig (Original) amLODIPine 5 mg oral tablet (20 sources) Dihydropyridine Calcium Channel Efra Start: 05-08-2024 take 1 tablet by mouth once daily Amlodipine 5 mg tablet Active 5 mg PO DAILY May 08, 2024 1:00am blood pressure Start: 01-16-2024 End: 05-08-2024 take 1 tablet by mouth once daily Amlodipine 10 mg tablet Discontinued 10 mg PO DAILY January 16, 2024 12:00am May 08, 2024 8:28pm Start: 02-20-2013 End: 01-16-2024 take 1 tablet by mouth once daily Amlodipine 5 MG tablet Discontinued 5 mg PO DAILY April 09, 2013 1:00am January 16, 2024 1:17pm aspirin 81 mg chewable tablet (5 sources) Platelet Aggregation Inhibitor, Nonsteroidal Anti-inflammatory Drug Start: 02-20-2013 take 1 tablet by mouth once daily Aspirin 81 MG tablet,chewable Active 81 mg PO DAILY@0800 February 20, 2013 1:00am carvedilol 6.25 mg oral tablet (5 sources) alpha-Adrenergic Efra, beta-Adrenergic Efra Start: 04-09-2013 take 1 tablet by mouth twice daily Carvedilol 6.25 MG tablet Active 6.25 mg PO TWICE A DAY April 09, 2013 1:00am cholecalciferol 0.025 mg oral capsule (5 sources) Vitamin D Start: 01-16-2024 take 1 capsule by mouth once daily Cholecalciferol (Vitamin D3) 25 mcg (1,000 unit) capsule Active 25 ug PO daily January 16, 2024 12:00am supplement ezetimibe 10 mg oral tablet (5 sources) Dietary Cholesterol Absorption Inhibitor Start: 01-16-2024 take 1 tablet by mouth once daily Ezetimibe 10 mg tablet Active 10 mg PO DAILY January 16, 2024 12:00am hld Flaxseed-Omega3,6,9- Fatty Acid 1,300-670-155 mg capsule (5 sources) Start: 05-08-2024 Flaxseed-Omega3,6,9 -Fatty Acid 1,300-670-155 mg capsule Active 1 NMA PO DAILY May 08, 2024 1:00am supplement Start: 05-08-2024 Flaxseed-[place] 3,6,9-Fatty Acid 1,300-670-155 mg capsule Active 1 NMA PO DAILY May 08, 2024 1:00am telmisartan 80 mg oral tablet (5 sources) Angiotensin 2 Receptor Efra Start: 01-16-2024 take 1 tablet by mouth once daily Telmisartan 80 mg tablet Active 80 mg PO DAILY January 16, 2024 12:00am bp Completed/Discontinued Medications Medication Drug Class(es) Dates Sig (Normalized) Sig (Original) Bcmdfozswo-Bactzrf-Z -Mefolate (Metafolbic Plus) 1 EACH tablet (5 sources) Start: 02-20-2013 End: 01-25-2024 Yntlxqhpbf-Fpxnsjg-Z -Mefolate (Metafolbic Plus) 1 EACH tablet Discontinued 1 NMA PO February 20, 2013 1:00am January 25, 2024 9:05am amoxicillin 875 mg / clavulanate 125 mg oral tablet (5 sources) Penicillin-class Antibacterial Start: 05-15-2024 End: 05-29-2024 Amoxicillin-Pot Clavulanate 875-125 mg tablet Discontinued 1 {tbl} PO TWICE A DAY 28 0 May 15, 2024 1:00am May 29, 2024 3:19pm busPIRone hydrochloride 10 mg oral tablet (5 sources) Start: 01-16-2024 End: 01-25-2024 take 1 tablet by mouth twice daily Buspirone 10 mg tablet Discontinued 10 mg PO TWICE A DAY January 16, 2024 12:00am January 25, 2024 9:05am calm biotect (5 sources) Start: 01-25-2024 End: 05-08-2024 calm biotect Discontinued PO January 25, 2024 12:00am May 08, 2024 8:30pm clopidogrel 75 mg oral tablet (5 sources) P2Y12 Platelet Inhibitor Start: 04-09-2013 End: 01-16-2024 take 1 tablet by mouth once daily Clopidogrel 75 MG tablet Discontinued 75 mg PO DAILY April 09, 2013 1:00am January 16, 2024 1:19pm docosahexaenoic acid 200 mg oral capsule (5 sources) Start: 03-07-2013 End: 05-08-2024 take 3 capsules by mouth once daily Docosahexaenoic Acid (Algal [place]-3 Dha) 200 MG capsule Discontinued 100 mg PO DAILY March 07, 2013 1:00am May 08, 2024 8:30pm ergocalciferol 0.01 mg oral tablet (5 sources) Provitamin D2 Compound Start: 03-07-2013 End: 01-16-2024 take 1 tablet by mouth once daily Ergocalciferol (Vitamin D2) 400 UNIT tablet Discontinued 1 U PO DAILY March 07, 2013 1:00am January 16, 2024 1:17pm esomeprazole 40 mg delayed release oral capsule (5 sources) Proton Pump Inhibitor Start: 03-07-2013 End: 04-09-2013 take 1 capsule by mouth once daily Esomeprazole Magnesium (Nexium) 40 MG capsule Discontinued 40 mg PO DAILY March 07, 2013 1:00am April 09, 2013 3:28pm Flaxseed Oil-[place] 3,6,9 1 EACH capsule (5 sources) Start: 03-07-2013 End: 05-08-2024 Flaxseed Oil-[place] 3,6,9 1 EACH capsule Discontinued 1 NMA PO DAILY March 07, 2013 1:00am May 08, 2024 8:29pm 24 hr isosorbide mononitrate 30 mg extended release oral tablet (5 sources) Nitrate Vasodilator Start: 01-16-2024 End: 05-08-2024 take 1 tablet by mouth once daily, then take 1 tablet by mouth every twenty-four hours Isosorbide Mononitrate 30 mg tablet extended release 24 hr Discontinued 30 mg PO DAILY January 16, 2024 12:00am May 08, 2024 8:30pm lisinopril 20 mg oral tablet (5 sources) Angiotensin Converting Enzyme Inhibitor Start: 02-20-2013 End: 01-16-2024 take 1 tablet by mouth twice daily Lisinopril 20 MG tablet Discontinued 20 mg PO TWICE A DAY February 20, 2013 1:00am January 16, 2024 1:19pm melatonin 5 mg oral tablet (5 sources) Start: 01-16-2024 End: 01-25-2024 take 1 tablet by mouth at bedtime as needed Melatonin 5 mg tablet Discontinued 5 mg PO BEDTIME as needed January 16, 2024 12:00am January 25, 2024 9:06am nebivolol 5 mg oral tablet (5 sources) Start: 02-20-2013 End: 04-09-2013 take 1 tablet by mouth once daily Nebivolol (Bystolic) 5 MG tablet Discontinued 5 mg PO DAILY February 20, 2013 1:00am April 09, 2013 3:30pm simvastatin 40 mg oral tablet (10 sources) HMG-CoA Reductase Inhibitor Start: 04-09-2013 End: 01-16-2024 take 1 tablet by mouth at bedtime Simvastatin 40 MG tablet Discontinued 40 mg PO AT BEDTIME January 14, 2014 12:00am January 16, 2024 1:19pm ubidecarenone 100 mg oral capsule (5 sources) Start: 01-16-2024 End: 05-08-2024 take 10 capsules by mouth once daily Coenzyme Q10 100 mg capsule Discontinued 100 mg PO daily January 16, 2024 12:00am May 08, 2024 8:30pm Vitamin B Complex 1 EACH capsule (5 sources) Start: 03-07-2013 End: 01-16-2024 Vitamin B Complex 1 EACH capsule Discontinued 1 NMA PO DAILY March 07, 2013 1:00am January 16, 2024 1:19pm Problems Active Problems Problem Classification Problem Date Documented Da te Episodic/Chronic Anxiety disorders (5 sources) Anxiety; Translations: [Anxiety disorder, unspecified] 01-16-2024 Chronic Biliary tract disease (5 sources) Gallstone; Translations: [Calculus of gallbladder without cholecystitis without obstruction] 01-16-2024 Episodic Conduction disorders (18 sources) Cardiac pacemaker in situ; Translations: [Presence of cardiac pacemaker] Onset: 4 05-10-2024 Chronic Comment on above: Compact Particle Acceleration dual chamb er: Model: MARGOT ORTEGA W [id number]; Serial: [id number] Coronary atherosclerosis and other heart disease (6 sources) Coronary atherosclerosis; Translations: [Atherosclerotic heart disease of inupiat coronary artery without angina pectoris] Onset: 4 01-16-2024 Chronic Deficiency and other anemia (5 sources) Anemia; Translations: [Anemia, unspecified] 01-16-2024 Episodic Diabetes mellitus without complication (7 sources) Type 2 diabetes mellitus; Translations: [Type 2 diabetes mellitus without complications] 01-16-2024 Chronic Diseases of white blood cells (8 sources) Leukocytosis; Translations: [Elevated white blood cell count, unspecified] Onset: 5 05-23-2024 Chronic Disorders of lipid metabolism (6 sources) Dyslipidemia; Translations: [Hyperlipidemia, unspecified] Onset: 4 01-12-2014 Chronic E Codes: Fall (5 sources) Fall; Translations: [Unspecified fall, initial encounter] 11-24-2023 Episodic Esophageal disorders (8 sources) Gastroesophageal reflux disease; Translations: [Gastro-esophageal reflux disease without esophagitis] Onset: 5 09-13-2024 Chronic Essential hypertension (16 sources) Essential hypertension; Translations: [Essential (primary) hypertension] Onset: 4 05-09-2024 Chronic Comment on above: CONTROLLED ON MED PE R PT Occlusion or stenosis of precerebral arteries (5 sources) Carotid artery stenosis; Translations: [Occlusion and stenosis of unspecified carotid artery] 01-16-2024 Chronic Osteoporosis (5 sources) Osteoporosis; Translations: [Age-related osteoporosis without current pathological fracture] 01-16-2024 Chronic Other gastrointestinal disorders (7 sources) Disorder of intestine; Translations: [Other specified diseases of intestine] 05-23-2024 Episodic Other liver diseases (5 sources) Steatosis of liver; Translations: [Fatty (change of) liver, not elsewhere classified] 01-16-2024 Chronic Other liver diseases (1 source) Fatty (change of) liver, not elsewhere classified; Translations: [Fatty (change of) liver, not elsewhere classified] Onset: 5 Chronic Other nervous system disorders (5 sources) Paresthesia; Translations: [Paresthesia of skin] 01-16-2024 Episodic Other screening for suspected conditions (not mental disorders or infectious disease) (10 sources) CT of abdomen abnormal; Translations: [Abnormal findings on diagnostic imaging of other abdominal regions, including retroperitoneum] Onset: 5 05-23-2024 Episodic Peripheral and visceral atherosclerosis (20 sources) Ischemic colitis; Translations: [Vascular disorder of intestine, unspecified] Onset: 5 Chronic Regional enteritis and ulcerative colitis (8 sources) Colitis; Translations: [Crohn's disease of large intestine without complications] Onset: 5 05-23-2024 Chronic Residual codes; unclassified (5 sources) Obstructive sleep apnea syndrome; Translations: [Obstructive sleep apnea (adult) (pediatric)] 01-16-2024 Chronic Residual codes; unclassified (5 sources) Amnesia; Translations: [Other amnesia] 01-16-2024 Episodic Residual codes; unclassified (1 source) Asymptomatic menopausal state; Translations: [Asymptomatic menopausal state] Onset: 5 Episodic Superficial injury; contusion (5 sources) Contusion of left front wall of thorax, initial encounter; Translations: [Contusion of rib on left side] 11-24-2023 Episodic Thyroid disorders (5 sources) Thyroid nodule; Translations: [Nontoxic single thyroid nodule] 01-16-2024 Chronic Unclassified (6 sources) K55.9 - Vascular disorder of intestine, unspecified Past or Other Problems Problem Classification Problem Date Documented Da te Episodic/Chronic Abdominal pain (16 sources) Acute abdominal pain; Translations: [Unspecified abdominal pain] Onset: 05-25-2024 05-23-2024 Episodic Fluid and electrolyte disorders (13 sources) Hyponatremia; Translations: [Hypo-osmolality and hyponatremia] Onset: 05-25-2024 01-16-2024 Episodic Noninfectious gastroenteritis (8 sources) Colitis; Translations: [Noninfective gastroenteritis and colitis, unspecified] Onset: 05-25-2024 05-23-2024 Episodic Nonspecific chest pain (6 sources) Chest pain; Translations: [Chest pain, unspecified] Onset: 01-25-2024 01-16-2024 Episodic Other gastrointestinal disorders (8 sources) Other specified diseases of intestine; Translations: [Mass of cecum] Onset: 05-25-2024 05-23-2024 Episodic Residual codes; unclassified (1 source) Localized edema; Translations: [Localized edema] Onset: 08-21-2024 Episodic Urinary tract infections (8 sources) Acute cystitis; Translations: [Acute cystitis with hematuria] Onset: 05-25-2024 05-23-2024 Episodic Results Test Name Value Interpretation Reference Range Facility Re-Evaluation - PT (1)on Re-Evaluation - PT (1) Normal [facility] Gastroenterology Visit Repor ton 09-26-2024 Gastroenterology Visit Report Normal [facility] Colonoscopy Reporton 025 Colonoscopy Report Normal [facility] EGD Reporton 09-13-2024 EGD Report Normal [facility] Immunohistochemical Stainson 09-13-2024 Immunohistochemical Stains Normal [facility] Comment on above: Performed By: #### P [facility] ####[facility] [address] [place], [place], [id number] MR/POSTOP.ANEon 09-13-2024 MR/POSTOP.ANE Normal [facility] MR/[id number] 09-13-2024 MR/POSTOPAN2 Normal [facility] MR/PAT.ANEon 09-07-2024 MR/PAT.ANE Normal [facility] Inital Evaluation (1) - PTon 09-05-2024 Inital Evaluation (1) - PT Normal [facility] Ribs Bilat 3V No CXRon 08-29 Ribs Bilat 3V No CXR Normal [facility] Sternum min 2 Viewson 2024 Sternum min 2 Views Normal [facility] Venous Duplex US - Pablo Extre mon 08-15-2024 Venous Duplex US - Pablo Extrem Normal [facility] Venous duplex ultrasound rep ortOrdered By: Ovi Hugo on 08-15-2024 US Vein [facility] [address] [place] [address] Venous Duplex US - Pablo Extrem 08/15/24 1125 MR#: [id number] Acct: [id number] Name: LAYLA LUIS Rep #:[id number] : 1945 79 From: Ovi Hugo MD Attending Dr: Dr. Yolis Yu DO atus: REG CLI Ordering Dr: Yolis Yu DO Date: 11/02 Location: [facility] Sex: F C Admitted: Reason For Study Reason For Study: ble eDEMA RIGHT LEFT GSV is normal. GSV is normal. CFV is compressible, spontaneous, phasic, competent CFV is compressible, spontaneous, phasic, competent, and demonstrates normal augmentation. and demonstrates normal augmentation. FV is compressible, spontaneous, phasic, competent FV is compressible, spontaneous, phasic, competent and demonstrates normal augmentation. and demonstrates normal augmentation. POP V is compressible, spontaneous, phasic, competent POP V is compressible, spontaneous, phasic, competent and demonstrates normal augmentation. and demonstrates normal augmentation. T/P Trunk is compressible. T/P Trunk is compressible. PTV is compressible. PTV is compressible. RT PerV is compressible. LT PerV is compressible. Procedure This is a venous duplex using B-mode, color flow and spectral Doppler. Exam performed in department. The exam was diagnostic. A preliminary report was called and/or faxed to [facility]. VL/Venous Duplex US - Pablo Extrem Interpretation Summary Deep veins of the lower extremities are bilaterally patent and compressible segmentally. There is no evidence of deep vein thrombosis on either side. Valvular competence appears intact within the proximal deep venous systems bilaterally. The great saphenous veins appear bilaterally patent and compressible segmentally. Ordering Physician: Yolis Yu Referring Physician: Yolis Yu Performed By: Javy Barba, RVT 08/15/241 Date _ Ovi Hugo MD CC: Dr. Yolis Yu DO ~ Date Dictated: 08/15/245 Date Transcribed: 08/15/242310 Freelance Director: Signed [facility] Other Gastroenterology Visit Repor ton 07-05-2024 Gastroenterology Visit Report Normal [facility] Surgery Visit Reporton 06-27 Surgery Visit Report Normal [facility] Surgery Visit Reporton 05-29 Surgery Visit Report Normal [facility] Basic Metabolic Profile (BMP )on 05-17-2024 BUN Normal 7-18 [facility] Comment on above: Result Comment: Canc elled via OM: Order cancelled - Patient discharged Performed By: #### L 500.2500, L100.0100 ####[facility] [address] [place], [address] BUN/CRE Normal 10-20 [facility] Comment on above: Result Comment: Canc elled via OM: Order cancelled - Patient discharged Performed By: #### L 500.2500, L100.0100 ####[facility] [address] [place], [address] CA,Total Normal 8.5-10.1 [facility] Comment on above: Result Comment: Canc elled via OM: Order cancelled - Patient discharged Performed By: #### L 500.2500, L100.0100 ####[facility] [address] [place] [place], [address] CL Normal 98-107 [facility] Comment on above: Result Comment: Canc elled via OM: Order cancelled - Patient discharged Performed By: #### L 500.2500, L100.0100 ####[facility] [address] [place], [address] CO2 Normal 21.0-32.0 [facility] Comment on above: Result Comment: Canc elled via OM: Order cancelled - Patient discharged Performed By: #### L 500.2500, L100.0100 ####[facility] [address] [place], [address] CREAT,SERUM Normal 0.55-1.02 [facility] Comment on above: Result Comment: Canc elled via OM: Order cancelled - Patient discharged Performed By: #### L 500.2500, L100.0100 ####[facility] [address] [place], [address] EST GFR Normal >60 [facility] Comment on above: Result Comment: Canc elled via OM: Order cancelled - Patient discharged Performed By: #### L 500.2500, L100.0100 ####[facility] [address] [place], [address] EST GFR - AA Normal >60 [facility] Comment on above: Result Comment: Canc elled via OM: Order cancelled - Patient discharged Performed By: #### L 500.2500, L100.0100 ####[facility] [address] [place], [address] GAP Normal 5-15 [facility] Comment on above: Result Comment: Canc elled via OM: Order cancelled - Patient discharged Performed By: #### L 500.2500, L100.0100 ####[facility] [address] [place], [address] GLU Normal 74-106 [facility] Comment on above: Result Comment: Canc elled via OM: Order cancelled - Patient discharged Performed By: #### L 500.2500, L100.0100 ####[facility] [address] [place], [address] Potassium Normal 3.5-5.1 [facility] Comment on above: Result Comment: Canc elled via OM: Order cancelled - Patient discharged Performed By: #### L 500.2500, L100.0100 ####[facility] [address] [place], [address] Basic Metabolic Profile (BMP) Normal 136-145 [facility] Comment on above: Result Comment: Canc elled via OM: Order cancelled - Patient discharged Performed By: #### L 500.2500, L100.0100 ####[facility] [address] [place], [address] CBC W/Diff, Automatedon 02-0 -2024 Absolute Neut Normal 2.0-7.7 [facility] Comment on above: Result Comment: Canc elled via OM: Order cancelled - Patient discharged Performed By: #### L 500.2500, L100.0100 ####[facility] [address] [place], [address] HCT Normal 37-47 [facility] Comment on above: Result Comment: Canc elled via OM: Order cancelled - Patient discharged Performed By: #### L 500.2500, L100.0100 ####[facility] [address] [place], [address] HGB Normal 12.0-15.0 [facility] Comment on above: Result Comment: Canc elled via OM: Order cancelled - Patient discharged Performed By: #### L 500.2500, L100.0100 ####[facility] [address] [place], [address] MCH Normal 27.0-32.0 [facility] Comment on above: Result Comment: Canc elled via OM: Order cancelled - Patient discharged Performed By: #### L 500.2500, L100.0100 ####[facility] [address] [place], [address] MCHC Normal 32-36 [facility] Comment on above: Result Comment: Canc elled via OM: Order cancelled - Patient discharged Performed By: #### L 500.2500, L100.0100 ####[facility] [address] [place], [address] MCV Normal 81-99 [facility] Comment on above: Result Comment: Canc elled via OM: Order cancelled - Patient discharged Performed By: #### L 500.2500, L100.0100 ####[facility] [address] [place], [address] NEUT% Normal 47-70 [facility] Comment on above: Result Comment: Canc elled via OM: Order cancelled - Patient discharged Performed By: #### L 500.2500, L100.0100 ####[facility] [address] [place], [address] PLT Normal 150-450 [facility] Comment on above: Result Comment: Canc elled via OM: Order cancelled - Patient discharged Performed By: #### L 500.2500, L100.0100 ####[facility] [address] [place], [address] RBC Normal 4.2-5.4 [facility] Comment on above: Result Comment: Canc elled via OM: Order cancelled - Patient discharged Performed By: #### L 500.2500, L100.0100 ####[facility] [address] [place], [address] RDW CV Normal 11.6-14.6 [facility] Comment on above: Result Comment: Canc elled via OM: Order cancelled - Patient discharged Performed By: #### L 500.2500, L100.0100 ####[facility] [address] [place], [address] RDW SD Normal 35.1-43.9 [facility] Comment on above: Result Comment: Canc elled via OM: Order cancelled - Patient discharged Performed By: #### L 500.2500, L100.0100 ####[facility] [address] [place], [address] WBC Normal 4.4-11.0 [facility] Comment on above: Result Comment: Canc elled via OM: Order cancelled - Patient discharged Performed By: #### L 500.2500, L100.0100 ####[facility] [address] [place], [address] Basic Metabolic Profile (BMP )on 05-16-2024 BUN Normal 7-18 [facility] Comment on above: Result Comment: Canc elled via OM: Order cancelled - Patient discharged Performed By: #### L 100.0100, L500.2500 ####[facility] [address] [place], [address] BUN/CRE Normal 10-20 [facility] Comment on above: Result Comment: Canc elled via OM: Order cancelled - Patient discharged Performed By: #### L 100.0100, L500.2500 ####[facility] [address] [place], [address] CA,Total Normal 8.5-10.1 [facility] Comment on above: Result Comment: Canc elled via OM: Order cancelled - Patient discharged Performed By: #### L 100.0100, L500.2500 ####[facility] [address] [place], [address] CL Normal 98-107 [facility] Comment on above: Result Comment: Canc elled via OM: Order cancelled - Patient discharged Performed By: #### L 100.0100, L500.2500 ####[facility] [address] [place], [address] CO2 Normal 21.0-32.0 [facility] Comment on above: Result Comment: Canc elled via OM: Order cancelled - Patient discharged Performed By: #### L 100.0100, L500.2500 ####[facility] [address] [place], [address] CREAT,SERUM Normal 0.55-1.02 [facility] Comment on above: Result Comment: Canc elled via OM: Order cancelled - Patient discharged Performed By: #### L 100.0100, L500.2500 ####[facility] [address] [place], [address] EST GFR Normal >60 [facility] Comment on above: Result Comment: Canc elled via OM: Order cancelled - Patient discharged Performed By: #### L 100.0100, L500.2500 ####[facility] [address] [place], [address] EST GFR - AA Normal >60 [facility] Comment on above: Result Comment: Canc elled via OM: Order cancelled - Patient discharged Performed By: #### L 100.0100, L500.2500 ####[facility] [address] [place], [address] GAP Normal 5-15 [facility] Comment on above: Result Comment: Canc elled via OM: Order cancelled - Patient discharged Performed By: #### L 100.0100, L500.2500 ####[facility] [address] [place], [address] GLU Normal 74-106 [facility] Comment on above: Result Comment: Canc elled via OM: Order cancelled - Patient discharged Performed By: #### L 100.0100, L500.2500 ####[facility] [address] [place], [address] Potassium Normal 3.5-5.1 [facility] Comment on above: Result Comment: Canc elled via OM: Order cancelled - Patient discharged Performed By: #### L 100.0100, L500.2500 ####[facility] [address] [place], [address] Basic Metabolic Profile (BMP) Normal 136-145 [facility] Comment on above: Result Comment: Canc elled via OM: Order cancelled - Patient discharged Performed By: #### L 100.0100, L500.2500 ####[facility] [address] [place], [address] CBC W/Diff, Automatedon 02-0 -2024 Absolute Neut Normal 2.0-7.7 [facility] Comment on above: Result Comment: Canc elled via OM: Order cancelled - Patient discharged Performed By: #### L 100.0100, L500.2500 ####[facility] [address] [place], [address] HCT Normal 37-47 [facility] Comment on above: Result Comment: Canc elled via OM: Order cancelled - Patient discharged Performed By: #### L 100.0100, L500.2500 ####[facility] [address] [place], [address] HGB Normal 12.0-15.0 [facility] Comment on above: Result Comment: Canc elled via OM: Order cancelled - Patient discharged Performed By: #### L 100.0100, L500.2500 ####[facility] [address] [place], [address] MCH Normal 27.0-32.0 [facility] Comment on above: Result Comment: Canc elled via OM: Order cancelled - Patient discharged Performed By: #### L 100.0100, L500.2500 ####[facility] [address] [place], [address] MCHC Normal 32-36 [facility] Comment on above: Result Comment: Canc elled via OM: Order cancelled - Patient discharged Performed By: #### L 100.0100, L500.2500 ####[facility] [address] [place], [address] MCV Normal 81-99 [facility] Comment on above: Result Comment: Canc elled via OM: Order cancelled - Patient discharged Performed By: #### L 100.0100, L500.2500 ####[facility] [address] [place], [address] NEUT% Normal 47-70 [facility] Comment on above: Result Comment: Canc elled via OM: Order cancelled - Patient discharged Performed By: #### L 100.0100, L500.2500 ####[facility] [address] [place], [address] PLT Normal 150-450 [facility] Comment on above: Result Comment: Canc elled via OM: Order cancelled - Patient discharged Performed By: #### L 100.0100, L500.2500 ####[facility] [address] [place], [address] RBC Normal 4.2-5.4 [facility] Comment on above: Result Comment: Canc elled via OM: Order cancelled - Patient discharged Performed By: #### L 100.0100, L500.2500 ####[facility] [address] [place], [address] RDW CV Normal 11.6-14.6 [facility] Comment on above: Result Comment: Canc elled via OM: Order cancelled - Patient discharged Performed By: #### L 100.0100, L500.2500 ####[facility] [address] [place], [address] RDW SD Normal 35.1-43.9 [facility] Comment on above: Result Comment: Canc elled via OM: Order cancelled - Patient discharged Performed By: #### L 100.0100, L500.2500 ####[facility] [address] [place], [address] WBC Normal 4.4-11.0 [facility] Comment on above: Result Comment: Canc elled via OM: Order cancelled - Patient discharged Performed By: #### L 100.0100, L500.2500 ####[facility] [address] [place], [address] Absolute lymphocyte countOrd ered By: Sammy Potts on 05-15-2024 Lymphocytes Auto (Unsp spec) [#/Vol] 1.46 10*3/uL 0.83-4.51 [facility] Absolute neutrophil countOrd ered By: Sammy Potts on 05-15-2024 Neutrophils (Bld) [#/Vol] 2.5 10*3/uL 2.0-7.7 [facility] Automated lymphocyte count a s percentage of total leukocytesOrdered By: Sammy Potts on 05-15-2024 Lymphocytes/100 WBC Auto (Unsp spec) 29.5 % 19-41 [facility] Basic Metabolic Profile (BMP )on 05-15-2024 BUN/CRE 18.6 RATIO Normal 10-20 [facility] Comment on above: Performed By: #### L 500.2500, L100.0100, L501.5200, L501.2300 ####[facility] [address] [place], [address] CA,Total 9.4 mg/dL Normal 8.5-10.1 [facility] Comment on above: Performed By: #### L 500.2500, L100.0100, L501.5200, L501.2300 ####[facility] [address] [place], [address] Chloride [Moles/Vol] 108 mmol/L High 98-107 [facility] Comment on above: Performed By: #### L 500.2500, L100.0100, L501.5200, L501.2300 ####[facility] [address] [place], [address] CO2 [Moles/Vol] 22.0 mmol/L Normal 21.0-32.0 [facility] Comment on above: Performed By: #### L 500.2500, L100.0100, L501.5200, L501.2300 ####[facility] [address] [place], [address] Creatinine [Mass/Vol] 0.48 mg/dL Low 0.55-1.02 [facility] Comment on above: Result Comment: The validity of the calculated GFR GFRAA in patients over70 years has not been determined. Clinical correlation isessential. Performed By: #### L 500.2500, L100.0100, L501.5200, L501.2300 ####[facility] [address] [place], [address] ECRCL 51.33 ml/min Normal [facility] Comment on above: Performed By: #### L 500.2500, L100.0100, L501.5200, L501.2300 ####[facility] [address] [place], [address] EST GFR - AA 159 mL/min Normal >60 [facility] Comment on above: Result Comment: Afri can [place]cu[place]orean GFR Calc Performed By: #### L 500.2500, L100.0100, L501.5200, L501.2300 ####[facility] [address] [place], [address] GAP 7 Normal 5-15 [facility] Comment on above: Performed By: #### L 500.2500, L100.0100, L501.5200, L501.2300 ####[facility] [address] [place], [address] GFR/1.73 sq M.predicted among non-blacks MDRD (S/P/Bld) [Vol rate/Area] 131 mL/min/{1.73_m2} Normal >60 [facility] Comment on above: Result Comment: Non- GFR Calc Performed By: #### L 500.2500, L100.0100, L501.5200, L501.2300 ####[facility] [address] [place], [address] Glucose [Mass/Vol] 91 mg/dL Normal 74-106 [facility] Comment on above: Performed By: #### L 500.2500, L100.0100, L501.5200, L501.2300 ####[facility] [address] [place], [address] Potassium [Moles/Vol] 3.8 mmol/L Normal 3.5-5.1 [facility] Comment on above: Performed By: #### L 500.2500, L100.0100, L501.5200, L501.2300 ####[facility] [address] [place], [address] Sodium [Moles/Vol] 137 mmol/L Normal 136-145 [facility] Comment on above: Performed By: #### L 500.2500, L100.0100, L501.5200, L501.2300 ####[facility] [address] [place], [address] Urea nitrogen [Mass/Vol] 9 mg/dL Normal 7-18 [facility] Comment on above: Performed By: #### L 500.2500, L100.0100, L501.5200, L501.2300 ####[facility] [address] [place], [address] Basophil percentageOrdered B y: Sammy Potts on 05-15-2024 Basophils/100 WBC (Bld) 1.6 % High 0-1 [facility] Blood urea nitrogen (BUN)/cr eatinine ratioOrdered By: Sammy Potts on 05-15-2024 Urea nitrogen/Creatinine [Mass ratio] 18.6 mg/mg 10-20 [facility] CBC W/Diff, Automatedon Absolute Lymph 1.46 X10 3/uL Normal 0.83-4.51 [facility] Comment on above: Performed By: #### L 500.2500, L100.0100, L501.5200, L501.2300 ####[facility] [address] [place], [address] Absolute Neut 2.5 X10 3/uL Normal 2.0-7.7 [facility] Comment on above: Performed By: #### L 500.2500, L100.0100, L501.5200, L501.2300 ####[facility] [address] [place], [address] Basophils/100 WBC (Bld) 1.6 % High 0-1 [facility] Comment on above: Performed By: #### L 500.2500, L100.0100, L501.5200, L501.2300 ####[facility] [address] [place], [address] Eosinophils/100 WBC (Bld) 4.4 % Normal 0-5 [facility] Comment on above: Performed By: #### L 500.2500, L100.0100, L501.5200, L501.2300 ####[facility] [address] [place], [address] Erythrocyte distribution width (RBC) [Ratio] 12.7 % Normal 11.6-14.6 [facility] Comment on above: Performed By: #### L 500.2500, L100.0100, L501.5200, L501.2300 ####[facility] [address] [place], [address] Hematocrit (Bld) [Volume fraction] 36.3 % Low 37-47 [facility] Comment on above: Performed By: #### L 500.2500, L100.0100, L501.5200, L501.2300 ####[facility] [address] [place], [address] Hemoglobin (Bld) [Mass/Vol] 11.9 g/dL Low 12.0-15.0 [facility] Comment on above: Performed By: #### L 500.2500, L100.0100, L501.5200, L501.2300 ####[facility] [address] [place], [address] IG% 1.200 High 0.0-0.9 [facility] Comment on above: Result Comment: IG% - Immature Granulocytes (promyelocytes, myelocytes andmetamyelocytes) > 1% indicates that a LEFT SHIFT is Present. Performed By: #### L 500.2500, L100.0100, L501.5200, L501.2300 ####[facility] [address] [place], [address] Lymphocytes/100 WBC (Bld) 29.5 % Normal 19-41 [facility] Comment on above: Performed By: #### L 500.2500, L100.0100, L501.5200, L501.2300 ####[facility] [address] [place], [address] MCH (RBC) [Entitic mass] 30.3 pg Normal 27.0-32.0 [facility] Comment on above: Performed By: #### L 500.2500, L100.0100, L501.5200, L501.2300 ####[facility] [address] [place], [address] MCHC (RBC) [Mass/Vol] 32.8 g/dL Normal 32-36 [facility] Comment on above: Performed By: #### L 500.2500, L100.0100, L501.5200, L501.2300 ####[facility] [address] [place], [address] MCV (RBC) [Entitic vol] 92.4 fL Normal 81-99 [facility] Comment on above: Performed By: #### L 500.2500, L100.0100, L501.5200, L501.2300 ####[facility] [address] [place], [address] Monocytes/100 WBC (Bld) 12.3 % High 0-10 [facility] Comment on above: Performed By: #### L 500.2500, L100.0100, L501.5200, L501.2300 ####[facility] [address] [place], [address] Neutrophils/100 WBC (Bld) 51.0 % Normal 47-70 [facility] Comment on above: Performed By: #### L 500.2500, L100.0100, L501.5200, L501.2300 ####[facility] [address] [place], [address] Nucleated RBC (Bld) [#/Vol] 0 10*3/uL Normal 0-5 [facility] Comment on above: Performed By: #### L 500.2500, L100.0100, L501.5200, L501.2300 ####[facility] [address] [place], [address] Platelet mean volume (Bld) [Entitic vol] 9.5 fL Normal 6.2-12.0 [facility] Comment on above: Performed By: #### L 500.2500, L100.0100, L501.5200, L501.2300 ####[facility] [address] [place], [address] Platelets (Bld) [#/Vol] 275 10*3/uL Normal 150-450 [facility] Comment on above: Performed By: #### L 500.2500, L100.0100, L501.5200, L501.2300 ####[facility] [address] [place], [address] RBC (Bld) [#/Vol] 3.93 10*6/uL Low 4.2-5.4 [facility] Comment on above: Performed By: #### L 500.2500, L100.0100, L501.5200, L501.2300 ####[facility] [address] [place], [address] RDW SD 43.4 fl Normal 35.1-43.9 [facility] Comment on above: Performed By: #### L 500.2500, L100.0100, L501.5200, L501.2300 ####[facility] [address] [place], [address] WBC (Bld) [#/Vol] 5.0 10*3/uL Normal 4.4-11.0 [facility] Comment on above: Performed By: #### L 500.2500, L100.0100, L501.5200, L501.2300 ####[facility] [address] [place], [address] Carbon dioxide measurementOr dered By: Sammy Potts on 05-15-2024 CO2 [Moles/Vol] 22.0 mmol/L 21.0-32.0 [facility] Chloride measurementOrdered By: Sammy Potts on 05-15-2024 Chloride [Moles/Vol] 108 mmol/L High 98-107 [facility] Eosinophil percentageOrdered By: Sammy Potts on 05-15-2024 Eosinophils/100 WBC (Bld) 4.4 % 0-5 [facility] Erythrocyte distribution wid th ratioOrdered By: Sammy Potts on 05-15-2024 Erythrocyte distribution width (RBC) [Ratio] 12.7 % 11.6-14.6 [facility] Erythrocyte distribution wid th standard deviationOrdered By: Sammy Potts on 05-15-2024 Erythrocyte distribution width (RBC) [Ratio] 43.4 fl 35.1-43.9 [facility] Glomerular filtration rate ( GFR) estimationOrdered By: Sammy Potts on 05-15-2024 GFR/1.73 sq M.predicted among non-blacks MDRD (S/P/Bld) [Vol rate/Area] 131 mL/min/{1.73_m2} >60 [facility] Comment on above: Non- GFR Calc Glucose measurementOrdered B y: Sammy Potts on 05-15-2024 Glucose [Mass/Vol] 91 mg/dL 74-106 [facility] Hematocrit Auto (Bld) [Volum e fraction]Ordered By: Sammy Potts on 05-15-2024 Hematocrit (Bld) [Volume fraction] 36.3 % Low 37-47 [facility] Hemoglobin measurementOrdere d By: Sammy Potts on 05-15-2024 Hemoglobin (Bld) [Mass/Vol] 11.9 g/dL Low 12.0-15.0 [facility] Immature granulocytes/100 WB C Auto (Bld)Ordered By: Sammy Potts on 05-15-2024 Immature granulocytes/100 WBC (Bld) 1.200 % High 0.0-0.9 [facility] Comment on above: IG% - Immature Granu locytes (promyelocytes, myelocytes and metamyelocytes) > 1% indicates that a LEFT SHIFT is Present. MCV (mean corpuscular volume ) determinationOrdered By: Sammy Potts on 05-15-2024 MCV (RBC) [Entitic vol] 92.4 fL 81-99 [facility] Magnesiumon 05-15-2024 Magnesium [Mass/Vol] 2.1 mg/dL Normal 1.6-2.6 [facility] Comment on above: Performed By: #### L 500.2500, L100.0100, L501.5200, L501.2300 ####[facility] [address] [place], [address] Magnesium measurementOrdered By: Sammy Potts on 05-15-2024 Magnesium [Mass/Vol] 2.1 mg/dL 1.6-2.6 [facility] Mean corpuscular hemoglobin (MCH) determinationOrdered By: Sammy Potts on 05-15-2024 MCH (RBC) [Entitic mass] 30.3 pg 27.0-32.0 [facility] Mean corpuscular hemoglobin concentration (MCHC) determinationOrdered By: Sammy Potts on 05-15-2024 MCHC (RBC) [Mass/Vol] 32.8 g/dL 32-36 [facility] Mean platelet volume determi nationOrdered By: Sammy Potts on 05-15-2024 Platelet mean volume (Bld) [Entitic vol] 9.5 fL 6.2-12.0 [facility] Monocyte percentageOrdered B y: Sammy Potts on 05-15-2024 Monocytes/100 WBC (Bld) 12.3 % High 0-10 [facility] Neutrophil percentageOrdered By: Sammy Potts on 05-15-2024 Neutrophils/100 WBC (Bld) 51.0 % 47-70 [facility] Nucleated red blood cell per centageOrdered By: Sammy Potts on 05-15-2024 Nucleated RBC/100 WBC (Bld) [Ratio] 0 % 0-5 [facility] Phosphoruson 05-15-2024 Phosphate [Mass/Vol] 2.7 mg/dL Normal 2.5-4.9 [facility] Comment on above: Performed By: #### L 500.2500, L100.0100, L501.5200, L501.2300 ####[facility] [address] [place], [place], [id number] Platelet countOrdered By: Nithin Potts on 05-15-2024 Platelets (Bld) [#/Vol] 275 10*3/uL 150-450 [facility] Potassium measurementOrdered By: Sammy Potts on 05-15-2024 Potassium [Moles/Vol] 3.8 mmol/L 3.5-5.1 [facility] RBC Auto (Bld) [#/Vol]Ordere d By: Sammy Potts on 05-15-2024 RBC (Bld) [#/Vol] 3.93 10*6/uL Low 4.2-5.4 [facility] Serum anion gap measurementO rdered By: Sammy Potts on 05-15-2024 Anion gap [Moles/Vol] 7 mmol/L 5-15 [facility] Serum or plasma calcium riccardo urement (mass/volume)Ordered By: Sammy Potts on 05-15-2024 Calcium [Mass/Vol] 9.4 mg/dL 8.5-10.1 [facility] Serum or plasma creatinine m easurement (mass/volume)Ordered By: Sammy Potts on 05-15-2024 Creatinine [Mass/Vol] 0.48 mg/dL Low 0.55-1.02 [facility] Comment on above: The validity of the calculated GFR & GFRAA in patients over 70 years has not been determined. Clinical correlation is essential. Serum or plasma urea nitroge n measurement (mass/volume)Ordered By: Sammy Potts on 05-15-2024 Urea nitrogen [Mass/Vol] 9 mg/dL 7-18 [facility] Sodium levelOrdered By: Donnie Potts on 05-15-2024 Sodium [Moles/Vol] 137 mmol/L 136-145 [facility] White blood cell (WBC) count Ordered By: Sammy Potts on 05-15-2024 WBC (Bld) [#/Vol] 5.0 10*3/uL 4.4-11.0 [facility] Basic Metabolic Profile (BMP )on 05-14-2024 BUN/CRE 11.0 RATIO Normal 10-20 [facility] Comment on above: Performed By: #### L 500.2500, L100.0100 ####[facility] [address] [place], [address] CA,Total 9.6 mg/dL Normal 8.5-10.1 [facility] Comment on above: Performed By: #### L 500.2500, L100.0100 ####[facility] [address] [place], [address] Chloride [Moles/Vol] 106 mmol/L Normal 98-107 [facility] Comment on above: Performed By: #### L 500.2500, L100.0100 ####[facility] [address] [place], [address] CO2 [Moles/Vol] 22.0 mmol/L Normal 21.0-32.0 [facility] Comment on above: Performed By: #### L 500.2500, L100.0100 ####[facility] [address] [place], [address] Creatinine [Mass/Vol] 0.55 mg/dL Normal 0.55-1.02 [facility] Comment on above: Result Comment: The validity of the calculated GFR GFRAA in patients over70 years has not been determined. Clinical correlation isessential. Performed By: #### L 500.2500, L100.0100 ####[facility] [address] [place], [address] ECRCL 51.33 ml/min Normal [facility] Comment on above: Performed By: #### L 500.2500, L100.0100 ####[facility] [address] [place], [address] EST GFR - AA 138 mL/min Normal >60 [facility] Comment on above: Result Comment: Afri can Ecuadorean GFR Calc Performed By: #### L 500.2500, L100.0100 ####[facility] [address] [place], [address] GAP 7 Normal 5-15 [facility] Comment on above: Performed By: #### L 500.2500, L100.0100 ####[facility] [address] [place], [address] GFR/1.73 sq M.predicted among non-blacks MDRD (S/P/Bld) [Vol rate/Area] 114 mL/min/{1.73_m2} Normal >60 [facility] Comment on above: Result Comment: Non- GFR Calc Performed By: #### L 500.2500, L100.0100 ####[facility] [address] [place], [address] Glucose [Mass/Vol] 96 mg/dL Normal 74-106 [facility] Comment on above: Performed By: #### L 500.2500, L100.0100 ####[facility] [address] [place], [address] Potassium [Moles/Vol] 3.4 mmol/L Low 3.5-5.1 [facility] Comment on above: Performed By: #### L 500.2500, L100.0100 ####[facility] [address] [place], [address] Sodium [Moles/Vol] 135 mmol/L Low 136-145 [facility] Comment on above: Performed By: #### L 500.2500, L100.0100 ####[facility] [address] [place], [address] Urea nitrogen [Mass/Vol] 6 mg/dL Low 7-18 [facility] Comment on above: Performed By: #### L 500.2500, L100.0100 ####[facility] [address] [place], [address] CBC W/Diff, Automatedon 02-0 -2024 Absolute Lymph 1.41 X10 3/uL Normal 0.83-4.51 [facility] Comment on above: Performed By: #### L 500.2500, L100.0100 ####[facility] [address] [place], [address] Absolute Neut 2.5 X10 3/uL Normal 2.0-7.7 [facility] Comment on above: Performed By: #### L 500.2500, L100.0100 ####[facility] [address] [place], [address] Basophils/100 WBC (Bld) 1.4 % High 0-1 [facility] Comment on above: Performed By: #### L 500.2500, L100.0100 ####[facility] [address] [place], [address] Eosinophils/100 WBC (Bld) 3.8 % Normal 0-5 [facility] Comment on above: Performed By: #### L 500.2500, L100.0100 ####[facility] [address] [place], [address] Erythrocyte distribution width (RBC) [Ratio] 12.6 % Normal 11.6-14.6 [facility] Comment on above: Performed By: #### L 500.2500, L100.0100 ####[facility] [address] [place], [address] Hematocrit (Bld) [Volume fraction] 34.9 % Low 37-47 [facility] Comment on above: Performed By: #### L 500.2500, L100.0100 ####[facility] [address] [place], [address] Hemoglobin (Bld) [Mass/Vol] 11.8 g/dL Low 12.0-15.0 [facility] Comment on above: Performed By: #### L 500.2500, L100.0100 ####[facility] [address] [place], [address] IG% 1.200 High 0.0-0.9 [facility] Comment on above: Result Comment: IG% - Immature Granulocytes (promyelocytes, myelocytes andmetamyelocytes) > 1% indicates that a LEFT SHIFT is Present. Performed By: #### L 500.2500, L100.0100 ####[facility] [address] [place], [address] Lymphocytes/100 WBC (Bld) 28.0 % Normal 19-41 [facility] Comment on above: Performed By: #### L 500.2500, L100.0100 ####[facility] [address] [place], [address] MCH (RBC) [Entitic mass] 31.1 pg Normal 27.0-32.0 [facility] Comment on above: Performed By: #### L 500.2500, L100.0100 ####[facility] [address] [place], [address] MCHC (RBC) [Mass/Vol] 33.8 g/dL Normal 32-36 [facility] Comment on above: Performed By: #### L 500.2500, L100.0100 ####[facility] [address] [place], [address] MCV (RBC) [Entitic vol] 92.1 fL Normal 81-99 [facility] Comment on above: Performed By: #### L 500.2500, L100.0100 ####[facility] [address] [place], [address] Monocytes/100 WBC (Bld) 15.7 % High 0-10 [facility] Comment on above: Performed By: #### L 500.2500, L100.0100 ####[facility] [address] [place], [address] Neutrophils/100 WBC (Bld) 49.9 % Normal 47-70 [facility] Comment on above: Performed By: #### L 500.2500, L100.0100 ####[facility] [address] [place], [address] Nucleated RBC (Bld) [#/Vol] 0 10*3/uL Normal 0-5 [facility] Comment on above: Performed By: #### L 500.2500, L100.0100 ####[facility] [address] [place], [address] Platelet mean volume (Bld) [Entitic vol] 9.5 fL Normal 6.2-12.0 [facility] Comment on above: Performed By: #### L 500.2500, L100.0100 ####[facility] [address] [place], [address] Platelets (Bld) [#/Vol] 262 10*3/uL Normal 150-450 [facility] Comment on above: Performed By: #### L 500.2500, L100.0100 ####[facility] [address] [place], [address] RBC (Bld) [#/Vol] 3.79 10*6/uL Low 4.2-5.4 [facility] Comment on above: Performed By: #### L 500.2500, L100.0100 ####[facility] [address] [place], [address] RDW SD 42.7 fl Normal 35.1-43.9 [facility] Comment on above: Performed By: #### L 500.2500, L100.0100 ####[facility] [address] [place], [address] WBC (Bld) [#/Vol] 5.0 10*3/uL Normal 4.4-11.0 [facility] Comment on above: Performed By: #### L 500.2500, L100.0100 ####[facility] [address] [place], [address] Colonoscopy Reporton 025 Colonoscopy Report Normal [facility] Basic Metabolic Profile (BMP )on 05-13-2024 BUN/CRE 12.4 RATIO Normal 10-20 [facility] Comment on above: Performed By: #### L 100.0100, L500.2500 ####[facility] [address] [place], [address] CA,Total 9.6 mg/dL Normal 8.5-10.1 [facility] Comment on above: Performed By: #### L 100.0100, L500.2500 ####[facility] [address] [place], [address] Chloride [Moles/Vol] 106 mmol/L Normal 98-107 [facility] Comment on above: Performed By: #### L 100.0100, L500.2500 ####[facility] [address] [place], [address] CO2 [Moles/Vol] 22.0 mmol/L Normal 21.0-32.0 [facility] Comment on above: Performed By: #### L 100.0100, L500.2500 ####[facility] [address] [place], [address] Creatinine [Mass/Vol] 0.48 mg/dL Low 0.55-1.02 [facility] Comment on above: Result Comment: The validity of the calculated GFR GFRAA in patients over70 years has not been determined. Clinical correlation isessential. Performed By: #### L 100.0100, L500.2500 ####[facility] [address] [place], [address] ECRCL 51.33 ml/min Normal [facility] Comment on above: Performed By: #### L 100.0100, L500.2500 ####[facility] [address] [place], [address] EST GFR - AA 159 mL/min Normal >60 [facility] Comment on above: Result Comment: Afri can Ecuadorean GFR Calc Performed By: #### L 100.0100, L500.2500 ####[facility] [address] [place], [address] GAP 10 Normal 5-15 [facility] Comment on above: Performed By: #### L 100.0100, L500.2500 ####[facility] [address] [place], [address] GFR/1.73 sq M.predicted among non-blacks MDRD (S/P/Bld) [Vol rate/Area] 131 mL/min/{1.73_m2} Normal >60 [facility] Comment on above: Result Comment: Non- GFR Calc Performed By: #### L 100.0100, L500.2500 ####[facility] [address] [place], [address] Glucose [Mass/Vol] 98 mg/dL Normal 74-106 [facility] Comment on above: Performed By: #### L 100.0100, L500.2500 ####[facility] [address] [place], [address] Potassium [Moles/Vol] 3.4 mmol/L Low 3.5-5.1 [facility] Comment on above: Performed By: #### L 100.0100, L500.2500 ####[facility] [address] [place], [address] Sodium [Moles/Vol] 137 mmol/L Normal 136-145 [facility] Comment on above: Performed By: #### L 100.0100, L500.2500 ####[facility] [address] [place], [address] Urea nitrogen [Mass/Vol] 6 mg/dL Low 7-18 [facility] Comment on above: Performed By: #### L 100.0100, L500.2500 ####[facility] [address] [place], [address] CBC W/Diff, Automatedon 02-0 2-5 Absolute Lymph 1.14 X10 3/uL Normal 0.83-4.51 [facility] Comment on above: Performed By: #### L 100.0100, L500.2500 ####[facility] [address] [place], [address] Absolute Neut 3.0 X10 3/uL Normal 2.0-7.7 [facility] Comment on above: Performed By: #### L 100.0100, L500.2500 ####[facility] [address] [place], [address] Basophils/100 WBC (Bld) 1.5 % High 0-1 [facility] Comment on above: Performed By: #### L 100.0100, L500.2500 ####[facility] [address] [place], [address] Eosinophils/100 WBC (Bld) 4.2 % Normal 0-5 [facility] Comment on above: Performed By: #### L 100.0100, L500.2500 ####[facility] [address] [place], [address] Erythrocyte distribution width (RBC) [Ratio] 12.5 % Normal 11.6-14.6 [facility] Comment on above: Performed By: #### L 100.0100, L500.2500 ####[facility] [address] [place], [address] Hematocrit (Bld) [Volume fraction] 36.8 % Low 37-47 [facility] Comment on above: Performed By: #### L 100.0100, L500.2500 ####[facility] [address] [place], [address] Hemoglobin (Bld) [Mass/Vol] 12.2 g/dL Normal 12.0-15.0 [facility] Comment on above: Performed By: #### L 100.0100, L500.2500 ####[facility] [address] [place], [address] IG% 0.800 Normal 0.0-0.9 [facility] Comment on above: Result Comment: IG% - Immature Granulocytes (promyelocytes, myelocytes andmetamyelocytes) > 1% indicates that a LEFT SHIFT is Present. Performed By: #### L 100.0100, L500.2500 ####[facility] [address] [place], [address] Lymphocytes/100 WBC (Bld) 22.0 % Normal 19-41 [facility] Comment on above: Performed By: #### L 100.0100, L500.2500 ####[facility] [address] [place], [address] MCH (RBC) [Entitic mass] 30.9 pg Normal 27.0-32.0 [facility] Comment on above: Performed By: #### L 100.0100, L500.2500 ####[facility] [address] [place], [address] MCHC (RBC) [Mass/Vol] 33.2 g/dL Normal 32-36 [facility] Comment on above: Performed By: #### L 100.0100, L500.2500 ####[facility] [address] [place], [address] MCV (RBC) [Entitic vol] 93.2 fL Normal 81-99 [facility] Comment on above: Performed By: #### L 100.0100, L500.2500 ####[facility] [address] [place], [address] Monocytes/100 WBC (Bld) 14.5 % High 0-10 [facility] Comment on above: Performed By: #### L 100.0100, L500.2500 ####[facility] [address] [place], [address] Neutrophils/100 WBC (Bld) 57.0 % Normal 47-70 [facility] Comment on above: Performed By: #### L 100.0100, L500.2500 ####[facility] [address] [place], [address] Nucleated RBC (Bld) [#/Vol] 0 10*3/uL Normal 0-5 [facility] Comment on above: Performed By: #### L 100.0100, L500.2500 ####[facility] [address] [place], [address] Platelet mean volume (Bld) [Entitic vol] 9.3 fL Normal 6.2-12.0 [facility] Comment on above: Performed By: #### L 100.0100, L500.2500 ####[facility] [address] [place], [address] Platelets (Bld) [#/Vol] 269 10*3/uL Normal 150-450 [facility] Comment on above: Performed By: #### L 100.0100, L500.2500 ####[facility] [address] [place], [address] RBC (Bld) [#/Vol] 3.95 10*6/uL Low 4.2-5.4 [facility] Comment on above: Performed By: #### L 100.0100, L500.2500 ####[facility] [address] [place], [address] RDW SD 43.1 fl Normal 35.1-43.9 [facility] Comment on above: Performed By: #### L 100.0100, L500.2500 ####[facility] [address] [place], [address] WBC (Bld) [#/Vol] 5.2 10*3/uL Normal 4.4-11.0 [facility] Comment on above: Performed By: #### L 100.0100, L500.2500 ####[facility] [address] [place], [address] M100.019on 05-13-2024 M100.019 Negative Normal [facility] Comment on above: Performed By: #### M 100.019 ####[facility] [address] [place], [address] RESPIRATORY PANEL MOLECULARo n 05-13-2024 RP PANEL Normal [facility] Comment on above: Performed By: #### M 100.638 ####[facility] [address] [place], [address] Respiratory pathogens detect ion panel by molecular detection methodOrdered By: Phuong Salas on 05-13-2024 Respiratory pathogens DNA and RNA panel JOVITA+probe (Resp) [facility] [id number] By: Rogerio Salas on 05-13-2024 SARS-CoV-2 (COVID-19) RNA JOVITA+probe Ql (Unsp spec) [facility] Basic Metabolic Profile (BMP )on 05-12-2024 BUN/CRE 12.9 RATIO Normal 10-20 [facility] Comment on above: Performed By: #### L 500.2500, L100.0100 ####[facility] [address] [place], [address] CA,Total 10.0 mg/dL Normal 8.5-10.1 [facility] Comment on above: Performed By: #### L 500.2500, L100.0100 ####[facility] [address] [place], [address] Chloride [Moles/Vol] 108 mmol/L High 98-107 [facility] Comment on above: Performed By: #### L 500.2500, L100.0100 ####[facility] [address] [place], [address] CO2 [Moles/Vol] 20.0 mmol/L Low 21.0-32.0 [facility] Comment on above: Performed By: #### L 500.2500, L100.0100 ####[facility] [address] [place], [address] Creatinine [Mass/Vol] 0.62 mg/dL Normal 0.55-1.02 [facility] Comment on above: Result Comment: The validity of the calculated GFR GFRAA in patients over70 years has not been determined. Clinical correlation isessential. Performed By: #### L 500.2500, L100.0100 ####[facility] [address] [place], [address] ECRCL 51.33 ml/min Normal [facility] Comment on above: Performed By: #### L 500.2500, L100.0100 ####[facility] [address] [place], [address] EST GFR - AA 120 mL/min Normal >60 [facility] Comment on above: Result Comment: Afri can Ecuadorean GFR Calc Performed By: #### L 500.2500, L100.0100 ####[facility] [address] [place], [address] GAP 7 Normal 5-15 [facility] Comment on above: Performed By: #### L 500.2500, L100.0100 ####[facility] [address] [place], [address] GFR/1.73 sq M.predicted among non-blacks MDRD (S/P/Bld) [Vol rate/Area] 99 mL/min/{1.73_m2} Normal >60 [facility] Comment on above: Result Comment: Non- GFR Calc Performed By: #### L 500.2500, L100.0100 ####[facility] [address] [place], [address] Glucose [Mass/Vol] 111 mg/dL High 74-106 [facility] Comment on above: Result Comment: Fast ing Glucose result from 100 to 125 mg/dLsuggests IMPAIRED HOMEOSTASIS per A.D.A. criteria. Performed By: #### L 500.2500, L100.0100 ####[facility] [address] [place], [address] Potassium [Moles/Vol] 3.7 mmol/L Normal 3.5-5.1 [facility] Comment on above: Performed By: #### L 500.2500, L100.0100 ####[facility] [address] [place], [address] Sodium [Moles/Vol] 135 mmol/L Low 136-145 [facility] Comment on above: Performed By: #### L 500.2500, L100.0100 ####[facility] [address] [place], [address] Urea nitrogen [Mass/Vol] 8 mg/dL Normal 7-18 [facility] Comment on above: Performed By: #### L 500.2500, L100.0100 ####[facility] [address] [place], [address] CBC W/Diff, Automatedon 02-0 -2024 Absolute Lymph 1.27 X10 3/uL Normal 0.83-4.51 [facility] Comment on above: Performed By: #### L 500.2500, L100.0100 ####[facility] [address] [place], [address] Absolute Neut 5.0 X10 3/uL Normal 2.0-7.7 [facility] Comment on above: Performed By: #### L 500.2500, L100.0100 ####[facility] [address] [place], [address] Basophils/100 WBC (Bld) 1.0 % Normal 0-1 [facility] Comment on above: Performed By: #### L 500.2500, L100.0100 ####[facility] [address] [place], [address] Eosinophils/100 WBC (Bld) 2.8 % Normal 0-5 [facility] Comment on above: Performed By: #### L 500.2500, L100.0100 ####[facility] [address] [place], [address] Erythrocyte distribution width (RBC) [Ratio] 12.6 % Normal 11.6-14.6 [facility] Comment on above: Performed By: #### L 500.2500, L100.0100 ####[facility] [address] [place], [address] Hematocrit (Bld) [Volume fraction] 42.6 % Normal 37-47 [facility] Comment on above: Performed By: #### L 500.2500, L100.0100 ####[facility] [address] [place], [address] Hemoglobin (Bld) [Mass/Vol] 13.4 g/dL Normal 12.0-15.0 [facility] Comment on above: Performed By: #### L 500.2500, L100.0100 ####[facility] [address] [place], [address] IG% 0.800 Normal 0.0-0.9 [facility] Comment on above: Result Comment: IG% - Immature Granulocytes (promyelocytes, myelocytes andmetamyelocytes) > 1% indicates that a LEFT SHIFT is Present. Performed By: #### L 500.2500, L100.0100 ####[facility] [address] [place], [address] Lymphocytes/100 WBC (Bld) 17.8 % Low 19-41 [facility] Comment on above: Performed By: #### L 500.2500, L100.0100 ####[facility] [address] [place], [address] MCH (RBC) [Entitic mass] 30.5 pg Normal 27.0-32.0 [facility] Comment on above: Performed By: #### L 500.2500, L100.0100 ####[facility] [address] [place], [address] MCHC (RBC) [Mass/Vol] 31.5 g/dL Low 32-36 [facility] Comment on above: Performed By: #### L 500.2500, L100.0100 ####[facility] [address] [place], [address] MCV (RBC) [Entitic vol] 96.8 fL Normal 81-99 [facility] Comment on above: Performed By: #### L 500.2500, L100.0100 ####[facility] [address] [place], [address] Monocytes/100 WBC (Bld) 8.3 % Normal 0-10 [facility] Comment on above: Performed By: #### L 500.2500, L100.0100 ####[facility] [address] [place], [address] Neutrophils/100 WBC (Bld) 69.3 % Normal 47-70 [facility] Comment on above: Performed By: #### L 500.2500, L100.0100 ####[facility] [address] [place], [address] Nucleated RBC (Bld) [#/Vol] 0 10*3/uL Normal 0-5 [facility] Comment on above: Performed By: #### L 500.2500, L100.0100 ####[facility] [address] [place], [address] Platelet mean volume (Bld) [Entitic vol] 9.2 fL Normal 6.2-12.0 [facility] Comment on above: Performed By: #### L 500.2500, L100.0100 ####[facility] [address] [place], [address] Platelets (Bld) [#/Vol] 243 10*3/uL Normal 150-450 [facility] Comment on above: Performed By: #### L 500.2500, L100.0100 ####[facility] [address] [place], [address] RBC (Bld) [#/Vol] 4.40 10*6/uL Normal 4.2-5.4 [facility] Comment on above: Performed By: #### L 500.2500, L100.0100 ####[facility] [address] [place], [address] RDW SD 45.3 fl High 35.1-43.9 [facility] Comment on above: Performed By: #### L 500.2500, L100.0100 ####[facility] [address] [place], [address] WBC (Bld) [#/Vol] 7.2 10*3/uL Normal 4.4-11.0 [facility] Comment on above: Performed By: #### L 500.2500, L100.0100 ####[facility] [address] [place], [address] Basic Metabolic Profile (BMP )on 05-11-2024 BUN/CRE 17.2 RATIO Normal 10-20 [facility] Comment on above: Performed By: #### L 500.2500, L100.0500 ####[facility] [address] [place], [address] CA,Total 9.7 mg/dL Normal 8.5-10.1 [facility] Comment on above: Performed By: #### L 500.2500, L100.0500 ####[facility] [address] [place], [address] Chloride [Moles/Vol] 108 mmol/L High 98-107 [facility] Comment on above: Performed By: #### L 500.2500, L100.0500 ####[facility] [address] [place], [address] CO2 [Moles/Vol] 24.0 mmol/L Normal 21.0-32.0 [facility] Comment on above: Performed By: #### L 500.2500, L100.0500 ####[facility] [address] [place], [address] Creatinine [Mass/Vol] 0.52 mg/dL Low 0.55-1.02 [facility] Comment on above: Result Comment: The validity of the calculated GFR GFRAA in patients over70 years has not been determined. Clinical correlation isessential. Performed By: #### L 500.2500, L100.0500 ####[facility] [address] [place], [address] ECRCL 51.33 ml/min Normal [facility] Comment on above: Performed By: #### L 500.2500, L100.0500 ####[facility] [address] [place], [address] EST GFR - AA 145 mL/min Normal >60 [facility] Comment on above: Result Comment: Afri can Ecuadorean GFR Calc Performed By: #### L 500.2500, L100.0500 ####[facility] [address] [place], [address] GAP 6 Normal 5-15 [facility] Comment on above: Performed By: #### L 500.2500, L100.0500 ####[facility] [address] [place], [address] GFR/1.73 sq M.predicted among non-blacks MDRD (S/P/Bld) [Vol rate/Area] 120 mL/min/{1.73_m2} Normal >60 [facility] Comment on above: Result Comment: Non- GFR Calc Performed By: #### L 500.2500, L100.0500 ####[facility] [address] [place], [address] Glucose [Mass/Vol] 90 mg/dL Normal 74-106 [facility] Comment on above: Performed By: #### L 500.2500, L100.0500 ####[facility] [address] [place], [address] Potassium [Moles/Vol] 3.4 mmol/L Low 3.5-5.1 [facility] Comment on above: Performed By: #### L 500.2500, L100.0500 ####[facility] [address] [place], [address] Sodium [Moles/Vol] 138 mmol/L Normal 136-145 [facility] Comment on above: Performed By: #### L 500.2500, L100.0500 ####[facility] [address] [place], [address] Urea nitrogen [Mass/Vol] 9 mg/dL Normal 7-18 [facility] Comment on above: Performed By: #### L 500.2500, L100.0500 ####[facility] [address] [place], [address] CBC-Complete Blood Cnt No Di ffon 05-11-2024 Erythrocyte distribution width (RBC) [Ratio] 12.7 % Normal 11.6-14.6 [facility] Comment on above: Performed By: #### L 500.2500, L100.0500 ####[facility] [address] [place], [address] Hematocrit (Bld) [Volume fraction] 34.8 % Low 37-47 [facility] Comment on above: Performed By: #### L 500.2500, L100.0500 ####[facility] [address] [place], [address] Hemoglobin (Bld) [Mass/Vol] 12.0 g/dL Normal 12.0-15.0 [facility] Comment on above: Performed By: #### L 500.2500, L100.0500 ####[facility] [address] [place], [address] MCH (RBC) [Entitic mass] 31.6 pg Normal 27.0-32.0 [facility] Comment on above: Performed By: #### L 500.2500, L100.0500 ####[facility] [address] [place], [address] MCHC (RBC) [Mass/Vol] 34.5 g/dL Normal 32-36 [facility] Comment on above: Performed By: #### L 500.2500, L100.0500 ####[facility] [address] [place], [address] MCV (RBC) [Entitic vol] 91.6 fL Normal 81-99 [facility] Comment on above: Performed By: #### L 500.2500, L100.0500 ####[facility] [address] [place], [address] Platelet mean volume (Bld) [Entitic vol] 9.4 fL Normal 6.2-12.0 [facility] Comment on above: Performed By: #### L 500.2500, L100.0500 ####[facility] [address] [place], [address] Platelets (Bld) [#/Vol] 239 10*3/uL Normal 150-450 [facility] Comment on above: Performed By: #### L 500.2500, L100.0500 ####[facility] [address] [place], [address] RBC (Bld) [#/Vol] 3.80 10*6/uL Low 4.2-5.4 [facility] Comment on above: Performed By: #### L 500.2500, L100.0500 ####[facility] [address] [place], [address] RDW SD 42.4 fl Normal 35.1-43.9 [facility] Comment on above: Performed By: #### L 500.2500, L100.0500 ####[facility] [address] [place], [address] WBC (Bld) [#/Vol] 7.5 10*3/uL Normal 4.4-11.0 [facility] Comment on above: Performed By: #### L 500.2500, L100.0500 ####[facility] [address] [place], [address] 12 Lead EKGon 05-10-2024 12 Lead EKG Normal [facility] Basic Metabolic Profile (BMP )on 05-10-2024 BUN/CRE 11.9 RATIO Normal 10-20 [facility] Comment on above: Performed By: #### L 500.2500, L501.2300, L100.0500, L501.5200 ####[facility] [address] [place], [address] CA,Total 9.6 mg/dL Normal 8.5-10.1 [facility] Comment on above: Performed By: #### L 500.2500, L501.2300, L100.0500, L501.5200 ####[facility] [address] [place], [address] Chloride [Moles/Vol] 107 mmol/L Normal 98-107 [facility] Comment on above: Performed By: #### L 500.2500, L501.2300, L100.0500, L501.5200 ####[facility] [address] [place], [address] CO2 [Moles/Vol] 22.0 mmol/L Normal 21.0-32.0 [facility] Comment on above: Performed By: #### L 500.2500, L501.2300, L100.0500, L501.5200 ####[facility] [address] [place], [address] Creatinine [Mass/Vol] 0.59 mg/dL Normal 0.55-1.02 [facility] Comment on above: Result Comment: The validity of the calculated GFR GFRAA in patients over70 years has not been determined. Clinical correlation isessential. Performed By: #### L 500.2500, L501.2300, L100.0500, L501.5200 ####[facility] [address] [place], [address] ECRCL 51.33 ml/min Normal [facility] Comment on above: Performed By: #### L 500.2500, L501.2300, L100.0500, L501.5200 ####[facility] [address] [place], [address] EST GFR - AA 127 mL/min Normal >60 [facility] Comment on above: Result Comment: Afri can Ecuadorean GFR Calc Performed By: #### L 500.2500, L501.2300, L100.0500, L501.5200 ####[facility] [address] [place], [address] GAP 7 Normal 5-15 [facility] Comment on above: Performed By: #### L 500.2500, L501.2300, L100.0500, L501.5200 ####[facility] [address] [place], [address] GFR/1.73 sq M.predicted among non-blacks MDRD (S/P/Bld) [Vol rate/Area] 105 mL/min/{1.73_m2} Normal >60 [facility] Comment on above: Result Comment: Non- GFR Calc Performed By: #### L 500.2500, L501.2300, L100.0500, L501.5200 ####[facility] [address] [place], [address] Glucose [Mass/Vol] 124 mg/dL High 74-106 [facility] Comment on above: Result Comment: Fast ing Glucose result from 100 to 125 mg/dLsuggests IMPAIRED HOMEOSTASIS per A.D.A. criteria. Performed By: #### L 500.2500, L501.2300, L100.0500, L501.5200 ####[facility] [address] [place], [address] Potassium [Moles/Vol] 3.6 mmol/L Normal 3.5-5.1 [facility] Comment on above: Performed By: #### L 500.2500, L501.2300, L100.0500, L501.5200 ####[facility] [address] [place], [address] Sodium [Moles/Vol] 136 mmol/L Normal 136-145 [facility] Comment on above: Performed By: #### L 500.2500, L501.2300, L100.0500, L501.5200 ####[facility] [address] [place], [address] Urea nitrogen [Mass/Vol] 7 mg/dL Normal 7-18 [facility] Comment on above: Performed By: #### L 500.2500, L501.2300, L100.0500, L501.5200 ####[facility] [address] [place], [address] CBC-Complete Blood Cnt No Di ffon 05-10-2024 Erythrocyte distribution width (RBC) [Ratio] 12.7 % Normal 11.6-14.6 [facility] Comment on above: Performed By: #### L 500.2500, L501.2300, L100.0500, L501.5200 ####[facility] [address] [place], [address] Hematocrit (Bld) [Volume fraction] 35.7 % Low 37-47 [facility] Comment on above: Performed By: #### L 500.2500, L501.2300, L100.0500, L501.5200 ####[facility] [address] [place], [address] Hemoglobin (Bld) [Mass/Vol] 11.9 g/dL Low 12.0-15.0 [facility] Comment on above: Performed By: #### L 500.2500, L501.2300, L100.0500, L501.5200 ####[facility] [address] [place], [address] MCH (RBC) [Entitic mass] 30.7 pg Normal 27.0-32.0 [facility] Comment on above: Performed By: #### L 500.2500, L501.2300, L100.0500, L501.5200 ####[facility] [address] [place], [address] MCHC (RBC) [Mass/Vol] 33.3 g/dL Normal 32-36 [facility] Comment on above: Performed By: #### L 500.2500, L501.2300, L100.0500, L501.5200 ####[facility] [address] [place], [address] MCV (RBC) [Entitic vol] 92.2 fL Normal 81-99 [facility] Comment on above: Performed By: #### L 500.2500, L501.2300, L100.0500, L501.5200 ####[facility] [address] [place], [address] Platelet mean volume (Bld) [Entitic vol] 9.4 fL Normal 6.2-12.0 [facility] Comment on above: Performed By: #### L 500.2500, L501.2300, L100.0500, L501.5200 ####[facility] [address] [place], [address] Platelets (Bld) [#/Vol] 238 10*3/uL Normal 150-450 [facility] Comment on above: Performed By: #### L 500.2500, L501.2300, L100.0500, L501.5200 ####[facility] [address] [place], [address] RBC (Bld) [#/Vol] 3.87 10*6/uL Low 4.2-5.4 [facility] Comment on above: Performed By: #### L 500.2500, L501.2300, L100.0500, L501.5200 ####[facility] [address] [place], [address] RDW SD 43.0 fl Normal 35.1-43.9 [facility] Comment on above: Performed By: #### L 500.2500, L501.2300, L100.0500, L501.5200 ####[facility] [address] [place], [address] WBC (Bld) [#/Vol] 9.9 10*3/uL Normal 4.4-11.0 [facility] Comment on above: Performed By: #### L 500.2500, L501.2300, L100.0500, L501.5200 ####[facility] [address] [place], [address] Hemoglobin A1con 05-10-2024 HbA1c (Bld) [Mass fraction] 5.5 % Normal 3.8-5.6 [facility] Comment on above: Result Comment: Norm al < 5.7 % Prediabetic 5.7 - 6.4 % Diabetic >or= 6.5 % Please note range changes. Performed By: #### L 501.9940 ####[facility] [address] [place], [address] Hemoglobin A1c percentageOrd ered By: Jeramy Reina on 05-10-2024 HbA1c (Bld) [Mass fraction] 5.5 % 3.8-5.6 [facility] Comment on above: Normal < 5.7 % Predi abetic 5.7 - 6.4 % Diabetic >or= 6.5 % Please note range changes. MR/PN.GIon 05-10-2024 MR/PN.GI Normal [facility] MR/PN.GI Normal [facility] MR/POSTOP.ANEon 05-10-2024 MR/POSTOP.ANE Normal [facility] MR/DIPXSEAQ5bo 05-10-2024 MR/POSTOPAN2 Normal [facility] Magnesiumon 05-10-2024 Magnesium [Mass/Vol] 2.3 mg/dL Normal 1.6-2.6 [facility] Comment on above: Performed By: #### L 500.2500, L501.2300, L100.0500, L501.5200 ####[facility] [address] [place], [address] Phosphoruson 05-10-2024 Phosphate [Mass/Vol] 2.5 mg/dL Normal 2.5-4.9 [facility] Comment on above: Performed By: #### L 500.2500, L501.2300, L100.0500, L501.5200 ####[facility] [address] [place], [address] Surgery Specimen Level Heather 05-10-2024 Surgery Specimen Level IV Normal [facility] Comment on above: Performed By: #### P SUIV ####[facility] [address] [place], [address] Urine Cultureon 05-10-2024 URC Culture exhibits no growth. Normal [facility] Comment on above: Performed By: #### M 100.2200 ####[facility] [address] [place], [place], [address] H AND P Exam - Hospitaliston 05-09-2024 H&P Exam - Hospitalist Normal [facility] Hemoglobin A1con 05-09-2024 HbA1c (Bld) [Mass fraction] 5.5 % Normal 3.8-5.6 [facility] Comment on above: Result Comment: Norm al < 5.7 % Prediabetic 5.7 - 6.4 % Diabetic >or= 6.5 % Please note range changes. Performed By: #### L 501.9579, L501.7772 ####[facility] [address] [place], [place], [address] Lactic Acidon 05-09-2024 Lactate [Moles/Vol] 0.8 mmol/L Normal 0.4-1.9 [facility] Comment on above: Order Comment: Y Performed By: #### L [id number] ####[facility] [address] [place], [place], [address] Lactic acid measurementOrder ed By: Sammy Phillip on 05-09-2024 Lactate [Moles/Vol] 0.8 mmol/L 0.4-2.0 [facility] MR/CON.PCM.GIon 05-09-2024 MR/CON.PCM.GI Normal [facility] Serum or plasma thyroid stim ulating hormone (TSH) measurement (units/volume)Ordered By: Sammy Phillip on 05-09-2024 TSH Qn 0.943 uIU/mL 0.358-3.740 [facility] Thyroid Stim Hormone (TSH)on 05-09-2024 TSH 0.943 uIU/mL Normal 0.358-3.740 [facility] Comment on above: Performed By: #### L 501.9529, L501.8135 ####[facility] [address] [place], [place], [id number] Abdomen/Pel W ORAL Cont Only on 05-08-2024 Abdomen/Pel W ORAL Cont Only Normal [facility] Abdomen/Pel W ORAL Cont Only Normal [facility] Abdomen/Pelvis W IV Cont ONL Yon 05-08-2024 Abdomen/Pelvis W IV Cont ONLY Normal [facility] Albumin to globulin ratioOrd ered By: David Richmondehne on 05-08-2024 Albumin/Globulin [Mass ratio] 1.1 {ratio} Normal 0.9-2.4 [facility] Comment on above: Performed By: #### L 500.4050, L100.0100 ####[facility] [address] [place], [address] Bilirubin Test strip Ql (U)O rdered By: David Cornell on 05-08-2024 Bilirubin Ql (U) Negative Negative [facility] Bilirubin, totalOrdered By: David Cornell on 05-08-2024 Bilirubin [Mass/Vol] 0.50 mg/dL Normal 0.20-1.00 [facility] Comment on above: For patients on eltr ombopag therapy, use of Dimension [place] TBIL is not recommended. Result Comment: For patients on eltrombopag therapy, use of Dimension [place] TBIL is not recommended. Performed By: #### L 500.4050, L100.0100 ####[facility] [address] [place], [address] CBC W/Diff, Automatedon 04-12 Absolute Lymph 1.51 X10 3/uL Normal 0.83-4.51 [facility] Comment on above: Performed By: #### L 500.4050, L100.0100 ####[facility] [address] [place], [address] Absolute Neut 14.8 X10 3/uL High 2.0-7.7 [facility] Comment on above: Performed By: #### L 500.4050, L100.0100 ####[facility] [address] [place], [address] Basophils/100 WBC (Bld) 0.4 % Normal 0-1 [facility] Comment on above: Performed By: #### L 500.4050, L100.0100 ####[facility] [address] [place], [address] Eosinophils/100 WBC (Bld) 0.1 % Normal 0-5 [facility] Comment on above: Performed By: #### L 500.4050, L100.0100 ####[facility] [address] [place], [address] Erythrocyte distribution width (RBC) [Ratio] 12.7 % Normal 11.6-14.6 [facility] Comment on above: Performed By: #### L 500.4050, L100.0100 ####[facility] [address] [place], [address] Hematocrit (Bld) [Volume fraction] 38.0 % Normal 37-47 [facility] Comment on above: Performed By: #### L 500.4050, L100.0100 ####[facility] [address] [place], [address] Hemoglobin (Bld) [Mass/Vol] 13.2 g/dL Normal 12.0-15.0 [facility] Comment on above: Performed By: #### L 500.4050, L100.0100 ####[facility] [address] [place], [address] IG% 0.600 Normal 0.0-0.9 [facility] Comment on above: Result Comment: IG% - Immature Granulocytes (promyelocytes, myelocytes andmetamyelocytes) > 1% indicates that a LEFT SHIFT is Present. Performed By: #### L 500.4050, L100.0100 ####[facility] [address] [place], [address] Lymphocytes/100 WBC (Bld) 8.4 % Low 19-41 [facility] Comment on above: Performed By: #### L 500.4050, L100.0100 ####[facility] [address] [place], [address] MCH (RBC) [Entitic mass] 31.8 pg Normal 27.0-32.0 [facility] Comment on above: Performed By: #### L 500.4050, L100.0100 ####[facility] [address] [place], [address] MCHC (RBC) [Mass/Vol] 34.7 g/dL Normal 32-36 [facility] Comment on above: Performed By: #### L 500.4050, L100.0100 ####[facility] [address] [place], [address] MCV (RBC) [Entitic vol] 91.6 fL Normal 81-99 [facility] Comment on above: Performed By: #### L 500.4050, L100.0100 ####[facility] [address] [place], [address] Monocytes/100 WBC (Bld) 7.9 % Normal 0-10 [facility] Comment on above: Performed By: #### L 500.4050, L100.0100 ####[facility] [address] [place], [address] Neutrophils/100 WBC (Bld) 82.6 % High 47-70 [facility] Comment on above: Performed By: #### L 500.4050, L100.0100 ####[facility] [address] [place], [address] Nucleated RBC (Bld) [#/Vol] 0 10*3/uL Normal 0-5 [facility] Comment on above: Performed By: #### L 500.4050, L100.0100 ####[facility] [address] [place], [address] Platelet mean volume (Bld) [Entitic vol] 8.7 fL Normal 6.2-12.0 [facility] Comment on above: Performed By: #### L 500.4050, L100.0100 ####[facility] [address] [place], [address] Platelets (Bld) [#/Vol] 266 10*3/uL Normal 150-450 [facility] Comment on above: Performed By: #### L 500.4050, L100.0100 ####[facility] [address] [place], [address] RBC (Bld) [#/Vol] 4.15 10*6/uL Low 4.2-5.4 [facility] Comment on above: Performed By: #### L 500.4050, L100.0100 ####[facility] [address] [place], [address] RDW SD 42.2 fl Normal 35.1-43.9 [facility] Comment on above: Performed By: #### L 500.4050, L100.0100 ####[facility] [address] [place], [address] WBC (Bld) [#/Vol] 18.0 10*3/uL High 4.4-11.0 [facility] Comment on above: Performed By: #### L 500.4050, L100.0100 ####[facility] [address] [place], [address] Comprehensive Metabolic Prof ilon 05-08-2024 ALK P 97 U/L Normal 45-117 [facility] Comment on above: Performed By: #### L 500.4050, L100.0100 ####[facility] [address] [place], [address] BUN/CRE 24.0 RATIO High 10-20 [facility] Comment on above: Performed By: #### L 500.4050, L100.0100 ####[facility] [address] [place], [address] CA,Total 9.9 mg/dL Normal 8.5-10.1 [facility] Comment on above: Performed By: #### L 500.4050, L100.0100 ####[facility] [address] [place], [address] Chloride [Moles/Vol] 104 mmol/L Normal 98-107 [facility] Comment on above: Performed By: #### L 500.4050, L100.0100 ####[facility] [address] [place], [address] CO2 [Moles/Vol] 24.0 mmol/L Normal 21.0-32.0 [facility] Comment on above: Performed By: #### L 500.4050, L100.0100 ####[facility] [address] [place], [address] Creatinine [Mass/Vol] 0.62 mg/dL Normal 0.55-1.02 [facility] Comment on above: Result Comment: The validity of the calculated GFR GFRAA in patients over70 years has not been determined. Clinical correlation isessential. Performed By: #### L 500.4050, L100.0100 ####[facility] [address] [place], [address] ECRCL 53.40 ml/min Normal [facility] Comment on above: Performed By: #### L 500.4050, L100.0100 ####[facility] [address] [place], [address] EST GFR - AA 118 mL/min Normal >60 [facility] Comment on above: Result Comment: Afri can Ecuadorean GFR Calc Performed By: #### L 500.4050, L100.0100 ####[facility] [address] [place], [address] GAP 5 Normal 5-15 [facility] Comment on above: Performed By: #### L 500.4050, L100.0100 ####[facility] [address] [place], [address] GFR/1.73 sq M.predicted among non-blacks MDRD (S/P/Bld) [Vol rate/Area] 98 mL/min/{1.73_m2} Normal >60 [facility] Comment on above: Result Comment: Non- GFR Calc Performed By: #### L 500.4050, L100.0100 ####[facility] [address] [place], [address] Glucose [Mass/Vol] 104 mg/dL Normal 74-106 [facility] Comment on above: Result Comment: Fast ing Glucose result from 100 to 125 mg/dLsuggests IMPAIRED HOMEOSTASIS per A.D.A. criteria. Performed By: #### L 500.4050, L100.0100 ####[facility] [address] [place], [address] Potassium [Moles/Vol] 4.0 mmol/L Normal 3.5-5.1 [facility] Comment on above: Performed By: #### L 500.4050, L100.0100 ####[facility] [address] [place], [address] Sodium [Moles/Vol] 133 mmol/L Low 136-145 [facility] Comment on above: Performed By: #### L 500.4050, L100.0100 ####[facility] [address] [place], [address] T PROT 7.4 g/dL Normal 6.4-8.2 [facility] Comment on above: Performed By: #### L 500.4050, L100.0100 ####[facility] [address] [place], [address] Urea nitrogen [Mass/Vol] 15 mg/dL Normal 7-18 [facility] Comment on above: Performed By: #### L 500.4050, L100.0100 ####[facility] [address], [address] Comprehensive Metabolic Prof ilOrdered By: David Cornell on 05-08-2024 AST [Catalytic activity/Vol] 13 U/L Low 15-37 [facility] Comment on above: Performed By: #### L 500.4050, L100.0100 ####[facility] [address] [place], [address] Consultation - Surgicalon Consultation - Surgical Normal [facility] Emergency Department Summary on 05-08-2024 Emergency Department Summary Normal [facility] Ketones Test strip Ql (U)Ord ered By: David Cornell on 05-08-2024 Ketones Ql (U) Negative Negative [facility] Lipaseon 05-08-2024 Lipase [Catalytic activity/Vol] 44 U/L Normal 13-75 [facility] Comment on above: Result Comment: Plea se note:LIPASE revised reference range effective 22.New Lipase methodology. Expected to produce lower valuesthan the previous assay method.NEW Reference Range: 13 - 75 U/L Performed By: #### L 501.2450 ####[facility] [address], [address] Lipase measurementOrdered By : David Cornell on 05-08-2024 Lipase [Catalytic activity/Vol] 44 U/L 13-75 [facility] Comment on above: Please note:LIPASE r evised reference range effective 22. New Lipase methodology. Expected to produce lower values than the previous assay method. NEW Reference Range: 13 - 75 U/L Microscopic analysis of urin e for red blood cells (RBC)Ordered By: David Cornell on 05-08-2024 Microscopic analysis of urine for red blood cells (RBC) 5-10 SEEN /hpf 0-5 [facility] Mucus LM Ql (Urine sed)Order ed By: David Cornell on 05-08-2024 Mucus Ql (Urine sed) 0 SEEN /hpf [facility] Nitrite Test strip Ql (U)Ord ered By: David Cornell on 05-08-2024 Nitrite Ql (U) Negative Negative [facility] Protein Test strip Ql (U)Ord ered By: David Cornell on 05-08-2024 Protein Ql (U) 15 mg/dl High Negative [facility] Serum globulin measurementOr dered By: David Cornell on 05-08-2024 Globulin (S) [Mass/Vol] 3.6 g/dL Normal 2.2-4.2 [facility] Comment on above: Performed By: #### L 500.4050, L100.0100 ####[facility] [address] [place], [address] Serum or plasma alanine hernandez otransferase (ALT) measurementOrdered By: David Cornell on 05-08-2024 ALT [Catalytic activity/Vol] 25 U/L Normal 13-56 [facility] Comment on above: Performed By: #### L 500.4050, L100.0100 ####[facility] [address] [place], [address] Serum or plasma albumin riccardo urement (mass/volume)Ordered By: David Cornell on 05-08-2024 Albumin [Mass/Vol] 3.8 g/dL Normal 3.2-5.0 [facility] Comment on above: Performed By: #### L 500.4050, L100.0100 ####[facility] [address] [place], [address] Serum or plasma alkaline chel sphatase measurementOrdered By: David Cornell on 05-08-2024 ALP [Catalytic activity/Vol] 97 U/L 45-117 [facility] Squamous epithelial cells de tection in urine sediment by light microscopyOrdered By: David Cornell on 05-08-2024 Epithelial cells.squamous LM Ql (Urine sed) 0-5 SEEN /hpf 5-10 [facility] Total proteinOrdered By: Ankit Cornell on 05-08-2024 Protein [Mass/Vol] 7.4 g/dL 6.4-8.2 [facility] Urinalysis, Completeon 05-08 BACTERIA 1+ /hpf Normal None Seen [facility] Comment on above: Order Comment: FARZAD CTOR TO SPECIFY Performed By: #### L 400.0001 ####[facility] [address] [place], [address] RBC 5-10 SEEN Normal 0-5 [facility] Comment on above: Order Comment: FARZAD CTOR TO SPECIFY Performed By: #### L 400.0001 ####[facility] [address] [place], [address] EPI,SQUAMOUS 0-5 SEEN Normal 5-10 [facility] Comment on above: Order Comment: FARZAD CTOR TO SPECIFY Performed By: #### L 400.0001 ####[facility] [address] [place], [address] WBC 10-25 SEEN Normal 0-5 [facility] Comment on above: Order Comment: FARZAD CTOR TO SPECIFY Performed By: #### L 400.0001 ####[facility] [address] [place], [address] Mucus Ql (Urine sed) 0 SEEN Normal [facility] Comment on above: Order Comment: FARZAD CTOR TO SPECIFY Performed By: #### L 400.0001 ####[facility] [address] [place], [address] Urine clarityOrdered By: Ankit Cornell on 05-08-2024 Clarity (U) Sl. Cloudy Clear [facility] Urine color determinationOrd ered By: David Cornell on 05-08-2024 Color (U) Yellow Yellow [facility] Urine cultureOrdered By: Feliciano Phillip on 05-08-2024 Bacteria identified Cx Nom (U) Culture exhibits no growth. [facility] Urine glucose detectionOrder ed By: David Cornell on 05-08-2024 Glucose Ql (U) Normal mg/dl Normal [facility] Urine leukocyte esterase det ection by dipstickOrdered By: David Cornell on 05-08-2024 Leukocyte esterase Test strip Ql (U) 500 /ul High Negative [facility] Urine pHOrdered By: David anderson on 05-08-2024 pH (U) 5.0 [pH] 5.0 - 8.0 [facility] Urine sediment bacteria coun t by microscopy (number/high power field)Ordered By: David Cornell on 05-08-2024 Bacteria LM.HPF (Urine sed) [#/Area] 1 /[HPF] None Seen [facility] Urine specific gravity measu rementOrdered By: David Cornell on 05-08-2024 Specific gravity (U) [Rel density] 1.020 1.002-1.030 [facility] Urine urobilinogen measureme ntOrdered By: David Cornell on 05-08-2024 Urobilinogen Ql (U) Normal mg/dl Normal [facility] White blood cell countOrdere d By: David Cornell on 05-08-2024 White blood cell count 10-25 SEEN /hpf 0-5 [facility] 12 Lead EKG performed by [employer] on 01-25-2024 12 Lead EKG performed by [facility] Normal [facility] Cardiology Visit Reporton Cardiology Visit Report Normal [facility] Pacemaker Checkon 01-25-2024 Pacemaker Check Normal [facility] Vital Signs Date Time Vital Sign Value Performing Clinician Carrie gonzalez 09-13-2024 10:20-0400 Body temperature 97.5 [degF] Dr. Yolis Yu DO Work Phone: [facility] 09-13-2024 10:20-0400 Diastolic blood pressure 62 mm[Hg] Dr. Yolis Yu DO Work Phone: [facility] 09-13-2024 10:20-0400 Heart rate 63 /min Dr. Yolis Yu DO Work Phone: [facility] 09-13-2024 10:20-0400 Respiratory rate 16 /min Dr. Yolis Fast DO Work Phone: [facility] 09-13-2024 10:20-0400 SaO2% (BldA) [Mass fraction] 100 % Dr. Yolis Yu DO Work Phone: [facility] 09-13-2024 10:20-0400 Systolic blood pressure 114 mm[Hg] Dr. Yolis Yu DO Work Phone: [facility] 09-13-2024 08:52-0400 Body height 160.[address] Yolis Yu DO Work Phone: [facility] 09-13-2024 08:52-0400 Body mass index (BMI) [Ratio] 26.4 kg/m2 Dr. Yolis Yu DO Work Phone: [facility] 09-13-2024 08:52-0400 Body weight 67.[address] Yolis Yu DO Work Phone: [facility] 08-29-2024 13:34-0400 Body height 172.[address] Yolis Yu DO Work Phone: [facility] 05-15-2024 11:00-0500 Body temperature 97.9 [degF] Dr. Yolis Yu DO Work Phone: [facility] 05-15-2024 11:00-0500 Diastolic blood pressure 68 mm[Hg] Dr. Yolis Yu DO Work Phone: [facility] 05-15-2024 11:00-0500 Heart rate 75 /min Dr. Yolis Yu DO Work Phone: [facility] 05-15-2024 11:00-0500 Respiratory rate 18 /min Dr. Yolis Yu DO Work Phone: [facility] 05-15-2024 11:00-0500 SaO2% (BldA) [Mass fraction] 100 % Dr. Yolis Yu DO Work Phone: [facility] 05-15-2024 11:00-0500 Systolic blood pressure 142 mm[Hg] Dr. Yolis Yu DO Work Phone: [facility] 05-10-2024 20:24-0500 Inhaled oxygen flow rate 2 L/min Dr. Yolis Yu DO Work Phone: [facility] 05-10-2024 14:00-0500 Body height 172.[address] Yolis Yu DO Work Phone: [facility] 05-10-2024 14:00-0500 Body mass index (BMI) [Ratio] 18.8 kg/m2 Dr. Yolis Yu DO Work Phone: [facility] 05-10-2024 14:00-0500 Body weight 56.[address] Yolis Yu DO Work Phone: [facility] Encounters Encounter Date Encounter Type Care Provider Facility Start: 11-27-2024 ambulatory Yolis Fast Facility:[facility] Start: 11-22-2024 ambulatory Yolis Fast Facility:[facility] Start: 10-03-[address] Yolis Yu DO -Physical Therapy Work Phone: Start: 09-27-2024 End: 09-27-[address] Yolis Yu DO Work Phone: -[facility] Start: 09-27-2024 End: 09-27-[address] Hong Strauss MD -[facility] Work Phone: Start: 09-26-2024 End: 09-26-2024 Patient encounter procedure Leslie STUBBS -[facility] Work Phone: Start: 09-26-2024 End: 09-26-[address] Yolis Yu DO Work Phone: [facility] Work Phone: Start: 09-21-[address] Yolis Yu DO -Physical Therapy Work Phone: Start: 09-13-2024 ambulatory Tio Lucerne Facility :[facility] Start: 09-13-2024 Non-patient / Non-visit Tio Lucerne DO -[facility] Start: 09-13-2024 End: 09-13-2024 Admission to same day surgery center Tio Van DO -Endoscopy Work Phone: Start: 09-13-2024 End: 09-13-[address] Yolis Yu DO Work Phone: [facility] Work Phone: Start: 09-05-[address] Yolis Yu DO -Physical Therapy Work Phone: Start: 08-29-2024 End: 08-29-[address] Hong Strauss MD -[facility] Start: 08-29-2024 End: 08-29-[address] Yolis Yu DO Work Phone: [facility] Work Phone: Start: 08-15-2024 End: 08-15-[address] Yolis Yu DO Work Phone: [facility] Work Phone: Start: 08-15-2024 End: 08-15-[address] Yolis Yu DO -Cardiovascular Services Work Phone: Start: 08-15-2024 End: 08-15-2024 ambulatory Yolis Yu Facility:[facility] Start: 07-05-2024 End: 07-05-2024 Patient encounter procedure Leslie STUBBS -[facility] Work Phone: Start: 07-05-2024 End: 07-05-2024 ambulatory Leslie Greene Facility:[facility] Start: 06-28-2024 End: 06-28-2024 ambulatory Hong Strauss Facility:[facility] Start: 06-28-2024 End: 06-28-[address] Hong Strauss MD -[facility] Work Phone: Start: 06-27-2024 End: 06-27-[address] Cristobal Villalta MD -[facility] Work Phone: Start: 06-27-2024 End: 06-27-2024 ambulatory Cristobal Villalta Facility:[facility] Start: 05-29-2024 End: 05-29-2024 Patient encounter procedure Divya Kamara PA-C -[facility] Work Phone: Start: 05-29-2024 End: 05-29-2024 ambulatory Yolis Yu Facility:[facility] Start: 05-15-2024 Non-patient / Non-visit Dr. Sammy Potts MD [facility] Work Phone: Start: 05-14-2024 Non-patient / Non-visit Tio Van [facility] Start: 05-14-2024 Non-patient / Non-visit Dr. Sammy Potts MD [facility] Work Phone: Start: 05-14-2024 [facility] Start: 05-13-2024 Non-patient / Non-visit Dr. Phuong Salas DO [facility] Work Phone: Start: 05-13-2024 Non-patient / Non-visit Dr. Ambrocio Henderson MD [facility] Start: 05-12-2024 Non-patient / Non-visit Dr. Phuong Salas DO [facility] Work Phone: Start: 05-12-2024 Non-patient / [facility] Start: 05-11-2024 Non-patient / Non-visit Dr. Phuong Salas DO [facility] Work Phone: Start: 05-11-2024 Non-patient / Non-visit Dr. Cristobal Villalta MD [facility] Start: 05-10-2024 Non-patient / Non-visit Dr. Phuong Salas DO [facility] Work Phone: Start: 05-10-2024 Non-patient / Non-visit Tio [facility] Start: 05-09-2024 Non-patient / Non-visit Tio [facility] Start: 05-09-2024 ambulatory Sammy colvin Kenji Facili ty:[facility] Start: 05-09-2024 End: 05-15-2024 Evaluation and management of inpatient Dr. Sammy Potts MD -[facility] Work Phone: Start: 05-08-2024 ambulatory Cristobal Villalta Facility: [facility] Start: 05-08-2024 Non-patient / Non-visit Dr. Cristobal Villalta MD -[facility] Start: 03-30-2024 End: 03-30-2024 ambulatory Hong Carlos A Facility:[facility] Start: 01-25-2024 End: 01-25-2024 ambulatory Hong Carlos A Facility:[facility] Procedures Date Procedure Procedure Detail Performing Clinician Start: 09-13-[address] Yolis Yu DO Work Phone: Start: 08-29-2024 X-ray of sternum, tw o or more views Dr. Yolis Yu DO Work Phone: Start: 08-29-2024 X-ray of bilateral r ibs, three views without chest x-ray Dr. Yolis Yu DO Work Phone: Start: 05-15-2024 Assay of phosphorus inorganic Dr. Yolis Yu DO Work Phone: Start: 05-15-[address] Yolis Yu DO Work Phone: Start: 05-15-2024 Measurement of renal function Dr. Yolis Yu DO Work Phone: Comment on above: GFR Calc Start: 05-13-[address] Yolis Yu DO Work Phone: Start: 05-13-2024 Sars-cov-2 Dr. Yolis Yu DO Work Phone: Start: 05-13-[address] Yolis Yu DO Work Phone: Start: 05-10-[address] Yolis Yu DO Work Phone: Start: 05-08-2024 CT of abdomen and pe lvis with oral contrast Dr. Yolis Yu DO Work Phone: Start: 05-08-2024 CT of abdomen and pe lvis with oral contrast Dr. Yolis Yu DO Work Phone: Start: 05-08-2024 Computed tomography of abdomen and pelvis with intravenous contrast Dr. Yolis Yu DO Work Phone: Start: 05-08-2024 Urnls dip stick/tabl et reagent auto microscopy Dr. Yolis Yu DO Work Phone: Start: 05-08-[address] Yolis Yu DO Work Phone: Plan of Treatment Date Care Activity Detail Author Start: 09-13-2024 Colonoscopy w/biopsy single/multiple COLONOSCOPY AND BIOPSY [facility] Start: 09-13-2024 Egd transoral biopsy single/multiple EGD BIOPSY SINGLE/MULTIPLE [facility] Start: 09-13-2024 Patient discharge [facility] Start: 08-29-2024 X-ray of sternum, two or more views Sternum min 2 Views [facility] Start: 08-29-2024 X-ray of unilateral ribs, two views without x-ray of chest Ribs Unil 2V No CXR [facility] Start: 06-27-2024 Patient referral [facility] Work Phone: Start: 05-15-2024 Patient discharge [facility] Start: 05-09-2024 [facility] Start: 05-09-2024 Care planning and problem solving actions [facility] Start: 05-09-2024 Application of intermittent pneumatic compression device [facility] Start: 05-09-2024 Following clinical pathway protocol [facility] Start: 05-09-2024 Referral to gastroenterology service [facility] Start: 05-09-2024 Admission procedure [facility] Patient referral [facility] Work Phone: Payers Date Payer Category Payer Self-pay 2010 Medicare [id number] 2001 Unknown [id number] Unknown [id number] 2.16.8 40.1.924102.3.579.2.462 Unknown [id number] 2.16.8 40.1.807584.3.579.2.462 Unknown [id number] 2.16.8 40.1.731073.3.579.2.462 Unknown [id number] 2.16.8 40.1.162795.3.579.2.462 Unknown [id number] 2.16.8 40.1.793307.3.579.2.462 Unknown [id number] 2.16.8 40.1.877212.3.579.2.462 Unknown [id number] 2.16.8 40.1.048337.3.579.2.462 Unknown [id number] 2.16.8 40.1.979966.3.579.2.462 Unknown [id number] 2.16.8 40.1.628596.3.579.2.462 Unknown [id number] 2.16.8 40.1.404738.3.579.2.462 Unknown [id number] 2.16.8 40.1.350901.3.579.2.462 Unknown [id number] 2.16.8 40.1.353869.3.579.2.462 Unknown [id number] 2.16.8 40.1.420379.3.579.2.462 Unknown [id number] 2.16.8 40.1.062157.3.579.2.462 Unknown [id number] 2.16.8 40.1.269155.3.579.2.462 Unknown [id number] 2.16.8 40.1.666046.3.579.2.462 Unknown [id number] 2.16.8 40.1.150971.3.579.2.462 Unknown [id number] 2.16.8 40.1.502242.3.579.2.462 Unknown [id number] 2.16.8 40.1.332938.3.579.2.462 Unknown [id number] 2.16.8 40.1.674793.3.579.2.462 Unknown [id number] 2.16.8 40.1.437975.3.579.2.462 Unknown [id number] 2.16.8 40.1.107152.3.579.2.462 Unknown [id number] 2.16.8 40.1.190696.3.579.2.462 Unknown [id number] 2.16.8 40.1.179623.3.579.2.462 Unknown [id number] 2.16.8 40.1.619032.3.579.2.462 Unknown [id number] 2.16.8 40.1.812990.3.579.2.462 Unknown [id number] 2.16.8 40.1.554476.3.579.2.462 Unknown [id number] 2.16.8 40.1.331795.3.579.2.462 Unknown [id number] 2.16.8 40.1.225750.3.579.2.462 Unknown [id number] 2.16.8 40.1.076784.3.579.2.462 Unknown [id number] 2.16.8 40.1.437701.3.579.2.462 Unknown [id number] 2.16.8 40.1.582625.3.579.2.462 Unknown [id number] 2.16.8 40.1.313864.3.579.2.462 Unknown [id number] 2.16.8 40.1.428991.3.579.2.462 Unknown [id number] 2.16.8 40.1.158217.3.579.2.462 Social History Date Type Detail Facility Start: 05-09-2024 End: 09-07-2024 Tobacco smoking status NHIS Never smoked tobacco (finding) [facility] Start: 09-26-2023 Alcohol Alcohol [facility] Start: 02-20-2013 Lives Lives [facility] Start: 09-26-2023 Tobacco Use Tobacco Use [facility] Start: 1945 Sex Assigned At Female [facility] NEGATED: Highlighted row Not [facility] Goals Date Patient Goal Desired Activity /State Functional Status Date Assessment Result Facility 05-15-2024 Functional status Up ad eileen [facility] Work Phone: 05-14-2024 Functional status Tolerates Activity Well [facility] Work Phone: Mental Status Date Assessment Result Facility 09-13-2024 Cognitive function Level Of Cons ciousness Follows Commands;Drowsy [facility] Work Phone: 09-13-2024 Cognitive function Voice/Name [facility] Work Phone: 05-15-2024 Cognitive function Voice/Name [facility] Work Phone: Clinical Notes 05-09-2024 to 09-13-2024 Note Date & Type Note Facility 09-13-2024 Consult note [facility] 09-13-2024 Procedure note [facility] 09-13-2024 Procedure note [facility] 09-13-2024 Procedure note [facility] 09-13-2024 Procedure note [facility] 09-13-2024 Consult note [facility] 09-13-2024 History and physi janet note [facility] 09-13-2024 Note [facility] 09-13-2024 Consult note [facility] 06-27-2024 Evaluation note Diagnosis Onset Date Resolution Ischemic colitis acute June 272024 3:00pm Ischemic colitis acute July 052024 2:02pm GERD (gastroesophageal reflux disease) acute September 13, 2024 8 :22am Ischemic colitis acute September 8:22am GERD (gastroesophageal reflux disease) acute September 26, 2024 12:58pm Ischemic colitis acute September 12:58pm [facility] Work Phone: 1(852) 351-319302-18-2025 Evaluation note* Diagnosis Onset Date Resolution Status Admit Date Ischemic colitis acute May 29, 2024 2:07pm Ischemic colitis acute June 272024 3:00pm Ischemic colitis acute July 052024 2:02pm GERD (gastroesophageal reflu x disease) acute September 13, 2024 8 :22am Ischemic colitis acute September 8:22am [facility] Work Phone: 1(872) 589-104102-04-2025 [facility]01-29-2025 Evaluation note* Diagnosis Onset Date Resolution Status Admit Date Essential hypertension acute Ja nuary 2024 3:02am Type 2 diabetes mellitus without complications acute May 092024 3:02am HTN (hypertension) chronic Apruar y 2024 3:02am Abdominal pain, acute resolved Reynaldo uary 2024 3:02am Abnormal CT of the abdomen resolved May 09, 2024 3:02am Acute cystitis with hematuria resolv ed May 09, 2024 3:02am Cecum mass resolved May 09, 2024 3:02am Colitis resolved May 09, 2024 3:02am Dehydration resolved May 09, 2024 3:02am Intestinal mass resolved April 122024 3:02am Leukocytosis resolved April 3:02am Segmental colitis resolved May 09, 2024 3:02am Sudden onset of severe abdominal pain resolved May 09 3:02am Ischemic colitis acute May 29, 2024 2:07pm Ischemic colitis acute June 272024 3:00pm Ischemic colitis acute July 052024 2:02pm [facility] Work Phone: Consult note Author Dorcas Melton [facility] Note Date/Time September 13, 2024 9:22a m [facility] Medical Records Department [address] [place] [address] Pre-Anesthesia Evaluation 09/13/24916 MR#: [id number] Acct: [id number] Name: LAYLA LUIS Rep #:[id number] : 1945 79 From: Dorcas LAN PCP: Dr. Yolis Yu, DO Status:REG SDC Y Race: C Location: AC AC16-1 ASA Classification* ASA Classification ASA Classification: 3 Assessment & Plan Anesthesia* Anesthesia Assessment Anesthesia Assessment: Discussed sedation and/or anesthesia options, risks, benefits, and alternatives with patient/parents/legal guardian/POA. Questions invited. The patient/parents/legal guardian/POA seems to understand and agrees to proceedwith anesthesia plan. Reviewed the physical assessment, medical history, allergy history and patient home medications list prior to surgery/procedure/anesthetic and documented any changes. Performed airway and anesthesia risk assessments. Anesthesia Type Anesthesia Type: MAC History Source History Obtained from:: Patient and Chart Anesthesia Focused Assessment* Temperature: 96.9 F Pulse Rate: 62 Blood Pressure: 136/73 Respiratory Rate: 16 Pulse Ox: 100 Oxygen Delivery Method: Room Air Airway Assessment Mouth opens: 2 cm Mallampati Score: IV Teeth Condition: Caps/Crowns Neck Range of motion (ROM): Limited ROM Comment: Crowns-all tight ; Limited neck extension Focused Labs Anesthesia Preop lab: CBC WBC 5.0 K/mm3 (4.4-11.0) 05/15/24 06:40 05/15/24 RBC 3.93 M/mm3 (4.2-5.4) L 05/15/24 06:40 05/15/24 Hgb 11.9 g/dL (12.0-15.0) L 05/15/24 06:40 5 Hct 36.3 % (37-47) L 05/15/24 06:40 05/15/24 Plt Count 275 K/mm3 (150-450) 05/15/24 06:40 05/15/24 CHEMISTRY Potassium 3.8 mmol/L (3.5-5.1) 05/15/24 06:40 05/15/24 Sodium 137 mmol/L (136-145) 05/15/24 06:40 05/15/24 Magnesium 2.1 mg/dL (1.6-2.6) 05/15/24 06:40 05/15/24 Phosphorus 2.7 mg/dL (2.5-4.9) 05/15/24 06:40 05/15/24 BUN 9 mg/dL (7-18) 05/15/24 06:40 05/15/24 Creatinine 0.48 mg/dL (0.55-1.02) L 05/15/24 06:40 Glucose 91 mg/dL (74-106) 05/15/24 06:40 05/15/24 TSH 0.943 uIU/mL (0.358-3.740) 05/09/24 05:13 04/12 01/03 COAG PT 12.6 SECONDS (11.9-14.4) 03/05/13 12:52 Pre-Assessment Diagnosis/Proposed Procedure Planned Operative Procedure(s): COLONOSCOPY/EGD Anesthesia History Anesthesia History - r and d lab technician: Anesthesia History - r and d lab technician Hx Hospitalization Yes: 04/202409/07/24 12:30 Any Problems With Anesthesia Yes: nausea 09/07/24 12:30 Cholinesterase deficiency No 09/07/24 12:30 You/Your Family Experience No 09/07/24 12:30 fever (hyperthermia) with Relationship Recent Exposure to Contagious No 09/13/24 08:52 Disease Does patient have nerve No 09/07/24 12:30 stimulator Patient instructed to have device shut off --Does patient have Pacemaker Yes 09/13/24 08:52 or ICD? When Was Last Pacemaker Check pacer 08/29/24 13:34 QUESTION #4 FULL TEXT: You/Your Family Experience fever (hyperthermia) with Anesthesia Last Oral Intake Last Oral intake: Last Oral Intake NPO since 06:00 09/13/24 08:52 Meds taken in AM with sips of Yes 09/13/24 08:52 water? Meds patient instructed to take am of surgery PONV PONV - r and d lab technician: PONV - r and d lab technician Female Yes 09/07/24 12:30 HX of Motion Sickness No 09/07/24 12:30 HX of N/V After Surgery No 09/07/24 12:30 Non-Smoker Yes 09/07/24 12:30 Duration of Surgery greater No 09/07/24 12:30 than 60 minutes Number of Risk Factors 2 09/07/24 12:30 PONV Score Moderate Risk 09/07/24 12:30 Height & Weight Height & Weight: Anesthesia: Height & Weight Height 5 ft 3 in 09/13/24 08:52 Weight: 67.6 kg 09/13/24 08:52 Body Mass Index (BMI) 26.4 09/13/24 08:52 Respiratory Assessment Respiratory Assessment - r and d lab technician: Respiratory Tract Infection Hx - r and d lab technician Hx Respiratory Tract Infection No 09/07/24 12:30 STOP Sleep Apnea STOP Sleep Apnea - r and d lab technician: STOP Sleep Apnea - r and d lab technician Hx Hypertension Yes: CONTROLLED ON MED 09/07/24 12:30 Hx Sleep Apnea Yes 09/07/24 12:30 CPAP Yes 09/07/24 12:30 BIPAP No 09/07/24 12:30 Do you snore loudly (louder than talking or can be heard Do you often feel tired/ fatigued/ sleepy during daytime? Has anyone observed you stop breathing during sleep? STOP Results Positive 09/07/24 12:30 QUESTION #5 FULL TEXT : Do you snore loudly (louder than talking or can be heard through closed doors)? 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 Specify any problems Hx of Preganancy in last 3 No 09/07/24 12:30 Months Nurse Filling Out Transfusion VCHRISTIN 09/07/24 12:30 & Questions: Date: 09/07/24 09/07/24 12:30 Time: 12:31 09/07/24 12:30 Patient unable to answer at this time (ie. confused, unrespo /Reproduction History /Reproductive History - r and d lab technician: /Reproductive Hx- r and d lab technician Hx Now Gestational Age (in weeks): EDC: Hx Hx Para Hx Section SAB Active Medications Active Medications: Current Medications Generic Name Dose Route Start Last Admin Trade Name Freq PRN Reason Stop Dose Admin Lactated Ringer's 1,000 mls @ 15 mls/hr 09/13/24 08:30 09/13/24 08:56 IV 15 mls/hr .Q48H HILLARY Administration PFSH Medical History Kidney stone Back pain Difficulty swallowing History of hiatal hernia History of ulceration Non-smoker BiPAP (biphasic positive airway pressure) dependence Sleep apnea History of edema History of echocardiogram History of stress test Cardiology follow-up encounter History of irregular heartbeat Anemia Thyroid nodule Type 2 diabetes mellitus without complications Hyponatremia Anxiety KEVIN (obstructive sleep apnea) Second degree AV block LBBB (left bundle branch block) Carotid stenosis Fatty liver Gallstones Osteoporosis Paresthesia Memory loss HTN (hypertension) Chest pain CAD (coronary artery disease) Home Medications ?Medication ?Instructions ?Recorded ?Last Taken ?Type aspirin 81 mg chewable tablet 81 mg PO DAILY@0800 02/0909/10/24 History carvedilol 6.25 mg tablet 6.25 mg PO BID 04/09/1309/02 History cholecalciferol (vitamin D3) 25 25 mcg PO QDAY supplem ent 01/16/24 09/12/24 History mcg (1,000 unit) capsule ezetimibe 10 mg tablet 10 mg PO DAILY hld 01/16/24 09/12/24 History telmisartan 80 mg tablet 80 mg PO DAILY bp 01/16/24 0 09/12/24 History amlodipine 5 mg tablet 5 mg PO DAILY blood pressure 05/08/24 09/13/24 History flaxseed oil-omega 3,6,9-fatty 1 cap PO DAILY suppleme nt 05/08/24 09/10/24 History acids 1,300 mg-670 mg-155 mg capsule Allergy/AdvReac Type Severity Reaction Status Date / Time monosodium glutamate (msg) Allergy Severe MIGRAINES Verified 09/13/24 08:40 red dye Allergy Severe HEADACHE Verified 09/13/24 08:40 hydrochlorothiazide Allergy Unknown Verified 09/13/24 08:40 sulfamethoxazole (From Allergy Hives Verified 09/13/24 08:40 Bactrim) trimethoprim (From Bactrim) Allergy Hives Verified 09/13/24 08:40 atorvastatin (From Lipitor) AdvReac Severe myalgia Verified 09/13/24 08:40 meloxicam AdvReac Severe Dizziness Verified 09/13/24 08:40 Surgical History History of esophagogastroduodenoscopy (EGD) Normal colonoscopy History of bilateral cataract extraction H/O cardiac catheterization H/O: hysterectomy Pacemaker (06/10/23) Social History Smoking Status: Never smoker alcohol intake: never substance use type: does not use Review of Systems (Anesthesia) ROS Narrative System reviewed and no additional complaints, except as documented. 09/13/24921 <Electronically signed by Dorcas Melton CRNA> Date _ Dorcas Melton CRNA Cosigner Signature: Date CC: ~ Signed [facility] Work Phone: Consult note Author [facility] Note Date/Time September 13, 2024 10:14 am [facility] Medical Records Department [address] [facility] [address] Anesthesia Postop Eval I 09/13/24 1014 MR#: [id number] Acct: [id number] Name: LAYLA LUIS Rep #:[id number] : 1945 79 From: Violeta Chau CRNA PCP: Dr. Yolis Yu, DO Status:REG SDC Y Race: C Location: [place] [address] Anesthesia: Postop Eval I Current Vital Signs Temperature: 97.4 F Pulse Rate: 66 Blood Pressure: 110/72 Respiratory Rate: 18 Pulse Ox: 99 Assessment Airway patent: Yes Spontaneous unlabored respirations: Yes nausea: No Vomiting: No Anesthesia Complication: No Fluid Hydration Crystalloid volume administer (ml): 300 Total IV fluid infused: 300 Progress Note Anesthesia document: Postop Eval 1 completed: Yes 09/13/24 1014 <Electronically signed by Violeta fleming WINDOW SYSTEMS ADMINISTRATOR> Date _ Violeta Chau WINDOW SYSTEMS ADMINISTRATOR Cosigner Signature: Date CC: ~ Signed [facility] Work Phone: Consult note Author Violeta Chau [facility] Note Date/Time September 13, 2024 11:03 am [facility] Medical Records Department [address] [place] [address] [place] [address] Anesthesia Postop Eval II 09/13/24 1057 MR#: [id number] Acct: [id number] Name: LAYLA LUIS Rep #:[id number] : 1945 79 From: Violeta Chau WINDOW SYSTEMS ADMINISTRATOR PCP: Dr. Yolis Yu, DO Status:REG SDC Y Race: C Location: [place] [address] Anesthesia Postop Eval I Sum Postop Eval Completion status Anesthesia document: Postop Eval 1 completed: Yes Anesthesia Postop Eval I Summary Anesthesia Postop Eval I Summary: Anesthesia Postop Eval I: Assessment Summary Airway patent Yes 09/13/24 10:14 WINDOW SYSTEMS ADMINISTRATOR.CSIR Spontaneous unlabored Yes 09/13/24 10:14 WINDOW SYSTEMS ADMINISTRATOR.CSIR respirations Mental status nausea No 09/13/24 10:14 WINDOW SYSTEMS ADMINISTRATOR.CSIR Vomiting No 09/13/24 10:14 WINDOW SYSTEMS ADMINISTRATOR.CSIR Anesthesia Postop Eval I: Fluid Summary Crystalloid volume administer 300 09/13/24 10:14 WINDOW SYSTEMS ADMINISTRATOR.CSIR (ml) Colloids volume administered ( ml) Blood Product volume administered (ml) Total IV fluid infused 300 09/13/24 10:14 WINDOW SYSTEMS ADMINISTRATOR.CSIR Anesthesia Postop Eval I: Summary Notes Anesthesia Complication No 09/13/24 10:14 WINDOW SYSTEMS ADMINISTRATOR.CSIR Anesthesia Complication Comment: Post-operative progress note Anesthesia: Postop Eval II Evaluation Mental status: Awake Pain Level: 0 nausea: No Vomiting: No 09/13/24 1057 <Electronically signed by Violeta fleming WINDOW SYSTEMS ADMINISTRATOR> Date _ Violeta Chau WINDOW SYSTEMS ADMINISTRATOR Cosigner Signature: Date CC: ~ Signed [facility] Work Phone: History and physical note Author Tio Friend [facility] Note Date/Time September 13, 2024 9:29a m [facility] Medical Records Department [address] [place] [address] History & Physical Exam 09/13/2427 MR#: [id number] Acct: [id number] Name: LAYLA LUIS Rep #:[id number] : 1945 79 From: Tio Van DO PCP: Dr. Yolis Yu DO Status:[facility] Location: [place] [address] HPI - General General Chief Complaint: Abdominal pain and ischemic colitis HPI Narrative LAYLA LUIS, is a 79 F who presentsJOYCE JANELLE, is a 78 F who presents to the office today for f/u [facility] 1.29.25-2.4.25 with ischemic colitis. GI consulted and underwent colonoscopy. General surgery closely monitored and no did not go through with partial colectomy. Colonoscopy 2.3.25; diverticulosis in the recto-sigmoid colon and in the sigmoidcolon. Stool in the entire colon. Localized severe inflammation was found in thececum at the appendiceal orfice and at the ileocecal valve secondary to ischemiccolitis. severe mucosal changes were found in the ileum secondary to ischemic colitis. Gen Surgery OV 3.19.25; Pt doing well. Benign exam. Staying well hydrated. Recommended repeat scope. Diet advanced to no restrictions. OV 3..25; Pt here today to be scheduled for repeat colonoscopy per general surgery recommendation. Pt has been doing well since her admission. She is eating a regular diet and having daily bm. She has no abd pain. She endorses prior hx of gastric ulcers and family hx of esophageal cancer. [facility] Medical History Kidney stone Back pain Difficulty swallowing History of hiatal hernia History of ulceration Non-smoker BiPAP (biphasic positive airway pressure) dependence Sleep apnea History of edema History of echocardiogram History of stress test Cardiology follow-up encounter History of irregular heartbeat Anemia Thyroid nodule Type 2 diabetes mellitus without complications Hyponatremia Anxiety KEVIN (obstructive sleep apnea) Second degree AV block LBBB (left bundle branch block) Carotid stenosis Fatty liver Gallstones Osteoporosis Paresthesia Memory loss HTN (hypertension) Chest pain CAD (coronary artery disease) Home Medications ?Medication ?Instructions ?Recorded ?Last Taken ?Type aspirin 81 mg chewable tablet 81 mg PO DAILY@0800 02/0909/10/24 History carvedilol 6.25 mg tablet 6.25 mg PO BID 04/09/1309/02 History cholecalciferol (vitamin D3) 25 25 mcg PO QDAY supplem ent 01/16/24 09/12/24 History mcg (1,000 unit) capsule ezetimibe 10 mg tablet 10 mg PO DAILY hld 01/16/24 09/12/24 History telmisartan 80 mg tablet 80 mg PO DAILY bp 01/16/24 0 09/12/24 History amlodipine 5 mg tablet 5 mg PO DAILY blood pressure 05/08/24 09/13/24 History flaxseed oil-omega 3,6,9-fatty 1 cap PO DAILY suppleme nt 05/08/24 09/10/24 History acids 1,300 mg-670 mg-155 mg capsule Allergy/AdvReac Type Severity Reaction Status Date / Time monosodium glutamate (msg) Allergy Severe MIGRAINES Verified 09/13/24 08:40 red dye Allergy Severe HEADACHE Verified 09/13/24 08:40 hydrochlorothiazide Allergy Unknown Verified 09/13/24 08:40 sulfamethoxazole (From Allergy Hives Verified 09/13/24 08:40 Bactrim) trimethoprim (From Bactrim) Allergy Hives Verified 09/13/24 08:40 atorvastatin (From Lipitor) AdvReac Severe myalgia Verified 09/13/24 08:40 meloxicam AdvReac Severe Dizziness Verified 09/13/24 08:40 Surgical History History of esophagogastroduodenoscopy (EGD) Normal colonoscopy History of bilateral cataract extraction H/O cardiac catheterization H/O: hysterectomy Pacemaker (06/10/23) Social History Smoking Status: Never smoker alcohol intake: never substance use type: does not use ROS Constitutional Constitutional: Denies fatigue, fever(s), poor appetite, weight gain or weight loss Gastrointestinal Gastrointestinal: Denies belching, bloating, change in bowel habits, change in stool character, chewing difficulty, coffee ground emesis, constipation, cramping, diarrhea, dyspepsia, dysphagia, early satiety, excessive flatus, fecalincontinence, heartburn, hematemesis, hematochezia, hemorrhoids, loose stools, melena, nausea, odynophagia, rectal bleeding, tenesmus, vomiting or weight changes Vital Signs Vital Signs Vital Signs: 09/13/24 08:52 09/13/24 08:52 09/13/24 08:58 Temperature 96.9 F L Temperature Source Temporal Pulse Rate 62 62 Respiratory Rate 16 Respiratory Pattern Normal Blood Pressure 147/104 H 136/73 H Blood Pressure Mean 118 Blood Pressure Source Monitor Blood Pressure Position Standing Blood Pressure Location Right Arm Pulse Ox 100 Oxygen Delivery Method Room Air 09/13/24 09:22 Temperature 96.9 F L Temperature Source Pulse Rate 62 Respiratory Rate 16 Respiratory Pattern Blood Pressure 136/73 H Blood Pressure Mean Blood Pressure Source Blood Pressure Position Blood Pressure Location Pulse Ox 100 Oxygen Delivery Method Room Air Weight Weight: 149 lb 0.52 oz Body Mass Index (BMI) 26.4 Physical Exam Const alert, oriented x3, no apparent distress and healthy appearing General Appearance: cooperative GI normal to inspection, nondistended, normoactive bowel sounds, soft to palpation,non-tender and non-distended Percussion: normal to percussion Rectal Exam: deferred Assessment & Plan Assessment/Plan (1) Ischemic colitis: (2) GERD (gastroesophageal reflux disease): PLAN: Assessment and Plan Assessment and Plan (1) Ischemic colitis: Status: Acute Plan: This is a 78 yo female here today after hospitalization for severe ischemic colitis 1.29.25-2.4.25. She underwent colonoscopy which revealed this. General surgery consulted and treated with conservative measures rather than partial colectomy. At her outpatient f/u with surgery they recommended repeat colonoscopy to ensure healing. She is here today to be scheduled. She endorses ahx of gastric ulcers and family hx of esophageal cancer. She will have EGD as the same time as her colonoscopy. She is agreeable to plan. -EGD and colonoscopy -f/u after procedure 09/13/24 3534 <Electronically signed by Tio Van DO> Cosigner Signature (if applicable): CC: Dr. Yolis Yu DO; Tio Van, DO~ Signed [facility] Work Phone: Chief Complaint and Reason for Visit Chief Complaint Admit Date ABD PAIN May 08, 2024 8 :51pm SUSPECTED CECAL MASS, SEGMENTAL COLITIS, ACUTE May 09, 2024 3:02am SUSPECTED CECAL MASS, SEGMENTAL COLITIS, ACUTE May 09, 2024 10:28pm SUSPECTED CECAL MASS, SEGMENTAL COLITIS, ACUTE May 10, 2024 6:19pm SUSPECTED CECAL MASS, SEGMENTAL COLITIS, ACUTE May 10, 2024 7:50pm SUSPECTED CECAL MASS, SEGMENTAL COLITIS, ACUTE May 11, 2024 10:55am SUSPECTED CECAL MASS, SEGMENTAL COLITIS, ACUTE May 11, 2024 4:48pm SUSPECTED CECAL MASS, SEGMENTAL COLITIS, ACUTE May 12, 2024 8:29am SUSPECTED CECAL MASS, SEGMENTAL COLITIS, ACUTE May 12, 2024 3:56pm SUSPECTED CECAL MASS, SEGMENTAL COLITIS, ACUTE May 13, 2024 8:48am SUSPECTED CECAL MASS, SEGMENTAL COLITIS, ACUTE May 13, 2024 9:52am SUSPECTED CECAL MASS, SEGMENTAL COLITIS, ACUTE May 14, 2024 8:18am SUSPECTED CECAL MASS, SEGMENTAL COLITIS, ACUTE May 14, 2024 9:43am SUSPECTED CECAL MASS, SEGMENTAL COLITIS, ACUTE May 14, 2024 4:26pm SUSPECTED CECAL MASS, SEGMENTAL COLITIS, ACUTE May 15, 2024 8:23am SUSPECTED CECAL MASS, SEGMENTAL COLITIS, ACUTE May 15, 2024 8:31am [facility] FU May 29, 2024 2:07pm WOUND CHECK June 27, 2024 3:0 0pm Pacer Check Remote June 28, 2024 11: 52pm Vascular disorder of intestine, unspecif ied July 05, 2024 2:02pm Localized edema August 15, 2024 11:13a m Reason for Visit Admit Date Essential hypertension May 09 3:02am Type 2 diabetes mellitus without complic ations May 09, 2024 3:02am HTN (hypertension) May 09, 2024 3 :02am Abdominal pain, acute May 09, 2024 3:02am Abnormal CT of the abdomen May 09, 2024 3:02am Acute cystitis with hematuria May 092024 3:02am Cecum mass May 09, 2024 3 :02am Colitis May 09, 2024 3 :02am Dehydration May 09, 2024 3 :02am Intestinal mass May 09, 2024 3 :02am Leukocytosis May 09, 2024 3 :02am Segmental colitis May 09, 2024 3 :02am [facility] Ischemic colitis May 29, 2024 2:07pm Ischemic colitis June 27, 2024 3:0 0pm Ischemic colitis July 05, 2024 2:0 2pm Chief Complaint Admit Date ABD PAIN May 08, 2024 8 :51pm SUSPECTED CECAL MASS, SEGMENTAL COLITIS, ACUTE May 09, 2024 3:02am SUSPECTED CECAL MASS, SEGMENTAL COLITIS, ACUTE May 09, 2024 10:28pm SUSPECTED CECAL MASS, SEGMENTAL COLITIS, ACUTE May 10, 2024 6:19pm SUSPECTED CECAL MASS, SEGMENTAL COLITIS, ACUTE May 10, 2024 7:50pm SUSPECTED CECAL MASS, SEGMENTAL COLITIS, ACUTE May 11, 2024 10:55am SUSPECTED CECAL MASS, SEGMENTAL COLITIS, ACUTE May 11, 2024 4:48pm SUSPECTED CECAL MASS, SEGMENTAL COLITIS, ACUTE May 12, 2024 8:29am SUSPECTED CECAL MASS, SEGMENTAL COLITIS, ACUTE May 12, 2024 3:56pm SUSPECTED CECAL MASS, SEGMENTAL COLITIS, ACUTE May 13, 2024 8:48am SUSPECTED CECAL MASS, SEGMENTAL COLITIS, ACUTE May 13, 2024 9:52am SUSPECTED CECAL MASS, SEGMENTAL COLITIS, ACUTE May 14, 2024 8:18am SUSPECTED CECAL MASS, SEGMENTAL COLITIS, ACUTE May 14, 2024 9:43am SUSPECTED CECAL MASS, SEGMENTAL COLITIS, ACUTE May 14, 2024 4:26pm SUSPECTED CECAL MASS, SEGMENTAL COLITIS, ACUTE May 15, 2024 8:23am SUSPECTED CECAL MASS, SEGMENTAL COLITIS, ACUTE May 15, 2024 8:31am [facility] May 29, 2024 2:07pm WOUND CHECK June 27, 2024 3:0 0pm Pacer Check Remote June 28, 2024 11: 52pm Vascular disorder of intestine, unspecif ied July 05, 2024 2:02pm Localized edema August 15, 2024 11:13a m XRAY August 29, 2024 1:35p m Chief Complaint Admit Date [facility] May 29, 2024 2:07pm WOUND CHECK June 27, 2024 3:0 0pm Pacer Check Remote June 28, 2024 11: 52pm Vascular disorder of intestine, unspecif ied July 05, 2024 2:02pm Localized edema August 15, 2024 11:13a m BLE EDEMA August 15, 2024 11:25a m XRAY August 29, 2024 1:35p m BACK PAIN, RX HERE September 05, 2024 2:44p m Reason for Visit Admit Date Ischemic colitis May 29, 2024 2:07pm Ischemic colitis June 27, 2024 3:0 0pm Ischemic colitis July 05, 2024 2:0 2pm GERD (gastroesophageal reflux disease) J 2024 8:22am Ischemic colitis September 13, 2024 8:22a m Chief Complaint Admit Date [facility] May 29, 2024 2:07pm WOUND CHECK June 27, 2024 3:0 0pm Pacer Check Remote June 28, 2024 11: 52pm Vascular disorder of intestine, unspecif ied July 05, 2024 2:02pm Localized edema August 15, 2024 11:13a m BLE EDEMA August 15, 2024 11:25a m XRAY August 29, 2024 1:35p m BACK PAIN, RX HERE September 21, 2024 3:00 pm COLONOSCOPY F/U September 26, 2024 12:5 8pm Chief Complaint Admit Date WOUND CHECK June 27, 2024 3:0 0pm Pacer Check Remote June 28, 2024 11: 52pm Vascular disorder of intestine, unspecif ied July 05, 2024 2:02pm Localized edema August 15, 2024 11:13a m BLE EDEMA August 15, 2024 11:25a m XRAY August 29, 2024 1:35p m COLONOSCOPY F/U September 26, 2024 12:5 8pm Pacer Check Remote September 27, 2024 9:00 pm BACK PAIN, RX HERE October 03, 2024 1:00 pm Reason for Visit Admit Date Ischemic colitis June 27, 2024 3:0 0pm Ischemic colitis July 05, 2024 2:0 2pm GERD (gastroesophageal reflux disease) J [facility] 2024 8:22am Ischemic colitis September 13, 2024 8:22a m GERD (gastroesophageal reflux disease) J formerly [facility] 2024 12:58pm Ischemic colitis September 26, 2024 12:5 8pm Family History No Family History Records Found Relationship Condition Age at Onset Recorded Date/T dayron Unknown Family History?Stroke Unknown Octobe r 2013 2:12pm Family History?Stroke Unknown Octobe r 2013 2:12pm Relationship Condition Age at Onset Recorded Date/T dayron Unknown Family History?Stroke Unknown Octobe r 2013 2:12pm Family History?Stroke Unknown August 292024 1:34pm Advance Directives No Advanced Directives Records Found Advance Directive Response Recorded Date/ Time Living Will Yes May 09 5:03am Do you have a Healthcare Power of Vice President Of Human Resources? Yes May 09, 2024 5:03am Name of Medical Power of Vice President Of Human Resources Jerardo Luis May 09, 2024 5:03am Advance Directives No January 12, 2014 2:03pm Advance Directive Response Recorded Date/ Time Advance Directives No August 29 1:34pm Living Will Yes May 09 5:03am Do you have a Healthcare Power of Vice President Of Human Resources? Yes May 09, 2024 5:03am Name of Medical Power of Vice President Of Human Resources Jerardo Luis May 09, 2024 5:03am Advance Directive Response Recorded Date/ Time Advance Directives No August 29 1:34pm Do you have a Healthcare Power of Vice President Of Human Resources? Yes September 07, 2024 12:30pm Summary Purpose Additional Source Comments Care Teams (unrecognized sec tion and content) Team Status: Active Member Role Status Dates Dr. Yolis Yu DO Primary Care Provider Active Team Status: Inactive Member Role Status Dates Dr. Yolis Yu , DO Primary Care Provider Active Start: May 29, 2024 End: May 29, 2024 Dr. Yolis Yu DO Referring Provider Active St art: May 29, 2024 End: May 29, 2024 Divya STUBBS PAScoobyC Attending Provider Active Start: May 29, 2024 End: May 29, 2024 Team Status: Inactive Member Role Status Dates Dr. Yolis Yu DO Primary Care Provider Active Start: June 27, 2024 End: June 27, 2024 Dr. Yolis Yu DO Referring Provider Active St art: June 27, 2024 End: June 27, 2024 Dr. Cristobal Villalta MD Attending Provider Active Start: June 27, 2024 End: June 27, 2024 Team Status: Inactive Member Role Status Dates Dr. Yolis Yu DO Primary Care Provider Active Start: June 28, 2024 End: June 28, 2024 Dr. Hong Strauss MD Attending Provider Active S tart: June 28, 2024 End: June 28, 2024 Dr. Hong Strauss MD Referring Provider Active S tart: June 28, 2024 End: June 28, 2024 Team Status: Inactive Member Role Status Dates Dr. Yolis Yu DO Primary Care Provider Active Start: July 05, 2024 End: July 05, 2024 Dr. Yolis Yu DO Referring Provider Active St art: July 05, 2024 End: July 05, 2024 ENOC Clifford Attending Provider Active Start: July 05, 2024 End: July 05, 2024 Team Status: Inactive Member Role Status Dates Dr. Yolis Yu DO Primary Care Provider Active Start: August 15, 2024 End: August 15, 2024 Dr. Yolis Yu DO Attending Provider Active St art: August 15, 2024 End: August 15, 2024 Dr. Yolis Yu DO Referring Provider Active St art: August 15, 2024 End: August 15, 2024 Team Status: Active Member Role Status Dates Dr. Ovi Hugo MD Attending Provider Active Start: August 15, 2024 Dr. Yolis Yu DO Referring Provider Active St art: August 15, 2024 Team Status: Inactive Member Role Status Dates Dr. Yolis Yu DO Primary Care Provider Active Start: August 29, 2024 End: August 29, 2024 Dr. Hong Strauss MD Attending Provider Active S tart: August 29, 2024 End: August 29, 2024 Team Status: Active Member Role Status Dates Dr. Yolis Yu DO Primary Care Provider Active Start: September 05, 2024 Dr. Yolis Yu DO Attending Provider Active St art: September 05, 2024 Dr. Yolis Yu DO Referring Provider Active St art: September 05, 2024 Team Status: Inactive Member Role Status Dates Dr. Yolis Yu DO Primary Care Provider Active Start: September 13, 2024 End: September 13, 2024 Dr. Yolis Yu DO Referring Provider Active St art: September 13, 2024 End: September 13, 2024 Dr. Tio Van DO Attending Provider Active Start: September 13, 2024 End: September 13, 2024 Team Status: Active Member Role Status Dates Dr. Yolis Yu DO Primary Care Provider Active Start: September 13, 2024 Dr. Yolis Yu DO Referring Provider Active St art: September 13, 2024 Dr. Tio Van DO Attending Provider Active Start: September 13, 2024 Dr. Tio Van DO Other Provider Active St art: September 13, 2024 Team Status: Active Member Role Status Dates Dr. Yolis Yu DO Primary Care Provider Active Start: May 08, 2024 Dr. David Cornell DO Emergency Provider Active Start: May 08, 2024 Dr. Cristobal Villalta MD Attending Provider Active Start: May 08, 2024 Dr. Sammy Potts MD Referring Provider Active Start: May 08, 2024 Team Status: Inactive Member Role Status Dates Dr. Yolis Yu DO Primary Care Provider Active Start: May 09, 2024 End: May 15, 2024 Dr. David Cornell DO Emergency Provider Active Start: May 09, 2024 End: May 15, 2024 Dr. Sammy Singer DO Admit Provider Active Start: May 09, 2024 End: May 15, 2024 Dr. Sammy Singer , Other Provider Active Start: May 09, 2024 End: May 15, 2024 Dr. Sammy Potts MD Attending Provider Active Start: May 09, 2024 End: May 15, 2024 Dr. Phuong Salas DO Other Provider Active Start : May 09, 2024 End: May 15, 2024 Team Status: Active Member Role Status Dates Dr. Yolis Yu , DO Primary Care Provider Active Start: May 09, 2024 Dr. David Cornell , DO Emergency Provider Active Start: May 09, 2024 Dr. Sammy Singer , DO Admit Provider Active Start: May 09, 2024 Dr. Sammy Singer , DO Other Provider Active Start: May 09, 2024 Dr. Phuong Salas , DO Referring Provider Active S tart: May 09, 2024 Dr. Phuong Salas , DO Other Provider Active Start : May 09, 2024 Dr. Tio Van , DO Attending Provider Active Start: May 09, 2024 Team Status: Active Member Role Status Dates Dr. Yolis Yu , DO Primary Care Provider Active Start: May 10, 2024 Dr. David Cornell , DO Emergency Provider Active Start: May 10, 2024 Dr. Sammy Singer , DO Admit Provider Active Start: May 10, 2024 Dr. Sammy Singer , DO Other Provider Active Start: May 10, 2024 Dr. Phuong Salas , DO Referring Provider Active S tart: May 10, 2024 Dr. Phuong Salas , DO Other Provider Active Start : May 10, 2024 Dr. Tio Van , DO Attending Provider Active Start: May 10, 2024 Team Status: Active Member Role Status Dates Dr. Yolis Yu , DO Primary Care Provider Active Start: May 10, 2024 Dr. David Cornell , DO Emergency Provider Active Start: May 10, 2024 Dr. Sammy Singer , DO Admit Provider Active Start: May 10, 2024 Dr. Sammy Singer , DO Other Provider Active Start: May 10, 2024 Dr. Phuong Salas , DO Attending Provider Active S tart: May 10, 2024 Dr. Phuong Salas , DO Other Provider Active Start : May 10, 2024 Team Status: Active Member Role Status Dates Dr. Yolis Yu , DO Primary Care Provider Active Start: May 11, 2024 Dr. David Cornell , DO Emergency Provider Active Start: May 11, 2024 Dr. Sammy Singer , DO Admit Provider Active Start: May 11, 2024 Dr. Sammy Singer , DO Other Provider Active Start: May 11, 2024 Dr. Phuong Salas , DO Other Provider Active Start : May 11, 2024 Dr. Cristobal Villalta MD Attending Provider Active Start: May 11, 2024 Team Status: Active Member Role Status Dates Dr. Yolis Yu , DO Primary Care Provider Active Start: May 11, 2024 Dr. David Cornell , DO Emergency Provider Active Start: May 11, 2024 Dr. Sammy Singer , DO Admit Provider Active Start: May 11, 2024 Dr. Sammy Singer , DO Other Provider Active Start: May 11, 2024 Dr. Phuong Salas , DO Attending Provider Active S tart: May 11, 2024 Dr. Phuong Salas , DO Other Provider Active Start : May 11, 2024 Team Status: Active Member Role Status Dates Dr. Yolis Yu DO Primary Care Provider Active Start: May 12, 2024 Dr. David Cornell , DO Emergency Provider Active Start: May 12, 2024 Dr. Sammy Singer , DO Admit Provider Active Start: May 12, 2024 Dr. Sammy Singer , Other Provider Active Start: May 12, 2024 Dr. Phuong Salas , DO Other Provider Active Start : May 12, 2024 Dr. Ambrocio Henderson MD Attending Provider Active Start: May 12, 2024 Team Status: Active Member Role Status Dates Dr. Yolis Yu DO Primary Care Provider Active Start: May 12, 2024 Dr. David Cornell , DO Emergency Provider Active Start: May 12, 2024 Dr. Sammy Singer , DO Admit Provider Active Start: May 12, 2024 Dr. Sammy Singer , DO Other Provider Active Start: May 12, 2024 Dr. Phuong Salas , DO Attending Provider Active S tart: May 12, 2024 Dr. Phuong Salas , DO Other Provider Active Start : May 12, 2024 Team Status: Active Member Role Status Dates Dr. Yolis Yu DO Primary Care Provider Active Start: May 13, 2024 Dr. David Cornell , DO Emergency Provider Active Start: May 13, 2024 Dr. Sammy Singer , DO Admit Provider Active Start: May 13, 2024 Dr. Sammy Singer , DO Other Provider Active Start: May 13, 2024 Dr. Phuong Salas , DO Other Provider Active Start : May 13, 2024 Dr. Ambrocio Henderson MD Attending Provider Active Start: May 13, 2024 Team Status: Active Member Role Status Dates Dr. Yolis Yu DO Primary Care Provider Active Start: May 13, 2024 Dr. David Cornell DO Emergency Provider Active Start: May 13, 2024 Dr. Sammy Singer , DO Admit Provider Active Start: May 13, 2024 Dr. Sammy Singer DO Other Provider Active Start: May 13, 2024 Dr. Phuong Salas , Attending Provider Active S tart: May 13, 2024 Dr. Phuong Salas , DO Other Provider Active Start : May 13, 2024 Team Status: Active Member Role Status Dates Dr. Yolis Yu DO Primary Care Provider Active Start: May 14, 2024 Dr. David Cornell DO Emergency Provider Active Start: May 14, 2024 Dr. Sammy Singer DO Admit Provider Active Start: May 14, 2024 Dr. Sammy Singer DO Other Provider Active Start: May 14, 2024 Dr. Sammy Potts MD Other Provider Active Star t: May 14, 2024 Dr. Phuong Salas , Other Provider Active Start : May 14, 2024 Divya STUBBS PA-C Attending Provider Active Start: May 14, 2024 Team Status: Active Member Role Status Dates Dr. Yolis Yu DO Primary Care Provider Active Start: May 14, 2024 Dr. David Cornell DO Emergency Provider Active Start: May 14, 2024 Dr. Sammy Singer DO Admit Provider Active Start: May 14, 2024 Dr. Sammy Singer DO Other Provider Active Start: May 14, 2024 Dr. Sammy Potts MD Attending Provider Active Start: May 14, 2024 Dr. Sammy Potts MD Other Provider Active Star t: May 14, 2024 Dr. Phuong Salas DO Other Provider Active Start : May 14, 2024 Team Status: Active Member Role Status Dates Dr. Yolis Yu DO Primary Care Provider Active Start: May 14, 2024 Dr. David Cornell DO Emergency Provider Active Start: May 14, 2024 Dr. Sammy Singer DO Admit Provider Active Start: May 14, 2024 Dr. Sammy Singer DO Other Provider Active Start: May 14, 2024 Dr. Sammy Potts MD Referring Provider Active Start: May 14, 2024 Dr. Sammy Potts MD Other Provider Active Star t: May 14, 2024 Dr. Phuong Salas DO Other Provider Active Start : May 14, 2024 Dr. Tio Van DO Attending Provider Active Start: May 14, 2024 Team Status: Active Member Role Status Dates Dr. Yolis Yu DO Primary Care Provider Active Start: May 15, 2024 Dr. David Cornell DO Emergency Provider Active Start: May 15, 2024 Dr. Sammy Singer DO Admit Provider Active Start: May 15, 2024 Dr. Sammy Singer DO Other Provider Active Start: May 15, 2024 Dr. Sammy Potts MD Other Provider Active Star t: May 15, 2024 Dr. Phuong Salas DO Other Provider Active Start : May 15, 2024 Dr. Cristobal Villalta MD Attending Provider Active Start: May 15, 2024 Team Status: Active Member Role Status Dates Dr. Yolis Yu DO Primary Care Provider Active Start: May 15, 2024 Dr. David Cornell DO Emergency Provider Active Start: May 15, 2024 Dr. Sammy Singer DO Admit Provider Active Start: May 15, 2024 Dr. Sammy Singer DO Other Provider Active Start: May 15, 2024 Dr. Sammy Potts MD Attending Provider Active Start: May 15, 2024 Dr. Sammy Potts MD Other Provider Active Star t: May 15, 2024 Dr. Phuong Salas DO Other Provider Active Start : May 15, 2024 Team Status: Active Member Role Status Dates Dr. Yolis Yu DO Primary Care Provider Active Start: September 21, 2024 Dr. Yolis Yu DO Attending Provider Active St art: September 21, 2024 Dr. Yolis Yu DO Referring Provider Active St art: September 21, 2024 Team Status: Inactive Member Role Status Dates Dr. Yolis Yu DO Primary Care Provider Active Start: September 26, 2024 End: September 26, 2024 Dr. Yolis Yu DO Referring Provider Active St art: September 26, 2024 End: September 26, 2024 ENOC Clifford Attending Provider Active Start: September 26, 2024 End: September 26, 2024 Team Status: Active Member Role/Relationship Status Dates Dr. Yolis Yu DO Primary Care Provider Active Team Status: Inactive Member Role/Relationship Status Dates Dr. Yolis Yu DO Primary Care Provider Active Start: June 27, 2024 End: June 27, 2024 Dr. Yolis Yu DO Referring Provider Active St art: June 27, 2024 End: June 27, 2024 Dr. Cristobal Villalta MD Attending Provider Active Start: June 27, 2024 End: June 27, 2024 Team Status: Inactive Member Role/Relationship Status Dates Dr. Yolis Yu DO Primary Care Provider Active Start: June 28, 2024 End: June 28, 2024 Dr. Hong Strauss MD Attending Provider Active S tart: June 28, 2024 End: June 28, 2024 Dr. Hong Strauss MD Referring Provider Active S tart: June 28, 2024 End: June 28, 2024 Team Status: Inactive Member Role/Relationship Status Dates Dr. Yolis Yu DO Primary Care Provider Active Start: July 05, 2024 End: July 05, 2024 Dr. Yolis Yu DO Referring Provider Active St art: July 05, 2024 End: July 05, 2024 ENOC Clifford Attending Provider Active Start: July 05, 2024 End: July 05, 2024 Team Status: Inactive Member Role/Relationship Status Dates Dr. Yolis Yu DO Primary Care Provider Active Start: August 15, 2024 End: August 15, 2024 Dr. Yolis Yu DO Attending Provider Active St art: August 15, 2024 End: August 15, 2024 Dr. Yolis Yu DO Referring Provider Active St art: August 15, 2024 End: August 15, 2024 Team Status: Active Member Role/Relationship Status Dates Dr. Ovi Hugo MD Attending Provider Active Start: August 15, 2024 Dr. Yolis Yu DO Referring Provider Active St art: August 15, 2024 Team Status: Inactive Member Role/Relationship Status Dates Dr. Yolis Yu DO Primary Care Provider Active Start: August 29, 2024 End: August 29, 2024 Dr. Hong Strauss MD Attending Provider Active S tart: August 29, 2024 End: August 29, 2024 Team Status: Inactive Member Role/Relationship Status Dates Dr. Yolis Yu DO Primary Care Provider Active Start: September 13, 2024 End: September 13, 2024 Dr. Yolis Yu DO Referring Provider Active St art: September 13, 2024 End: September 13, 2024 Dr. Tio Van DO Attending Provider Active Start: September 13, 2024 End: September 13, 2024 Team Status: Active Member Role/Relationship Status Dates Dr. Yolis Yu DO Primary Care Provider Active Start: September 13, 2024 Dr. Yolis Yu DO Referring Provider Active St art: September 13, 2024 Dr. Tio Van DO Attending Provider Active Start: September 13, 2024 Dr. Tio Van DO Other Provider Active St art: September 13, 2024 Team Status: Inactive Member Role/Relationship Status Dates Dr. Yolis Yu DO Primary Care Provider Active Start: September 26, 2024 End: September 26, 2024 Dr. Yolis Yu DO Referring Provider Active St art: September 26, 2024 End: September 26, 2024 ENOC Clifford Attending Provider Active Start: September 26, 2024 End: September 26, 2024 Team Status: Inactive Member Role/Relationship Status Dates Dr. Yolis Yu DO Primary Care Provider Active Start: September 27, 2024 End: September 27, 2024 Dr. Hong Strauss MD Attending Provider Active S tart: September 27, 2024 End: September 27, 2024 Team Status: Active Member Role/Relationship Status Dates Dr. Yolis Yu DO Primary Care Provider Active Start: October 03, 2024 Dr. Yolis Yu DO Attending Provider Active St art: October 03, 2024 Dr. Yolis Yu DO Referring Provider Active St art: October 03, 2024 INFORMATION SOURCE (unrecogn ized section and content) DATE CREATED AUTHOR 11/26/2024 [facility] FOR RECORDS PERTAINING TO PATIENTS WHO ARE OR HAVE BEEN ENROLLED IN A CHEMICAL DEPENDENCY/SUBSTANCEABUSE PROGRAM, SOME INFORMATION MAY BE OMITTED. This clinical summary was aggregated from multiple sources. Caution should be exercised in using it in the provision of clinical care. This summary normalizes information from multiple sources, and as a consequence, information in this document may materially change the coding, format and clinical context of patient data. In addition, data may be omitted in some cases. CLINICAL DECISIONS SHOULD BE BASED ON THE PRIMARY CLINICAL RECORDS. [facility]. provides no warranty or guarantee of the accuracy or completeness of information in this document.
--- NOTE | 2024-11-27 07:43 | US_ITS ---
PROCEDURE: ABD LIMITED W/ ELASTOGRAPHY REASON FOR EXAM: FATTY LIVER COMPARISON: November 16, 2023. TECHNIQUE: Right upper quadrant abdominal ultrasound. [facility] ElastQ Imaging shear wave elastography for non-invasive assessment of liver tissue stiffness. [employer] EPIQ Elite. FINDINGS: LIVER: Size: Unremarkable Length: 14.6 cm Echotexture: Coarsened Contour: Normal Lesions: None identified Elastography: EQI Med: 10.8 kPa EQI Med Jacobo: 1.86 m/s IQR/Med: 21.6 %* GALLBLADDER: Multiple echogenic gallstones are identified. COMMON BILE DUCT: Normal measuring 4 mm . PANCREAS: There is a 9 mm x 12 mm x 6 mm cyst in the body of the pancreas. There is also evidence of a 7 mm x 6 mm x 6 mm cyst in the head of the pancreas. Visualized portions of the right kidney are unremarkable. There is a 7 mm x 8 mm x 6 mm cyst in the inferior medial aspect of the kidney. No right upper quadrant ascites. US/ABD Limited w/ Elastography IMPRESSION: MODERATE TO SEVERE HEPATIC FIBROSIS Pancreatic cysts. Reference Values: SRU <1.37 m/s (5.7kPa): No to mild fibrosis 1.37 m/s - 2.2 m/s: Moderate to severe fibrosis >2.2 m/s (15kPa): Significant fibrosis / cirrhosis METAVIR Score F2 or higher: 1.34 m/s (5.7kPa) F3 or higher: 1.55 m/s (7.3kPa) F4: 1.80 m/s (10kPa) * If the IQR/Med is >30%, the variance in the measurements is a large and the a ccuracy of the measurement may be in question. Reading Location: [id number]
--- NOTE | 2024-11-27 08:42 | CDU_ITS ---
Reason For Study Reason For Study: CAROTID STENOSIS Rt. Velocities/BP Lt. Velocities/BP Prox CCA 130.8/13.9 cm/sec. Prox CCA 118.6/13.0 cm/sec. Mid CCA 96.9/15.8 cm/sec. Mid CCA 84.2/17.9 cm/sec. Dist CCA 66.2/12.2 cm/sec. Dist CCA 81.8/20.4 cm/sec. Prox ICA 55.1/12.2 cm/sec. Prox ICA 60.4/16.2 cm/sec. Mid ICA 88.3/19.5 cm/sec. Mid ICA 93.2/30.6 cm/sec. Dist ICA 93.2/22.0 cm/sec. Dist ICA 84.6/23.2 cm/sec. Rt. ICA/CCA = 93.2/96.9=1.0. Lt. ICA/CCA = 93.2/84.2=1.1. Prox ECA 79.7/9.7 cm/sec. Prox ECA 100.2/9.3 cm/sec. Rt. Vert. 61.4/14.2 cm/sec. Lt. Vert. 25.2/6.9 cm/sec. Right Extracranial There is homogeneous, smooth atherosclerotic plaque noted in the right common carotid artery. There is heterogeneous, irregular atherosclerotic plaque noted in the right internal carotid artery. There is intimal thickening but no significant atherosclerotic plaque noted in the right external carotid artery. Antegrade flow is noted in the right vertebral artery. Left Extracranial There is intimal thickening but no significant atherosclerotic plaque noted in the left common carotid artery. There is heterogeneous, irregular atherosclerotic plaque noted in the left internal carotid artery. The atherosclerotic plaque causes acoustic shadowing. There is homogeneous, smooth atherosclerotic plaque noted in the left external carotid artery. Antegrade flow is noted in the left vertebral artery. Procedure Carotid Duplex 79312. This is a Carotid Duplex examination using B-mode, color flow and specral Doppler. Exam performed in department. VL/Carotid Duplex Ultrasound Interpretation Summary Mild (<50%) stenosis right extracranial internal carotid. Mild (<50%) stenosis left extracranial internal carotid. Severe acoustic shadowing is noted in the left internal carotid artery, obscuri ng fajardo-scale imaging of the arterial lumen. The determination of luminal stenosis is based upon velocity criteria al one, and may be greater than that estimated by velocity measurements. Therefore, clinical correlation is advised. Alternative imaging modalities could be considered if felt clinically warranted. Flow within the right verterbral arter y is antegrade. A high resistance flow pattern is noted in the left vertebral artery, which may be indicative of a sev ere obstruction distally. Clinical correlation is advised. Ordering Physician: Yolis Yu Referring Physician: Yolis Yu Performed By: Gabi Goodman, BRAYDEN, RVT
== END | disposition home or self-care (01) ==
PROVIDERS: PCP Internal Medicine; Referring Provider Internal Medicine; Visit Provider Internal Medicine
DX: Z12.31 Encounter for screening mammogram for malignant neoplasm of breast (principal); Z78.0 Asymptomatic menopausal state; K76.0 Fatty (change of) liver, not elsewhere classified; I65.23 Occlusion and stenosis of bilateral carotid arteries
CPT/HCPCS: 76705; 76981; 77063; 77067; 77080; 93880

== ENCOUNTER → 2024-12-11 | Outpatient (CLI) | payer MEDICARE, BC, SELFPAY ==
[2024-12-11 08:41] LABS: Mucous, Urine 0 SEEN /hpf (<or=2+); Red Blood Cells-Urine 0 SEEN /hpf (0-5); Squamous Epithelial Cells - UA 0 SEEN /hpf (5-10)
[2024-12-11 10:37] LABS: Hematocrit 37.7 % (37-47); Hemoglobin 13.2 g/dL (12.0-15.0); Immature Granulocytes Count 0.030 X10^3/uL (0.0-0.0); Mean Corp Hgb Conc 35.0 g/dL (32-36); Mean Corpuscular Volume 89.5 fL (81-99); Mean Platelet Vol. 10.0 fl (6.2-12.0); NRBC Flagged by Analyzer 0 % (0-5); Platelet Count 213 K/mm3 (150-450); RBC Distribution Width CV 13.1 % (11.6-14.6); RBC Distribution Width SD 43.0 fl (35.1-43.9); Red Blood Count 4.21 M/mm3 (4.2-5.4); White Blood Count 6.4 K/mm3 (4.4-11.0)
[2024-12-11 10:53] LABS: Color, Urine Yellow (Yellow); Glucose, Dipstick Normal (Normal); Ketone-Dipstick Negative (Negative); Leukocyte Esterase-Dipstick 25 /ul (Negative); Nitrite-Dipstick Negative (Negative); Occult Blood-Urine Negative /ul (Negative); Protein-Dipstick Negative (Negative); Specific Gravity, Urine 1.010 (1.002-1.030); Urine Bilirubin Dipstick Negative (Negative)
[2024-12-11 11:37] LABS: AST(SGOT) 23 U/L (<=31); Alanine Aminotransfer ALT/SGPT 22 U/L (<=34); Albumin, Serum 4.1 g/dL (3.4-4.8); Alkaline Phosphatase 117 U/L (35-104); Anion Gap 10 (5-15); BUN 9 mg/dL (4-19); BUN/Creat Ratio 14.6 RATIO (10-20); Calcium,Total 9.6 mg/dL (7.6-11.0); Carbon Dioxide 19.4 mmol/L (21.0-32.0); Chloride 100 mmol/L (98-108); Cholesterol 149 mg/dL (<=200); Globulin 2.5 g/dL (2.2-4.2); Glucose 108 mg/dL (70-99); Low Density Lipoprotein Calc. 82 mg/dL; Potassium 4.2 mmol/L (3.3-5.1); Triglycerides 131 mg/dL; Very Low Density Lipoprotein 26 mg/dL (5-40); cholesterol:hdl ratio screen 3.62
[2024-12-11 11:40] LABS: Creatinine, Urine (random) 36.30 mg/dL (28.00-217.00); Microalbumin,Random Urine < 12.0 mg/L (<20 mg/L)
== END | disposition home or self-care (01) ==
LOC: MTLAB 08:33
PROVIDERS: PCP Internal Medicine; Referring Provider Internal Medicine; Visit Provider Internal Medicine
DX: E11.59 Type 2 diabetes mellitus with other circulatory complications (principal); I10 Essential (primary) hypertension; E78.5 Hyperlipidemia, unspecified; R53.83 Other fatigue
CPT/HCPCS: 36415; 80053; 80061; 81001; 82043; 82570; 83036; 85025; 87086

== ENCOUNTER 2024-12-31 12:30 | Outpatient (RCR) | payer MEDICARE, BC, SELFPAY ==
--- NOTE | 2024-09-05 16:05 | HP.PTEVAL_ITS ---
Patient's Visit Information Visit Information Visit Information: LAYLA LUIS is a 79 year old F referred to Physical Therapy by Dr. Yolis Yu DO with a diagnosis of back pain, generalized weakness, falls. Date of Evaluation: 09/05/24 Physical Therapist: NEEMA Billingsley Visit Plan Frequency: 2x /Week Duration: 2 Months Plan: 2X/ week for 8 weeks for UE AAROM/AROM, LE strength, balance, core strength and postural strength with HEP HEP: supine wand flexion AAROM, LTR Subjective Subjective: Pt has had osteoporosis for awhile now. She gets pain on the R side of her LB and sometimes on the L but more on the R. She has been trying to do more weight bearing exercises (walking) over the last year and half. She was doing stretchy bands and then had a fall and now has R sided pec area pain about a month ago and x-ray showed some fx ribs. In Jan 2023 she tore her R medial meniscus and had some PT for that that helped. She then got a pacemaker in June 2023. She has some balance issues and has caused some of her falls. She has not traveled to [place] where she used to live but she is not sure she is going back there to live. Her back pain is in her rib area (6-7) and then into the back also. She has had at least 3 falls in the last 6 months. Her rib pain keeps her from picking up something heavy. Pain R sided chest/rib pain: Pain Intensity (Out of 10): 8 Objective Objective: Gait: walks with short strides and decreased trunk rotation and decrease heel to toe gait pattern Trunk AROM: flexion 50%, EXt 25%, SB B 50%, ext 25% FGA 11 LE MMT: R hip flex 6.8 and L 7.4 R knee ext 11.5 and L 9.9 R knee flex 5.9 and L 5.2 R hip abd (supine) 9.9 and L 4.5 Bridge: able to do 1/2 normal ROM bridge UE MMT: R shoulder flex 5.8 and L 4.5 UE AROM: B shoulder flexion approx 90 degrees but with pain on the R (due to rib fx) Good B shoulder ER Heel and toe raises" pt is able to heel and toe raise holding onto a bar for balance and support Sit to stand using L arm to get up out of the chair on first attempt Balance/Special Test Scores Functional Gait Assessment Score: 11 % Disability: 63.3400 Oswestry Low Back Score: 20 Goals Goal 1:: I HEP Goal Time Frame: 6-8 Weeks Goal 2:: Increase LE strength (at the time of the eval: R hip flex 6.8 and L 7.4 R knee ext 11.5 and L 9.9 R knee flex 5.9 and L 5.2 R hip abd (supine) 9.9 and L 4.5 Bridge: able to do 1/2 normal ROM bridge) Goal Time Frame: 6-8 Weeks Goal 3:: Decrease thoracic and LBP by 50% Goal Time Frame: 6-8 Weeks Goal 4:: Increase balance (FGA 11 at the time of the eval) Goal Time Frame: 6-8 Weeks Rehabilitation Potential Rehabilitation Potential: Good Anticipated Interventions Patient/Client Instruction: Educate patient on: Condition and Plan of Care For the Purpose of:: To decrease pain, To increase ROM, To improve nutrient delivery to tissue, To improve muscle performance and motor function, To improve ability to perform ADL's, To increase tolerance to activity/condition/position, To improve performance and independence with ADL's, To decrease level of supervision to perform tasks, To improve ability of physical actions for home/community/work/leisure, To improve gait and locomotor functions, To improve health of tissue, To increase flexibility/ROM, To improve endurance, To improve balance and To improve safety with gait Therapeutic Exercise to Include: Strength training, Endurance training, Balance training, Body mechanics, Postural training, Flexibilty training, Gait and locomotor training, Neuromotor development, Active ROM, Dynamic Lumbar Stabilization and Scapular Strength/Stabilization For the Purpose of:: To decrease pain, To increase ROM, To improve nutrient delivery to tissue, To improve muscle performance and motor function, To improve ability to perform ADL's, To increase tolerance to activity/condition/position, To improve performance and independence with ADL's, To decrease level of supervision to perform tasks, To improve ability of physical actions for home/community/work/leisure, To improve gait and locomotor functions, To improve health of tissue, To decrease soft tissue restriction, To increase flexibility/ROM, To improve endurance, To improve balance and To improve safety with gait Functional Training to Include: Gait training For the Purpose of:: To improve gait and locomotor functions and To improve safety with gait Text: Thank you for the opportunity to evaluate your patient. For Medicare and Medicare HMO plans, please review the plan of care and approve it. It will need to be FAXED BACK to us at [phone] for Medicare purposes. For Medicare only, by signing this I certify the plan of care. Please let me know if there are questions or concerns regarding this plan of care. Physician Signature: Date:
--- NOTE | 2024-10-15 14:52 | HP.PTREVAL ---
Re-Evaluation Intro: Dr. Yolis Yu, DO, It has been my pleasure to treat LAYLA LUIS over the last 9 visits for back pain, generalized weakness, falls. Please see the progress note below for an update on the physical therapy plan of care! Subjective Subjective: She feels her balance is better. She wants more strengthening as now she can since her ribs is healed. She has been eating healthy and feeling better. She is still struggle with energy. She is able to get out of a chair without arms. She has to use a handrail and go slow to go up the steps and cant carry anything with her. She fell last August 10. She has trouble getting up from the floor if she is on the floor and has to push self up onto something. Objective Objective/Function: FGA 13 LE MMT: R hip flex 6.1 and L 7.4 R knee ext 12.8 and L 11.3 R knee flex 8.2 and L 8.4 R hip abd (supine) 11.4 and L 6.7 Bridge: able to do 1/2 normal ROM bridge) Walking BW is still an issue for the patient Steps: up and down recip with 1 hand rail but does not kick feet out far enough at times to clear the step. Plan Plan Plan: Continue to increase strengthen including machines and stair negotiation. 2X/ week for 8 weeks for UE AAROM/AROM, LE strength, balance, core strength and postural strength with HEP HEP: supine wand flexion AAROM, LTR Balance/Gait/Functional tests Balance/Special Test Scores Functional Gait Assessment Score: 13 % Disability: 56.6700 Oswestry Low Back Score: 20 Goals Goals Goal 1:: I HEP Goal Time Frame: 6-8 Weeks Goal Progress: Goal Met Goal 2:: Increase LE strength (at the time of the eval: R hip flex 6.8 and L 7.4 R knee ext 11.5 and L 9.9 R knee flex 5.9 and L 5.2 R hip abd (supine) 9.9 and L 4.5 Bridge: able to do 1/2 normal ROM bridge) Goal Time Frame: 6-8 Weeks Goal Progress: Progressing Goal 3:: Decrease thoracic and LBP by 50% Goal Time Frame: 6-8 Weeks Goal Progress: Goal Met Goal 4:: Increase balance (FGA 11 at the time of the eval) Goal Time Frame: 6-8 Weeks Goal Progress: Progressing Goal 5:: Be able to go up and down the steps recip with 1 hand rail and making sure she is able to kick legs out far enough to clear each step. Goal Time Frame: 6-8 Weeks Goal 6:: Be able to walk BW with increase step length and more control Goal Time Frame: 6-8 Weeks Anticipated Interventions Anticipated Interventions Patient/Client Instruction: Educate patient on: Condition and Plan of Care For the Purpose of:: To decrease pain, To increase ROM, To improve nutrient delivery to tissue, To improve muscle performance and motor function, To improve ability to perform ADL's, To increase tolerance to activity/condition/position, To improve performance and independence with ADL's, To decrease level of supervision to perform tasks, To improve ability of physical actions for home/community/work/leisure, To improve gait and locomotor functions, To improve health of tissue, To increase flexibility/ROM, To improve endurance, To improve balance and To improve safety with gait Therapeutic Exercise to Include: Strength training, Endurance training, Balance training, Body mechanics, Postural training, Flexibilty training, Gait and locomotor training, Neuromotor development, Active ROM, Dynamic Lumbar Stabilization and Scapular Strength/Stabilization For the Purpose of:: To decrease pain, To increase ROM, To improve nutrient delivery to tissue, To improve muscle performance and motor function, To improve ability to perform ADL's, To increase tolerance to activity/condition/position, To improve performance and independence with ADL's, To decrease level of supervision to perform tasks, To improve ability of physical actions for home/community/work/leisure, To improve gait and locomotor functions, To improve health of tissue, To decrease soft tissue restriction, To increase flexibility/ROM, To improve endurance, To improve balance and To improve safety with gait Functional Training to Include: Gait training For the Purpose of:: To improve gait and locomotor functions and To improve safety with gait Re-Evaluation Ending Re-evaluation ending: Please do not hesitate to contact me at [phone] by phone or if you have questions or concerns regarding this new plan of care! Sincerely, NEEMA Billingsley
--- NOTE | 2024-11-28 10:58 | HP.PTREVAL ---
Re-Evaluation Intro: Dr. Yolis Yu, DO, It has been my pleasure to treat LAYLA LUIS over the last 18 visits for back pain, generalized weakness, falls. Please see the progress note below for an update on the physical therapy plan of care! Subjective Subjective: Pt did start herself on Nu-step today. Pt reports that she was looking up her Ultrasound of her abdomen because her back pain got better and then it go worse. She said that her US showed 2 pancreatic cysts and a kidney cyst. She goes back to Dr Yu in early Dec and cardiology in early Jan. Her back pain was better but now it is not better. Her back pain is always there but sometimes it is worse. She feels that her balance is a lot better and is still challenged by PT. She has had a few times that she has felt like she was going to fall but caught herself. She does not have a membership yet. She has R and L sided heart blocks. She is not driving yet. Objective Objective/Function: Gait: walks with R leg not passing stance leg. LE MMT: R hip flex 9.4 and L 9.4 R knee ext 16.8 and L 16.8 R knee flex 10.8 and L 11.1 R hip abd (supine) 11.4 and L 11 Bridge: able to do 3/4 normal ROM bridge) FGA 15 Stairs: up and down recip with 1 hand rail (very slow and cautious movements descending steps with more retro COG. Walking BW: very short strides Plan Plan Plan: 1X/ week for 3 weeks to learn specific HEP for LE strength and safe balance holding onto counter at home etc with pictures. We can give the patient her machine weights if she decides that she can come in and work out. Balance/Gait/Functional tests Balance/Special Test Scores Functional Gait Assessment Score: 15 % Disability: 50.0000 Oswestry Low Back Score: 11 Goals Goals Goal 1:: I HEP Goal Time Frame: 6-8 Weeks Goal Progress: Goal Met Goal 2:: Increase LE strength (at the time of the eval: R hip flex 6.8 and L 7.4 R knee ext 11.5 and L 9.9 R knee flex 5.9 and L 5.2 R hip abd (supine) 9.9 and L 4.5 Bridge: able to do 1/2 normal ROM bridge) Goal Time Frame: 6-8 Weeks Goal Progress: Progressing Goal 3:: Decrease thoracic and LBP by 50% Goal Time Frame: 6-8 Weeks Goal Progress: Goal Met Goal 4:: Increase balance (FGA 11 at the time of the eval) Goal Time Frame: 6-8 Weeks Goal Progress: Progressing Goal 5:: Be able to go up and down the steps recip with 1 hand rail and making sure she is able to kick legs out far enough to clear each step. Goal Time Frame: 6-8 Weeks Goal Progress: Progressing Goal 6:: Be able to walk BW with increase step length and more control Goal Time Frame: 6-8 Weeks Goal Progress: Progressing Anticipated Interventions Anticipated Interventions Patient/Client Instruction: Educate patient on: Condition and Plan of Care For the Purpose of:: To decrease pain, To increase ROM, To improve nutrient delivery to tissue, To improve muscle performance and motor function, To improve ability to perform ADL's, To increase tolerance to activity/condition/position, To improve performance and independence with ADL's, To decrease level of supervision to perform tasks, To improve ability of physical actions for home/community/work/leisure, To improve gait and locomotor functions, To improve health of tissue, To increase flexibility/ROM, To improve endurance, To improve balance and To improve safety with gait Therapeutic Exercise to Include: Strength training, Endurance training, Balance training, Body mechanics, Postural training, Flexibilty training, Gait and locomotor training, Neuromotor development, Active ROM, Dynamic Lumbar Stabilization and Scapular Strength/Stabilization For the Purpose of:: To decrease pain, To increase ROM, To improve nutrient delivery to tissue, To improve muscle performance and motor function, To improve ability to perform ADL's, To increase tolerance to activity/condition/position, To improve performance and independence with ADL's, To decrease level of supervision to perform tasks, To improve ability of physical actions for home/community/work/leisure, To improve gait and locomotor functions, To improve health of tissue, To decrease soft tissue restriction, To increase flexibility/ROM, To improve endurance, To improve balance and To improve safety with gait Functional Training to Include: Gait training For the Purpose of:: To improve gait and locomotor functions and To improve safety with gait Re-Evaluation Ending Re-evaluation ending: Please do not hesitate to contact me at [phone] by phone or if you have questions or concerns regarding this new plan of care! Sincerely, Radha Wright, MPT
--- NOTE | 2024-12-31 14:09 | HP.PTDCSUM ---
Discharge Summary D/C summary: It has been my pleasure to treat LAYLA LUIS referred by Dr. Yolis Yu DO, with the diagnosis of back pain, generalized weakness, falls for a total of 21 visit(s). Discharge Date: 12/31/24 Please see the following information for a summary of their discharge status. Subjective Subjective: Son present today because pt was saying she needed equipment for home. Pt feels that her balance is better. She is not able to drive here in the winter and wants equip at home. Pain R sided chest/rib pain: Pain Intensity (Out of 10): 0 back pain: Pain Intensity (Out of 10): 4 Overall Improvement % Improvement: 60 Objective Objective/Function: FGA 19 hip flex 9.1 and L 7.4 R knee ext 11.5 and L 14.9 R knee flex 5.9 and L 5.2 R hip abd (supine) 9.9 and L 4.5 Bridge: able to do 1/2 normal ROM bridge) Goals Goal 1:: I HEP Goal Progress: Goal Met Goal 2:: Increase LE strength (at the time of the eval: R hip flex 6.8 and L 7.4 R knee ext 11.5 and L 9.9 R knee flex 5.9 and L 5.2 R hip abd (supine) 9.9 and L 4.5 Bridge: able to do 1/2 normal ROM bridge) Goal Progress: Progressing Goal 3:: Decrease thoracic and LBP by 50% Goal Progress: Goal Met Goal 4:: Increase balance (FGA 11 at the time of the eval) Goal Progress: Progressing Goal 5:: Be able to go up and down the steps recip with 1 hand rail and making sure she is able to kick legs out far enough to clear each step. Goal Progress: Progressing Goal 6:: Be able to walk BW with increase step length and more control Goal Progress: Progressing Plan Plan: Dc PT to HEP Advised pt to no get a TM and a bike with moveable arms would be better. Pt is able to get weights to progress HEP but not needed. D/C Information Discharge Comments: DC PT to HEP d/c sentence: If there are questions or concerns regarding this patient's physical therapy, please feel free to call me at [phone]. Thank you for the referral of this patient. Sincerely, Radha Wright, MPT Balance/Gait/Functional tests Balance/Special Test Scores Functional Gait Assessment Score: 19 % Disability: 36.6700 Oswestry Low Back Score: 8 Improvement % Improvement: 60
== END 2024-12-31 16:05 | disposition home or self-care (01) ==
LOC: PT 12:30
PROVIDERS: PCP Internal Medicine; Referring Provider Internal Medicine; Visit Provider Internal Medicine
DX: M54.9 Dorsalgia, unspecified (principal); R53.1 Weakness; R29.6 Repeated falls
CPT/HCPCS: 97110; 97162; 97530

== ENCOUNTER → 2025-02-25 | Outpatient (CLI) | payer MEDICARE, BC, SELFPAY ==
--- NOTE | 2025-02-25 13:15 | CT_ITS ---
PROCEDURE: CTA NECK W/WO CONTRAST 02/25/2025 REASON FOR EXAM: CTA NECK W/CONTRAST - SEE AORTIC ARCH AND BILATERAL CAROTIDS, TL TECHNIQUE: Procedure Code: [id number] Modality: CT Procedure: CTA NECK W/WO CONTRAST Multiplanar Sagittal and Coronal images were obtained. CONTRAST: Isovue 370 VOLUME: 75 mL One or more dose reduction techniques were used (e.g., Automated exposure control, adjustment of the mA and/or kV according to patient size, use of iterative reconstruction technique). RADIATION DOSE SUMMARY: CTDlvol: 18.80 mGy DLP: 638.67 mGycm FINDINGS: AORTIC ARCH: Unremarkable. The subclavian arteries are patent. EXTRACRANIAL CAROTIDS: No hemodynamically significant stenosis of the common or internal carotid arteries. SKULL BASE: Unremarkable. VERTEBROBASILAR SYSTEM: The left vertebral artery is diminutive but patent. The right internal artery is dominant and patent. NONVASCULAR no soft tissue abnormalities. No acute bony abnormalities. The visualized lungs are clear. CT/CTA Neck W/WO Contrast IMPRESSION: No hemodynamically significant stenosis of the carotid arteries. Reading Location: [facility]
--- OUTSIDE RECORDS SUMMARY | 2025-02-25 16:00 | XMS RPT_ITS | CCD ---
Author Organization [facility] CliniSymn Care Team Providers Care Tearoom Hostess Name Role Phone Gigi ZALDIVAR, Dr. Lagos [...] Provider Gigi ZALDIVAR, Dr. Lagos Attending Provider [phone] Gigi ZALDIVAR, Dr. Lagos Primary Care Provider [phone] Divya Kamara PA-C Attending Provider Dr. Cristobal Villalta MD Attending Provider Bethel QUEEN, Dr. Ovi Fleming Attending Provider Friend DO, Dr. Kinsey Attending Provider Friend DO, Dr. Kinsey Other Provider [phone] Fast DO, Dr. Lagos Primary Care Provider Fast DO, Dr. Lagos Referring Provider Fast DO, Dr. Lagos Primary Care Provider Fast DO, Dr. Lagos Referring Provider [phone] Carlos A QUEEN, Dr. Pitts Attending Provider Leslie Ellis Attending Provider [phone] Carlos A QUEEN, Dr. Pitts Referring Provider [phone] Fast DO, Dr. Lagos Primary Care Provider [phone] Fast DO, Dr. Lagos Referring Provider [phone] Fast DO, Dr. Lagos Attending Provider [phone])- [phone] Bethel QUEEN, Dr. Ovi Fleming Attending Provider 1([facility])[phone] Fast DO, Dr. Lagos Primary Care Physician Friend DO, Dr. Kinsey Attending Physician [phone] Friend DO, Dr. Kinsey Nurse Practitioner Leslie Ellis Attending Physician [phone] Carlos A QUEEN, Dr. Pitts Attending Physician 1([facility])[phone] Fast DO, Dr. Lagos Attending Physician 1([facility])[phone] Bethel QUEEN, Dr. Ovi Fleming Attending Physician Tio Van Attending Unavailable Fast, Yolis Referring Unavailable Fast, Yolis Primary Care Unavailable Fast, Yolis Primary Care Unavailable Sammy Singer Admitting Unavailable Tio aVn Attending Unavailable Phuong Salas Referring Unavailable Sammy Singer Consulting Unavailable Phuong Salas Consulting Unavailable Phuong Salas Attending Unavailable Fast, Yolis Primary Care Unavailable Fast, Yolis Referring Unavailable Fast, Yolis Attending Unavailable Fast, Yolis Primary Care Unavailable Fast, Yolis Referring Unavailable Fast, Yolis Attending Unavailable Fast, Yolis Primary Care Unavailable Carlos A, Counselor Attending Unavailable Carlos A, Counselor Referring Unavailable Fast, Yolis Primary Care Unavailable Carlos A, Hong Attending Unavailable Carlos A, Counselor Referring Unavailable Fast, Yolsi Primary Care Unavailable Prince Browning NP Attending Unavailable Fast, Yolis Referring Unavailable Fast, Yolis Primary Care Unavailable Vanessa Benitez Attending Unavailable Fast, Yolis Referring Unavailable BorCristobal holm Attending Unavailable Fast, Yolis Primary Care Unavailable Leslie Greene Attending Unavailable Fast, Yolis Referring Unavailable Fast, Yolis Primary Care Unavailable Carlos A, Counselor Attending Unavailable Carlos A, Hong Referring Unavailable Divya Diaz Attending Unavailable Fast, Yolis Referring Unavailable Fast, Yolis Primary Care Unavailable Sammy Potts Referring Unavailable Sammy Potts Consulting Unavailable Sammy Potts Attending Unavailable Fast, Yolis Primary Care Unavailable Sammy Potts Referring Unavailable Cristobal Villalta Attending Unavailable Bortz, Cristobal Attending Unavailable Fast, Yolis Referring Unavailable Fast, Yolis Primary Care Unavailable Fast, Yolis Primary Care Unavailable Carlos A, Counselor Attending Unavailable Carlos A, Counselor Referring Unavailable Leslie Greene Attending Unavailable Fast, Yolis Referring Unavailable Fast, Yolis Primary Care Unavailable Fast, Yolis Primary Care Unavailable Fast, Yolis Referring Unavailable Fast, Yolis Attending Unavailable Fast, Yolis Primary Care Unavailable Fast, Yolis Referring Unavailable Fast, Yolis Attending Unavailable Fast, Yolis Primary Care Unavailable Fast, Yolis Referring Unavailable Fast, Yolis Attending Unavailable Ambrocio Henderson Attending Unavailable Divya Diaz Attending Unavailable Fast, Yolis Primary Care Unavailable Carlos A, Hong Attending Unavailable Fast, Yolis Primary Care Unavailable Friend, Tio Consulting Unavailable Friend, Tio Attending Unavailable Fast, Yolis Referring Unavailable Sammy Singer Attending Unavailable Fast, Yolis Primary Care Unavailable Sammy Potts Attending Unavailable Sammy Singer Admitting Unavailable Sammy Singer Consulting Unavailable Phuong Salas Consulting Unavailable Allergies Allergy Classification Reported Allergen(s) Allergy Type Date of Onset Reaction(s) Facility (9 sources) atorvastatin Drug Allergy 06-28-19 myalgia [facility] (9 sources) hydroCHLOROthiazide Drug Allergy 06-28-19 25 Unknown [facility] (9 sources) meloxicam Drug Allergy 06-28-19 Dizziness [facility] (9 sources) Sulfamethoxazole Drug Allergy 06-28-19 [facility] (9 sources) Trimethoprim Drug Allergy 06-28-19 [facility] (8 sources) Contrast media; Translations: [red dye] Allergy to substance 09-14-19 HEADACHE [facility] Comment on above: INCREASED BP (7 sources) Glutamate Drug Allergy 09-14-19 MIGRAINES [facility] (1 source) atorvastatin Drug Allergy 02-08-20 [facility] (1 source) hydroCHLOROthiazide Drug Allergy 02-08-20 [facility] (1 source) meloxicam Drug Allergy 02-08-20 [facility] (1 source) Sulfamethoxazole Drug Allergy 02-08-20 [facility] (1 source) Trimethoprim Drug Allergy 02-08-20 [facility] (1 source) monosodium glutamate Drug allergy (disorder) 02-08-20 [facility] Medications Current Medications Medication Drug Class(es) Dates Sig (Normalized) Sig (Original) amLODIPine 5 mg oral tablet (20 sources) Dihydropyridine Calcium Channel Efra Start: 05-08-2024 take 1 tablet by mouth once daily Start: 01-16-2024 End: 05-08-2024 take 1 tablet by mouth once daily Amlodipine 10 mg tablet Discontinued 10 mg PO DAILY January 16, 2024 12:00am May 08, 2024 8:28pm Start: 02-20-2013 End: 01-16-2024 take 1 tablet by mouth once daily Amlodipine 5 MG tablet Discontinued 5 mg PO DAILY April 09, 2013 1:00am January 16, 2024 1:17pm aspirin 81 mg chewable tablet (9 sources) Platelet Aggregation Inhibitor, Nonsteroidal Anti-inflammatory Drug Start: 02-20-2013 take 1 tablet by mouth once daily carvedilol 6.25 mg oral tablet (9 sources) alpha-Adrenergic Efra, beta-Adrenergic Efra Start: 04-09-2013 take 1 tablet by mouth twice daily cholecalciferol 0.025 mg oral capsule (9 sources) Vitamin D Start: 01-16-2024 take 1 capsule by mouth once daily ezetimibe 10 mg oral tablet (9 sources) Dietary Cholesterol Absorption Inhibitor Start: 01-16-2024 take 1 tablet by mouth once daily Flaxseed-Omega3,6,9-Fatt y Acid 1,300-670-155 mg capsule (9 sources) Start: 05-08-2024 Start: 05-08-2024 Flaxseed-Luna 3,6,9-Fatty Acid 1,300-670-155 mg capsule Active 1 NMA PO DAILY May 08, 2024 1:00am supplement Start: 05-08-2024 Flaxseed-Luna 3,6,9-Fatty Acid 1,300-670-155 mg capsule Active 1 NMA PO DAILY May 08, 2024 1:00am telmisartan 80 mg oral tablet (9 sources) Angiotensin 2 Receptor Efra Start: 01-16-2024 take 1 tablet by mouth once daily Completed/Discontinued Medications Medication Drug Class(es) Dates Sig (Normalized) Sig (Original) Tmrinxssbw-Xhvnion-Z -Mefolate (Metafolbic Plus) 1 EACH tablet (9 sources) Start: 02-20-2013 End: 01-25-2024 Qibxjcdjan-Wgpenbe-C -Mefolate (Metafolbic Plus) 1 EACH tablet Discontinued 1 NMA PO February 20, 2013 1:00am January 25, 2024 9:05am amoxicillin 875 mg / clavulanate 125 mg oral tablet (9 sources) Penicillin-class Antibacterial Start: 05-15-2024 End: 05-29-2024 Amoxicillin-Pot Clavulanate 875-125 mg tablet Discontinued 1 {tbl} PO TWICE A DAY 0 May 15, 2024 1:00am May 29, 2024 3:19pm busPIRone hydrochloride 10 mg oral tablet (9 sources) Start: 01-16-2024 End: 01-25-2024 take 1 tablet by mouth twice daily Buspirone 10 mg tablet Discontinued 10 mg PO TWICE A DAY January 16, 2024 12:00am January 25, 2024 9:05am calm biotect (9 sources) Start: 01-25-2024 End: 05-08-2024 calm biotect Discontinued PO January 25, 2024 12:00am May 08, 2024 8:30pm clopidogrel 75 mg oral tablet (9 sources) P2Y12 Platelet Inhibitor Start: 04-09-2013 End: 01-16-2024 take 1 tablet by mouth once daily Clopidogrel 75 MG tablet Discontinued 75 mg PO DAILY April 09, 2013 1:00am January 16, 2024 1:19pm docosahexaenoic acid 200 mg oral capsule (9 sources) Start: 03-07-2013 End: 05-08-2024 take 3 capsules by mouth once daily Docosahexaenoic Acid (Algal Luna-3 Dha) 200 MG capsule Discontinued 100 mg PO DAILY March 07, 2013 1:00am May 08, 2024 8:30pm ergocalciferol 0.01 mg oral tablet (9 sources) Provitamin D2 Compound Start: 03-07-2013 End: 01-16-2024 take 1 tablet by mouth once daily Ergocalciferol (Vitamin D2) 400 UNIT tablet Discontinued 1 U PO DAILY March 07, 2013 1:00am January 16, 2024 1:17pm esomeprazole 40 mg delayed release oral capsule (9 sources) Proton Pump Inhibitor Start: 03-07-2013 End: 04-09-2013 take 1 capsule by mouth once daily Esomeprazole Magnesium (Nexium) 40 MG capsule Discontinued 40 mg PO DAILY March 07, 2013 1:00am April 09, 2013 3:28pm Flaxseed Oil-Luna 3,6,9 1 EACH capsule (9 sources) Start: 03-07-2013 End: 05-08-2024 Flaxseed Oil-Luna 3,6,9 1 EACH capsule Discontinued 1 NMA PO DAILY March 07, 2013 1:00am May 08, 2024 8:29pm 24 hr isosorbide mononitrate 30 mg extended release oral tablet (9 sources) Nitrate Vasodilator Start: 01-16-2024 End: 05-08-2024 take 1 tablet by mouth once daily, then take 1 tablet by mouth every twenty-four hours Isosorbide Mononitrate 30 mg tablet extended release 24 hr Discontinued 30 mg PO DAILY January 16, 2024 12:00am May 08, 2024 8:30pm lisinopril 20 mg oral tablet (9 sources) Angiotensin Converting Enzyme Inhibitor Start: 02-20-2013 End: 01-16-2024 take 1 tablet by mouth twice daily Lisinopril 20 MG tablet Discontinued 20 mg PO TWICE A DAY February 20, 2013 1:00am January 16, 2024 1:19pm melatonin 5 mg oral tablet (9 sources) Start: 01-16-2024 End: 01-25-2024 take 1 tablet by mouth at bedtime as needed Melatonin 5 mg tablet Discontinued 5 mg PO BEDTIME as needed January 16, 2024 12:00am January 25, 2024 9:06am nebivolol 5 mg oral tablet (9 sources) Start: 02-20-2013 End: 04-09-2013 take 1 tablet by mouth once daily Nebivolol (Bystolic) 5 MG tablet Discontinued 5 mg PO DAILY February 20, 2013 1:00am April 09, 2013 3:30pm simvastatin 40 mg oral tablet (18 sources) HMG-CoA Reductase Inhibitor Start: 04-09-2013 End: 01-16-2024 take 1 tablet by mouth at bedtime Simvastatin 40 MG tablet Discontinued 40 mg PO AT BEDTIME January 14, 2014 12:00am January 16, 2024 1:19pm ubidecarenone 100 mg oral capsule (9 sources) Start: 01-16-2024 End: 05-08-2024 take 10 capsules by mouth once daily Coenzyme Q10 100 mg capsule Discontinued 100 mg PO daily January 16, 2024 12:00am May 08, 2024 8:30pm Vitamin B Complex 1 EACH capsule (9 sources) Start: 03-07-2013 End: 01-16-2024 Vitamin B Complex 1 EACH capsule Discontinued 1 NMA PO DAILY March 07, 2013 1:00am January 16, 2024 1:19pm Problems Active Problems Problem Classification Problem Date Documented Da te Episodic/Chronic Anxiety disorders (9 sources) Anxiety; Translations: [Anxiety disorder, unspecified] 01-16-2024 Chronic Biliary tract disease (9 sources) Gallstone; Translations: [Calculus of gallbladder without cholecystitis without obstruction] 01-16-2024 Episodic Conduction disorders (20 sources) Cardiac pacemaker in situ; Translations: [Presence of cardiac pacemaker] Onset: 05-10-2024 Chronic Comment on above: Medtronic dual chamb er: Model: MARGOT XT DR ORTEGA W 1DR01; Serial: [id number] Coronary atherosclerosis and other heart disease (9 sources) Coronary atherosclerosis; Translations: [Atherosclerotic heart disease of [place] coronary artery without angina pectoris] 01-16-2024 Chronic Deficiency and other anemia (9 sources) Anemia; Translations: [Anemia, unspecified] 01-16-2024 Episodic Diabetes mellitus with complications (1 source) Type 2 diabetes mellitus with other circulatory complications; Translations: [Type 2 diabetes mellitus with other circulatory complications] Onset: Chronic Diabetes mellitus without complication (11 sources) Type 2 diabetes mellitus; Translations: [Type 2 diabetes mellitus without complications] 01-16-2024 Chronic Diseases of white blood cells (12 sources) Leukocytosis; Translations: [Elevated white blood cell count, unspecified] Onset: 5 05-23-2024 Chronic Disorders of lipid metabolism (9 sources) Dyslipidemia; Translations: [Hyperlipidemia, unspecified] 01-12-2014 Chronic E Codes: Fall (9 sources) Fall; Translations: [Unspecified fall, initial encounter] 11-24-2023 Episodic Esophageal disorders (20 sources) Gastroesophageal reflux disease; Translations: [Gastro-esophageal reflux disease without esophagitis] Onset: 5 09-13-2024 Chronic Essential hypertension (20 sources) Essential hypertension; Translations: [Essential (primary) hypertension] Onset: 5 05-09-2024 Chronic Comment on above: CONTROLLED ON MED PE R PT Nonspecific chest pain (9 sources) Chest pain; Translations: [Chest pain, unspecified] 01-16-2024 Episodic Occlusion or stenosis of precerebral arteries (9 sources) Carotid artery stenosis; Translations: [Occlusion and stenosis of unspecified carotid artery] 01-16-2024 Chronic Osteoporosis (9 sources) Osteoporosis; Translations: [Age-related osteoporosis without current pathological fracture] 01-16-2024 Chronic Other gastrointestinal disorders (11 sources) Disorder of intestine; Translations: [Other specified diseases of intestine] 05-23-2024 Episodic Other injuries and conditions due to external causes (4 sources) Other specified injuries of thorax, initial encounter; Translations: [Contusion of rib on left side] 11-24-2023 Episodic Other liver diseases (9 sources) Steatosis of liver; Translations: [Fatty (change of) liver, not elsewhere classified] 01-16-2024 Chronic Other liver diseases (1 source) Fatty (change of) liver, not elsewhere classified; Translations: [Fatty (change of) liver, not elsewhere classified] Onset: Chronic Other nervous system disorders (9 sources) Paresthesia; Translations: [Paresthesia of skin] 01-16-2024 Episodic Other screening for suspected conditions (not mental disorders or infectious disease) (14 sources) CT of abdomen abnormal; Translations: [Abnormal findings on diagnostic imaging of other abdominal regions, including retroperitoneum] Onset: 05-23-2024 Episodic Peripheral and visceral atherosclerosis (20 sources) Ischemic colitis; Translations: [Vascular disorder of intestine, unspecified] Onset: Chronic Regional enteritis and ulcerative colitis (12 sources) Colitis; Translations: [Crohn's disease of large intestine without complications] Onset: 05-23-2024 Chronic Residual codes; unclassified (9 sources) Obstructive sleep apnea syndrome; Translations: [Obstructive sleep apnea (adult) (pediatric)] 01-16-2024 Chronic Residual codes; unclassified (9 sources) Amnesia; Translations: [Other amnesia] 01-16-2024 Episodic Superficial injury; contusion (5 sources) Contusion of left front wall of thorax, initial encounter; Translations: [Contusion of rib on left side] 11-24-2023 Episodic Thyroid disorders (9 sources) Thyroid nodule; Translations: [Nontoxic single thyroid nodule] 01-16-2024 Chronic Unclassified (6 sources) K55.9 - Vascular disorder of intestine, unspecified Past or Other Problems Problem Classification Problem Date Documented Da te Episodic/Chronic Abdominal pain (20 sources) Acute abdominal pain; Translations: [Unspecified abdominal pain] Onset: 05-25-2024 05-23-2024 Episodic Fluid and electrolyte disorders (20 sources) Hyponatremia; Translations: [Hypo-osmolality and hyponatremia] Onset: 05-25-2024 01-16-2024 Episodic Noninfectious gastroenteritis (12 sources) Colitis; Translations: [Noninfective gastroenteritis and colitis, unspecified] Onset: 05-25-2024 05-23-2024 Episodic Other gastrointestinal disorders (12 sources) Other specified diseases of intestine; Translations: [Mass of cecum] Onset: 05-25-2024 05-23-2024 Episodic Residual codes; unclassified (1 source) Localized edema; Translations: [Localized edema] Onset: 08-21-2024 Episodic Urinary tract infections (12 sources) Acute cystitis; Translations: [Acute cystitis with hematuria] Onset: 05-25-2024 05-23-2024 Episodic Results Test Name Value Interpretation Reference Range Facility Cardiology Visit Reporton Cardiology Visit Report Normal [facility] Pacemaker Checkon 02-07-2025 Pacemaker Check Normal [facility] PT D/C Summary (1)on 025 PT D/C Summary (1) Normal [facility] Urine Cultureon 12-12-2024 [facility] Culture exhibits no growth. Normal [facility] Comment on above: Performed By: #### L 400.0001, L502.0250, L100.0100, L500.4100, M100.2200, L500.4050, L501.9985 ####[facility] [address] [place], [place], [id number] Absolute lymphocyte countOrd ered By: Yolis Fast on 12-11-2024 Lymphocytes Auto (Unsp spec) [#/Vol] 1.51 10*3/uL 0.83-4.51 [facility] Absolute neutrophil countOrd ered By: Yolis Fast on 12-11-2024 Neutrophils (Bld) [#/Vol] 4.2 10*3/uL 2.0-7.7 [facility] Anion gap in Serum or Plasma Ordered By: [facility] Fast on 12-11-2024 Anion gap [Moles/Vol] 10 mmol/L 5-15 [facility] Automated lymphocyte count a s percentage of total leukocytesOrdered By: Yolis Fast on 12-11-2024 Lymphocytes/100 WBC Auto (Unsp spec) 23.6 % 19-41 [facility] BUN/creatinine ratioOrdered By: Yolis Fast on 12-11-2024 Urea nitrogen/Creatinine [Mass ratio] 14.6 mg/mg 10-20 [facility] Basophil percentageOrdered B y: Yolis Fast on 12-11-2024 Basophils/100 WBC (Bld) 0.8 % 0-1 [facility] Bilirubin Test strip Ql (U)O rdered By: Yolis Fast on 12-11-2024 Bilirubin Ql (U) Negative Negative [facility] Bilirubin, totalOrdered By: Yolis Fast on 12-11-2024 Bilirubin [Mass/Vol] 0.30 mg/dL 0.00-1.30 [facility] CBC W/Diff, Automatedon 09-0 2-2024 Absolute Lymph 1.51 X10 3/uL Normal 0.83-4.51 [facility] Comment on above: Performed By: #### L 400.0001, L502.0250, L100.0100, L500.4100, M100.2200, L500.4050, L501.9985 ####[facility] [address] [place], [address] Absolute Neut 4.2 X10 3/uL Normal 2.0-7.7 [facility] Comment on above: Performed By: #### L 400.0001, L502.0250, L100.0100, L500.4100, M100.2200, L500.4050, L501.9985 ####[facility] [address] [place], [address] Basophils/100 WBC (Bld) 0.8 % Normal 0-1 [facility] Comment on above: Performed By: #### L 400.0001, L502.0250, L100.0100, L500.4100, M100.2200, L500.4050, L501.9985 ####[facility] [address] [place], [address] Eosinophils/100 WBC (Bld) 1.6 % Normal 0-5 [facility] Comment on above: Performed By: #### L 400.0001, L502.0250, L100.0100, L500.4100, M100.2200, L500.4050, L501.9985 ####[facility] [address] [place], [address] Erythrocyte distribution width (RBC) [Ratio] 13.1 % Normal 11.6-14.6 [facility] Comment on above: Performed By: #### L 400.0001, L502.0250, L100.0100, L500.4100, M100.2200, L500.4050, L501.9985 ####[facility] [address] [place], [address] Hematocrit (Bld) [Volume fraction] 37.7 % Normal 37-47 [facility] Comment on above: Performed By: #### L 400.0001, L502.0250, L100.0100, L500.4100, M100.2200, L500.4050, L501.9985 ####[facility] [address] [place], [address] Hemoglobin (Bld) [Mass/Vol] 13.2 g/dL Normal 12.0-15.0 [facility] Comment on above: Performed By: #### L 400.0001, L502.0250, L100.0100, L500.4100, M100.2200, L500.4050, L501.9985 ####[facility] [address] [place], [address] IG% 0.500 Normal 0.0-0.9 [facility] Comment on above: Result Comment: IG% - Immature Granulocytes (promyelocytes, myelocytes andmetamyelocytes) > 1% indicates that a LEFT SHIFT is Present. Performed By: #### L 400.0001, L502.0250, L100.0100, L500.4100, M100.2200, L500.4050, L501.9985 ####[facility] [address] [place], [address] Lymphocytes/100 WBC (Bld) 23.6 % Normal 19-41 [facility] Comment on above: Performed By: #### L 400.0001, L502.0250, L100.0100, L500.4100, M100.2200, L500.4050, L501.9985 ####[facility] [address] [place], [address] MCH (RBC) [Entitic mass] 31.4 pg Normal 27.0-32.0 [facility] Comment on above: Performed By: #### L 400.0001, L502.0250, L100.0100, L500.4100, M100.2200, L500.4050, L501.9985 ####[facility] [address] [place], [address] MCHC (RBC) [Mass/Vol] 35.0 g/dL Normal 32-36 [facility] Comment on above: Performed By: #### L 400.0001, L502.0250, L100.0100, L500.4100, M100.2200, L500.4050, L501.9985 ####[facility] [address] [place], [address] MCV (RBC) [Entitic vol] 89.5 fL Normal 81-99 [facility] Comment on above: Performed By: #### L 400.0001, L502.0250, L100.0100, L500.4100, M100.2200, L500.4050, L501.9985 ####[facility] [address] [place], [address] Monocytes/100 WBC (Bld) 7.4 % Normal 0-10 [facility] Comment on above: Performed By: #### L 400.0001, L502.0250, L100.0100, L500.4100, M100.2200, L500.4050, L501.9985 ####[facility] [address] [place], [address] Neutrophils/100 WBC (Bld) 66.1 % Normal 47-70 [facility] Comment on above: Performed By: #### L 400.0001, L502.0250, L100.0100, L500.4100, M100.2200, L500.4050, L501.9985 ####[facility] [address] [place], [address] Nucleated RBC (Bld) [#/Vol] 0 10*3/uL Normal 0-5 [facility] Comment on above: Performed By: #### L 400.0001, L502.0250, L100.0100, L500.4100, M100.2200, L500.4050, L501.9985 ####[facility] [address] [place], [address] Platelet mean volume (Bld) [Entitic vol] 10.0 fL Normal 6.2-12.0 [facility] Comment on above: Performed By: #### L 400.0001, L502.0250, L100.0100, L500.4100, M100.2200, L500.4050, L501.9985 ####[facility] [address] [place], [address] Platelets (Bld) [#/Vol] 213 10*3/uL Normal 150-450 [facility] Comment on above: Performed By: #### L 400.0001, L502.0250, L100.0100, L500.4100, M100.2200, L500.4050, L501.9985 ####[facility] [address] [place], [address] RBC (Bld) [#/Vol] 4.21 10*6/uL Normal 4.2-5.4 [facility] Comment on above: Performed By: #### L 400.0001, L502.0250, L100.0100, L500.4100, M100.2200, L500.4050, L501.9985 ####[facility] [address] [place], [address] RDW SD 43.0 fl Normal 35.1-43.9 [facility] Comment on above: Performed By: #### L 400.0001, L502.0250, L100.0100, L500.4100, M100.2200, L500.4050, L501.9985 ####[facility] [address] [place], [address] WBC (Bld) [#/Vol] 6.4 10*3/uL Normal 4.4-11.0 [facility] Comment on above: Performed By: #### L 400.0001, L502.0250, L100.0100, L500.4100, M100.2200, L500.4050, L501.9985 ####[facility] [address] [place], [address] Calculated very low density lipoprotein (VLDL) cholesterol measurementOrdered By: Yolis Fast on 12-11-2024 Calculated very low density lipoprotein (VLDL) cholesterol measurement 26 mg/dL 5-40 [facility] Carbon dioxide, total [Moles /volume] in Central venous bloodOrdered By: Yolis Fast on 12-11-2024 CO2 [Moles/Vol] 19.4 mmol/L Low 21.0-32.0 [facility] Chloride assayOrdered By: De bra Fast on 12-11-2024 Chloride [Moles/Vol] 100 mmol/L 98-108 [facility] Comprehensive Metabolic Prof ilon 12-11-2024 Albumin [Mass/Vol] 4.1 g/dL Normal 3.4-4.8 [facility] Comment on above: Performed By: #### L 400.0001, L502.0250, L100.0100, L500.4100, M100.2200, L500.4050, L501.9985 ####[facility] [address] [place], [address] Albumin/Globulin [Mass ratio] 1.7 {ratio} Normal 0.9-2.4 [facility] Comment on above: Performed By: #### L 400.0001, L502.0250, L100.0100, L500.4100, M100.2200, L500.4050, L501.9985 ####[facility] [address] [place], [place], [id number] ALK PHOS 117 U/L High 35-104 [facility] Comment on above: Performed By: #### L 400.0001, L502.0250, L100.0100, L500.4100, M100.2200, L500.4050, L501.9985 ####[facility] [address] [place], [place], [phone] ALT [Catalytic activity/Vol] 22 U/L Normal <=34 [facility] Comment on above: Performed By: #### L 400.0001, L502.0250, L100.0100, L500.4100, M100.2200, L500.4050, L501.9985 ####[facility] [address] [place], [place], [id number] AST [Catalytic activity/Vol] 23 U/L Normal <=31 [facility] Comment on above: Performed By: #### L 400.0001, L502.0250, L100.0100, L500.4100, M100.2200, L500.4050, L501.9985 ####[facility] [address] [place], [place], [id number] Bilirubin [Mass/Vol] 0.30 mg/dL Normal 0.00-1.30 [facility] Comment on above: Performed By: #### L 400.0001, L502.0250, L100.0100, L500.4100, M100.2200, L500.4050, L501.9985 ####[facility] [address] [place], [place], [id number] BUN/CRE 14.6 RATIO Normal 10-20 [facility] Comment on above: Performed By: #### L 400.0001, L502.0250, L100.0100, L500.4100, M100.2200, L500.4050, L501.9985 ####[facility] [address] [place], [address] Calcium [Mass/Vol] 9.6 mg/dL Normal 7.6-11.0 [facility] Comment on above: Performed By: #### L 400.0001, L502.0250, L100.0100, L500.4100, M100.2200, L500.4050, L501.9985 ####[facility] [address] [place], [address] Chloride [Moles/Vol] 100 mmol/L Normal 98-108 [facility] Comment on above: Performed By: #### L 400.0001, L502.0250, L100.0100, L500.4100, M100.2200, L500.4050, L501.9985 ####[facility] [address] [place], [address] CO2 [Moles/Vol] 19.4 mmol/L Low 21.0-32.0 [facility] Comment on above: Performed By: #### L 400.0001, L502.0250, L100.0100, L500.4100, M100.2200, L500.4050, L501.9985 ####[facility] [address] [place], [address] Creatinine [Mass/Vol] 0.58 mg/dL Low 0.70-1.20 [facility] Comment on above: Performed By: #### L 400.0001, L502.0250, L100.0100, L500.4100, M100.2200, L500.4050, L501.9985 ####[facility] [address] [place], [address] GAP 10 Normal 5-15 [facility] Comment on above: Performed By: #### L 400.0001, L502.0250, L100.0100, L500.4100, M100.2200, L500.4050, L501.9985 ####[facility] [address] [place], [address] GFR/1.73 sq M.predicted among non-blacks MDRD (S/P/Bld) [Vol rate/Area] 92 mL/min/{1.73_m2} Normal >60 [facility] Comment on above: Result Comment: mL/m in/1.73m2 CKD-EPI Creatinine Equation (2020) Performed By: #### L 400.0001, L502.0250, L100.0100, L500.4100, M100.2200, L500.4050, L501.9985 ####[facility] [address] [place], [address] Globulin (S) [Mass/Vol] 2.5 g/dL Normal 2.2-4.2 [facility] Comment on above: Performed By: #### L 400.0001, L502.0250, L100.0100, L500.4100, M100.2200, L500.4050, L501.9985 ####[facility] [address] [place], [address] Glucose [Mass/Vol] 108 mg/dL High 70-99 [facility] Comment on above: Performed By: #### L 400.0001, L502.0250, L100.0100, L500.4100, M100.2200, L500.4050, L501.9985 ####[facility] [address] [place], [address] Potassium [Moles/Vol] 4.2 mmol/L Normal 3.3-5.1 [facility] Comment on above: Performed By: #### L 400.0001, L502.0250, L100.0100, L500.4100, M100.2200, L500.4050, L501.9985 ####[facility] [address] [place], [address] Sodium [Moles/Vol] 129 mmol/L Low 133-145 [facility] Comment on above: Performed By: #### L 400.0001, L502.0250, L100.0100, L500.4100, M100.2200, L500.4050, L501.9985 ####[facility] [address] [place], [address] T PROT 6.6 g/dL Normal 5.9-8.4 [facility] Comment on above: Performed By: #### L 400.0001, L502.0250, L100.0100, L500.4100, M100.2200, L500.4050, L501.9985 ####[facility] [address] [place], [address] Urea nitrogen [Mass/Vol] 9 mg/dL Normal 4-19 [facility] Comment on above: Performed By: #### L 400.0001, L502.0250, L100.0100, L500.4100, M100.2200, L500.4050, L501.9985 ####[facility] [address] [place], [address] Eosinophil percentageOrdered By: Yolis Fast on 12-11-2024 Eosinophils/100 WBC (Bld) 1.6 % 0-5 [facility] Erythrocyte distribution wid th ratioOrdered By: Yolis Fast on 12-11-2024 Erythrocyte distribution width (RBC) [Ratio] 13.1 % 11.6-14.6 [facility] Erythrocyte distribution wid th standard deviationOrdered By: Yolis Fast on 12-11-2024 Erythrocyte distribution width (RBC) [Ratio] 43.0 fl 35.1-43.9 [facility] Glomerular filtration rate ( GFR) estimation/1.73 sq m using serum, plasma, or whole bOrdered By: Yolis Fast on 12-11-2024 GFR/1.73 sq M.predicted among non-blacks MDRD (S/P/Bld) [Vol rate/Area] 92 mL/min/{1.73_m2} >60 [facility] Comment on above: mL/min/1.73m2 CKD-EP I Creatinine Equation (2020) Hematocrit Auto (Bld) [Volum e fraction]Ordered By: Yolis Yu on 12-11-2024 Hematocrit (Bld) [Volume fraction] 37.7 % 37-47 [facility] Hemoglobin A1con 12-11-2024 HbA1c (Bld) [Mass fraction] 5.8 % High <=5.6 [facility] Comment on above: Result Comment: Norm al < 5.7 % Prediabetic 5.7 - 6.4 % Diabetic >or= 6.5 % Please note range changes. Performed By: #### L 400.0001, L502.0250, L100.0100, L500.4100, M100.2200, L500.4050, L501.9985 ####[facility] [address] [place], [address] Hemoglobin A1c percentageOrd ered By: Yolis Yu on 12-11-2024 HbA1c (Bld) [Mass fraction] 5.8 % High <5.7 [facility] Comment on above: Normal < 5.7 % Predi abetic 5.7 - 6.4 % Diabetic >or= 6.5 % Please note range changes. Hemoglobin measurementOrdere d By: Yolis Yu on 12-11-2024 Hemoglobin (Bld) [Mass/Vol] 13.2 g/dL 12.0-15.0 [facility] Immature granulocytes/100 WB C Auto (Bld)Ordered By: Yolis Yu on 12-11-2024 Immature granulocytes/100 WBC (Bld) 0.500 % 0.0-0.9 [facility] Comment on above: IG% - Immature Granu locytes (promyelocytes, myelocytes and metamyelocytes) > 1% indicates that a LEFT SHIFT is Present. Ketones Test strip Ql (U)Ord ered By: Yolis Yu on 12-11-2024 Ketones Ql (U) Negative Negative [facility] LDL calc ser/plasOrdered By: Yolislonnie Yu on 12-11-2024 Cholesterol in LDL [Mass/Vol] 82 mg/dL [facility] Comment on above: Szzvecknwh=581-846 m g/dL & Higher Lmqu=567 mg/dL or greaterFriedwald Equation for LDL-C Laboratory - Chemistry and C hemistry - challengeOrdered By: Yolis Gigi on 12-11-2024 AST [Catalytic activity/Vol] 23 U/L <32 [facility] Lipid Profileon 12-11-2024 CHOL:HDL 3.62 Normal [facility] Comment on above: Performed By: #### L 400.0001, L502.0250, L100.0100, L500.4100, M100.2200, L500.4050, L501.9985 ####[facility] [address] [place], [address] Cholesterol [Mass/Vol] 149 mg/dL Normal <=200 [facility] Comment on above: Result Comment: Chol esterol level, Desirable <200 mg/dLBorderline high cholesterol 200-239 mg/dLHigh cholesterol >=240 mg/dLRecommendations of the NCEP Adult Treatment Panel for thefollowing risk-cutoff thresholds for the [place]. Performed By: #### L 400.0001, L502.0250, L100.0100, L500.4100, M100.2200, L500.4050, L501.9985 ####[facility] [address] [place], [address] Cholesterol in HDL [Mass/Vol] 41 mg/dL Normal [facility] Comment on above: Result Comment: Domonique onal Cholesterol Education Program (NCEP) guidelines:<40 mg/dL: Low HDL-cholesterol (major risk factor for CHD)>= 60 mg/dL: High HDL-cholesterol (negative risk factor forCHD)HDL-cholesterol is affected by a number of factors, e.g.smoking, exercise, hormones, sex and age. Performed By: #### L 400.0001, L502.0250, L100.0100, L500.4100, M100.2200, L500.4050, L501.9985 ####[facility] [address] [place], [address] Cholesterol in LDL [Mass/Vol] 82 mg/dL Normal [facility] Comment on above: Result Comment: Bord llmres=358-190 mg/dL Higher Gwxg=135 mg/dL or greaterFriedwald Equation for LDL-C Performed By: #### L 400.0001, L502.0250, L100.0100, L500.4100, M100.2200, L500.4050, L501.9985 ####[facility] [address] [place], [place], [phone] Cholesterol in VLDL [Mass/Vol] 26 mg/dL Normal 5-40 [facility] Comment on above: Performed By: #### L 400.0001, L502.0250, L100.0100, L500.4100, M100.2200, L500.4050, L501.9985 ####[facility] [address] [place], [place], [id number] Triglyceride [Mass/Vol] 131 mg/dL Normal [facility] Comment on above: Result Comment: The drugs N-Acetylcysteine and Metamizole may falselydepress this assay.Normal range: <150 mg/dLBorderline High: 150-199 mg/dLHigh: 200-499 mg/dLVery High: >500 mg/dL Performed By: #### L 400.0001, L502.0250, L100.0100, L500.4100, M100.2200, L500.4050, L501.9985 ####[facility] [address] [place], [place], [id number] MCV (mean corpuscular volume ) determinationOrdered By: Yolis Fast on 12-11-2024 MCV (RBC) [Entitic vol] 89.5 fL 81-99 [facility] Mean corpuscular hemoglobin (MCH) determinationOrdered By: Yolis Fast on 12-11-2024 MCH (RBC) [Entitic mass] 31.4 pg 27.0-32.0 [facility] Mean corpuscular hemoglobin concentration (MCHC) determinationOrdered By: Yolis Fast on 12-11-2024 MCHC (RBC) [Mass/Vol] 35.0 g/dL 32-36 [facility] Mean platelet volume determi nationOrdered By: Yolis Fast on 12-11-2024 Platelet mean volume (Bld) [Entitic vol] 10.0 fL 6.2-12.0 [facility] Microalb:Creat Ratio,Random URon 12-11-2024 Creatinine [Mass/Vol] 36.30 mg/dL Normal 28.00-217.00 [facility] Comment on above: Performed By: #### L 400.0001, L502.0250, L100.0100, L500.4100, M100.2200, L500.4050, L501.9985 ####[facility] [address] [place], [place], [phone] MALB:CREAT UNABLE TO CALCULATE Normal <30 mg/g CRE [facility] Comment on above: Performed By: #### L 400.0001, L502.0250, L100.0100, L500.4100, M100.2200, L500.4050, L501.9985 ####[facility] [address] [place], [place], [id number] MICROALBUMIN,UR < 12.0 Normal <20 mg/L [facility] Comment on above: Performed By: #### L 400.0001, L502.0250, L100.0100, L500.4100, M100.2200, L500.4050, L501.9985 ####[facility] [address] [place], [place], [phone] Microalbumin/creat ratio urO rdered By: Yolis Fast on 12-11-2024 Urine microalbumin/creatinine ratio measurement UNABLE TO CALCULATE mg/g CRE <30 [facility] Microscopic analysis of urin e for red blood cells (RBC)Ordered By: Yolis Fast on 12-11-2024 Microscopic analysis of urine for red blood cells (RBC) 0 SEEN /hpf 0-5 [facility] Monocyte percentageOrdered B y: Yolis Fast on 12-11-2024 Monocytes/100 WBC (Bld) 7.4 % 0-10 [facility] Mucus LM Ql (Urine sed)Order ed By: on 12-11-2024 Mucus Ql (Urine sed) 0 SEEN /hpf [facility] Neutrophil percentageOrdered By: 12-11-2024 Neutrophils/100 WBC (Bld) 66.1 % 47-70 [facility] Nitrite Test strip Ql (U)Ord ered By: on 12-11-2024 Nitrite Ql (U) Negative Negative [facility] Nucleated red blood cell per centageOrdered By: on 12-11-2024 Nucleated RBC/100 WBC (Bld) [Ratio] 0 % 0-5 [facility] Platelet countOrdered By: Mathis on 12-11-2024 Platelets (Bld) [#/Vol] 213 10*3/uL 150-450 [facility] Potassium measurement (mass/ volume)Ordered By: 12-11-2024 Potassium (Unsp spec) [Mass/Vol] 4.2 mmol/L 3.3-5.1 [facility] Protein Test strip Ql (U)Ord ered By: on 12-11-2024 Protein Ql (U) Negative Negative [facility] RBC Auto (Bld) [#/Vol]Ordere d By: 12-11-2024 RBC (Bld) [#/Vol] 4.21 10*6/uL 4.2-5.4 [facility] Random urine creatinine riccardo urement (mass/volume)Ordered By: on 12-11-2024 Creatinine Unsp time (U) [Mass/Vol] 36.30 mg/dL 28.00-217.00 [facility] Screening total cholesterol/ high density lipoprotein (HDL) cholesterol ratioOrdered By: 12-11-2024 Cholesterol.total/Choles terol in HDL [Mass ratio] 3.62 {ratio} [facility] Serum creatinine measurement (mass/volume)Ordered By: 12-11-2024 Creatinine [Mass/Vol] 0.58 mg/dL Low 0.70-1.20 [facility] Serum globulin measurementOr dered By: on 12-11-2024 Globulin (S) [Mass/Vol] 2.5 g/dL 2.2-4.2 [facility] Serum glucose measurement (m ass/volume)Ordered By: on 12-11-2024 Glucose [Mass/Vol] 108 mg/dL High 70-99 [facility] Serum or plasma alanine hernandez otransferase (ALT) measurementOrdered By: on 12-11-2024 ALT [Catalytic activity/Vol] 22 U/L <35 [facility] Serum or plasma albumin riccardo urement (mass/volume)Ordered By: on 12-11-2024 Albumin [Mass/Vol] 4.1 g/dL 3.4-4.8 [facility] Serum or plasma albumin/glob ulin mass ratioOrdered By: on 12-11-2024 Albumin/Globulin [Mass ratio] 1.7 {ratio} 0.9-2.4 [facility] Serum or plasma alkaline chel sphatase measurementOrdered By: on 12-11-2024 ALP [Catalytic activity/Vol] 117 U/L High 35-104 [facility] Serum or plasma calcium riccardo urement (mass/volume)Ordered By: on 12-11-2024 Calcium [Mass/Vol] 9.6 mg/dL 7.6-11.0 [facility] Serum or plasma cholesterol in HDL measurement (mass/volume)Ordered By: on 12-11-2024 Cholesterol in HDL [Mass/Vol] 41 mg/dL >40 [facility] Comment on above: National Cholesterol Education Program (NCEP) guidelines:<40 mg/dL: Low HDL-cholesterol (major risk factor for CHD)>= 60 mg/dL: High HDL-cholesterol (negative risk factor for CHD)HDL-cholesterol is affected by a number of factors, e.g. smoking, exercise, hormones, sex and age. Serum or plasma cholesterol measurement (mass/volume)Ordered By: on 12-11-2024 Cholesterol [Mass/Vol] 149 mg/dL <201 [facility] Comment on above: Cholesterol level, D esirable <200 mg/dLBorderline high cholesterol 200-239 mg/dLHigh cholesterol >=240 mg/dLRecommendations of the NCEP Adult Treatment Panel for the following risk-cutoff thresholds for the [place] population. Serum or plasma urea nitroge n measurement (mass/volume)Ordered By: Yolis Fast on 12-11-2024 Urea nitrogen [Mass/Vol] 9 mg/dL 4-19 [facility] Sodium levelOrdered By: Debr a Fast on 12-11-2024 Sodium [Moles/Vol] 129 mmol/L Low 133-145 [facility] Squamous epithelial cells de tection in urine sediment by light microscopyOrdered By: Yolis Fast on 12-11-2024 Epithelial cells.squamous LM Ql (Urine sed) 0 SEEN /hpf 5-10 [facility] Total proteinOrdered By: Shruthi ra Fast on 12-11-2024 Protein [Mass/Vol] 6.6 g/dL 5.9-8.4 [facility] Triglycerides measurementOrd ered By: Yolis on 12-11-2024 Triglyceride [Mass/Vol] 131 mg/dL <199 [facility] Comment on above: The drugs N-Acetylcy steine and Metamizole may falsely depress this assay. Normal range: <150 mg/dLBorderline High: 150-199 mg/dLHigh: 200-499 mg/dLVery High: >500 mg/dL Urinalysis, Completeon 12-11 WBC 0-5 SEEN Normal 0-5 [facility] Comment on above: Order Comment: CLEAN CATCH Performed By: #### L 400.0001, L502.0250, L100.0100, L500.4100, M100.2200, L500.4050, L501.9985 ####[facility] [address] [place], [address] BACTERIA 0 SEEN Normal None Seen [facility] Comment on above: Order Comment: CLEAN CATCH Performed By: #### L 400.0001, L502.0250, L100.0100, L500.4100, M100.2200, L500.4050, L501.9985 ####[facility] [address] [place], [address] EPI,SQUAMOUS 0 SEEN Normal 5-10 [facility] Comment on above: Order Comment: CLEAN CATCH Performed By: #### L 400.0001, L502.0250, L100.0100, L500.4100, M100.2200, L500.4050, L501.9985 ####[facility] [address] [place], [place], [id number] Mucus Ql (Urine sed) 0 SEEN Normal [facility] Comment on above: Order Comment: CLEAN CATCH Performed By: #### L 400.0001, L502.0250, L100.0100, L500.4100, M100.2200, L500.4050, L501.9985 ####[facility] [address] [place], [place], [phone] RBC 0 SEEN Normal 0-5 [facility] Comment on above: Order Comment: CLEAN CATCH Performed By: #### L 400.0001, L502.0250, L100.0100, L500.4100, M100.2200, L500.4050, L501.9985 ####[facility] [address] [place], [place], [id number] Urine albumin measurement wi th detection limit of 20 mg/L or less (mass/volume)Ordered By: Yolis Fast on 12-11-2024 Albumin DL <= 20 mg/L (U) [Mass/Vol] < 12.0 mg/L <20 mg/L [facility] Urine clarityOrdered By: Shruthi ra Fast on 12-11-2024 Clarity (U) Clear Clear [facility] Urine color determinationOrd ered By: Yolis Fast on 12-11-2024 Color (U) Yellow Yellow [facility] Urine cultureOrdered By: Shruthi ra Fast on 12-11-2024 Bacteria identified Cx Nom (U) Culture exhibits no growth. [facility] Urine glucose detectionOrder ed By: Yolis Fast on 12-11-2024 Glucose Ql (U) Normal mg/dl Normal [facility] Urine leukocyte esterase det ection by dipstickOrdered By: Yolis Fast on 12-11-2024 Leukocyte esterase Test strip Ql (U) 25 /ul High Negative [facility] Urine pHOrdered By: Yolis sosa on 12-11-2024 pH (U) 6.5 [pH] 5.0 - 8.0 [facility] Urine sediment bacteria coun t by microscopy (number/high power field)Ordered By: Yolis Yu on 12-11-2024 Bacteria LM.HPF (Urine sed) [#/Area] 0 /[HPF] None Seen [facility] Urine specific gravity measu rementOrdered By: Yolis Yu on 12-11-2024 Specific gravity (U) [Rel density] 1.010 1.002-1.030 [facility] Urine urobilinogen measureme ntOrdered By: Yolis Yu on 12-11-2024 Urobilinogen Ql (U) Normal mg/dl Normal [facility] White blood cell (WBC) count Ordered By: Yolis Yu on 12-11-2024 WBC (Bld) [#/Vol] 6.4 10*3/uL 4.4-11.0 [facility] White blood cell countOrdere d By: Yolis Yu on 12-11-2024 White blood cell count 0-5 SEEN /hpf 0-5 [facility] Re-Evaluation - PT (1)on Re-Evaluation - PT (1) Normal [facility] ABD Limited w/ Elastographyo n 11-27-2024 ABD Limited w/ Elastography Normal [facility] Bone density reportOrdered B y: Ryan Green on 11-27-2024 Study report Skeletal system DXA [facility] [address] [place] [address] Dexa Bone Density Study MR#: [id number] Acct: [id number] Name: YUSRA LUIS Rep #: [id number] : 1945 F 79 From: Max Green MD PCP: Dr. Yolis Yu DO Status: REG CLI Study:Dexa Bone Density Study Date of Exam: 11/27/24 Exam# [id number] Ordering Dr: Shruthi Yu ra DO PROCEDURE: DEXA BONE DENSITY STUDY 11/27/2024 REASON FOR EXAM: F, age 79 y/o . Postmenopausal. TECHNIQUE: DEXA BONE DENSITY STUDY COMPARISON: None FINDINGS: BMD and T-SCORES Lumbar spine: 0.728 g/cm2, T-score -2 point Levels: L1 through L4 Left femoral neck: 0.428 g/cm2, T-score -3.8 Femoral neck comparison data not recommended for monitoring change. Left total hip: 0.622 g/cm2, T-score -2.6 Right femoral neck: 0.470 g/cm2, T-score -3.4 Femoral neck comparison data not recommended for monitoring change. Right total hip: 0.545 g/cm2, T-score -3.3 The World Health Organization has defined the following categories based on bonedensity: Normal bone density: T-score equal to or greater than -1.0 Osteopenia: T-score between -1.0 and -2.5 Osteoporosis: T-score equal to or less than -2.5 The patient does meet the pharmacological treatment recommendations for prevention of osteoporosis. BD/Dexa Bone Density Study IMPRESSION: OSTEOPOROSIS. Recommend follow-up as clinically warranted. Reading Location: [facility] CC: Dr. Yolis Yu DO ~ Night Time Nanny: Signed [facility] Breast imaging reportOrdered By: Ryan Green on 11-27-2024 Study report [facility] [address] [place], [place] [address] SCRN MAMM (CAD)W/ANTONIO BILAT MR#: [id number] Acct: [id number] Name: YUSRA LUIS Rep #: [id number] : 1945 F 79 From: Max Green MD PCP: Dr. Yolis Yu DO Status: REG CLI Study:SCRN MAMM (CAD)W/ANTONIO BILAT Date of Exa m: 11/27/24 Exam# [id number] Ordering Dr: Shruthi Yu ra, DO EXAM: SCRN MAMM (CAD)W/ANTONIO BILAT DATE: 11/27/2024 CLINICAL HISTORY: F, Age 79 y/o , SCREENING No family history. TECHNIQUE: SCRN MAMM (CAD)W/ANTONIO BILAT COMPARISON: Prior exam(s) dated November 24, 2023.. FINDINGS: TISSUE DENSITY: There are scattered areas of fibroglandular density. Bilateral Breast Mammographic Findings: Stable 1.1 cm x 1.9 cm heterogeneous nodule containing fat in the upper lateral aspect of the right breast. This most likely represents an MR Nohemy. Stable calcified nodule in the upper central medial portion of the left breast. A pacemaker battery pack is seen in the left axilla. No suspicious masses, areas of developing architectural distortion, or suspicious calcifications. There has been no significant interval change. BI/SCRN MAMM (CAD)W/ANTONIO BILAT IMPRESSION: Stable examination. OVERALL FINAL ASSESSMENT BI-RADS 2: BENIGN RECOMMENDATION: Routine annual follow-up in 1 Year A letter with findings and recommendations will be mailed to the patient. Reading Location: [facility] CC: Dr. Yolis Yu DO ~ Night Time Nanny: Signed [facility] Carotid Duplex Ultrasoundon 11-27-2024 Carotid Duplex Ultrasound Normal [facility] Dexa Bone Density Studyon Dexa Bone Density Study Normal [facility] Duplex ultrasound of carotid artery reportOrdered By: Ovi Hugo on 11-27-2024 Study report [facility] [address] [place] [address]. [place] [address] Carotid Duplex Ultrasound 11/27/24 0844 MR#: [id number] Acct: [id number] Name: YUSRA LUIS Rep #:[id number] : 1945 79 From: Ovi Hugo MD Attending Dr: DO Paul Flores atus: REG CLI Ordering : Yolis Yu DO Date: 11/09 01/03 Location: OPBD Sex: F C Admitted: Reason For Study Reason For Study: CAROTID STENOSIS Rt. Velocities/BP Lt. Velocities/BP Prox CCA 130.8/13.9 cm/sec. Prox CCA 118.6/13.0 cm/sec. Mid CCA 96.9/15.8 cm/sec. Mid CCA 84.2/17.9 cm/sec. Dist CCA 66.2/12.2 cm/sec. Dist CCA 81.8/20.4 cm/sec. Prox ICA 55.1/12.2 cm/sec. Prox ICA 60.4/16.2 cm/sec. Mid ICA 88.3/19.5 cm/sec. Mid ICA 93.2/30.6 cm/sec. Dist ICA 93.2/22.0 cm/sec. Dist ICA 84.6/23.2 cm/sec. Rt. ICA/CCA = 93.2/96.9=1.0. Lt. ICA/CCA = 93.2/84.2=1.1. Prox ECA 79.7/9.7 cm/sec. Prox ECA 100.2/9.3 cm/sec. Rt. Vert. 61.4/14.2 cm/sec. Lt. Vert. 25.2/6.9 cm/sec. Right Extracranial There is homogeneous, smooth atherosclerotic plaque noted in the right common carotid artery. There is heterogeneous, irregular atherosclerotic plaque noted in the right internal carotid artery. There is intimal thickening but no significant atherosclerotic plaque noted in the right external carotid artery. Antegrade flow is noted in the right vertebral artery. Left Extracranial There is intimal thickening but no significant atherosclerotic plaque noted in the left common carotid artery. There is heterogeneous, irregular atherosclerotic plaque noted in the left internal carotid artery. The atherosclerotic plaque causes acoustic shadowing. There is homogeneous, smooth atherosclerotic plaque noted in the left external carotid artery. Antegrade flow is noted in the left vertebral artery. Procedure Carotid Duplex 42660. This is a Carotid Duplex examination using B-mode, color flow and specral Doppler. Exam performed in department. VL/Carotid Duplex Ultrasound Interpretation Summary Mild (<50%) stenosis right extracranial internal carotid. Mild (<50%) stenosis left extracranial internal carotid. Severe acoustic shadowing is noted in the left internal carotid artery, obscuring afjardo-scale imaging of the arterial lumen. The determination of luminal stenosis is based upon velocity criteria alone, and may be greater than that estimated by velocity measurements. Therefore, clinical correlation is advised. Alternative imaging modalities could be considered if felt clinically warranted. Flow within the right verterbral arteryis antegrade. A high resistance flow pattern is noted in the left vertebral artery, which may be indicative of a severe obstruction distally. Clinical correlation is advised. Ordering Physician: Yolis Yu Referring Physician: Yolis Yu Performed By: Gabi Goodman, RDCS, RVT 11/27/242208 Date _ Ovi Hugo MD CC: Dr. Yolis Yu, DO ~ Date Dictated: 11/27/24843 Date Transcribed: 11/27/242208 Night Time Nanny: Signed [facility] Work Phone: SCRN MAMM (CAD)W/ANTONIO BILATo n 11-27-2024 SCRN MAMM (CAD)W/ANTONIO BILAT Normal [facility] Re-Evaluation - PT (1)on Re-Evaluation - PT (1) Normal [facility] Gastroenterology Visit Repor ton 09-26-2024 Gastroenterology Visit Report Normal [facility] Colonoscopy Reporton 025 Colonoscopy Report Normal [facility] EGD Reporton 09-13-2024 EGD Report Normal [facility] Immunohistochemical Stainson 09-13-2024 Immunohistochemical Stains Normal [facility] Comment on above: Performed By: #### P IMMA ####[facility] [address] [place], [address] MR/POSTOP.ANEon 09-13-2024 MR/POSTOP.ANE Normal [facility] MR/ZPQTGLUO6et 09-13-2024 MR/POSTOPAN2 Normal [facility] MR/PAT.ANEon 09-07-2024 MR/PAT.ANE Normal [facility] Inital Evaluation (1) - PTon 09-05-2024 Inital Evaluation (1) - PT Normal [facility] Ribs Bilat 3V No CXRon 08-29 Ribs Bilat 3V No CXR Normal [facility] Sternum min 2 Viewson 2024 Sternum min 2 Views Normal [facility] Venous Duplex US - Pablo Extre mon 08-15-2024 Venous Duplex US - Pablo Extrem Normal [facility] Venous duplex ultrasound rep ortOrdered By: Ovi Hugo on 08-15-2024 US Vein [facility] [address] [place] [address] Venous Duplex US - Pablo Extrem 08/15/24 1125 MR#: [id number] Acct: [id number] Name: YUSRA LUIS Rep #:[id number] : 1945 79 From: Ovi Hugo MD [...] preliminary report was called and/or faxed to [facility]. VL/Venous Duplex US - Pablo Extrem Interpretation [...] ~ Date Dictated: 08/15/245 Date Transcribed: 08/15/242310 Night Time Nanny: Signed [facility] Other Gastroenterology Visit Repor ton 07-05-2024 Gastroenterology Visit Report Normal [facility] Surgery Visit Reporton 06-27 Surgery Visit Report Normal [facility] Surgery Visit Reporton 05-29 Surgery Visit Report Normal [facility] Basic Metabolic Profile (BMP )on 05-17-2024 BUN Normal 7-18 [facility] Comment on above: Result Comment: Canc elled via OM: Order cancelled - Patient discharged Performed By: #### L 500.2500, L100.0100 ####[facility] [address] [place], [address] BUN/CRE Normal 10-20 [facility] Comment on above: Result Comment: Canc elled via OM: Order cancelled - Patient discharged Performed By: #### L 500.2500, L100.0100 ####[facility] [address] [place], [address] CA,Total Normal 8.5-10.1 [facility] Comment on above: Result Comment: Canc elled via OM: Order cancelled - Patient discharged Performed By: #### L 500.2500, L100.0100 ####[facility] [address] [place], [address] CL Normal 98-107 [facility] Comment on above: Result Comment: Canc elled via OM: Order cancelled - Patient discharged Performed By: #### L 500.2500, L100.0100 ####[facility] [address] [place], [address] CO2 Normal 21.0-32.0 [facility] Comment on above: Result Comment: Canc elled via OM: Order cancelled - Patient discharged Performed By: #### L 500.2500, L100.0100 ####[facility] [address] [place], [address] CREAT,SERUM Normal 0.55-1.02 [facility] Comment on above: Result Comment: Canc elled via OM: Order cancelled - Patient discharged Performed By: #### L 500.2500, L100.0100 ####[facility] [address] [place], [address] EST GFR Normal >60 [facility] Comment on above: Result Comment: Canc elled via OM: Order cancelled - Patient discharged Performed By: #### L 500.2500, L100.0100 ####[facility] [address] [place], [address] EST GFR - AA Normal >60 [facility] Comment on above: Result Comment: Canc elled via OM: Order cancelled - Patient discharged Performed By: #### L 500.2500, L100.0100 ####[facility] [address] [place], [address] GAP Normal 5-15 [facility] Comment on above: Result Comment: Canc elled via OM: Order cancelled - Patient discharged Performed By: #### L 500.2500, L100.0100 ####[facility] [address] [place], [address] GLU Normal 74-106 [facility] Comment on above: Result Comment: Canc elled via OM: Order cancelled - Patient discharged Performed By: #### L 500.2500, L100.0100 ####[facility] [address] [place], [address] Potassium Normal 3.5-5.1 [facility] Comment on above: Result Comment: Canc elled via OM: Order cancelled - Patient discharged Performed By: #### L 500.2500, L100.0100 ####[facility] [address] [place], [address] Basic Metabolic Profile (BMP) Normal 136-145 [facility] Comment on above: Result Comment: Canc elled via OM: Order cancelled - Patient discharged Performed By: #### L 500.2500, L100.0100 ####[facility] [address] [place], [address] CBC W/Diff, Automatedon 02-0 -2024 Absolute Neut Normal 2.0-7.7 [facility] Comment on above: Result Comment: Canc elled via OM: Order cancelled - Patient discharged Performed By: #### L 500.2500, L100.0100 ####[facility] [address] [place], [address] HCT Normal 37-47 [facility] Comment on above: Result Comment: Canc elled via OM: Order cancelled - Patient discharged Performed By: #### L 500.2500, L100.0100 ####[facility] [address] [place], [address] HGB Normal 12.0-15.0 [facility] Comment on above: Result Comment: Canc elled via OM: Order cancelled - Patient discharged Performed By: #### L 500.2500, L100.0100 ####[facility] [address] [place], [address] MCH Normal 27.0-32.0 [facility] Comment on above: Result Comment: Canc elled via OM: Order cancelled - Patient discharged Performed By: #### L 500.2500, L100.0100 ####[facility] [address] [place], [address] MCHC Normal 32-36 [facility] Comment on above: Result Comment: Canc elled via OM: Order cancelled - Patient discharged Performed By: #### L 500.2500, L100.0100 ####[facility] [address] [place], [address] MCV Normal 81-99 [facility] Comment on above: Result Comment: Canc elled via OM: Order cancelled - Patient discharged Performed By: #### L 500.2500, L100.0100 ####[facility] [address] [place], [address] NEUT% Normal 47-70 [facility] Comment on above: Result Comment: Canc elled via OM: Order cancelled - Patient discharged Performed By: #### L 500.2500, L100.0100 ####[facility] [address] [place], [address] PLT Normal 150-450 [facility] Comment on above: Result Comment: Canc elled via OM: Order cancelled - Patient discharged Performed By: #### L 500.2500, L100.0100 ####[facility] [address] [place], [address] RBC Normal 4.2-5.4 [facility] Comment on above: Result Comment: Canc elled via OM: Order cancelled - Patient discharged Performed By: #### L 500.2500, L100.0100 ####[facility] [address] [place], [address] RDW CV Normal 11.6-14.6 [facility] Comment on above: Result Comment: Canc elled via OM: Order cancelled - Patient discharged Performed By: #### L 500.2500, L100.0100 ####[facility] [address] [place], [address] RDW SD Normal 35.1-43.9 [facility] Comment on above: Result Comment: Canc elled via OM: Order cancelled - Patient discharged Performed By: #### L 500.2500, L100.0100 ####[facility] [address] [place], [address] WBC Normal 4.4-11.0 [facility] Comment on above: Result Comment: Canc elled via OM: Order cancelled - Patient discharged Performed By: #### L 500.2500, L100.0100 ####[facility] [address] [place], [address] Basic Metabolic Profile (BMP )on 05-16-2024 BUN Normal 7-18 [facility] Comment on above: Result Comment: Canc elled via OM: Order cancelled - Patient discharged Performed By: #### L 100.0100, L500.2500 ####[facility] [address] [place], [address] BUN/CRE Normal 10-20 [facility] Comment on above: Result Comment: Canc elled via OM: Order cancelled - Patient discharged Performed By: #### L 100.0100, L500.2500 ####[facility] [address] [place], [address] CA,Total Normal 8.5-10.1 [facility] Comment on above: Result Comment: Canc elled via OM: Order cancelled - Patient discharged Performed By: #### L 100.0100, L500.2500 ####[facility] [address] [place], [address] CL Normal 98-107 [facility] Comment on above: Result Comment: Canc elled via OM: Order cancelled - Patient discharged Performed By: #### L 100.0100, L500.2500 ####[facility] [address] [place], [address] CO2 Normal 21.0-32.0 [facility] Comment on above: Result Comment: Canc elled via OM: Order cancelled - Patient discharged Performed By: #### L 100.0100, L500.2500 ####[facility] [address] [place], [address] CREAT,SERUM Normal 0.55-1.02 [facility] Comment on above: Result Comment: Canc elled via OM: Order cancelled - Patient discharged Performed By: #### L 100.0100, L500.2500 ####[facility] [address] [place], [address] EST GFR Normal >60 [facility] Comment on above: Result Comment: Canc elled via OM: Order cancelled - Patient discharged Performed By: #### L 100.0100, L500.2500 ####[facility] [address] [place], [address] EST GFR - AA Normal >60 [facility] Comment on above: Result Comment: Canc elled via OM: Order cancelled - Patient discharged Performed By: #### L 100.0100, L500.2500 ####[facility] [address] [place], [address] GAP Normal 5-15 [facility] Comment on above: Result Comment: Canc elled via OM: Order cancelled - Patient discharged Performed By: #### L 100.0100, L500.2500 ####[facility] [address] [place], [address] GLU Normal 74-106 [facility] Comment on above: Result Comment: Canc elled via OM: Order cancelled - Patient discharged Performed By: #### L 100.0100, L500.2500 ####[facility] [address] [place], [address] Potassium Normal 3.5-5.1 [facility] Comment on above: Result Comment: Canc elled via OM: Order cancelled - Patient discharged Performed By: #### L 100.0100, L500.2500 ####[facility] [address] [place], [address] Basic Metabolic Profile (BMP) Normal 136-145 [facility] Comment on above: Result Comment: Canc elled via OM: Order cancelled - Patient discharged Performed By: #### L 100.0100, L500.2500 ####[facility] [address] [place], [address] CBC W/Diff, Automatedon 02-0 -2024 Absolute Neut Normal 2.0-7.7 [facility] Comment on above: Result Comment: Canc elled via OM: Order cancelled - Patient discharged Performed By: #### L 100.0100, L500.2500 ####[facility] [address] [place], [address] HCT Normal 37-47 [facility] Comment on above: Result Comment: Canc elled via OM: Order cancelled - Patient discharged Performed By: #### L 100.0100, L500.2500 ####[facility] [address] [place], [address] HGB Normal 12.0-15.0 [facility] Comment on above: Result Comment: Canc elled via OM: Order cancelled - Patient discharged Performed By: #### L 100.0100, L500.2500 ####[facility] [address] [place], [address] MCH Normal 27.0-32.0 [facility] Comment on above: Result Comment: Canc elled via OM: Order cancelled - Patient discharged Performed By: #### L 100.0100, L500.2500 ####[facility] [address] [place], [address] MCHC Normal 32-36 [facility] Comment on above: Result Comment: Canc elled via OM: Order cancelled - Patient discharged Performed By: #### L 100.0100, L500.2500 ####[facility] [address] [place], [address] MCV Normal 81-99 [facility] Comment on above: Result Comment: Canc elled via OM: Order cancelled - Patient discharged Performed By: #### L 100.0100, L500.2500 ####[facility] [address] [place], [address] NEUT% Normal 47-70 [facility] Comment on above: Result Comment: Canc elled via OM: Order cancelled - Patient discharged Performed By: #### L 100.0100, L500.2500 ####[facility] [address] [place], [address] PLT Normal 150-450 [facility] Comment on above: Result Comment: Canc elled via OM: Order cancelled - Patient discharged Performed By: #### L 100.0100, L500.2500 ####[facility] [address] [place], [address] RBC Normal 4.2-5.4 [facility] Comment on above: Result Comment: Canc elled via OM: Order cancelled - Patient discharged Performed By: #### L 100.0100, L500.2500 ####[facility] [address] [place], [address] RDW CV Normal 11.6-14.6 [facility] Comment on above: Result Comment: Canc elled via OM: Order cancelled - Patient discharged Performed By: #### L 100.0100, L500.2500 ####[facility] [address] [place], [address] RDW SD Normal 35.1-43.9 [facility] Comment on above: Result Comment: Canc elled via OM: Order cancelled - Patient discharged Performed By: #### L 100.0100, L500.2500 ####[facility] [address] [place], [address] WBC Normal 4.4-11.0 [facility] Comment on above: Result Comment: Canc elled via OM: Order cancelled - Patient discharged Performed By: #### L 100.0100, L500.2500 ####[facility] [address] [place], [address] Absolute lymphocyte countOrd ered By: Sammy Potts on 05-15-2024 Lymphocytes Auto (Unsp spec) [#/Vol] 1.46 10*3/uL 0.83-4.51 [facility] Absolute neutrophil countOrd ered By: Sammy Potts on 05-15-2024 Neutrophils (Bld) [#/Vol] 2.5 10*3/uL 2.0-7.7 [facility] Automated lymphocyte count a s percentage of total leukocytesOrdered By: Sammy Potts on 05-15-2024 Lymphocytes/100 WBC Auto (Unsp spec) 29.5 % 19-41 [facility] Basic Metabolic Profile (BMP )on 05-15-2024 BUN/CRE 18.6 RATIO Normal 10-20 [facility] Comment on above: Performed By: #### L 500.2500, L501.2300, L100.0100, L501.5200 ####[facility] [address] [place], [address] CA,Total 9.4 mg/dL Normal 8.5-10.1 [facility] Comment on above: Performed By: #### L 500.2500, L501.2300, L100.0100, L501.5200 ####[facility] [address] [place], [address] Chloride [Moles/Vol] 108 mmol/L High 98-107 [facility] Comment on above: Performed By: #### L 500.2500, L501.2300, L100.0100, L501.5200 ####[facility] [address] [place], [address] CO2 [Moles/Vol] 22.0 mmol/L Normal 21.0-32.0 [facility] Comment on above: Performed By: #### L 500.2500, L501.2300, L100.0100, L501.5200 ####[facility] [address] [place], [address] Creatinine [Mass/Vol] 0.48 mg/dL Low 0.55-1.02 [facility] Comment on above: Result Comment: The validity of the calculated GFR GFRAA in patients over70 years has not been determined. Clinical correlation isessential. Performed By: #### L 500.2500, L501.2300, L100.0100, L501.5200 ####[facility] [address] [place], [address] ECRCL 51.33 ml/min Normal [facility] Comment on above: Performed By: #### L 500.2500, L501.2300, L100.0100, L501.5200 ####[facility] [address] [place], [address] EST GFR - AA 159 mL/min Normal >60 [facility] Comment on above: Result Comment: Afri can [place] GFR Calc Performed By: #### L 500.2500, L501.2300, L100.0100, L501.5200 ####[facility] [address] [place], [address] GAP 7 Normal 5-15 [facility] Comment on above: Performed By: #### L 500.2500, L501.2300, L100.0100, L501.5200 ####[facility] [address] [place], [address] GFR/1.73 sq M.predicted among non-blacks MDRD (S/P/Bld) [Vol rate/Area] 131 mL/min/{1.73_m2} Normal >60 [facility] Comment on above: Result Comment: Non- GFR Calc Performed By: #### L 500.2500, L501.2300, L100.0100, L501.5200 ####[facility] [address] [place], [address] Glucose [Mass/Vol] 91 mg/dL Normal 74-106 [facility] Comment on above: Performed By: #### L 500.2500, L501.2300, L100.0100, L501.5200 ####[facility] [address] [place], [address] Potassium [Moles/Vol] 3.8 mmol/L Normal 3.5-5.1 [facility] Comment on above: Performed By: #### L 500.2500, L501.2300, L100.0100, L501.5200 ####[facility] [address] [place], [address] Sodium [Moles/Vol] 137 mmol/L Normal 136-145 [facility] Comment on above: Performed By: #### L 500.2500, L501.2300, L100.0100, L501.5200 ####[facility] [address] [place], [address] Urea nitrogen [Mass/Vol] 9 mg/dL Normal 7-18 [facility] Comment on above: Performed By: #### L 500.2500, L501.2300, L100.0100, L501.5200 ####[facility] [address] [place], [address] Basophil percentageOrdered B y: Sammy Potts on 05-15-2024 Basophils/100 WBC (Bld) 1.6 % High 0-1 [facility] Blood urea nitrogen (BUN)/cr eatinine ratioOrdered By: Sammy Potts on 05-15-2024 Urea nitrogen/Creatinine [Mass ratio] 18.6 mg/mg 10-20 [facility] CBC W/Diff, Automatedon Absolute Lymph 1.46 X10 3/uL Normal 0.83-4.51 [facility] Comment on above: Performed By: #### L 500.2500, L501.2300, L100.0100, L501.5200 ####[facility] [address] [place], [address] Absolute Neut 2.5 X10 3/uL Normal 2.0-7.7 [facility] Comment on above: Performed By: #### L 500.2500, L501.2300, L100.0100, L501.5200 ####[facility] [address] [place], [address] Basophils/100 WBC (Bld) 1.6 % High 0-1 [facility] Comment on above: Performed By: #### L 500.2500, L501.2300, L100.0100, L501.5200 ####[facility] [address] [place], [address] Eosinophils/100 WBC (Bld) 4.4 % Normal 0-5 [facility] Comment on above: Performed By: #### L 500.2500, L501.2300, L100.0100, L501.5200 ####[facility] [address] [place], [address] Erythrocyte distribution width (RBC) [Ratio] 12.7 % Normal 11.6-14.6 [facility] Comment on above: Performed By: #### L 500.2500, L501.2300, L100.0100, L501.5200 ####[facility] [address] [place], [address] Hematocrit (Bld) [Volume fraction] 36.3 % Low 37-47 [facility] Comment on above: Performed By: #### L 500.2500, L501.2300, L100.0100, L501.5200 ####[facility] [address] [place], [address] Hemoglobin (Bld) [Mass/Vol] 11.9 g/dL Low 12.0-15.0 [facility] Comment on above: Performed By: #### L 500.2500, L501.2300, L100.0100, L501.5200 ####[facility] [address] [place], [address] IG% 1.200 High 0.0-0.9 [facility] Comment on above: Result Comment: IG% - Immature Granulocytes (promyelocytes, myelocytes andmetamyelocytes) > 1% indicates that a LEFT SHIFT is Present. Performed By: #### L 500.2500, L501.2300, L100.0100, L501.5200 ####[facility] [address] [place], [address] Lymphocytes/100 WBC (Bld) 29.5 % Normal 19-41 [facility] Comment on above: Performed By: #### L 500.2500, L501.2300, L100.0100, L501.5200 ####[facility] [address] [place], [address] MCH (RBC) [Entitic mass] 30.3 pg Normal 27.0-32.0 [facility] Comment on above: Performed By: #### L 500.2500, L501.2300, L100.0100, L501.5200 ####[facility] [address] [place], [address] MCHC (RBC) [Mass/Vol] 32.8 g/dL Normal 32-36 [facility] Comment on above: Performed By: #### L 500.2500, L501.2300, L100.0100, L501.5200 ####[facility] [address] [place], [address] MCV (RBC) [Entitic vol] 92.4 fL Normal 81-99 [facility] Comment on above: Performed By: #### L 500.2500, L501.2300, L100.0100, L501.5200 ####[facility] [address] [place], [address] Monocytes/100 WBC (Bld) 12.3 % High 0-10 [facility] Comment on above: Performed By: #### L 500.2500, L501.2300, L100.0100, L501.5200 ####[facility] [address] [place], [address] Neutrophils/100 WBC (Bld) 51.0 % Normal 47-70 [facility] Comment on above: Performed By: #### L 500.2500, L501.2300, L100.0100, L501.5200 ####[facility] [address] [place], [address] Nucleated RBC (Bld) [#/Vol] 0 10*3/uL Normal 0-5 [facility] Comment on above: Performed By: #### L 500.2500, L501.2300, L100.0100, L501.5200 ####[facility] [address] [place], [address] Platelet mean volume (Bld) [Entitic vol] 9.5 fL Normal 6.2-12.0 [facility] Comment on above: Performed By: #### L 500.2500, L501.2300, L100.0100, L501.5200 ####[facility] [address] [place], [address] Platelets (Bld) [#/Vol] 275 10*3/uL Normal 150-450 [facility] Comment on above: Performed By: #### L 500.2500, L501.2300, L100.0100, L501.5200 ####[facility] [address] [place], [address] RBC (Bld) [#/Vol] 3.93 10*6/uL Low 4.2-5.4 [facility] Comment on above: Performed By: #### L 500.2500, L501.2300, L100.0100, L501.5200 ####[facility] [address] [place], [address] RDW SD 43.4 fl Normal 35.1-43.9 [facility] Comment on above: Performed By: #### L 500.2500, L501.2300, L100.0100, L501.5200 ####[facility] [address] [place], [address] WBC (Bld) [#/Vol] 5.0 10*3/uL Normal 4.4-11.0 [facility] Comment on above: Performed By: #### L 500.2500, L501.2300, L100.0100, L501.5200 ####[facility] [address] [place], [address] Carbon dioxide measurementOr dered By: Sammy Potts on 05-15-2024 CO2 [Moles/Vol] 22.0 mmol/L 21.0-32.0 [facility] Chloride measurementOrdered By: Sammy Potts on 05-15-2024 Chloride [Moles/Vol] 108 mmol/L High 98-107 [facility] Eosinophil percentageOrdered By: Sammy Potts on 05-15-2024 Eosinophils/100 WBC (Bld) 4.4 % 0-5 [facility] Erythrocyte distribution wid th ratioOrdered By: Sammy Potts on 05-15-2024 Erythrocyte distribution width (RBC) [Ratio] 12.7 % 11.6-14.6 [facility] Erythrocyte distribution wid th standard deviationOrdered By: Sammy Potts on 05-15-2024 Erythrocyte distribution width (RBC) [Ratio] 43.4 fl 35.1-43.9 [facility] Glomerular filtration rate ( GFR) estimationOrdered By: Sammy Potts on 05-15-2024 GFR/1.73 sq M.predicted among non-blacks MDRD (S/P/Bld) [Vol rate/Area] 131 mL/min/{1.73_m2} >60 [facility] Comment on above: Non- GFR Calc Glucose measurementOrdered B y: Sammy Potts on 05-15-2024 Glucose [Mass/Vol] 91 mg/dL 74-106 [facility] Hematocrit Auto (Bld) [Volum e fraction]Ordered By: Sammy Potts on 05-15-2024 Hematocrit (Bld) [Volume fraction] 36.3 % Low 37-47 [facility] Hemoglobin measurementOrdere d By: Sammy Potts on 05-15-2024 Hemoglobin (Bld) [Mass/Vol] 11.9 g/dL Low 12.0-15.0 [facility] Immature granulocytes/100 WB C Auto (Bld)Ordered By: Sammy Potts on 05-15-2024 Immature granulocytes/100 WBC (Bld) 1.200 % High 0.0-0.9 [facility] Comment on above: IG% - Immature Granu locytes (promyelocytes, myelocytes and metamyelocytes) > 1% indicates that a LEFT SHIFT is Present. MCV (mean corpuscular volume ) determinationOrdered By: Sammy Potts on 05-15-2024 MCV (RBC) [Entitic vol] 92.4 fL 81-99 [facility] Magnesiumon 05-15-2024 Magnesium [Mass/Vol] 2.1 mg/dL Normal 1.6-2.6 [facility] Comment on above: Performed By: #### L 500.2500, L501.2300, L100.0100, L501.5200 ####[facility] [address] [place], [address] Magnesium measurementOrdered By: Sammy Potts on 05-15-2024 Magnesium [Mass/Vol] 2.1 mg/dL 1.6-2.6 [facility] Mean corpuscular hemoglobin (MCH) determinationOrdered By: Sammy Potts on 05-15-2024 MCH (RBC) [Entitic mass] 30.3 pg 27.0-32.0 [facility] Mean corpuscular hemoglobin concentration (MCHC) determinationOrdered By: Sammy Potts on 05-15-2024 MCHC (RBC) [Mass/Vol] 32.8 g/dL 32-36 [facility] Mean platelet volume determi nationOrdered By: Sammy Potts on 05-15-2024 Platelet mean volume (Bld) [Entitic vol] 9.5 fL 6.2-12.0 [facility] Monocyte percentageOrdered B y: Sammy Potts on 05-15-2024 Monocytes/100 WBC (Bld) 12.3 % High 0-10 [facility] Neutrophil percentageOrdered By: Sammy Potts on 05-15-2024 Neutrophils/100 WBC (Bld) 51.0 % 47-70 [facility] Nucleated red blood cell per centageOrdered By: Sammy Potts on 05-15-2024 Nucleated RBC/100 WBC (Bld) [Ratio] 0 % 0-5 [facility] Phosphoruson 05-15-2024 Phosphate [Mass/Vol] 2.7 mg/dL Normal 2.5-4.9 [facility] Comment on above: Performed By: #### L 500.2500, L501.2300, L100.0100, L501.5200 ####[facility] [address] [place], [place], [id number] Platelet countOrdered By: Nithin Potts on 05-15-2024 Platelets (Bld) [#/Vol] 275 10*3/uL 150-450 [facility] Potassium measurementOrdered By: Sammy Potts on 05-15-2024 Potassium [Moles/Vol] 3.8 mmol/L 3.5-5.1 [facility] RBC Auto (Bld) [#/Vol]Ordere d By: Sammy Potts on 05-15-2024 RBC (Bld) [#/Vol] 3.93 10*6/uL Low 4.2-5.4 [facility] Serum anion gap measurementO rdered By: Sammy Potts on 05-15-2024 Anion gap [Moles/Vol] 7 mmol/L 5-15 [facility] Serum or plasma calcium riccardo urement (mass/volume)Ordered By: Sammy Potts on 05-15-2024 Calcium [Mass/Vol] 9.4 mg/dL 8.5-10.1 [facility] Serum or plasma creatinine m easurement (mass/volume)Ordered By: Sammy Potts on 05-15-2024 Creatinine [Mass/Vol] 0.48 mg/dL Low 0.55-1.02 [facility] Comment on above: The validity of the calculated GFR & GFRAA in patients over 70 years has not been determined. Clinical correlation is essential. Serum or plasma urea nitroge n measurement (mass/volume)Ordered By: Sammy Potts on 05-15-2024 Urea nitrogen [Mass/Vol] 9 mg/dL 7-18 [facility] Sodium levelOrdered By: Donnie Potts on 05-15-2024 Sodium [Moles/Vol] 137 mmol/L 136-145 [facility] White blood cell (WBC) count Ordered By: Sammy Potts on 05-15-2024 WBC (Bld) [#/Vol] 5.0 10*3/uL 4.4-11.0 [facility] Basic Metabolic Profile (BMP )on 05-14-2024 BUN/CRE 11.0 RATIO Normal 10-20 [facility] Comment on above: Performed By: #### L 500.2500, L100.0100 ####[facility] [address] [place], [address] CA,Total 9.6 mg/dL Normal 8.5-10.1 [facility] Comment on above: Performed By: #### L 500.2500, L100.0100 ####[facility] [address] [place], [address] Chloride [Moles/Vol] 106 mmol/L Normal 98-107 [facility] Comment on above: Performed By: #### L 500.2500, L100.0100 ####[facility] [address] [place], [address] CO2 [Moles/Vol] 22.0 mmol/L Normal 21.0-32.0 [facility] Comment on above: Performed By: #### L 500.2500, L100.0100 ####[facility] [address] [place], [address] Creatinine [Mass/Vol] 0.55 mg/dL Normal 0.55-1.02 [facility] Comment on above: Result Comment: The validity of the calculated GFR GFRAA in patients over70 years has not been determined. Clinical correlation isessential. Performed By: #### L 500.2500, L100.0100 ####[facility] [address] [place], [address] ECRCL 51.33 ml/min Normal [facility] Comment on above: Performed By: #### L 500.2500, L100.0100 ####[facility] [address] [place], [address] EST GFR - AA 138 mL/min Normal >60 [facility] Comment on above: Result Comment: Afri can Belarusian GFR Calc Performed By: #### L 500.2500, L100.0100 ####[facility] [address] [place], [address] GAP 7 Normal 5-15 [facility] Comment on above: Performed By: #### L 500.2500, L100.0100 ####[facility] [address] [place], [address] GFR/1.73 sq M.predicted among non-blacks MDRD (S/P/Bld) [Vol rate/Area] 114 mL/min/{1.73_m2} Normal >60 [facility] Comment on above: Result Comment: Non- GFR Calc Performed By: #### L 500.2500, L100.0100 ####[facility] [address] [place], [address] Glucose [Mass/Vol] 96 mg/dL Normal 74-106 [facility] Comment on above: Performed By: #### L 500.2500, L100.0100 ####[facility] [address] [place], [address] Potassium [Moles/Vol] 3.4 mmol/L Low 3.5-5.1 [facility] Comment on above: Performed By: #### L 500.2500, L100.0100 ####[facility] [address] [place], [address] Sodium [Moles/Vol] 135 mmol/L Low 136-145 [facility] Comment on above: Performed By: #### L 500.2500, L100.0100 ####[facility] [address] [place], [address] Urea nitrogen [Mass/Vol] 6 mg/dL Low 7-18 [facility] Comment on above: Performed By: #### L 500.2500, L100.0100 ####[facility] [address] [place], [address] CBC W/Diff, Automatedon 02-0 -2024 Absolute Lymph 1.41 X10 3/uL Normal 0.83-4.51 [facility] Comment on above: Performed By: #### L 500.2500, L100.0100 ####[facility] [address] [place], [address] Absolute Neut 2.5 X10 3/uL Normal 2.0-7.7 [facility] Comment on above: Performed By: #### L 500.2500, L100.0100 ####[facility] [address] [place], [address] Basophils/100 WBC (Bld) 1.4 % High 0-1 [facility] Comment on above: Performed By: #### L 500.2500, L100.0100 ####[facility] [address] [place], [address] Eosinophils/100 WBC (Bld) 3.8 % Normal 0-5 [facility] Comment on above: Performed By: #### L 500.2500, L100.0100 ####[facility] [address] [place], [address] Erythrocyte distribution width (RBC) [Ratio] 12.6 % Normal 11.6-14.6 [facility] Comment on above: Performed By: #### L 500.2500, L100.0100 ####[facility] [address] [place], [address] Hematocrit (Bld) [Volume fraction] 34.9 % Low 37-47 [facility] Comment on above: Performed By: #### L 500.2500, L100.0100 ####[facility] [address] [place], [address] Hemoglobin (Bld) [Mass/Vol] 11.8 g/dL Low 12.0-15.0 [facility] Comment on above: Performed By: #### L 500.2500, L100.0100 ####[facility] [address] [place], [address] IG% 1.200 High 0.0-0.9 [facility] Comment on above: Result Comment: IG% - Immature Granulocytes (promyelocytes, myelocytes andmetamyelocytes) > 1% indicates that a LEFT SHIFT is Present. Performed By: #### L 500.2500, L100.0100 ####[facility] [address] [place], [address] Lymphocytes/100 WBC (Bld) 28.0 % Normal 19-41 [facility] Comment on above: Performed By: #### L 500.2500, L100.0100 ####[facility] [address] [place], [address] MCH (RBC) [Entitic mass] 31.1 pg Normal 27.0-32.0 [facility] Comment on above: Performed By: #### L 500.2500, L100.0100 ####[facility] [address] [place], [address] MCHC (RBC) [Mass/Vol] 33.8 g/dL Normal 32-36 [facility] Comment on above: Performed By: #### L 500.2500, L100.0100 ####[facility] [address] [place], [address] MCV (RBC) [Entitic vol] 92.1 fL Normal 81-99 [facility] Comment on above: Performed By: #### L 500.2500, L100.0100 ####[facility] [address] [place], [address] Monocytes/100 WBC (Bld) 15.7 % High 0-10 [facility] Comment on above: Performed By: #### L 500.2500, L100.0100 ####[facility] [address] [place], [address] Neutrophils/100 WBC (Bld) 49.9 % Normal 47-70 [facility] Comment on above: Performed By: #### L 500.2500, L100.0100 ####[facility] [address] [place], [address] Nucleated RBC (Bld) [#/Vol] 0 10*3/uL Normal 0-5 [facility] Comment on above: Performed By: #### L 500.2500, L100.0100 ####[facility] [address] [place], [address] Platelet mean volume (Bld) [Entitic vol] 9.5 fL Normal 6.2-12.0 [facility] Comment on above: Performed By: #### L 500.2500, L100.0100 ####[facility] [address] [place], [address] Platelets (Bld) [#/Vol] 262 10*3/uL Normal 150-450 [facility] Comment on above: Performed By: #### L 500.2500, L100.0100 ####[facility] [address] [place], [address] RBC (Bld) [#/Vol] 3.79 10*6/uL Low 4.2-5.4 [facility] Comment on above: Performed By: #### L 500.2500, L100.0100 ####[facility] [address] [place], [address] RDW SD 42.7 fl Normal 35.1-43.9 [facility] Comment on above: Performed By: #### L 500.2500, L100.0100 ####[facility] [address] [place], [address] WBC (Bld) [#/Vol] 5.0 10*3/uL Normal 4.4-11.0 [facility] Comment on above: Performed By: #### L 500.2500, L100.0100 ####[facility] [address] [place], [address] Colonoscopy Reporton 025 Colonoscopy Report Normal [facility] Basic Metabolic Profile (BMP )on 05-13-2024 BUN/CRE 12.4 RATIO Normal 10-20 [facility] Comment on above: Performed By: #### L 500.2500, L100.0100 ####[facility] [address] [place], [address] CA,Total 9.6 mg/dL Normal 8.5-10.1 [facility] Comment on above: Performed By: #### L 500.2500, L100.0100 ####[facility] [address] [place], [address] Chloride [Moles/Vol] 106 mmol/L Normal 98-107 [facility] Comment on above: Performed By: #### L 500.2500, L100.0100 ####[facility] [address] [place], [address] CO2 [Moles/Vol] 22.0 mmol/L Normal 21.0-32.0 [facility] Comment on above: Performed By: #### L 500.2500, L100.0100 ####[facility] [address] [place], [address] Creatinine [Mass/Vol] 0.48 mg/dL Low 0.55-1.02 [facility] Comment on above: Result Comment: The validity of the calculated GFR GFRAA in patients over70 years has not been determined. Clinical correlation isessential. Performed By: #### L 500.2500, L100.0100 ####[facility] [address] [place], [address] ECRCL 51.33 ml/min Normal [facility] Comment on above: Performed By: #### L 500.2500, L100.0100 ####[facility] [address] [place], [address] EST GFR - AA 159 mL/min Normal >60 [facility] Comment on above: Result Comment: Afri can [place]ian GFR Calc Performed By: #### L 500.2500, L100.0100 ####[facility] [address] [place], [address] GAP 10 Normal 5-15 [facility] Comment on above: Performed By: #### L 500.2500, L100.0100 ####[facility] [address] [place], [address] GFR/1.73 sq M.predicted among non-blacks MDRD (S/P/Bld) [Vol rate/Area] 131 mL/min/{1.73_m2} Normal >60 [facility] Comment on above: Result Comment: Non- GFR Calc Performed By: #### L 500.2500, L100.0100 ####[facility] [address] [place], [address] Glucose [Mass/Vol] 98 mg/dL Normal 74-106 [facility] Comment on above: Performed By: #### L 500.2500, L100.0100 ####[facility] [address] [place], [address] Potassium [Moles/Vol] 3.4 mmol/L Low 3.5-5.1 [facility] Comment on above: Performed By: #### L 500.2500, L100.0100 ####[facility] [address] [place], [address] Sodium [Moles/Vol] 137 mmol/L Normal 136-145 [facility] Comment on above: Performed By: #### L 500.2500, L100.0100 ####[facility] [address] [place], [address] Urea nitrogen [Mass/Vol] 6 mg/dL Low 7-18 [facility] Comment on above: Performed By: #### L 500.2500, L100.0100 ####[facility] [address] [place], [address] CBC W/Diff, Automatedon 02-0 2-5 Absolute Lymph 1.14 X10 3/uL Normal 0.83-4.51 [facility] Comment on above: Performed By: #### L 500.2500, L100.0100 ####[facility] [address] [place], [address] Absolute Neut 3.0 X10 3/uL Normal 2.0-7.7 [facility] Comment on above: Performed By: #### L 500.2500, L100.0100 ####[facility] [address] [place], [address] Basophils/100 WBC (Bld) 1.5 % High 0-1 [facility] Comment on above: Performed By: #### L 500.2500, L100.0100 ####[facility] [address] [place], [address] Eosinophils/100 WBC (Bld) 4.2 % Normal 0-5 [facility] Comment on above: Performed By: #### L 500.2500, L100.0100 ####[facility] [address] [place], [address] Erythrocyte distribution width (RBC) [Ratio] 12.5 % Normal 11.6-14.6 [facility] Comment on above: Performed By: #### L 500.2500, L100.0100 ####[facility] [address] [place], [address] Hematocrit (Bld) [Volume fraction] 36.8 % Low 37-47 [facility] Comment on above: Performed By: #### L 500.2500, L100.0100 ####[facility] [address] [place], [address] Hemoglobin (Bld) [Mass/Vol] 12.2 g/dL Normal 12.0-15.0 [facility] Comment on above: Performed By: #### L 500.2500, L100.0100 ####[facility] [address] [place], [address] IG% 0.800 Normal 0.0-0.9 [facility] Comment on above: Result Comment: IG% - Immature Granulocytes (promyelocytes, myelocytes andmetamyelocytes) > 1% indicates that a LEFT SHIFT is Present. Performed By: #### L 500.2500, L100.0100 ####[facility] [address] [place], [address] Lymphocytes/100 WBC (Bld) 22.0 % Normal 19-41 [facility] Comment on above: Performed By: #### L 500.2500, L100.0100 ####[facility] [address] [place], [address] MCH (RBC) [Entitic mass] 30.9 pg Normal 27.0-32.0 [facility] Comment on above: Performed By: #### L 500.2500, L100.0100 ####[facility] [address] [place], [address] MCHC (RBC) [Mass/Vol] 33.2 g/dL Normal 32-36 [facility] Comment on above: Performed By: #### L 500.2500, L100.0100 ####[facility] [address] [place], [address] MCV (RBC) [Entitic vol] 93.2 fL Normal 81-99 [facility] Comment on above: Performed By: #### L 500.2500, L100.0100 ####[facility] [address] [place], [address] Monocytes/100 WBC (Bld) 14.5 % High 0-10 [facility] Comment on above: Performed By: #### L 500.2500, L100.0100 ####[facility] [address] [place], [address] Neutrophils/100 WBC (Bld) 57.0 % Normal 47-70 [facility] Comment on above: Performed By: #### L 500.2500, L100.0100 ####[facility] [address] [place], [address] Nucleated RBC (Bld) [#/Vol] 0 10*3/uL Normal 0-5 [facility] Comment on above: Performed By: #### L 500.2500, L100.0100 ####[facility] [address] [place], [address] Platelet mean volume (Bld) [Entitic vol] 9.3 fL Normal 6.2-12.0 [facility] Comment on above: Performed By: #### L 500.2500, L100.0100 ####[facility] [address] [place], [address] Platelets (Bld) [#/Vol] 269 10*3/uL Normal 150-450 [facility] Comment on above: Performed By: #### L 500.2500, L100.0100 ####[facility] [address] [place], [address] RBC (Bld) [#/Vol] 3.95 10*6/uL Low 4.2-5.4 [facility] Comment on above: Performed By: #### L 500.2500, L100.0100 ####[facility] [address] [place], [address] RDW SD 43.1 fl Normal 35.1-43.9 [facility] Comment on above: Performed By: #### L 500.2500, L100.0100 ####[facility] [address] [place], [address] WBC (Bld) [#/Vol] 5.2 10*3/uL Normal 4.4-11.0 [facility] Comment on above: Performed By: #### L 500.2500, L100.0100 ####[facility] [address] [place], [address] M100.019on 05-13-2024 M100.019 Negative Normal [facility] Comment on above: Performed By: #### M 100.019 ####[facility] [address] [place], [address] RESPIRATORY PANEL MOLECULARo n 05-13-2024 RP PANEL Normal [facility] Comment on above: Performed By: #### M 100.638 ####[facility] [address] [place], [address] Respiratory pathogens detect ion panel by molecular detection methodOrdered By: Phuong Salas on 05-13-2024 Respiratory pathogens DNA and RNA panel JOVITA+probe (Resp) [facility] Negu-pce-4Nmeljow By: Rogerio Salas on 05-13-2024 SARS-CoV-2 (COVID-19) RNA JOVITA+probe Ql (Unsp spec) [facility] Basic Metabolic Profile (BMP )on 05-12-2024 BUN/CRE 12.9 RATIO Normal 10-20 [facility] Comment on above: Performed By: #### L 500.2500, L100.0100 ####[facility] [address] [place], [address] CA,Total 10.0 mg/dL Normal 8.5-10.1 [facility] Comment on above: Performed By: #### L 500.2500, L100.0100 ####[facility] [address] [place], [address] Chloride [Moles/Vol] 108 mmol/L High 98-107 [facility] Comment on above: Performed By: #### L 500.2500, L100.0100 ####[facility] [address] [place], [address] CO2 [Moles/Vol] 20.0 mmol/L Low 21.0-32.0 [facility] Comment on above: Performed By: #### L 500.2500, L100.0100 ####[facility] [address] [place], [address] Creatinine [Mass/Vol] 0.62 mg/dL Normal 0.55-1.02 [facility] Comment on above: Result Comment: The validity of the calculated GFR GFRAA in patients over70 years has not been determined. Clinical correlation isessential. Performed By: #### L 500.2500, L100.0100 ####[facility] [address] [place], [address] ECRCL 51.33 ml/min Normal [facility] Comment on above: Performed By: #### L 500.2500, L100.0100 ####[facility] [address] [place], [address] EST GFR - AA 120 mL/min Normal >60 [facility] Comment on above: Result Comment: Afri can Belarusian GFR Calc Performed By: #### L 500.2500, L100.0100 ####[facility] [address] [place], [address] GAP 7 Normal 5-15 [facility] Comment on above: Performed By: #### L 500.2500, L100.0100 ####[facility] [address] [place], [address] GFR/1.73 sq M.predicted among non-blacks MDRD (S/P/Bld) [Vol rate/Area] 99 mL/min/{1.73_m2} Normal >60 [facility] Comment on above: Result Comment: Non- GFR Calc Performed By: #### L 500.2500, L100.0100 ####[facility] [address] [place], [address] Glucose [Mass/Vol] 111 mg/dL High 74-106 [facility] Comment on above: Result Comment: Fast ing Glucose result from 100 to 125 mg/dLsuggests IMPAIRED HOMEOSTASIS per A.D.A. criteria. Performed By: #### L 500.2500, L100.0100 ####[facility] [address] [place], [address] Potassium [Moles/Vol] 3.7 mmol/L Normal 3.5-5.1 [facility] Comment on above: Performed By: #### L 500.2500, L100.0100 ####[facility] [address] [place], [address] Sodium [Moles/Vol] 135 mmol/L Low 136-145 [facility] Comment on above: Performed By: #### L 500.2500, L100.0100 ####[facility] [address] [place], [address] Urea nitrogen [Mass/Vol] 8 mg/dL Normal 7-18 [facility] Comment on above: Performed By: #### L 500.2500, L100.0100 ####[facility] [address] [place], [address] CBC W/Diff, Automatedon 02-0 -2024 Absolute Lymph 1.27 X10 3/uL Normal 0.83-4.51 [facility] Comment on above: Performed By: #### L 500.2500, L100.0100 ####[facility] [address] [place], [address] Absolute Neut 5.0 X10 3/uL Normal 2.0-7.7 [facility] Comment on above: Performed By: #### L 500.2500, L100.0100 ####[facility] [address] [place], [address] Basophils/100 WBC (Bld) 1.0 % Normal 0-1 [facility] Comment on above: Performed By: #### L 500.2500, L100.0100 ####[facility] [address] [place], [address] Eosinophils/100 WBC (Bld) 2.8 % Normal 0-5 [facility] Comment on above: Performed By: #### L 500.2500, L100.0100 ####[facility] [address] [place], [address] Erythrocyte distribution width (RBC) [Ratio] 12.6 % Normal 11.6-14.6 [facility] Comment on above: Performed By: #### L 500.2500, L100.0100 ####[facility] [address] [place], [address] Hematocrit (Bld) [Volume fraction] 42.6 % Normal 37-47 [facility] Comment on above: Performed By: #### L 500.2500, L100.0100 ####[facility] [address] [place], [address] Hemoglobin (Bld) [Mass/Vol] 13.4 g/dL Normal 12.0-15.0 [facility] Comment on above: Performed By: #### L 500.2500, L100.0100 ####[facility] [address] [place], [address] IG% 0.800 Normal 0.0-0.9 [facility] Comment on above: Result Comment: IG% - Immature Granulocytes (promyelocytes, myelocytes andmetamyelocytes) > 1% indicates that a LEFT SHIFT is Present. Performed By: #### L 500.2500, L100.0100 ####[facility] [address] [place], [address] Lymphocytes/100 WBC (Bld) 17.8 % Low 19-41 [facility] Comment on above: Performed By: #### L 500.2500, L100.0100 ####[facility] [address] [place], [address] MCH (RBC) [Entitic mass] 30.5 pg Normal 27.0-32.0 [facility] Comment on above: Performed By: #### L 500.2500, L100.0100 ####[facility] [address] [place], [address] MCHC (RBC) [Mass/Vol] 31.5 g/dL Low 32-36 [facility] Comment on above: Performed By: #### L 500.2500, L100.0100 ####[facility] [address] [place], [address] MCV (RBC) [Entitic vol] 96.8 fL Normal 81-99 [facility] Comment on above: Performed By: #### L 500.2500, L100.0100 ####[facility] [address] [place], [address] Monocytes/100 WBC (Bld) 8.3 % Normal 0-10 [facility] Comment on above: Performed By: #### L 500.2500, L100.0100 ####[facility] [address] [place], [address] Neutrophils/100 WBC (Bld) 69.3 % Normal 47-70 [facility] Comment on above: Performed By: #### L 500.2500, L100.0100 ####[facility] [address] [place], [address] Nucleated RBC (Bld) [#/Vol] 0 10*3/uL Normal 0-5 [facility] Comment on above: Performed By: #### L 500.2500, L100.0100 ####[facility] [address] [place], [address] Platelet mean volume (Bld) [Entitic vol] 9.2 fL Normal 6.2-12.0 [facility] Comment on above: Performed By: #### L 500.2500, L100.0100 ####[facility] [address] [place], [address] Platelets (Bld) [#/Vol] 243 10*3/uL Normal 150-450 [facility] Comment on above: Performed By: #### L 500.2500, L100.0100 ####[facility] [address] [place], [address] RBC (Bld) [#/Vol] 4.40 10*6/uL Normal 4.2-5.4 [facility] Comment on above: Performed By: #### L 500.2500, L100.0100 ####[facility] [address] [place], [address] RDW SD 45.3 fl High 35.1-43.9 [facility] Comment on above: Performed By: #### L 500.2500, L100.0100 ####[facility] [address] [place], [address] WBC (Bld) [#/Vol] 7.2 10*3/uL Normal 4.4-11.0 [facility] Comment on above: Performed By: #### L 500.2500, L100.0100 ####[facility] [address] [place], [address] Basic Metabolic Profile (BMP )on 05-11-2024 BUN/CRE 17.2 RATIO Normal 10-20 [facility] Comment on above: Performed By: #### L 100.0500, L500.2500 ####[facility] [address] [place], [address] CA,Total 9.7 mg/dL Normal 8.5-10.1 [facility] Comment on above: Performed By: #### L 100.0500, L500.2500 ####[facility] [address] [place], [address] Chloride [Moles/Vol] 108 mmol/L High 98-107 [facility] [facility] Comment on above: Performed By: #### L 100.0500, L500.2500 ####[facility] [address] [place], [address] CO2 [Moles/Vol] 24.0 mmol/L Normal 21.0-32.0 [facility] Comment on above: Performed By: #### L 100.0500, L500.2500 ####[facility] [address] [place], [address] Creatinine [Mass/Vol] 0.52 mg/dL Low 0.55-1.02 [facility] Comment on above: Result Comment: The validity of the calculated GFR GFRAA in patients over70 years has not been determined. Clinical correlation isessential. Performed By: #### L 100.0500, L500.2500 ####[facility] [address] [place], [address] ECRCL 51.33 ml/min Normal [facility] Comment on above: Performed By: #### L 100.0500, L500.2500 ####[facility] [address] [place], [address] EST GFR - AA 145 mL/min Normal >60 [facility] Comment on above: Result Comment: Afri can Bel[place]ian GFR Calc Performed By: #### L 100.0500, L500.2500 ####[facility] [address] [place], [address] GAP 6 Normal 5-15 [facility] Comment on above: Performed By: #### L 100.0500, L500.2500 ####[facility] [address] [place], [address] GFR/1.73 sq M.predicted among non-blacks MDRD (S/P/Bld) [Vol rate/Area] 120 mL/min/{1.73_m2} Normal >60 [facility] Comment on above: Result Comment: Non- GFR Calc Performed By: #### L 100.0500, L500.2500 ####[facility] [address] [place], [address] Glucose [Mass/Vol] 90 mg/dL Normal 74-106 [facility] Comment on above: Performed By: #### L 100.0500, L500.2500 ####[facility] [address] [place], [address] Potassium [Moles/Vol] 3.4 mmol/L Low 3.5-5.1 [facility] Comment on above: Performed By: #### L 100.0500, L500.2500 ####[facility] [address] [place], [address] Sodium [Moles/Vol] 138 mmol/L Normal 136-145 [facility] Comment on above: Performed By: #### L 100.0500, L500.2500 ####[facility] [address] [place], [address] Urea nitrogen [Mass/Vol] 9 mg/dL Normal 7-18 [facility] Comment on above: Performed By: #### L 100.0500, L500.2500 ####[facility] [address] [place], [address] CBC-Complete Blood Cnt No Di ffon 05-11-2024 Erythrocyte distribution width (RBC) [Ratio] 12.7 % Normal 11.6-14.6 [facility] Comment on above: Performed By: #### L 100.0500, L500.2500 ####[facility] [address] [place], [address] Hematocrit (Bld) [Volume fraction] 34.8 % Low 37-47 [facility] Comment on above: Performed By: #### L 100.0500, L500.2500 ####[facility] [address] [place], [address] Hemoglobin (Bld) [Mass/Vol] 12.0 g/dL Normal 12.0-15.0 [facility] Comment on above: Performed By: #### L 100.0500, L500.2500 ####[facility] [address] [place], [address] MCH (RBC) [Entitic mass] 31.6 pg Normal 27.0-32.0 [facility] Comment on above: Performed By: #### L 100.0500, L500.2500 ####[facility] [address] [place], [address] MCHC (RBC) [Mass/Vol] 34.5 g/dL Normal 32-36 [facility] Comment on above: Performed By: #### L 100.0500, L500.2500 ####[facility] [address] [place], [address] MCV (RBC) [Entitic vol] 91.6 fL Normal 81-99 [facility] Comment on above: Performed By: #### L 100.0500, L500.2500 ####[facility] [address] [place], [address] Platelet mean volume (Bld) [Entitic vol] 9.4 fL Normal 6.2-12.0 [facility] Comment on above: Performed By: #### L 100.0500, L500.2500 ####[facility] [address] [place], [address] Platelets (Bld) [#/Vol] 239 10*3/uL Normal 150-450 [facility] Comment on above: Performed By: #### L 100.0500, L500.2500 ####[facility] [address] [place], [address] RBC (Bld) [#/Vol] 3.80 10*6/uL Low 4.2-5.4 [facility] Comment on above: Performed By: #### L 100.0500, L500.2500 ####[facility] [address] [place], [address] RDW SD 42.4 fl Normal 35.1-43.9 [facility] Comment on above: Performed By: #### L 100.0500, L500.2500 ####[facility] [address] [place], [address] WBC (Bld) [#/Vol] 7.5 10*3/uL Normal 4.4-11.0 [facility] Comment on above: Performed By: #### L 100.0500, L500.2500 ####[facility] [address] [place], [address] 12 Lead EKGon 05-10-2024 12 Lead EKG Normal [facility] Basic Metabolic Profile (BMP )on 05-10-2024 BUN/CRE 11.9 RATIO Normal 10-20 [facility] Comment on above: Performed By: #### L 501.5200, L500.2500, L501.2300, L100.0500 ####[facility] [address] [place], [address] CA,Total 9.6 mg/dL Normal 8.5-10.1 [facility] Comment on above: Performed By: #### L 501.5200, L500.2500, L501.2300, L100.0500 ####[facility] [address] [place], [address] Chloride [Moles/Vol] 107 mmol/L Normal 98-107 [facility] Comment on above: Performed By: #### L 501.5200, L500.2500, L501.2300, L100.0500 ####[facility] [address] [place], [address] CO2 [Moles/Vol] 22.0 mmol/L Normal 21.0-32.0 [facility] Comment on above: Performed By: #### L 501.5200, L500.2500, L501.2300, L100.0500 ####[facility] [address] [place], [address] Creatinine [Mass/Vol] 0.59 mg/dL Normal 0.55-1.02 [facility] Comment on above: Result Comment: The validity of the calculated GFR GFRAA in patients over70 years has not been determined. Clinical correlation isessential. Performed By: #### L 501.5200, L500.2500, L501.2300, L100.0500 ####[facility] [address] [place], [address] ECRCL 51.33 ml/min Normal [facility] Comment on above: Performed By: #### L 501.5200, L500.2500, L501.2300, L100.0500 ####[facility] [address] [place], [address] EST GFR - AA 127 mL/min Normal >60 [facility] Comment on above: Result Comment: Afri can [place]ian GFR Calc Performed By: #### L 501.5200, L500.2500, L501.2300, L100.0500 ####[facility] [address] [place], [address] GAP 7 Normal 5-15 [facility] Comment on above: Performed By: #### L 501.5200, L500.2500, L501.2300, L100.0500 ####[facility] [address] [place], [address] GFR/1.73 sq M.predicted among non-blacks MDRD (S/P/Bld) [Vol rate/Area] 105 mL/min/{1.73_m2} Normal >60 [facility] Comment on above: Result Comment: Non- GFR Calc Performed By: #### L 501.5200, L500.2500, L501.2300, L100.0500 ####[facility] [address] [place], [address] Glucose [Mass/Vol] 124 mg/dL High 74-106 [facility] Comment on above: Result Comment: Fast ing Glucose result from 100 to 125 mg/dLsuggests IMPAIRED HOMEOSTASIS per A.D.A. criteria. Performed By: #### L 501.5200, L500.2500, L501.2300, L100.0500 ####[facility] [address] [place], [address] Potassium [Moles/Vol] 3.6 mmol/L Normal 3.5-5.1 [facility] Comment on above: Performed By: #### L 501.5200, L500.2500, L501.2300, L100.0500 ####[facility] [address] [place], [address] Sodium [Moles/Vol] 136 mmol/L Normal 136-145 [facility] Comment on above: Performed By: #### L 501.5200, L500.2500, L501.2300, L100.0500 ####[facility] [address] [place], [address] Urea nitrogen [Mass/Vol] 7 mg/dL Normal 7-18 [facility] Comment on above: Performed By: #### L 501.5200, L500.2500, L501.2300, L100.0500 ####[facility] [address] [place], [address] CBC-Complete Blood Cnt No Di ffon 05-10-2024 Erythrocyte distribution width (RBC) [Ratio] 12.7 % Normal 11.6-14.6 [facility] Comment on above: Performed By: #### L 501.5200, L500.2500, L501.2300, L100.0500 ####[facility] [address] [place], [address] Hematocrit (Bld) [Volume fraction] 35.7 % Low 37-47 [facility] Comment on above: Performed By: #### L 501.5200, L500.2500, L501.2300, L100.0500 ####[facility] [address] [place], [address] Hemoglobin (Bld) [Mass/Vol] 11.9 g/dL Low 12.0-15.0 [facility] Comment on above: Performed By: #### L 501.5200, L500.2500, L501.2300, L100.0500 ####[facility] [address] [place], [address] MCH (RBC) [Entitic mass] 30.7 pg Normal 27.0-32.0 [facility] Comment on above: Performed By: #### L 501.5200, L500.2500, L501.2300, L100.0500 ####[facility] [address] [place], [address] MCHC (RBC) [Mass/Vol] 33.3 g/dL Normal 32-36 [facility] Comment on above: Performed By: #### L 501.5200, L500.2500, L501.2300, L100.0500 ####[facility] [address] [place], [address] MCV (RBC) [Entitic vol] 92.2 fL Normal 81-99 [facility] Comment on above: Performed By: #### L 501.5200, L500.2500, L501.2300, L100.0500 ####[facility] [address] [place], [address] Platelet mean volume (Bld) [Entitic vol] 9.4 fL Normal 6.2-12.0 [facility] Comment on above: Performed By: #### L 501.5200, L500.2500, L501.2300, L100.0500 ####[facility] [address] [place], [address] Platelets (Bld) [#/Vol] 238 10*3/uL Normal 150-450 [facility] Comment on above: Performed By: #### L 501.5200, L500.2500, L501.2300, L100.0500 ####[facility] [address] [place], [address] RBC (Bld) [#/Vol] 3.87 10*6/uL Low 4.2-5.4 [facility] Comment on above: Performed By: #### L 501.5200, L500.2500, L501.2300, L100.0500 ####[facility] [address] [place], [address] RDW SD 43.0 fl Normal 35.1-43.9 [facility] Comment on above: Performed By: #### L 501.5200, L500.2500, L501.2300, L100.0500 ####[facility] [address] [place], [address] WBC (Bld) [#/Vol] 9.9 10*3/uL Normal 4.4-11.0 [facility] Comment on above: Performed By: #### L 501.5200, L500.2500, L501.2300, L100.0500 ####[facility] [address] [place], [address] Hemoglobin A1con 05-10-2024 HbA1c (Bld) [Mass fraction] 5.5 % Normal 3.8-5.6 [facility] Comment on above: Result Comment: Norm al < 5.7 % Prediabetic 5.7 - 6.4 % Diabetic >or= 6.5 % Please note range changes. Performed By: #### L 501.9985 ####[facility] [address] [place], [address] Hemoglobin A1c percentageOrd ered By: Jeramy Reina on 05-10-2024 HbA1c (Bld) [Mass fraction] 5.5 % 3.8-5.6 [facility] Comment on above: Normal < 5.7 % Predi abetic 5.7 - 6.4 % Diabetic >or= 6.5 % Please note range changes. MR/PN.GIon 05-10-2024 MR/PN.GI Normal [facility] MR/PN.GI Normal [facility] MR/POSTOP.ANEon 05-10-2024 MR/POSTOP.ANE Normal [facility] MR/VGEJZKIN1sk 05-10-2024 MR/POSTOPAN2 Normal [facility] Magnesiumon 05-10-2024 Magnesium [Mass/Vol] 2.3 mg/dL Normal 1.6-2.6 [facility] Comment on above: Performed By: #### L 501.5200, L500.2500, L501.2300, L100.0500 ####[facility] [address] [place], [address] Phosphoruson 05-10-2024 Phosphate [Mass/Vol] 2.5 mg/dL Normal 2.5-4.9 [facility] Comment on above: Performed By: #### L 501.5200, L500.2500, L501.2300, L100.0500 ####[facility] [address] [place], [address] Surgery Specimen Level Heather 05-10-2024 Surgery Specimen Level IV Normal [facility] Comment on above: Performed By: #### P SUIV ####[facility] [address] [place], [address] Urine Cultureon 05-10-2024 URC Culture exhibits no growth. [facility] Comment on above: Performed By: #### M 100.2200 ####[facility] [address] [place], [place], [address] H AND P Exam - Hospitaliston 05-09-2024 H&P Exam - Hospitalist Normal [facility] Hemoglobin A1con 05-09-2024 HbA1c (Bld) [Mass fraction] 5.5 % Normal 3.8-5.6 [facility] Comment on above: Result Comment: Norm al < 5.7 % Prediabetic 5.7 - 6.4 % Diabetic >or= 6.5 % Please note range changes. Performed By: #### L 501.9528, L501.7326 ####[facility] [address] [place], [place], [address] Lactic Acidon 05-09-2024 Lactate [Moles/Vol] 0.8 mmol/L Normal 0.4-1.9 [facility] Comment on above: Order Comment: Y Performed By: #### L 5036008 ####[facility] [address] [place], [place], [address] Lactic acid measurementOrder ed By: Sammy Phillip on 05-09-2024 Lactate [Moles/Vol] 0.8 mmol/L 0.4-2.0 [facility] MR/CON.PCM.GIon 05-09-2024 MR/CON.PCM.GI Normal [facility] Serum or plasma thyroid stim ulating hormone (TSH) measurement (units/volume)Ordered By: Sammy Phillip on 05-09-2024 TSH Qn 0.943 uIU/mL 0.358-3.740 [facility] Thyroid Stim Hormone (TSH)on 05-09-2024 TSH 0.943 uIU/mL Normal 0.358-3.740 [facility] Comment on above: Performed By: #### L 501.9559, L501.4202 ####[facility] [address] [place], [place], [address] Abdomen/Pel W ORAL Cont Only on 05-08-2024 Abdomen/Pel W ORAL Cont Only Normal [facility] Abdomen/Pel W ORAL Cont Only Normal [facility] Abdomen/Pelvis W IV Cont ONL Yon 05-08-2024 Abdomen/Pelvis W IV Cont ONLY Normal [facility] Albumin to globulin ratioOrd ered By: David Richmondehne on 05-08-2024 Albumin/Globulin [Mass ratio] 1.1 {ratio} Normal 0.9-2.4 [facility] Comment on above: Performed By: #### L 100.0100, L500.4050 ####[facility] [address] [place], [address] Bilirubin Test strip Ql (U)O rdered By: David Kraig on 05-08-2024 Bilirubin Ql (U) Negative Negative [facility] Bilirubin, totalOrdered By: David Kraig on 05-08-2024 Bilirubin [Mass/Vol] 0.50 mg/dL Normal 0.20-1.00 [facility] Comment on above: For patients on eltr ombopag therapy, use of [employer] [place] TBIL is not recommended. Result Comment: For patients on eltrombopag therapy, use of [employer] [place] TBIL is not recommended. Performed By: #### L 100.0100, L500.4050 ####[facility] [address] [place], [address] CBC W/Diff, Automatedon 04-12 Absolute Lymph 1.51 X10 3/uL Normal 0.83-4.51 [facility] Comment on above: Performed By: #### L 100.0100, L500.4050 ####[facility] [address] [place], [address] Absolute Neut 14.8 X10 3/uL High 2.0-7.7 [facility] Comment on above: Performed By: #### L 100.0100, L500.4050 ####[facility] [address] [place], [address] Basophils/100 WBC (Bld) 0.4 % Normal 0-1 [facility] Comment on above: Performed By: #### L 100.0100, L500.4050 ####[facility] [address] [place], [address] Eosinophils/100 WBC (Bld) 0.1 % Normal 0-5 [facility] Comment on above: Performed By: #### L 100.0100, L500.4050 ####[facility] [address] [place], [address] Erythrocyte distribution width (RBC) [Ratio] 12.7 % Normal 11.6-14.6 [facility] Comment on above: Performed By: #### L 100.0100, L500.4050 ####[facility] [address] [place], [address] Hematocrit (Bld) [Volume fraction] 38.0 % Normal 37-47 [facility] Comment on above: Performed By: #### L 100.0100, L500.4050 ####[facility] [address] [place], [address] Hemoglobin (Bld) [Mass/Vol] 13.2 g/dL Normal 12.0-15.0 [facility] Comment on above: Performed By: #### L 100.0100, L500.4050 ####[facility] [address] [place], [address] IG% 0.600 Normal 0.0-0.9 [facility] Comment on above: Result Comment: IG% - Immature Granulocytes (promyelocytes, myelocytes andmetamyelocytes) > 1% indicates that a LEFT SHIFT is Present. Performed By: #### L 100.0100, L500.4050 ####[facility] [address] [place], [address] Lymphocytes/100 WBC (Bld) 8.4 % Low 19-41 [facility] Comment on above: Performed By: #### L 100.0100, L500.4050 ####[facility] [address] [place], [address] MCH (RBC) [Entitic mass] 31.8 pg Normal 27.0-32.0 [facility] Comment on above: Performed By: #### L 100.0100, L500.4050 ####[facility] [address] [place], [address] MCHC (RBC) [Mass/Vol] 34.7 g/dL Normal 32-36 [facility] Comment on above: Performed By: #### L 100.0100, L500.4050 ####[facility] [address] [place], [address] MCV (RBC) [Entitic vol] 91.6 fL Normal 81-99 [facility] Comment on above: Performed By: #### L 100.0100, L500.4050 ####[facility] [address] [place], [address] Monocytes/100 WBC (Bld) 7.9 % Normal 0-10 [facility] Comment on above: Performed By: #### L 100.0100, L500.4050 ####[facility] [address] [place], [address] Neutrophils/100 WBC (Bld) 82.6 % High 47-70 [facility] Comment on above: Performed By: #### L 100.0100, L500.4050 ####[facility] [address] [place], [address] Nucleated RBC (Bld) [#/Vol] 0 10*3/uL Normal 0-5 [facility] Comment on above: Performed By: #### L 100.0100, L500.4050 ####[facility] [address] [place], [address] Platelet mean volume (Bld) [Entitic vol] 8.7 fL Normal 6.2-12.0 [facility] Comment on above: Performed By: #### L 100.0100, L500.4050 ####[facility] [address] [place], [address] Platelets (Bld) [#/Vol] 266 10*3/uL Normal 150-450 [facility] Comment on above: Performed By: #### L 100.0100, L500.4050 ####[facility] [address] [place], [address] RBC (Bld) [#/Vol] 4.15 10*6/uL Low 4.2-5.4 [facility] Comment on above: Performed By: #### L 100.0100, L500.4050 ####[facility] [address] [place], [address] RDW SD 42.2 fl Normal 35.1-43.9 [facility] Comment on above: Performed By: #### L 100.0100, L500.4050 ####[facility] [address] [place], [address] WBC (Bld) [#/Vol] 18.0 10*3/uL High 4.4-11.0 [facility] Comment on above: Performed By: #### L 100.0100, L500.4050 ####[facility] [address] [place], [address] Comprehensive Metabolic Prof ilon 05-08-2024 ALK P 97 U/L Normal 45-117 [facility] Comment on above: Performed By: #### L 100.0100, L500.4050 ####[facility] [address] [place], [address] BUN/CRE 24.0 RATIO High 10-20 [facility] Comment on above: Performed By: #### L 100.0100, L500.4050 ####[facility] [address] [place], [address] CA,Total 9.9 mg/dL Normal 8.5-10.1 [facility] Comment on above: Performed By: #### L 100.0100, L500.4050 ####[facility] [address] [place], [address] Chloride [Moles/Vol] 104 mmol/L Normal 98-107 [facility] Comment on above: Performed By: #### L 100.0100, L500.4050 ####[facility] [address] [place], [address] CO2 [Moles/Vol] 24.0 mmol/L Normal 21.0-32.0 [facility] Comment on above: Performed By: #### L 100.0100, L500.4050 ####[facility] [address] [place], [address] Creatinine [Mass/Vol] 0.62 mg/dL Normal 0.55-1.02 [facility] Comment on above: Result Comment: The validity of the calculated GFR GFRAA in patients over70 years has not been determined. Clinical correlation isessential. Performed By: #### L 100.0100, L500.4050 ####[facility] [address] [place], [address] ECRCL 53.40 ml/min Normal [facility] Comment on above: Performed By: #### L 100.0100, L500.4050 ####[facility] [address] [place], [address] EST GFR - AA 118 mL/min Normal >60 [facility] Comment on above: Result Comment: Afri can Belarusian GFR Calc Performed By: #### L 100.0100, L500.4050 ####[facility] [address] [place], [address] GAP 5 Normal 5-15 [facility] Comment on above: Performed By: #### L 100.0100, L500.4050 ####[facility] [address] [place], [address] GFR/1.73 sq M.predicted among non-blacks MDRD (S/P/Bld) [Vol rate/Area] 98 mL/min/{1.73_m2} Normal >60 [facility] Comment on above: Result Comment: Non- GFR Calc Performed By: #### L 100.0100, L500.4050 ####[facility] [address] [place], [address] Glucose [Mass/Vol] 104 mg/dL Normal 74-106 [facility] Comment on above: Result Comment: Fast ing Glucose result from 100 to 125 mg/dLsuggests IMPAIRED HOMEOSTASIS per A.D.A. criteria. Performed By: #### L 100.0100, L500.4050 ####[facility] [address] [place], [address] Potassium [Moles/Vol] 4.0 mmol/L Normal 3.5-5.1 [facility] Comment on above: Performed By: #### L 100.0100, L500.4050 ####[facility] [address] [place], [address] Sodium [Moles/Vol] 133 mmol/L Low 136-145 [facility] Comment on above: Performed By: #### L 100.0100, L500.4050 ####[facility] [address] [place], [address] T PROT 7.4 g/dL Normal 6.4-8.2 [facility] Comment on above: Performed By: #### L 100.0100, L500.4050 ####[facility] [address] [place], [address] Urea nitrogen [Mass/Vol] 15 mg/dL Normal 7-18 [facility] Comment on above: Performed By: #### L 100.0100, L500.4050 ####[facility] [address] [place], [address] Comprehensive Metabolic Prof ilOrdered By: David Cornell on 05-08-2024 AST [Catalytic activity/Vol] 13 U/L Low 15-37 [facility] Comment on above: Performed By: #### L 100.0100, L500.4050 ####[facility] [address] [place], [address] Consultation - Surgicalon Consultation - Surgical Normal [facility] Emergency Department Summary on 05-08-2024 Emergency Department Summary Normal [facility] Ketones Test strip Ql (U)Ord ered By: David Cornell on 05-08-2024 Ketones Ql (U) Negative Negative [facility] Lipaseon 05-08-2024 Lipase [Catalytic activity/Vol] 44 U/L Normal 13-75 [facility] Comment on above: Result Comment: Plea se note:LIPASE revised reference range effective 22.New Lipase methodology. Expected to produce lower valuesthan the previous assay method.NEW Reference Range: 13 - 75 U/L Performed By: #### L 501.2450 ####[facility] [address] [place], [address] Lipase measurementOrdered By : David Cornell on 05-08-2024 Lipase [Catalytic activity/Vol] 44 U/L 13-75 [facility] Comment on above: Please note:LIPASE r evised reference range effective 22. New Lipase methodology. Expected to produce lower values than the previous assay method. NEW Reference Range: 13 - 75 U/L Microscopic analysis of urin e for red blood cells (RBC)Ordered By: David Cornell on 05-08-2024 Microscopic analysis of urine for red blood cells (RBC) 5-10 SEEN /hpf 0-5 [facility] Mucus LM Ql (Urine sed)Order ed By: David Cornell on 05-08-2024 Mucus Ql (Urine sed) 0 SEEN /hpf [facility] Nitrite Test strip Ql (U)Ord ered By: David Cornell on 05-08-2024 Nitrite Ql (U) Negative Negative [facility] Protein Test strip Ql (U)Ord ered By: David Cornell on 05-08-2024 Protein Ql (U) 15 mg/dl High Negative [facility] Serum globulin measurementOr dered By: David Cornell on 05-08-2024 Globulin (S) [Mass/Vol] 3.6 g/dL Normal 2.2-4.2 [facility] Comment on above: Performed By: #### L 100.0100, L500.4050 ####[facility] [id number], [address] Serum or plasma alanine hernandez otransferase (ALT) measurementOrdered By: David Cornell on 05-08-2024 ALT [Catalytic activity/Vol] 25 U/L Normal 13-56 [facility] Comment on above: Performed By: #### L 100.0100, L500.4050 ####[facility] [id number] [place], [address] Serum or plasma albumin riccardo urement (mass/volume)Ordered By: David Cornell on 05-08-2024 Albumin [Mass/Vol] 3.8 g/dL Normal 3.2-5.0 [facility] Comment on above: Performed By: #### L 100.0100, L500.4050 ####[facility] [id number] [place], [address] Serum or plasma alkaline chel sphatase measurementOrdered By: David Cornell on 05-08-2024 ALP [Catalytic activity/Vol] 97 U/L 45-117 [facility] Squamous epithelial cells de tection in urine sediment by light microscopyOrdered By: David Cornell on 05-08-2024 Epithelial cells.squamous LM Ql (Urine sed) 0-5 SEEN /hpf 5-10 [facility] Total proteinOrdered By: Ankit Cornell on 05-08-2024 Protein [Mass/Vol] 7.4 g/dL 6.4-8.2 [facility] Urinalysis, Completeon 05-08 BACTERIA 1+ /hpf Normal None Seen [facility] Comment on above: Order Comment: FARZAD CTOR TO SPECIFY Performed By: #### L 400.0001 ####[facility] [address] [place], [address] RBC 5-10 SEEN Normal 0-5 [facility] Comment on above: Order Comment: FARZAD CTOR TO SPECIFY Performed By: #### L 400.0001 ####[facility] [address] [place], [address] EPI,SQUAMOUS 0-5 SEEN Normal 5-10 [facility] Comment on above: Order Comment: FARZAD CTOR TO SPECIFY Performed By: #### L 400.0001 ####[facility] [address] [place], [address] WBC 10-25 SEEN Normal 0-5 [facility] Comment on above: Order Comment: FARZAD CTOR TO SPECIFY Performed By: #### L 400.0001 ####[facility] [address] [place], [address] Mucus Ql (Urine sed) 0 SEEN Normal [facility] Comment on above: Order Comment: FARZAD CTOR TO SPECIFY Performed By: #### L 400.0001 ####[facility] [address] [place], [address] Urine clarityOrdered By: Ankit Cornell on 05-08-2024 Clarity (U) Sl. Cloudy Clear [facility] Urine color determinationOrd ered By: David Cornell on 05-08-2024 Color (U) Yellow Yellow [facility] Urine cultureOrdered By: Feliciano Phillip on 05-08-2024 Bacteria identified Cx Nom (U) Culture exhibits no growth. [facility] Urine glucose detectionOrder ed By: David Cornell on 05-08-2024 Glucose Ql (U) Normal mg/dl Normal [facility] Urine leukocyte esterase det ection by dipstickOrdered By: David Cornell on 05-08-2024 Leukocyte esterase Test strip Ql (U) 500 /ul High Negative [facility] Urine pHOrdered By: David anderson on 05-08-2024 pH (U) 5.0 [pH] 5.0 - 8.0 [facility] Urine sediment bacteria coun t by microscopy (number/high power field)Ordered By: David Cornell on 05-08-2024 Bacteria LM.HPF (Urine sed) [#/Area] 1 /[HPF] None Seen [facility] Urine specific gravity measu rementOrdered By: David Cornell on 05-08-2024 Specific gravity (U) [Rel density] 1.020 1.002-1.030 [facility] Urine urobilinogen measureme ntOrdered By: David Cornell on 05-08-2024 Urobilinogen Ql (U) Normal mg/dl Normal [facility] White blood cell countOrdere d By: David Cornell on 05-08-2024 White blood cell count 10-25 SEEN /hpf 0-5 [facility] Vital Signs Date Time Vital Sign Value Performing Clinician Carrie gonzalez 09-13-2024 10:20-0400 Body temperature 97.5 [degF] Dr. Yolis Yu DO Work Phone: [facility] 09-13-2024 10:20-0400 Diastolic blood pressure 62 mm[Hg] Dr. Yolis Yu DO Work Phone: [facility] 09-13-2024 10:20-0400 Heart rate 63 /min Dr. Yolis Yu DO Work Phone: [facility] 09-13-2024 10:20-0400 Respiratory rate 16 /min Dr. Yolis Yu DO Work Phone: [facility] 09-13-2024 10:20-0400 SaO2% (BldA) [Mass fraction] 100 % Dr. Yolis Yu DO Work Phone: [facility] 09-13-2024 10:20-0400 Systolic blood pressure 114 mm[Hg] Dr. Yolis Yu DO Work Phone: [facility] 09-13-2024 08:52-0400 Body height 160.[address] Yolis Yu DO Work Phone: [facility] 09-13-2024 08:52-0400 Body mass index (BMI) [Ratio] 26.4 kg/m2 Dr. Yolis Yu DO Work Phone: [facility] 09-13-2024 08:52-0400 Body weight 67.[address] Yolis Yu DO Work Phone: [facility] 08-29-2024 13:34-0400 Body height 172.[address] Yolis Yu DO Work Phone: [facility] 05-15-2024 11:00-0500 Body temperature 97.9 [degF] Dr. Yolis Yu DO Work Phone: [facility] 05-15-2024 11:00-0500 Diastolic blood pressure 68 mm[Hg] Dr. Yolis Yu DO Work Phone: [facility] 05-15-2024 11:00-0500 Heart rate 75 /min Dr. Yolis Yu DO Work Phone: [facility] 05-15-2024 11:00-0500 Respiratory rate 18 /min Dr. Yolis Yu DO Work Phone: [facility] 05-15-2024 11:00-0500 SaO2% (BldA) [Mass fraction] 100 % Dr. Yolis Yu DO Work Phone: [facility] 05-15-2024 11:00-0500 Systolic blood pressure 142 mm[Hg] Dr. Yolis Yu DO Work Phone: [facility] 05-10-2024 20:24-0500 Inhaled oxygen flow rate 2 L/min Dr. Yolis Yu DO Work Phone: [facility] 05-10-2024 14:00-0500 Body height 172.[address] Yolis Yu DO Work Phone: [facility] 05-10-2024 14:00-0500 Body mass index (BMI) [Ratio] 18.8 kg/m2 Dr. Yolis Yu DO Work Phone: [facility] 05-10-2024 14:00-0500 Body weight 56.[address] Yolis Yu DO Work Phone: [facility] Encounters Encounter Date Encounter Type Care Provider Facility Start: 02-07-2025 End: 02-07-2025 ambulatory Yolis Yu Facility:[facility] Start: 12-31-2024 End: 12-31-[address] Yolis Yu DO Work Phone: -Physical Therapy Start: 12-31-2024 End: 12-31-[address] Yolis Yu DO -Physical Therapy Work Phone: Start: 12-27-2024 End: 12-27-[address] Yolis Yu DO Work Phone: -[facility] Start: 12-27-2024 End: 12-27-[address] Hong Strauss MD -[facility] Work Phone: Start: 12-11-2024 End: 12-11-[address] Yolis Yu DO Work Phone: -[facility] Start: 12-11-2024 End: 12-11-[address] Yolis Yu DO -[facility] Work Phone: Start: 12-11-2024 End: 12-11-2024 ambulatory Yolis Yu Facility:[facility] Start: 11-28-[address] Yolis Yu DO -Physical Therapy Work Phone: Start: 11-27-2024 End: 11-27-[address] Yolis Yu DO Work Phone: -[facility] Start: 11-27-2024 End: 11-27-[address] Yolis Yu DO -[facility] Work Phone: Start: 11-27-2024 End: 11-27-2024 ambulatory Yolis Yu Facility:[facility] Start: 10-03-[address] Yolis Yu DO -Physical Therapy Work Phone: Start: 09-27-2024 End: 09-27-[address] Yolis Yu DO Work Phone: [facility] Start: 09-27-2024 End: 09-27-[address] Hong Strauss MD -[facility] Work Phone: Start: 09-26-2024 End: 09-26-2024 Patient encounter procedure Leslie STUBBS -[facility] Work Phone: Start: 09-26-2024 End: 09-26-[address] Yolis Yu DO Work Phone: [facility] Work Phone: Start: 09-21-[address] Yolis Yu DO -Physical Therapy Work Phone: Start: 09-13-2024 ambulatory Yolis Yu Facility:[facility] Start: 09-13-2024 Non-patient / Non-visit Tio Van DO -[facility] Start: 09-13-2024 End: 09-13-2024 Admission to same day surgery center Tio Van DO -Endoscopy Work Phone: Start: 09-13-2024 End: 09-13-[address] Yolis Yu DO Work Phone: [facility] Work Phone: Start: 09-05-[address] Yolis Yu DO -Physical Therapy Work Phone: Start: 08-29-2024 End: 08-29-[address] Hong Strauss MD -[facility] Start: 08-29-2024 End: 08-29-[address] Yolis Yu DO Work Phone: [facility] Work Phone: Start: 08-15-2024 End: 08-15-[address] Yolis Yu DO Work Phone: [facility] Work Phone: Start: 08-15-2024 End: 08-15-[address] Yolis Yu DO -Cardiovascular Services Work Phone: Start: 08-15-2024 End: 08-15-2024 ambulatory Yolis Fast Facility:[facility] Start: 07-05-2024 End: 07-05-2024 Patient encounter procedure Leslie STUBBS -[facility] Work Phone: Start: 07-05-2024 End: 07-05-2024 ambulatory Leslie Greene Facility:[facility] Start: 06-28-2024 End: 06-28-2024 ambulatory Yolis Gigi Facility:[facility] Start: 06-28-2024 End: 06-28-[address] Hong Strauss MD -[facility] Work Phone: Start: 06-27-2024 End: 06-27-[address] Cristobal Villalta MD -[facility] Work Phone: Start: 06-27-2024 End: 06-27-2024 ambulatory Cristobal Villalta Facility:[facility] Start: 05-29-2024 End: 05-29-2024 Patient encounter procedure Divya Kamara PA-C -[facility] Work Phone: Start: 05-29-2024 End: 05-29-2024 ambulatory Divya STUBBS Facility:[facility] Start: 05-15-2024 Non-patient / Non-visit Dr. Sammy Potts MD -[facility] Work Phone: Start: 05-14-2024 [facility] Start: 05-14-2024 Non-patient / Non-visit Dr. Sammy Potts MD -[facility] Work Phone: Start: 05-14-2024 Non-patient / Non-visit Divya Kamara PA-C -[facility] Start: 05-13-2024 Non-patient / Non-visit Dr. Phuong Salas [facility] Work Phone: Start: 05-13-2024 Non-patient / Non-visit Dr. Ambrocio Henderson MD [facility] Start: 05-12-2024 Non-patient / Non-visit Dr. Phuong [facility] Work Phone: Start: 05-12-2024 Non-patient / Non-visit Dr. Ambrocio Henderson MD [facility] Start: 05-11-2024 Non-patient / Non-visit Dr. Phuong [facility] Work Phone: Start: 05-11-2024 Non-patient / Non-visit Dr. Cristobal Villalta MD [facility] Start: 05-10-2024 Non-patient / Non-visit Dr. Phuong [facility] Work Phone: Start: 05-10-2024 Non-patient / Non-visit Tio Van [facility] Start: 05-09-2024 Non-patient / Non-visit Tio [facility] Start: 05-09-2024 ambulatory Yolis Fast Facility:[facility] Start: 05-09-2024 End: 05-15-2024 Evaluation and management of inpatient Dr. Sammy Potts MD -[facility] Work Phone: Start: 05-08-2024 ambulatory Yolis Fast Facility:[facility] Start: 05-08-2024 Non-patient / Non-visit Dr. Cristobal Villalta MD [facility] Start: 03-30-2024 End: 03-30-2024 ambulatory Yolis Fast Facility:[facility] Procedures Date Procedure Procedure Detail Performing Clinician Start: 12-11-[address] Yolis Yu DO Work Phone: Start: 09-02-2025 Urnls dip stick/tabl et reagent auto microscopy Dr. Yolis Yu DO Work Phone: Start: 11-27-2024 Ultrasound elastogra phy of liver Dr. Yolis Yu DO Work Phone: Start: 11-27-2024 Dual energy X-ray absorptiometry Dr. Yolis Yu DO Work Phone: Start: 11-27-2024 Screening mammography D viri Yu DO Work Phone: Start: 09-13-[address] Yolis Yu DO [...] 09-13-2024 Colonoscopy w/biopsy single/multiple COLONOSCOPY AND BIOPSY [facility] Start: 09-13-2024 Egd transoral biopsy single/multiple EGD BIOPSY SINGLE/MULTIPLE [facility] Start: 09-13-2024 Patient discharge [facility] Start: 08-29-2024 X-ray of sternum, two or more views Sternum min 2 Views [facility] Start: 08-29-2024 X-ray of unilateral ribs, two views without x-ray of chest Ribs Unil 2V No CXR [facility] Start: 06-27-2024 Patient referral [facility] Work Phone: Start: 05-15-2024 Patient discharge [facility] Start: 05-09-2024 [facility] Start: 05-09-2024 Care planning and problem solving actions [facility] Start: 05-09-2024 Application of intermittent pneumatic compression device [facility] Start: 05-09-2024 Following clinical pathway protocol [facility] Start: 05-09-2024 Referral to gastroenterology service [facility] Start: 05-09-2024 Admission procedure [facility] Patient referral [facility] Work Phone: Payers Date Payer Category Payer Self-pay 2010 Medicare [id number] 2001 Unknown [id number] Unknown [id number] 2.16.8 40.1.220206.3.579.2.462 Unknown [id number] 2.16.8 40.1.324269.3.579.2.462 Unknown [id number] 2.16.8 40.1.615421.3.579.2.462 Unknown [id number] 2.16.8 40.1.649260.3.579.2.462 Unknown [id number] 2.16.8 40.1.766391.3.579.2.462 Unknown [id number] 2.16.8 40.1.559421.3.579.2.462 Unknown [id number] 2.16.8 40.1.401948.3.579.2.462 Unknown [id number] 2.16.8 40.1.757314.3.579.2.462 Unknown [id number] 2.16.8 40.1.025472.3.579.2.462 Unknown [id number] 2.16.8 40.1.555505.3.579.2.462 Unknown [id number] 2.16.8 40.1.990771.3.579.2.462 Unknown [id number] 2.16.8 40.1.352295.3.579.2.462 Unknown [id number] 2.16.8 40.1.674962.3.579.2.462 Unknown [id number] 2.16.8 40.1.953359.3.579.2.462 Unknown [id number] 2.16.8 40.1.892551.3.579.2.462 Unknown [id number] 2.16.8 40.1.178774.3.579.2.462 Unknown [id number] 2.16.8 40.1.039425.3.579.2.462 Unknown [id number] 2.16.8 40.1.749736.3.579.2.462 Unknown [id number] 2.16.8 40.1.036415.3.579.2.462 Unknown [id number] 2.16.8 40.1.621130.3.579.2.462 Unknown [id number] 2.16.8 40.1.673368.3.579.2.462 Unknown [id number] 2.16.8 40.1.835074.3.579.2.462 Unknown [id number] 2.16.8 40.1.342386.3.579.2.462 Unknown [id number] 2.16.8 40.1.517992.3.579.2.462 Unknown [id number] 2.16.8 40.1.199988.3.579.2.462 Unknown [id number] 2.16.8 40.1.013837.3.579.2.462 Unknown [id number] 2.16.8 40.1.070629.3.579.2.462 Unknown [id number] 2.16.8 40.1.574691.3.579.2.462 Unknown [id number] 2.16.8 40.1.773870.3.579.2.462 Unknown [id number] 2.16.8 40.1.773346.3.579.2.462 Unknown [id number] 2.16.8 40.1.864189.3.579.2.462 Unknown [id number] 2.16.8 40.1.403785.3.579.2.462 Unknown [id number] 2.16.8 40.1.349649.3.579.2.462 Unknown [id number] 2.16.8 40.1.741897.3.579.2.462 Unknown [id number] 2.16.8 40.1.332866.3.579.2.462 Social History Date Type Detail Facility Start: 05-09-2024 End: 09-07-2024 Tobacco smoking status NHIS Never smoked tobacco (finding) [facility] Start: 09-26-2023 Alcohol Alcohol [facility] Start: 02-20-2013 Lives Lives [facility] Start: 09-26-2023 Tobacco Use Tobacco Use [facility] Start: 1945 Sex Assigned At Female [facility] Sex Female [facility] NEGATED: Highlighted row Not [facility] Goals Date Patient Goal Desired Activity /State Functional Status Date Assessment Result Facility 05-15-2024 Functional status Up ad eileen [facility] Work Phone: 05-14-2024 Functional status Tolerates Activity Well [facility] Work Phone: Mental Status Date Assessment Result Facility 09-13-2024 Cognitive function Level Of Cons ciousness Follows Commands;Drowsy [facility] Work Phone: 09-13-2024 Cognitive function Voice/Name [facility] Work Phone: 05-15-2024 Cognitive function Voice/Name [facility] Work Phone: Clinical Notes 05-09-2024 to 12-31-2024 Note Date & Type Note Facility 12-31-2024 Discharge summary [facility] 11-27-2024 Radiology Diagnostic study note [facility] Imaging Services [address] [place], [place] [address] ABD Limited w/ Elastography MR#: [id number] Acct: [id number] Name: YUSRA LUIS Rep #: [id number] : 1945 F 79 From: Max Green MD PCP: Dr. Yolis Yu DO Status: REG CLI Study:ABD Limited w/ Elastography Date of Exa m: 11/27/24 Exam# [id number] Ordering Dr: Shruthi Yu ra DO PROCEDURE: ABD LIMITED W/ ELASTOGRAPHY REASON FOR EXAM: FATTY LIVER COMPARISON: November 16, 2023. TECHNIQUE: Right upper quadrant abdominal ultrasound. [email or web address] ElastQ Imaging shear wave elastography for non-invasive assessment of liver tissue stiffness. [employer] EPIQ Elite. FINDINGS: LIVER: Size: Unremarkable Length: 14.6 cm Echotexture: Coarsened Contour: Normal Lesions: None identified Elastography: EQI Med: 10.8 kPa EQI Med Jacobo: 1.86 m/s IQR/Med: 21.6 %* GALLBLADDER: Multiple echogenic gallstones are identified. COMMON BILE DUCT: Normal measuring 4 mm . PANCREAS: There is a 9 mm x 12 mm x 6 mm cyst in the body of the pancreas. There is also evidence of a 7 mm x 6 mm x 6 mm cyst in the head of the pancreas. Visualized portions of the right kidney are unremarkable. There is a 7 mm x 8 mm x 6 mm cyst in the inferior medial aspect of the kidney. No right upper quadrant ascites. US/ABD Limited w/ Elastography IMPRESSION: MODERATE TO SEVERE HEPATIC FIBROSIS Pancreatic cysts. Reference Values: SRU <1.37 m/s (5.7kPa): No to mild fibrosis 1.37 m/s - 2.2 m/s: Moderate to severe fibrosis >2.2 m/s (15kPa): Significant fibrosis / cirrhosis METAVIR Score F2 or higher: 1.34 m/s (5.7kPa) F3 or higher: 1.55 m/s (7.3kPa) F4: 1.80 m/s (10kPa) * If the IQR/Med is >30%, the variance in the measurements is a large and the accuracy of the measurement may be in question. Reading Location: [id number] CC: Dr. Yolis Yu DO ~ Night Time Nanny: Signed [facility] 09-13-2024 Consult note [facility] 09-13-2024 Evaluation note Diagnosis Onset Date Resolution GERD (gastroesophageal reflux disease) acute September 13, 2024 8 :22am Ischemic colitis acute September 8:22am GERD (gastroesophageal reflux disease) acute September 26, 2024 12:58pm Ischemic colitis acute September 12:58pm [facility] Work Phone: 1(383) 288-522606-05-2025 Procedure note [facility] Medical Records Department [address] [place] [address] Colonoscopy Report MR#: [id number] Acct: [id number] Name: YUSRA LUIS Rep #:[id number] : 1945 79 From: Tio Friend PCP: Dr. Yolis Yu DO Status:[facility] Patient Name: Yusra Luis Procedure Date: 09/13/2024 9:45 AM Date of : 1945 Age: 79 Procedure: Colonoscopy Indications: Screening for colorectal malignant neoplasm Providers: Tio Van DO Referring MD: Yolis Yu Medicines: Monitored Anesthesia Care Patient Profile: This is a 79 year old female. Refer to note in patient chart for documentation of history and physical. Patient has symptoms of chronic dyspepsia and chronic heartburn. Last Colonoscopy: several years ago. Complications: No immediate complications. Procedure: Pre-Anesthesia Assessment: - Prior to the procedure, a History and Physical was performed, and patient medications and allergies were reviewed. The patient is competent. The risks and benefits of the procedure and the sedation options and risks were discussed with the patient. All questions were answered and informed consent was obtained. Patient identification and proposed procedure were verified by the physician in the pre-procedure area. Mental Status Examination: alert and oriented. Airway Examination: normal oropharyngeal airway and neck mobility. Respiratory Examination: clear to auscultation. CV Examination: normal. ASA Grade Assessment: II - A patient with mild systemic disease. After reviewing the risks and benefits, the patient was deemed in satisfactory condition to undergo the procedure. The anesthesia plan was to use monitored anesthesia care (MAC). Immediately prior to administration of medications, the patient was re-assessed for adequacy to receive sedatives. The heart rate, respiratory rate, oxygen saturations, blood pressure, adequacy of pulmonary ventilation, and response to care were monitored throughout the procedure. The physical status of the patient was re-assessed after the procedure. After I obtained informed consent, the scope was passed under direct vision. Throughout the procedure, the patient's blood pressure, pulse, and oxygen saturations were monitored continuously. The Colonoscope was introduced through the anus and advanced to the cecum, identified by the appendiceal orifice, ileocecal valve and palpation. The colonoscopy was performed without difficulty. The patient tolerated the procedure well. The quality of the bowel preparation was adequate. The ileocecal valve, appendiceal orifice, and rectum were photographed. Scope In: 9:49:11 AM Scope Withdrawal Time 0 hours 10 minutes 47 seconds Scope Out: 10:05:45 AM Total Procedure Duration Time 0 hours 16 minutes 34 seconds Findings: The perianal and digital rectal examinations were normal. A few small-mouthed diverticula were found in the anus, recto-sigmoid colon, sigmoid colon and descending colon. Patchy mild inflammation was found at the hepatic flexure. Biopsies were taken with a cold forceps for histology. Verification of patient identification for the specimen was done. Estimated blood loss was minimal. Impression: - Diverticulosis at the anus, in the recto-sigmoid colon, in the sigmoid colon and in the descending colon. - Patchy mild inflammation was found at the hepatic flexure secondary to colitis. Biopsied. Recommendation: - Discharge patient to home. - Resume previous diet. - Continue present medications. - Await pathology results. - Repeat colonoscopy for surveillance based on pathology results. Procedure Code(s): --- Professional --- 88239, Colonoscopy, flexible; with biopsy, single or multiple CPT copyright 2021 [employer]. All rights reserved. The codes documented in this report are preliminary and upon biodiesel product development manager review may be revised to meet current compliance requirements. Tio Van DO 09/13/2024 10:18:48 AM This report has been signed electronically. Number of Addenda: 0 Note Initiated On: 09/13/2024 9:45 AM 09/13/24 1019 Date _ Tio Van DO Cosigner Signature: Date (if indicated) CC: Dr. Yolis Yu DO; Tio Van DO ~ Date Dictated: 09/13/2445 Date Transcribed: Night Time Nanny: RF Signed [facility]06-05-2025 Procedure note [facility] Medical Records Department [address] [place] [address] Operative Report - CC Letter MR#: [id number] Acct: [id number] Name: YUSRA LUIS Rep #:[id number] : 1945 79 From: Tio Van DO PCP: Dr. Yolis Yu DO Status:[facility] 09/13/2024 Yolis Yu Re : Colonoscopy procedure for Yusra Luis Dear Gigi This procedure was performed on September. My impressions and recommendations are as follows: Impressions : - Diverticulosis at the anus, in the recto-sigmoid colon, in the sigmoid colon and in the descending colon. - Patchy mild inflammation was found at the hepatic flexure secondary to colitis. Biopsied. Recommendations : - Discharge patient to home. - Resume previous diet. - Continue present medications. - Await pathology results. - Repeat colonoscopy for surveillance based on pathology results. My findings are described in the full procedure note, which is enclosed. If I can be of further assistance, please feel free to contact me at . Sincerely, Tio Van DO 09/13/2024 10:18:48 AM This report has been signed electronically. 09/13/24 1019 Date _ Tio Van DO Cosigner Signature: Date (if indicated) CC: Dr. Yolis Yu DO; Tio Van DO ~ Date Dictated: 09/13/24 0945 Date Transcribed: Night Time Nanny: RF Signed [facility]06-05-2025 Procedure note [facility] Medical Records Department [address] [place] [address] EGD Report MR#: [id number] Acct: [id number] Name: YUSRA LUIS Rep #:[id number] : 1945 79 From: Tio Van DO PCP: Dr. Yolis Yu DO Status:[facility] Patient Name: Yusra Luis Procedure Date: 09/13/2024 9:30 AM Date of : 1945 Age: 79 Procedure: Upper GI endoscopy Indications: Heartburn, Suspected esophageal reflux Providers: Tio Van DO Referring MD: Yolis Yu Medicines: Monitored Anesthesia Care Patient Profile: This is a 79 year old female. Refer to note in patient chart for documentation of history and physical. Patient has symptoms of chronic dyspepsia and chronic heartburn. Complications: No immediate complications. Procedure: Pre-Anesthesia Assessment: - Prior to the procedure, a History and Physical was performed, and patient medications and allergies were reviewed. The patient is competent. The risks and benefits of the procedure and the sedation options and risks were discussed with the patient. All questions were answered and informed consent was obtained. Patient identification and proposed procedure were verified by the physician in the pre-procedure area. Mental Status Examination: alert and oriented. Airway Examination: normal oropharyngeal airway and neck mobility. Respiratory Examination: clear to auscultation. CV Examination: normal. ASA Grade Assessment: II - A patient with mild systemic disease. After reviewing the risks and benefits, the patient was deemed in satisfactory condition to undergo the procedure. The anesthesia plan was to use monitored anesthesia care (MAC). Immediately prior to administration of medications, the patient was re-assessed for adequacy to receive sedatives. The heart rate, respiratory rate, oxygen saturations, blood pressure, adequacy of pulmonary ventilation, and response to care were monitored throughout the procedure. The physical status of the patient was re-assessed after the procedure. After obtaining informed consent, the endoscope was passed under direct vision. Throughout the procedure, the patient's blood pressure, pulse, and oxygen saturations were monitored continuously. The Colonoscope was introduced through the mouth, and advanced to the second part of duodenum. The upper GI endoscopy was accomplished without difficulty. The patient tolerated the procedure well. Scope In: 9:40:13 AM Scope Out: 9:45:25 AM Total Procedure Duration Time 0 hours 5 minutes 12 seconds Findings: The Z-line was irregular and was found 40 cm from the incisors. Biopsies were taken with a cold forceps for histology. Verification of patient identification for the specimen was done. Estimated blood loss was minimal. A medium-sized hiatal hernia was present. Patchy mildly erythematous mucosa without bleeding was found in the stomach. Biopsies were taken with a cold forceps for histology. Verification of patient identification for the specimen was done. Estimated blood loss was minimal. Biopsies were taken with a cold forceps for Helicobacter pylori testing. Verification of patient identification for the specimen was done. Estimated blood loss was minimal. No gross lesions were noted in the entire examined duodenum. Biopsies were taken with a cold forceps for histology. Verification of patient identification for the specimen was done. Estimated blood loss was minimal. Impression: - Z-line irregular, 40 cm from the incisors. Biopsied. - Medium-sized hiatal hernia. - Erythematous mucosa in the stomach. Biopsied. - No gross lesions in the entire examined duodenum. Biopsied. Recommendation: - Discharge patient to home. - Resume previous diet. - Continue present medications. Procedure Code(s): --- Professional --- 06843, Esophagogastroduodenoscopy, flexible, transoral; with biopsy, single or multiple CPT copyright 2021 [employer]. All rights reserved. The codes documented in this report are preliminary and upon biodiesel product development manager review may be revised to meet current compliance requirements. Tio Van DO 09/13/2024 10:14:44 AM This report has been signed electronically. Number of Addenda: 0 Note Initiated On: 09/13/2024 9:30 AM 09/13/24 1015 Date _ Tio Van DO Cosigner Signature: Date (if indicated) CC: Dr. Yolis Yu DO; Tio Van DO ~ Date Dictated: 09/13/24929 Date Transcribed: Night Time Nanny: RF Signed [facility]06-05-2025 Procedure note [facility] Medical Records Department [address] [place] [address] Operative Report - CC Letter MR#: [id number] Acct: [id number] Name: YUSRA LUIS Rep #:[id number] : 1945 79 From: Tio Van DO PCP: Dr. Yolis Yu DO Status:REG SDC 09/13/2024 Yolis Yu Re : Upper GI endoscopy procedure for Yusra Pizarror Gigi This procedure was performed on September. My impressions and recommendations are as follows: Impressions : - Z-line irregular, 40 cm from the incisors. Biopsied. - Medium-sized hiatal hernia. - Erythematous mucosa in the stomach. Biopsied. - No gross lesions in the entire examined duodenum. Biopsied. Recommendations : - Discharge patient to home. - Resume previous diet. - Continue present medications. My findings are described in the full procedure note, which is enclosed. If I can be of further assistance, please feel free to contact me at . Sincerely, Tio Van DO 09/13/2024 10:14:44 AM This report has been signed electronically. 09/13/24 1015 Date _ Tio Van DO Cosigner Signature: Date (if indicated) CC: Dr. Yolis Yu DO; Tio Van DO ~ Date Dictated: 09/13/24929 Date Transcribed: Night Time Nanny: RF Signed [facility]06-05-2025 Consult note [facility] Medical Records Department [address] [place] [address] Anesthesia Postop Eval I 09/13/24 1014 MR#: [id number] Acct: [id number] Name: YUSRA LUIS Rep #:[id number] : 1945 79 From: Violeta Chau CRNA PCP: Dr. Yolis Yu DO Status:REG SDC Y Race: C Location: [place] [address] Anesthesia: Postop Eval I Current Vital Signs Temperature: 97.4 F Pulse Rate: 66 Blood Pressure: 110/72 Respiratory Rate: 18 Pulse Ox: 99 Assessment Airway patent: Yes Spontaneous unlabored respirations: Yes nausea: No Vomiting: No Anesthesia Complication: No Fluid Hydration Crystalloid volume administer (ml): 300 Total IV fluid infused: 300 Progress Note Anesthesia document: Postop Eval 1 completed: Yes 09/13/24 1014 a ORE CRUSHER> Date _ Violeta Chau ORE CRUSHER Cosigner Signature: Date CC: ~ Signed [facility]06-05-2025 History and physical note [facility] Medical Records Department [address] [place] [address] History & Physical Exam 09/13/24926 MR#: [id number] Acct: [id number] Name: YUSRA LUIS Rep #:[id number] : 1945 79 From: Tio Friend DO PCP: Dr. Yolis Yu, DO Status:REG [facility] Location: [place] [address] HPI - General General Chief Complaint: Abdominal pain and ischemic colitis HPI Narrative YUSRA LUIS, is a 79 F who presentsJOYCE JANELLE, is a 78 F who presents to the office today for f/u [facility] 1.29.25-2.4.25 with ischemic colitis. GI consulted and underwent colonoscopy. General surgery closely monitored and no did not go through with partial colectomy. Colonoscopy 2.3.25; diverticulosis in the recto-sigmoid colon and in the sigmoidcolon. Stool in theentire colon. Localized severe inflammation was found in thececum at the appendiceal orfice and at the ileocecal valve secondary to ischemiccolitis. severe mucosal changes were found in the ileum secondary to ischemic colitis. Gen Surgery OV 3.19.25; Pt doing well. Benign exam. Staying well hydrated. Recommended repeat scope. Diet advanced to no restrictions. OV 3.27.25; Pt here today to be scheduled for repeat colonoscopy per general surgery recommendation. Pt has been doing well since her admission. She is eating a regular diet and having daily bm. She has no abd pain. She endorses prior hx of gastric ulcers and family hx of esophageal cancer. [facility] Medical History Kidney stone Back pain Difficulty [...] ground emesis, constipation, cramping, diarrhea, dyspepsia, dysphagia, earlysatiety, excessive flatus, fecalincontinence, heartburn, hematemesis, hematochezia, hemorrhoids, [...] today after hospitalization for severe ischemic colitis 1.29.25-2.4.25.She underwent colonoscopy which revealed this. General surgery [...] plan. -EGD and colonoscopy -f/u after procedure 09/13/24928 Cosigner Signature (if applicable): CC: Dr. Yolis Yu, DO; Tio Friend, DO~ Signed [facility] Consult note [facility] Medical Records Department [address] [place] [address] Pre-Anesthesia Evaluation 09/13/24916 MR#: [id number] Acct: [id number] Name: YUSRA LUIS Rep #:[id number] : 1945 79 From: Dorcas LAN PCP: Dr. Yolis Yu DO Status:REG SDC Y Race: C Location: [place] [address] ASA Classification* ASA Classification ASA Classification: 3 [...] Procedure(s): COLONOSCOPY/EGD Anesthesia History Anesthesia History - bell staff: Anesthesia History - bell staff Hx Hospitalization Yes: 04/202409/07/24 12:30 Any Problems [...] take am of surgery PONV PONV - bell staff: PONV - bell staff Female Yes 09/07/24 12:30 HX of Motion [...] 09/13/24 08:52 Respiratory Assessment Respiratory Assessment - bell staff: Respiratory Tract Infection Hx - bell staff Hx Respiratory Tract Infection No 09/07/24 12:30 STOP Sleep Apnea STOP Sleep Apnea - bell staff: STOP Sleep Apnea - bell staff Hx Hypertension Yes: CONTROLLED ON MED 09/07/24 [...] than talking or can be heard through closeddoors)? Tobacco Use History Tobacco Use History - bell staff: Tobacco Use History - bell staff Tobacco Use Non-smoker 08/29/24 13:34 Smoking Status Never smoker 09/07/24 12:30 Hx Tobacco Use No 09/07/24 12:30 Years Smoking Packs Smoked per Day Smoking Cessation Date was within the last 15 years Hx Smoking Cessation Date Hx Smoking Cessation Counseling Hematologic Medial History Hematologic Hx - bell staff: Hematologic Medical Hx - documentation manager Hx of Blood Transfusion No 09/07/24 12:30 [...] confused, unrespo /Reproduction History /Reproductive History - bell staff: /Reproductive Hx- bell staff Hx Now Gestational Age (in weeks): EDC: [...] no additional complaints, except as documented. 09/13/24921 ORE CRUSHER> Date _ Dorcas Melton CRNA Cosigner Signature: Date CC: ~ Signed [facility]03-19-2025 Evaluation note* Diagnosis Onset Date Resolution Status Admit Date Ischemic colitis acute June 272024 3:00pm Ischemic colitis acute July 052024 2:02pm GERD (gastroesophageal reflu x disease) acute September 13, 2024 8 :22am Ischemic colitis acute September 8:22am GERD (gastroesophageal reflu x disease) acute September 26, 2024 12:58pm Ischemic colitis acute September 12:58pm [facility] Work Phone: 1(438) 254-747802-18-2025 Evaluation note* Diagnosis Onset Date Resolution Status Admit Date Ischemic colitis acute May 29, 2024 2:07pm Ischemic colitis acute June 272024 3:00pm Ischemic colitis acute July 052024 2:02pm GERD (gastroesophageal reflu x disease) acute September 13, 2024 8 :22am Ischemic colitis acute September 8:22am [facility] Work Phone: [phone]) 167-735102-04-2025 [facility]01-29-2025 Evaluation note* Diagnosis Onset Date Resolution Status Admit Date Essential hypertension acute Ja nuary 2024 3:02am Type 2 diabetes mellitus without complications acute May 092024 3:02am HTN (hypertension) chronic Januar y 2024 3:02am Abdominal pain, acute resolved Reynaldo ua2024 3:02am Abnormal CT of the abdomen resolved [...] 3:00pm Ischemic colitis acute July 052024 2:02pm [facility] Work Phone: Consult note Author Dorcas Melton [facility] Note Date/Time September 13, 2024 9:22a m [facility] Medical Records Department [address] [place] [address] Pre-Anesthesia Evaluation 09/13/24 0917 MR#: [id number] Acct: [id number] Name: YUSRA LUIS Rep #:[id number] : 1945 79 From: Dorcas LAN PCP: Dr. Yolis Yu, DO Status:REG SDC Y Race: C Location: [place] [address] ASA Classification* ASA Classification ASA Classification: 3 [...] Procedure(s): COLONOSCOPY/EGD Anesthesia History Anesthesia History - bell staff: Anesthesia History - bell staff Hx Hospitalization Yes: 04/202409/07/24 12:30 Any Problems [...] take am of surgery PONV PONV - bell staff: PONV - bell staff Female Yes 09/07/24 12:30 HX of Motion [...] 09/13/24 08:52 Respiratory Assessment Respiratory Assessment - bell staff: Respiratory Tract Infection Hx - bell staff Hx Respiratory Tract Infection No 09/07/24 12:30 STOP Sleep Apnea STOP Sleep Apnea - bell staff: STOP Sleep Apnea - bell staff Hx Hypertension Yes: CONTROLLED ON MED 09/07/24 [...] Tobacco Use History Tobacco Use History - bell staff: Tobacco Use History - bell staff Tobacco Use Non-smoker 08/29/24 13:34 Smoking Status Never smoker 09/07/24 12:30 Hx Tobacco Use No 09/07/24 12:30 Years Smoking Packs Smoked per Day Smoking Cessation Date was within the last 15 years Hx Smoking Cessation Date Hx Smoking Cessation Counseling Hematologic Medial History Hematologic Hx - bell staff: Hematologic Medical Hx - documentation manager Hx of Blood Transfusion No 09/07/24 12:30 [...] confused, unrespo /Reproduction History /Reproductive History - bell staff: /Reproductive Hx- bell staff Hx Now Gestational Age (in weeks): EDC: [...] CRNA Cosigner Signature: Date CC: ~ Signed [facility] Work Phone: Consult note Author Violeta Chau [facility] Note Date/Time September 13, 2024 10:14 am [facility] Medical Records Department [facility] [place] [address] Anesthesia Postop Eval I 09/13/24 1014 MR#: [id number] Acct: [id number] Name: YUSRA LUIS Rep #:[id number] : 1945 79 From: Violeta Chau CRNA PCP: Dr. Yolis Yu, DO Status:REG SDC Y Race: C Location: [place] [address] Anesthesia: Postop Eval I Current Vital Signs [...] 09/13/24 1014 <Electronically signed by Violeta fleming CRNA> Date _ Violeta Chau CRNA Cosigner Signature: Date CC: ~ Signed [facility] Work Phone: Consult note Author Violeta [facility] Note Date/Time September 13, 2024 11:03 am [facility] Medical Records Department [address] [place] [address] Anesthesia Postop Eval II 09/13/24 1057 MR#: [id number] Acct: [id number] Name: YUSRA LUIS Rep #:[id number] : 1945 79 From: Violeta Chau CRNA PCP: Dr. Yolis Yu, DO Status:REG SDC Y Race: C Location: [place] [address] Anesthesia Postop Eval I Sum Postop Eval Completion status Anesthesia document: Postop Eval 1 completed: Yes Anesthesia Postop Eval I Summary Anesthesia Postop Eval I Summary: Anesthesia Postop Eval I: Assessment Summary Airway patent Yes 09/13/24 10:14 ORE [email or web address].CSIR Spontaneous unlabored Yes 09/13/24 10:14 ORE CRUSHER.CSIR respirations Mental status nausea No 09/13/24 10:14 ORE CRUSHER.CSIR Vomiting No 09/13/24 10:14 ORE CRUSHER.CSIR Anesthesia Postop Eval I: Fluid Summary Crystalloid volume administer 300 09/13/24 10:14 ORE CRUSHER.CSIR (ml) Colloids volume administered ( ml) Blood Product volume administered (ml) Total IV fluid infused 300 09/13/24 10:14 ORE CRUSHER.CSIR Anesthesia Postop Eval I: Summary Notes Anesthesia Complication No 09/13/24 10:14 ORE CRUSHER.CSIR Anesthesia Complication Comment: Post-operative progress note Anesthesia: Postop Eval II Evaluation Mental status: Awake Pain Level: 0 nausea: No Vomiting: No 09/13/24 1057 <Electronically signed by Violeta fleming CRNA> Date _ Violeta Chau CRNA Cosigner Signature: Date CC: ~ Signed [facility] Work Phone: Discharge summary Author Radha Wright [facility] Note Date/Time December 31, 2024 4:05pm [facility] [place] [address] / REHABILITATION SERVICES DISCHARGE SUMMARY MR#: [id number] Acct: [id number] Name: YUSRA LUIS Rep #: [id number] : 1945 79 From: Radha Nieves Referring DrIván: Dr. Yolis Yu DO Status: REG RCR Insurance: MEDICARE PART A B ANTHEM Discharge Summary D/C summary: It has been my pleasure to treat YUSRA LUIS referred by Dr. Yolis Yu DO, with the diagnosis of back pain, generalized weakness, falls for a total of 21 visit(s). Discharge Date: 12/31/24 Please see the following information for a summary of their discharge status. Subjective Subjective: Son present today because pt was saying she needed equipment for home. Pt feels that her balance is better. She is not able to drive here in the winter and wants equip at home. Pain R sided chest/rib pain: Pain Intensity (Out of 10): 0 back pain: Pain Intensity (Out of 10): 4 Overall Improvement % Improvement: 60 Objective Objective/Function: FGA 19 hip flex 9.1 and L 7.4 R knee ext 11.5 and L 14.9 R knee flex 5.9 and L 5.2 R hip abd (supine) 9.9 and L 4.5 Bridge: able to do 1/2 normal ROM bridge) Goals Goal 1:: I HEP Goal Progress: Goal Met Goal 2:: Increase LE strength (at the time of the eval: R hip flex 6.8 and L 7.4 R knee ext 11.5 and L 9.9 R knee flex 5.9 and L 5.2 R hip abd (supine) 9.9 and L 4.5 Bridge: able to do 1/2 normal ROM bridge) Goal Progress: Progressing Goal 3:: Decrease thoracic and LBP by 50% Goal Progress: Goal Met Goal 4:: Increase balance (FGA 11 at the time of the eval) Goal Progress: Progressing Goal 5:: Be able to go up and down the steps recip with 1 hand rail and making sure she is able to kick legs out far enough to clear each step. Goal Progress: Progressing Goal 6:: Be able to walk BW with increase step length and more control Goal Progress: Progressing Plan Plan: Dc PT to HEP Advised pt to no get a TM and a bike with moveable arms would be better. Pt is able to get weights to progress HEP but not needed. D/C Information Discharge Comments: DC PT to HEP d/c sentence: If there are questions or concerns regarding this patient's physical therapy, please feel free to call me at [phone]. Thank you for the referral of thispatient. Sincerely, Radha Wright, NEEMA Balance/Gait/Functional tests Balance/Special Test Scores Functional Gait Assessment Score: 19 % Disability: 36.6700 Oswestry Low Back Score: 8 Improvement % Improvement: 60 <Electronically signed by Radha Wright MPT> 12/31/24 1409 CC: Dr. Yolis Yu DO ~ Signed [facility] Work Phone: History and physical note Author Tio Van [facility] Note Date/Time September 13, 2024 9:29a m [facility] Medical Records Department [address] [place] [address] History & Physical Exam 09/13/2427 MR#: [id number] Acct: [id number] Name: YUSRA LUIS Rep #:[id number] : 1945 79 From: Tio Van DO PCP: Dr. Yolis Yu DO Status:REG [facility] Location: [place] [address] HPI - General General Chief Complaint: Abdominal pain and ischemic colitis HPI Narrative YUSRA LUIS, is a 79 F who presentsJOYCE [...] scope. Diet advanced to no restrictions. OV 3.27.25; Pt here today to be scheduled for repeat colonoscopy per general surgery recommendation. Pt has been doing well since her admission. She is eating a regular diet and having daily bm. She has no abd pain. She endorses prior hx of gastric ulcers and family hx of esophageal cancer. [facility] Medical History Kidney stone Back pain Difficulty [...] -EGD and colonoscopy -f/u after procedure 09/13/24 0929 <Electronically signed by Tio Van DO> Cosigner Signature (if applicable): CC: Dr. Yolis Yu DO; Tio Van DO~ Signed [facility] Work Phone: Reason for referral (narrative)No reason for referral information availableWMagruder [facility] Work Phone: Chief Complaint and Reason for [...] SEGMENTAL COLITIS, ACUTE May 15, 2024 8:31am [facility] FU May 29, 2024 2:07pm WOUND CHECK [...] :02am Sudden onset of severe abdominal pain Ja nuary 2024 3:02am Ischemic colitis May 29, 2024 [...] SEGMENTAL COLITIS, ACUTE May 15, 2024 8:31am [facility] FU May 29, 2024 2:07pm WOUND CHECK June 27, 2024 3:0 0pm Pacer Check Remote June 28, 2024 11: 52pm Vascular disorder of intestine, unspecif ied July 05, 2024 2:02pm Localized edema August 15, 2024 11:13a m XRAY August 29, 2024 1:35p m Chief Complaint Admit Date [facility] May 29, 2024 2:07pm WOUND CHECK June [...] 2024 8:22a m Chief Complaint Admit Date [facility] May 29, 2024 2:07pm WOUND CHECK June [...] 2:0 2pm [facility] 8:22am Ischemic colitis September 13, 2024 8:22a m [facility]es[facility] 12:58pm Ischemic colitis September 26, 2024 12:5 8pm Chief Complaint Admit Date Localized edema August 15, 2024 11:13a m BLE EDEMA August 15, 2024 11:25a m XRAY August 29, 2024 1:35p m COLONOSCOPY F/U September 26, 2024 12:5 8pm Pacer Check Remote September 27, 2024 9:00 pm SCREENING, FATTY LIVER, CAROTID STENOSIS November 27, 2024 6:50am BACK PAIN, RX HERE November 28, 2024 10 :00am Reason for Visit Admit Date [facility]es[facility] 20[facility] 8:22am Ischemic colitis September 13, 2024 8:22a m [facility]D [facility]gastroes[facility] reflux disease[facility] 20[facility] 12:58pm Ischemic colitis September 26, 2024 12:5 8pm Chief Complaint Admit Date XRAY August 29, 2024 1:35p m COLONOSCOPY F/U September 26, 2024 12:5 8pm Pacer Check Remote September 27, 2024 9:00 pm SCREENING, FATTY LIVER, CAROTID STENOSIS November 27, 2024 6:50am CAROTID STENOSIS November 27, 2024 8: 44am BACK PAIN, RX HERE November 28, 2024 10 :00am FASTING December 11, 2024 8:32am Chief Complaint Admit Date COLONOSCOPY F/U September 26, 2024 12:5 8pm Pacer Check Remote September 27, 2024 9:00 pm SCREENING, FATTY LIVER, CAROTID STENOSIS November 27, 2024 6:50am CAROTID STENOSIS November 27, 2024 8: 44am FASTING December 11, 2024 8:32am Pacer Check Remote December 27, 2024 11:07pm BACK PAIN, RX HERE December 31, 2024 12:30pm Family History No Family History Records Found Relationship Condition Age at Onset Recorded Date/T dayron Unknown Family History?Stroke Unknown Octobe r 2013 2:12pm Family History?Stroke Unknown Octobe r 2013 2:12pm Relationship Condition Age at Onset Recorded Date/T dayron Unknown Family History?Stroke Unknown 2013 2:12pm Family History?Stroke Unknown August 292024 1:34pm Advance Directives No Advanced Directives Records Found Advance Directive Response Recorded Date/ Time Living Will Yes May 09 5:03am Do you have a Healthcare Power of Granulator Tender? Yes May 09, 2024 5:03am Name of Medical Power of Granulator Tender Jerardo Luis May 09, 2024 5:03am Advance Directives No January 12, 2014 2:03pm Advance Directive Response Recorded Date/ Time Advance Directives No August 29 1:34pm Living Will Yes May 09 5:03am Do you have a Healthcare Power of Granulator Tender? Yes May 09, 2024 5:03am Name of Medical Power of Granulator Tender Jerardomadalyn Luis May 09, 2024 5:03am Advance Directive Response Recorded Date/ Time Advance Directives No August 29 1:34pm Do you have a Healthcare Power of Granulator Tender? Yes September 07, 2024 12:30pm Advance Directive Response Recorded Date/ Time Do you have a Healthcare Power of Granulator Tender? Yes September 07, 2024 12:30pm Advance Directives No August 29 1:34pm Summary Purpose Additional Source Comments Care Teams [...] 2024 End: May 29, 2024 Divya STUBBS PA-C Attending Provider Active Start: May 29, 2024 [...] art: September 13, 2024 Dr. Tio Van , Attending Provider Active Start: September 13, 2024 Dr. Tio Van , DO Other Provider Active St art: September [...] May 15, 2024 Dr. Sammy Singer , Admit Provider Active Start: May 09, 2024 End: May 15, 2024 Dr. Sammy Singer DO Other Provider Active Start: May 09, [...] Start: May 09, 2024 Dr. David Cornell DO Emergency Provider Active Start: May 09, 2024 Dr. Sammy Singer DO Admit Provider Active Start: May 09, 2024 Dr. Sammy Singer DO Other Provider Active Start: May 09, 2024 Dr. Phuong Salas DO Referring Provider Active S tart: May 09, 2024 Dr. Phuong Salas , Other Provider Active Start : May 09, 2024 Dr. Tio Van , Attending Provider Active Start: May 09, 2024 [...] Start: May 10, 2024 Dr. David Cornell DO Emergency Provider Active Start: May 10, 2024 Dr. Sammy Singer , Admit Provider Active Start: May 10, 2024 Dr. Sammy Singer , DO Other Provider Active Start: May 10, 2024 Dr. Phuong Salas , DO Attending Provider Active S tart: May 10, 2024 Dr. Phuong Salas , Other Provider Active Start : May 10, 2024 Team Status: Active Member Role Status Dates Dr. Yolis Yu DO Primary Care Provider Active Start: May 11, 2024 Dr. David Cornell , Emergency Provider Active Start: May 11, 2024 Dr. Sammy Singer , Admit Provider Active Start: May 11, 2024 Dr. Sammy Singer , Other Provider Active Start: May 11, 2024 Dr. Phuong Salas , Other Provider Active Start : May 11, 2024 Dr. Cristobal Villalta MD Attending Provider Active Start: May 11, 2024 Team Status: Active Member Role Status Dates Dr. Yolis Yu DO Primary Care Provider Active Start: May 11, 2024 Dr. David Cornell DO Emergency Provider Active Start: May 11, [...] May 13, 2024 Dr. David Cornell , Emergency Provider Active Start: May 13, 2024 [...] 13, 2024 Dr. Phuong Salas , DO Attending Provider Active S tart: May 13, 2024 Dr. Phuong Salas , DO Other Provider Active Start : May 13, 2024 Team Status: Active Member Role Status Dates Dr. Yolis Yu DO Primary Care Provider Active Start: May 14, 2024 Dr. David Cornell DO Emergency Provider Active Start: May 14, 2024 Dr. Sammy Singer , DO Admit Provider Active Start: May 14, 2024 Dr. Sammy Singer DO Other Provider Active Start: May 14, 2024 Dr. Sammy Potts MD Other Provider Active Star t: May 14, 2024 Dr. Phuong Salas , DO Other [...] May 14, 2024 Dr. Phuong Salas , DO Other [...] May 14, 2024 Dr. Phuong Salas , DO Other Provider Active Start : May 14, 2024 Dr. Tio Van , Attending Provider Active Start: May 14, 2024 [...] Start: September 13, 2024 Dr. Tio Van , Other Provider Active St art: September 13, [...] Provider Active St art: October 03, 2024 Team Status: Inactive Member Role/Relationship Status [...] September 27, 2024 Dr. Hong Strauss MD Referring Provider Active S tart: September 27, 2024 End: September 27, 2024 Team Status: Inactive Member Role/Relationship Status Dates Dr. Yolis Yu DO Primary Care Provider Active Start: November 27, 2024 End: November 27, 2024 Dr. Yolis Yu DO Attending Provider Active St art: November 27, 2024 End: November 27, 2024 Dr. Yolis Yu DO Referring Provider Active St art: November 27, 2024 End: November 27, 2024 Team Status: Active Member Role/Relationship Status Dates Dr. Yolis Yu DO Primary Care Provider Active Start: November 28, 2024 Dr. Yolis Yu DO Attending Provider Active St art: November 28, 2024 Dr. Yolis Yu DO Referring Provider Active St art: November 28, 2024 Team Status: Inactive Member Role/Relationship [...] September 27, 2024 Dr. Hong Strauss MD Referring Provider Active S tart: September 27, 2024 End: September 27, 2024 Team Status: Inactive Member Role/Relationship Status Dates Dr. Yolis Yu DO Primary Care Provider Active Start: November 27, 2024 End: November 27, 2024 Dr. Yolis Yu DO Attending Provider Active St art: November 27, 2024 End: November 27, 2024 Dr. Yolis Yu DO Referring Provider Active St art: November 27, 2024 End: November 27, 2024 Team Status: Active Member Role/Relationship Status Dates Dr. Ovi Hugo MD Attending Provider Active Start: November 27, 2024 Dr. Yolis Yu DO Referring Provider Active St art: November 27, 2024 Team Status: Active Member Role/Relationship Status Dates Dr. Yolis Yu DO Primary Care Provider Active Start: November 28, 2024 Dr. Yolis Yu DO Attending Provider Active St art: November 28, 2024 Dr. Yolis Yu DO Referring Provider Active St art: November 28, 2024 Team Status: Inactive Member Role/Relationship Status Dates Dr. Yolis Yu DO Primary Care Provider Active Start: December 11, 2024 End: December 11, 2024 Dr. Yolis Yu DO Attending Provider Active St art: December 11, 2024 End: December 11, 2024 Dr. Yolis Yu DO Referring Provider Active St art: December 11, 2024 End: December 11, 2024 Team Status: Active Member Role/Relationship Status Dates Dr. Yolis Yu DO Primary care physician Active Team Status: Inactive Member Role/Relationship Status Dates Dr. Yolis Yu DO Primary care physician Active Start: September 13, 2024 End: September 13, 2024 Dr. Yolis Yu DO Referring Provider Active St art: September 13, 2024 End: September 13, 2024 Dr. Tio Van DO Attending physician Active Start: September 13, 2024 End: September 13, 2024 Team Status: Active Member Role/Relationship Status Dates Dr. Yolis Yu DO Primary care physician Active Start: September 13, 2024 Dr. Yolis Yu DO Referring Provider Active St art: September 13, 2024 Dr. Tio Van DO Attending physician Active Start: September 13, 2024 Dr. Tio Van DO Nurse Practitioner Active Start: September 13, 2024 Team Status: Inactive Member Role/Relationship Status Dates Dr. Yolis Yu DO Primary care physician Active Start: September 26, 2024 End: September 26, 2024 Dr. Yolis Yu DO Referring Provider Active St art: September 26, 2024 End: September 26, 2024 ENOC Clifford Attending physician Active Start: September 26, 2024 End: September 26, 2024 Team Status: Inactive Member Role/Relationship Status Dates Dr. Yolis Yu DO Primary care physician Active Start: September 27, 2024 End: September 27, 2024 Dr. Hong Strauss MD Attending physician Active Start: September 27, 2024 End: September 27, 2024 Dr. Hong Strauss MD Referring Provider Active S tart: September 27, 2024 End: September 27, 2024 Team Status: Inactive Member Role/Relationship Status Dates Dr. Yolis Yu DO Primary care physician Active Start: November 27, 2024 End: November 27, 2024 Dr. Yolis Yu DO Attending physician Active S tart: November 27, 2024 End: November 27, 2024 Dr. Yolis Yu DO Referring Provider Active St art: November 27, 2024 End: November 27, 2024 Team Status: Active Member Role/Relationship Status Dates Dr. Ovi Hugo MD Attending physician Active Start: November 27, 2024 Dr. Yolis Yu DO Referring Provider Active St art: November 27, 2024 Team Status: Inactive Member Role/Relationship Status Dates Dr. Yolis Yu DO Primary care physician Active Start: December 11, 2024 End: December 11, 2024 Dr. Yolis Yu DO Attending physician Active S tart: December 11, 2024 End: December 11, 2024 Dr. Yolis Yu DO Referring Provider Active St art: December 11, 2024 End: December 11, 2024 Team Status: Inactive Member Role/Relationship Status Dates Dr. Yolis Yu DO Primary care physician Active Start: December 27, 2024 End: December 27, 2024 Dr. Hong Strauss MD Attending physician Active Start: December 27, 2024 End: December 27, 2024 Team Status: Inactive Member Role/Relationship Status Dates Dr. Yolis Yu DO Primary care physician Active Start: December 31, 2024 End: December 31, 2024 Dr. Yolis Yu DO Attending physician Active S tart: December 31, 2024 End: December 31, 2024 Dr. Yolis Yu DO Referring Provider Active St art: December 31, 2024 End: December 31, 2024 INFORMATION SOURCE (unrecogn ized section and content) DATE CREATED AUTHOR 02/08/2025 [facility] FOR RECORDS PERTAINING TO PATIENTS WHO [...] BE BASED ON THE PRIMARY CLINICAL RECORDS. [facility]. provides no warranty or guarantee of the accuracy or completeness of information in this document.
[2025-02-26 00:53] LABS: CREATININE FINGERSTICK 1.6 mg/dL (0.55-1.02); EGFR FINGERSTICK 34.0000 mL/min (>60)
== END | disposition home or self-care (01) ==
LOC: CT 13:14
PROVIDERS: PCP Internal Medicine; Referring Provider Internal Medicine; Visit Provider Internal Medicine
DX: I65.29 Occlusion and stenosis of unspecified carotid artery (principal)
CPT/HCPCS: 70498; Q9967

== ENCOUNTER → 2025-03-15 | Outpatient (CLI) | payer MEDICARE, BC, SELFPAY ==
[2025-03-15 12:16] LABS: Hematocrit 37.0 % (37-47); Hemoglobin 12.4 g/dL (12.0-15.0); Immature Granulocytes Count 0.020 X10^3/uL (0.0-0.0); Mean Corp Hgb Conc 33.5 g/dL (32-36); Mean Corpuscular Volume 93.0 fL (81-99); Mean Platelet Vol. 10.7 fl (6.2-12.0); NRBC Flagged by Analyzer 0 % (0-5); Platelet Count 222 K/mm3 (150-450); RBC Distribution Width CV 12.9 % (11.6-14.6); RBC Distribution Width SD 44.5 fl (35.1-43.9); Red Blood Count 3.98 M/mm3 (4.2-5.4); White Blood Count 6.8 K/mm3 (4.4-11.0)
[2025-03-15 12:31] LABS: AST(SGOT) 22 U/L (<=31); Alanine Aminotransfer ALT/SGPT 19 U/L (<=34); Albumin, Serum 3.9 g/dL (3.4-4.8); Alkaline Phosphatase 85 U/L (35-104); Anion Gap 11 (5-15); BUN 7 mg/dL (4-19); BUN/Creat Ratio 13.9 RATIO (10-20); Calcium,Total 9.1 mg/dL (7.6-11.0); Carbon Dioxide 22.7 mmol/L (21.0-32.0); Chloride 95 mmol/L (98-108); Globulin 2.8 g/dL (2.2-4.2); Glucose 107 mg/dL (70-99); Potassium 4.4 mmol/L (3.3-5.1)
[2025-03-15 13:20] LABS: Creatinine, Urine (random) 70.00 mg/dL (28.00-217.00); Microalbumin,Random Urine < 12.0 mg/L (<20 mg/L)
[2025-03-18 13:07] LABS: Cholesterol 131 mg/dL (<=200); Low Density Lipoprotein Calc. 81 mg/dL; Triglycerides 56 mg/dL; Very Low Density Lipoprotein 11 mg/dL (5-40); cholesterol:hdl ratio screen 3.46
== END | disposition home or self-care (01) ==
LOC: CIMLAB 10:14
PROVIDERS: PCP Internal Medicine; Referring Provider Internal Medicine; Visit Provider Internal Medicine
DX: E11.59 Type 2 diabetes mellitus with other circulatory complications (principal); K76.0 Fatty (change of) liver, not elsewhere classified; E78.5 Hyperlipidemia, unspecified
CPT/HCPCS: 36415; 80053; 80061; 82043; 82105; 82570; 85025